=== PATIENT | female | born 1990 | race Caucasian/White ===

== ENCOUNTER 2016-04-05 22:18 | Emergency (ER) | payer OTHER ==
[~2016-04-05] VITALS: Ht 154.9 cm; Wt 109.9 kg
[~2016-04-05 22:18] MED LIST: LEXA20TA PO; METO25TA3 PO; METR-1 PO; OMEP20TA PO; QUET150XR PO
[2016-04-05 22:59] VITALS: BP 116/77; PULSE 81; RESP 18; TEMP 98.6; O2SAT 99
[2016-04-05 23:33] LABS: BLOOD, URINE TRACE (NEG); GLUCOSE,URINE NEG (NEG); KETONE, URINE NEG (NEG); NITRITE,URINE NEG (NEG); PH, URINE 5.5 (5.0-8.5)
[2016-04-05 23:39] LABS: METHOD OF COLLECTION CLEAN CATCH; MUCUS URINE MOD /lpf (OCC); URINE COLOR AMBER (YELLW/STRAW)
[2016-04-05 23:41] LABS: RBC, URINE 0-3 /hpf (0-3); WBC, URINE 0-2 /hpf (0-5)
[2016-04-05 23:43] LABS: COMMENT (UR) CULT NOT INDICATED; CULTURE IF INDICATED CULT NOT INDICATED
[2016-04-06] MEDS ORDERED: HYDR-3533 PO (00:19)
--- NOTE | 2016-04-06 00:19 | PD ---
HPI Chief Complaint: Pain: Acute or Chronic Time Seen by Provider: 23:53 Travel History International Travel<30 days: No Contact w/Intl Traveler<30days: No Traveled to known affect area: No History of Present Illness HPI 25-year-old female arrives with right low back pain. It radiates along the posterior right lower extremity to about the knee or so. Duration about 4 hours. Onset somewhat acute. It occurred at rest. it's worse with ambulation. No weakness or fall. No fever. No fecal urinary incontinence. No history of IV drug abuse. PFSH Past Medical History Hx Anticoagulant Therapy: No ADHD: Yes Autoimmune Disease: No Blood Disorders: No Bipolar Disorder: Yes Anxiety: Yes Depression: Yes Heart Rhythm Problems: Yes (SVT) Cardiac Catheterization: No Cardiovascular Problems: Yes (HEART RECORDER) High Cholesterol: No Chemotherapy: No Chest Pain: Yes Congestive Heart Failure: No Cerebrovascular Accident: No Diabetes: No Diminished Hearing: No Endocrine: No Gastrointestinal Disorders: Yes (FATTY LIVER) GERD: Yes Genitourinary: No Hepatitis: No Hiatal Hernia: No Heparin Induced Thrombocytopen: No Hypertension: No Immune Disorder: No Implanted Vascular Access Dvce: Yes (FOR HEART) Musculoskeletal: No Psychiatric: Yes (BIPOLAR) Reproductive: Yes Respiratory: No Immunizations Current: Yes Seizures: No Thyroid Disease: No Ulcer: Yes PNEUMOCCOCAL Vaccine (Year): 2 ?: Not LMP: 10 DAYS AGO Menopausal: No : 1 Para: 0 Miscarriage: 1 : 0 Ovarian Cysts: Yes Past Surgical History Abdominal Surgery: Yes (ADHESION REMOVAL) AICD: No Cardiac Surgery: No Coronary Artery Bypass Graft: No Ear Surgery: No Endocrine Surgery: No Eye Surgery: No Genitourinary Surgery: No Gynecologic Surgery: No Hysterectomy: No Joint Replacement: No Neurologic Surgery: No Oral Surgery: No Pacemaker: No Thoracic Surgery: No Other Surgery: Yes (LOOP RECORDER IMPLANT IN CHEST) Family History Family Myocardial Infarction: Yes (GRANDFATHER AT AGE 38) Social History Alcohol Use: Yes (OCC) Tobacco Use: Yes (1 PPD) Substance Use: Yes Allergies-Medications (Allergen,Severity, Reaction): Coded Allergies: No Known Allergies (Verified , 04/05/16) Reported Meds & Prescriptions Reported Meds & Active Scripts Active Lortab (Hydrocodone-Acetaminophen) 5-325 Mg Tab 1-2 Tab PO Q6H PRN Reported Omeprazole 20 Mg Tab 20 Mg PO DAILY Metoprolol Tartrate 25 Mg Tab 25 Mg PO DAILY Lexapro (Escitalopram Oxalate) 20 Mg Tab 20 Mg PO DAILY Review of Systems Except as stated in HPI: all other systems reviewed are Neg General / Constitutional: No: Fever, Chills Musculoskeletal: Positive: Pain Physical Exam Narrative GENERAL: 25-year-old female no acute distress well-nourished well-developed SKIN: Warm and dry. HEAD: Atraumatic. Normocephalic. EYES: Pupils equal and round. No scleral icterus. No injection or drainage. ENT: No nasal bleeding or discharge. Mucous membranes pink and moist. NECK: Trachea midline. No JVD. CARDIOVASCULAR: Regular rate and rhythm. No murmur appreciated. RESPIRATORY: No accessory muscle use. Clear to auscultation. Breath sounds equal bilaterally. GASTROINTESTINAL: Abdomen soft, non-tender, nondistended. Hepatic and splenic margins not palpable. MUSCULOSKELETAL: No obvious deformities. No clubbing. No cyanosis. No edema. Tenderness overlying the region of the right iliac crest. 2+ deep tendon reflexes at the patellar tendons bilaterally. No ankle clonus on either side. The patient is ambulatory with a normal gait. NEUROLOGICAL: Awake and alert. No obvious cranial nerve deficits. Motor grossly within normal limits. Normal speech. PSYCHIATRIC: Appropriate mood and affect; insight and judgment normal. Data Data Last Documented VS Vital Signs Date Time Temp Pulse Resp B/P Pulse Ox O2 Delivery O2 Flow Rate FiO2 04/05/16 22:59 98.6 81 18 116/77 99 Orders Urinalysis - C+S If Indicated (04/05/16 23:05) Ed Urine Pregnancytest Poc (04/05/16 23:05) Ketorolac Inj (Toradol Inj) (04/06/16 00:30) Acetamin-Hydrocod 325-7.5 Mg ([place] 7.5 (04/06/16 00:30) Labs Laboratory Tests Test 04/05/16 23:15 Urine Collection Type CLEAN CATCH Urine Color PEREZ Urine Turbidity SLIGHT Urine pH 5.5 Urine Specific [place] 1.028 Urine Protein NEG mg/dL Urine Glucose (UA) NEG mg/dL Urine Ketones NEG mg/dL Urine Occult Blood TRACE Urine Nitrite NEG Urine Bilirubin NEG Urine Leukocyte Esterase NEG Urine RBC 0-3 /hpf Urine WBC 0-2 /hpf Urine Squamous Epithelial 6-8 /hpf Cells Urine Mucus MOD /lpf Microscopic Urinalysis Comment CULT NOT INDICATED MDM Medical Decision Making Medical Screen Exam Complete: Yes Emergency Medical Condition: Yes Medical Record Reviewed: Yes Differential Diagnosis Sciatica, chronic pain, myofascial strain, epidural abscess Narrative Course Compression of the cord considered reasonably safely unlikely based on history and exam. Return precautions discussed. Diagnosis Primary Impression: Sciatica of right side Referrals: Farooq Martins MD 2 days Additional Instructions: You have a choice when it comes to health care, and we are glad that you chose [facility]. Hopefully, we have met your expectations on today's visit. You are welcome to return to [facility] at any time, as we are committed to meeting the health care needs of our community. Med/Other Pt SpecificInfo: Prescription(s) given Scripts Hydrocodone-Acetaminophen (Lortab)5-325 Mg Tab1-2 Tab PO Q6H PRN (PAIN SCALE 6 TO 10) #6 TAB Ref 0 Prov:Luis Solis MD 04/06/16 Disposition: DISCHARGE HOME Condition: Stable Luis Solis MD Apr 06, 2016 00:19
[2016-04-06] MEDS ORDERED: KETOROLAC TROMETHAMINE 60 MG/2 ML (IM) VIAL IM ONE (00:30)
[2016-04-06] MEDS ORDERED: ACETAMINOPHEN/HYDROcodone 325 MG/7.5 MG TAB PO ONE (00:30)
== END 2016-04-06 01:15 | disposition home or self-care (01) ==
LOC: PHED 22:18
DX: M54.31 Sciatica, right side (principal); F17.210 Nicotine dependence, cigarettes, uncomplicated; F31.9 Bipolar disorder, unspecified; F90.9 Attention-deficit hyperactivity disorder, unspecified type; F41.8 Other specified anxiety disorders; F19.10 Other psychoactive substance abuse, uncomplicated
CPT/HCPCS: 81001; 84703; 96372; 99283; J1885

== ENCOUNTER 2016-07-15 18:03 | Emergency (ER) | payer OTHER ==
[~2016-07-15] VITALS: Ht 154.9 cm; Wt 84.3 kg
[~2016-07-15 18:03] MED LIST changes: +HYDR-3533 PO; -METR-1 PO; -QUET150XR PO
[2016-07-15 18:09] VITALS: BP 109/75; PULSE 79; RESP 16; TEMP 98.4; O2SAT 99
[2016-07-15] MEDS ORDERED: LEXA20TA PO (18:18)
[2016-07-15] MEDS ORDERED: HYDR-4107 PO (18:18)
[2016-07-15] MEDS ORDERED: FLEC1TAB9 PO (18:18)
[2016-07-15] MEDS ORDERED: METO25TA3 PO (18:18)
[2016-07-15] MEDS ORDERED: SERO50TA PO (18:18)
[2016-07-15 18:33] LABS: BLOOD, URINE LARGE (NEG); GLUCOSE,URINE NEG (NEG); KETONE, URINE NEG (NEG); NITRITE,URINE NEG (NEG)
--- NOTE | 2016-07-15 18:35 | PD ---
HPI Chief Complaint: Complaint Time Seen by Provider: 18:33 Travel History International Travel<30 days: No Contact w/Intl Traveler<30days: No Traveled to known affect area: No History of Present Illness HPI Patient comes in complaining of left low back pain began earlier today while at work. Patient denies any known trauma or strenuous activity. Patient states he took her last Lortab pill for this with little improvement of symptoms. Denies any fevers, nausea, vomiting, diarrhea, abdominal pain, loss or change in bowel or bladder, vaginal discharge, or numbness or tingling anywhere. Patient states she's had similar in the past secondary to muscle spasms. Describes pain as sharp stabbing pain occasionally radiates down her left lower extremity. PFSH Past Medical History Hx Anticoagulant Therapy: No ADHD: Yes Autoimmune Disease: No Blood Disorders: No Bipolar Disorder: Yes Anxiety: Yes Depression: Yes Heart Rhythm Problems: Yes (SVT) Cardiac Catheterization: No Cardiovascular Problems: Yes (HEART RECORDER) High Cholesterol: No Chemotherapy: No Chest Pain: Yes Congestive Heart Failure: No Cerebrovascular Accident: No Diabetes: No Diminished Hearing: No Endocrine: No Gastrointestinal Disorders: Yes (FATTY LIVER) GERD: Yes Genitourinary: No Hepatitis: No Hiatal Hernia: No Heparin Induced Thrombocytopen: No Hypertension: No Immune Disorder: No Implanted Vascular Access Dvce: Yes (FOR HEART) Musculoskeletal: No Psychiatric: Yes (BIPOLAR) Reproductive: Yes Respiratory: No Immunizations Current: Yes Seizures: No Thyroid Disease: No Ulcer: Yes PNEUMOCCOCAL Vaccine (Year): 2 ?: Not LMP: LAST MONTH Menopausal: No : 1 Para: 0 Miscarriage: 1 : 0 Ovarian Cysts: Yes Past Surgical History Abdominal Surgery: Yes (ADHESION REMOVAL) AICD: No Cardiac Surgery: No Coronary Artery Bypass Graft: No Ear Surgery: No Endocrine Surgery: No Eye Surgery: No Genitourinary Surgery: No Gynecologic Surgery: No Hysterectomy: No Joint Replacement: No Neurologic Surgery: No Oral Surgery: No Pacemaker: No Thoracic Surgery: No Other Surgery: Yes (LOOP RECORDER IMPLANT IN CHEST) Family History Family Myocardial Infarction: Yes (GRANDFATHER AT AGE 38) Social History Alcohol Use: Yes (OCC) Tobacco Use: Yes (1 PPD) Substance Use: Yes (MARIJUANA) Allergies-Medications (Allergen,Severity, Reaction): Coded Allergies: No Known Allergies (Verified , 07/15/16) Reported Meds & Prescriptions Reported Meds & Active Scripts Active Lortab (Hydrocodone-Acetaminophen) 5-325 Mg Tab 1 Tab PO Q8HR PRN Zofran Odt (Ondansetron Odt) 4 Mg Tab 4 Mg SL Q6HR PRN Flomax (Tamsulosin HCl) 0.4 Mg Cap 0.4 Mg PO HS Ibuprofen 800 Mg Tab 800 Mg PO Q8H PRN Lortab (Hydrocodone-Acetaminophen) 5-325 Mg Tab 1-2 Tab PO Q6H PRN Reported Hydrocodone-Acetaminophen 5-300 Mg Tab Unknown Dose PO Q4H PRN Flecainide (Flecainide Acetate) 150 Mg Tab 500 Mg PO BID Metoprolol Tartrate 25 Mg Tab 25 Mg PO BID Lexapro (Escitalopram Oxalate) 20 Mg Tab 25 Mg PO DAILY Seroquel (Quetiapine Fumarate) 50 Mg Tab 50 Mg PO DAILY Omeprazole 20 Mg Tab 20 Mg PO DAILY Metoprolol Tartrate 25 Mg Tab 25 Mg PO DAILY Lexapro (Escitalopram Oxalate) 20 Mg Tab 20 Mg PO DAILY Review of Systems Except as stated in HPI: all other systems reviewed are Neg Physical Exam Narrative GENERAL: Well-developed, overly nourished, in no acute distress, and non-ill appearing. SKIN: Focused skin assessment warm and dry. HEAD: Atraumatic. Normocephalic. EYES: Pupils equal and round. EOMI. No scleral icterus. No injection or drainage. ENT: No nasal bleeding or discharge. Mucous membranes pink and moist. NECK: Trachea midline. Supple. No nuclear rigidity. RESPIRATORY: No accessory muscle use. No respiratory distress. GASTROINTESTINAL: Abdomen soft, non-tender, nondistended. Hepatic and splenic margins not palpable. Normal bowel sounds 4. No pulsatile mass. MUSCULOSKELETAL: No obvious deformities. No clubbing. No cyanosis. No edema. Full range of motion. No tenderness or crepitus or midline lumbar spine. Patient reports tenderness to palpation near her left SI joint. NEUROLOGICAL: Awake and alert. No obvious cranial nerve deficits. Motor grossly within normal limits. Normal speech. PSYCHIATRIC: Appropriate mood and affect; insight and judgment normal. Data Data Last Documented VS Vital Signs Date Time Temp Pulse Resp B/P Pulse Ox O2 Delivery O2 Flow Rate FiO2 07/15/16 20:27 18 07/15/16 18:09 98.4 79 109/75 99 Orders Urinalysis - C+S If Indicated (07/15/16 18:07) Ed Urine Pregnancytest Poc (07/15/16 18:27) Ondansetron Odt (Zofran Odt) (07/15/16 18:45) Ketorolac Inj (Toradol Inj) (07/15/16 18:45) Ct Abd/Pel W/O Iv Contrast (07/15/16 ) Acetamin-Hydrocod 325-5 Mg ([place] 5-325 (07/15/16 19:45) Labs Laboratory Tests Test 07/15/16 18:20 Urine Color YELLOW Urine Turbidity CLEAR Urine pH 6.0 Urine Specific [place] 1.016 Urine Protein NEG mg/dL Urine Glucose (UA) NEG mg/dL Urine Ketones NEG mg/dL Urine Occult Blood LARGE Urine Nitrite NEG Urine Bilirubin NEG Urine Leukocyte Esterase NEG Urine RBC 25-49 /hpf Urine WBC 0-2 /hpf Urine Squamous Epithelial 0-5 /hpf Cells Urine Bacteria NONE /hpf Microscopic Urinalysis Comment CULT NOT INDICATED MDM Medical Decision Making Medical Screen Exam Complete: Yes Emergency Medical Condition: Yes Differential Diagnosis UTI, , sciatica, muscle strain, other Narrative Course The patient presented with plan. Back pain. CT scan showed evidence of stone with mild hydronephrosis and hydroureter. There was no evidence to suggest obstructive infection. The patients pain was well controlled and the patient is tolerating fluids. There was no clinical evidence to support appendicitis, bowel obstruction, cholecystitis/cholelithiasis, pancreatitis, perforation of gastric ulcer, colitis, diverticulitis, bacterial peritonitis, obstruction, volvulus, hernial incarceration or strangulation at this time. There was no evidence to support vascular pathology such as AAA, mesenteric ischemia. There was also no clinical evidence by history, exam or risk factors to suggest atypical presentation of cardiac disease such as ACS, AMI or atypical angina. Diagnosis, plan of care, management and acute outpatient follow up with Urology was discussed with the patient. Warnings to return immediately, such as worsening pain not controlled by pain medications, vomiting, fever or chills or worsening of condition were discussed. The patient agreed with plan. There is no clinical evidence to suggest atypical appendicitis, or vascular pathology ( AAA, etc.). There is no clinical evidence to suggest atypical cervicitis, PID or TOA. Patient in no obvious distress upon re-evaluation. All pertinent laboratory/ Radiology result(s) discussed with patient. Patient was asked if they wanted to speak to my attending, which the patient did not wish to do at this time. Any questions/concerns in reference to patient diagnosis/condition discussed and clarified prior to patient's discharge. Reinforced sheer importance of close follow up with patient's primary physician or primary care clinic and/or urologist. Instructed patient to return to ED immediately, if symptoms return/ worsen. Pt showed understanding of above instructions. Further instructions and recommendations were detailed in discharge paperwork. Pt ambulated without difficulty out of ED at discharge. Diagnosis Primary Impression: Kidney stone on left side Referrals: Musa Ny MD Patient Instructions: General Instructions, Kidney Stones (ED) Additional Instructions: Follow-up with your primary care physician and/or urology in 3-5 days for reevaluation. Take all medication as prescribed. Drink plenty of non- caffeinated and nonalcoholic fluids. Return to the emergency department if symptoms get worse. Med/Other Pt SpecificInfo: Prescription(s) given Scripts Hydrocodone-Acetaminophen (Lortab)5-325 Mg Tab1 Tab PO Q8HR PRN (PAIN GREATER THAN 7) #7 TAB Ref 0 Prov:Levi Russo MD 07/15/16 Ondansetron Odt (Zofran Odt)4 Mg Tab4 Mg SL Q6HR PRN (Nausea/Vomiting) #12 TAB Ref 0 Prov:Levi Russo MD 07/15/16 Tamsulosin (Flomax)0.4 Mg Cap0.4 Mg PO HS #7 CAP Ref 0 Prov:Levi Russo MD 07/15/16 Ibuprofen 800 Mg [id number] Mg PO Q8H PRN (PAIN SCALE 1 TO 10) #21 TAB Ref 0 Prov:Levi Russo MD 07/15/16 Disposition: 01 DISCHARGE HOME Condition: Stable Yadiel Webber Jul 15, 2016 18:35
[2016-07-15 18:39] LABS: URINE COLOR YELLOW (YELLW/STRAW)
[2016-07-15 18:40] LABS: WBC, URINE 0-2 /hpf (0-5)
[2016-07-15 18:41] LABS: COMMENT (UR) CULT NOT INDICATED; CULTURE IF INDICATED CULT NOT INDICATED; SQUAMOUS EPITHELIAL CELL URINE 0-5 /hpf (0-5)
[2016-07-15] MEDS ORDERED: ONDANSETRON ODT 4 MG TAB PO ONE (18:45)
[2016-07-15] MEDS ORDERED: KETOROLAC TROMETHAMINE 60 MG/2 ML (IM) VIAL IM ONE (18:45)
--- NOTE | 2016-07-15 19:34 | RADHPO ---
EXAM DATE/TIME: 07/15/2016 19:05 [facility] COMPARISON: No previous studies available for comparison. INDICATIONS : Left lower back pain. ORAL CONTRAST: No oral contrast ingested. RADIATION DOSE: 24.8 CTDIvol (mGy) MEDICAL HISTORY : Myocardial infarction. Gastroesophageal reflux disease. SURGICAL HISTORY : Loop recorder. ENCOUNTER: Initial ACUITY: 1 day PAIN SCALE: 7/10 LOCATION: Left lower back. TECHNIQUE: Volumetric scanning of the abdomen and pelvis was performed. Using automated exposure control and adjustment of the mA and/or kV according to patient size, radiation dose was kept as low as reasonably achievable to obtain optimal diagnostic quality images. FINDINGS: There is mild dilatation of the left collecting system and left ureter. There does vasiliy ear to be a tiny 1 to 2 mm calcification seen at the distal left ureter just above the left UVJ. The patient appears to have three tiny 1 to 2 mm nonobstructing stones seen in the left collecting syste m. These are best seen on the coronal reconstruction images. The liver, spleen, pancreas and adrenal glands are unremarkable. The retroperitoneal structures are unremarkable. The bowel is normal for a noncontrast CT examination. The pelvic structures appear g rossly intact. The lung bases are clear. The bony structures are grossly intact. CONCLUSION: Tiny 1 to 2 mm stones seen in the distal left ureter causing mild hydronephrosis and hydroureter on the left side. Efraín Jacob MD on July 15, 2016 at 19:23 Board Certified Radiologist. This report was verified electronically.
[2016-07-15] MEDS ORDERED: ZOFR4TAB3 SL (19:43)
[2016-07-15] MEDS ORDERED: IBUP800T23 PO (19:43)
[2016-07-15] MEDS ORDERED: HYDR-3533 PO (19:43)
[2016-07-15] MEDS ORDERED: TAMS5CAP PO (19:43)
[2016-07-15] MEDS ORDERED: ACETAMINOPHEN/HYDROcodone 325 MG/5 MG TAB PO ONE (19:45)
[2016-07-15 20:27] VITALS: RESP 18
[2016-07-16] MEDS ORDERED: PROM25TA5 PO (08:24)
[2016-07-16] MEDS ORDERED: HYDR-3533 PO (08:24)
== END 2016-07-15 20:28 | disposition home or self-care (01) ==
LOC: PHEFT 18:03
DX: M54.5 Low back pain (principal); N20.0 Calculus of kidney; I47.1 Supraventricular tachycardia; F17.210 Nicotine dependence, cigarettes, uncomplicated
CPT/HCPCS: 74176; 81001; 84703; 96372; 99284; J1885

== ENCOUNTER 2016-07-16 01:58 | Emergency (ER) | payer OTHER ==
[~2016-07-16] VITALS: Ht 154.9 cm; Wt 80.0 kg
[~2016-07-16 01:58] MED LIST changes: +FLEC1TAB9 PO; +HYDR-4107 PO; +IBUP800T23 PO; +SERO50TA PO; +TAMS5CAP PO; +ZOFR4TAB3 SL
[2016-07-16 02:00] VITALS: BP 124/100; PULSE 78; RESP 18; TEMP 98.7; O2SAT 100
[2016-07-16] MEDS ORDERED: KETOROLAC TROMETHAMINE 60 MG/2 ML (IM) VIAL IM ONE (04:15)
--- NOTE | 2016-07-16 05:33 | PD ---
HPI Chief Complaint: Flank/Kidney Pain Time Seen by Provider: 04:07 Travel History International Travel<30 days: No Contact w/Intl Traveler<30days: No Traveled to known affect area: No History of Present Illness HPI 26-year-old female presents with persistent flank pain since she was at [facility] with her kidney stone. She is concerned that she has a cruise coming up on Monday and she wants to get medicine to get her through that. She states she filled her prescriptions and those are not helping. She denies any other concurrent complaints. Quality pain is sharp. Severity is severe per patient. She denies possibility of . PFSH Past Medical History Hx Anticoagulant Therapy: No ADHD: Yes Autoimmune Disease: No Blood Disorders: No Bipolar Disorder: Yes Anxiety: Yes Depression: Yes Heart Rhythm Problems: Yes (SVT) Cardiac Catheterization: No Cardiovascular Problems: Yes (HEART MONITOR) High Cholesterol: No Chemotherapy: No Chest Pain: Yes Congestive Heart Failure: No Cerebrovascular Accident: No Diabetes: No Diminished Hearing: No Endocrine: No Gastrointestinal Disorders: Yes (FATTY LIVER) GERD: Yes Genitourinary: No Hepatitis: No Hiatal Hernia: No Heparin Induced Thrombocytopen: No Hypertension: No Immune Disorder: No Implanted Vascular Access Dvce: Yes (FOR HEART) Musculoskeletal: No Psychiatric: Yes (BIPOLAR) Reproductive: Yes Respiratory: No Immunizations Current: Yes Seizures: No Thyroid Disease: No Ulcer: Yes PNEUMOCCOCAL Vaccine (Year): 2 ?: Unknown LMP: 06/02/16 Menopausal: No : 1 Para: 0 Miscarriage: 1 : 0 Ovarian Cysts: Yes Past Surgical History Abdominal Surgery: Yes (ADHESION REMOVAL) AICD: No Cardiac Surgery: Yes (STENT) Coronary Artery Bypass Graft: No Ear Surgery: No Endocrine Surgery: No Eye Surgery: No Genitourinary Surgery: No Gynecologic Surgery: No Hysterectomy: No Joint Replacement: No Neurologic Surgery: No Oral Surgery: No Pacemaker: No Thoracic Surgery: No Other Surgery: Yes (LOOP RECORDER IMPLANT IN CHEST) Family History Family Myocardial Infarction: Yes (GRANDFATHER AT AGE 38) Social History Alcohol Use: Yes (RARE) Tobacco Use: Yes (1 PPD) Substance Use: Yes (MARIJUANA) Allergies-Medications (Allergen,Severity, Reaction): Coded Allergies: No Known Allergies (Verified , 07/16/16) Reported Meds & Prescriptions Reported Meds & Active Scripts Active Lortab (Hydrocodone-Acetaminophen) 5-325 Mg Tab 1 Tab PO Q8HR PRN Zofran Odt (Ondansetron Odt) 4 Mg Tab 4 Mg SL Q6HR PRN Flomax (Tamsulosin HCl) 0.4 Mg Cap 0.4 Mg PO HS Ibuprofen 800 Mg Tab 800 Mg PO Q8H PRN Lortab (Hydrocodone-Acetaminophen) 5-325 Mg Tab 1-2 Tab PO Q6H PRN Reported Hydrocodone-Acetaminophen 5-300 Mg Tab Unknown Dose PO Q4H PRN Flecainide (Flecainide Acetate) 150 Mg Tab 500 Mg PO BID Metoprolol Tartrate 25 Mg Tab 25 Mg PO BID Lexapro (Escitalopram Oxalate) 20 Mg Tab 25 Mg PO DAILY Seroquel (Quetiapine Fumarate) 50 Mg Tab 50 Mg PO DAILY Omeprazole 20 Mg Tab 20 Mg PO DAILY Metoprolol Tartrate 25 Mg Tab 25 Mg PO DAILY Lexapro (Escitalopram Oxalate) 20 Mg Tab 20 Mg PO DAILY Review of Systems Except as stated in HPI: all other systems reviewed are Neg Physical Exam Narrative GENERAL: Well-nourished, well-developed patient. SKIN: Warm and dry. HEAD: Normocephalic and atraumatic. EYES: No injection or drainage. ENT: No nasal drainage noted. NECK: Supple, trachea midline. CARDIOVASCULAR: Regular rate and rhythm RESPIRATORY: No increased effort. No accessory muscle use. GASTROINTESTINAL: Abdomen soft, mild tenderness lower abdomen, nondistended. No rebound or guarding NEUROLOGICAL: Awake and alert. Moves all extremities. Normal speech. Data Data Last Documented VS Vital Signs Date Time Temp Pulse Resp B/P Pulse Ox O2 Delivery O2 Flow Rate FiO2 07/16/16 02:00 98.7 78 18 124/100 100 Room Air Orders Ketorolac Inj (Toradol Inj) (07/16/16 04:15) [facility] Medical Decision Making Medical Screen Exam Complete: Yes Emergency Medical Condition: Yes Medical Record Reviewed: Yes (past history confirmed) Differential Diagnosis Stone, musculoskeletal, UTI Narrative Course Workup evaluated earlier this evening with 1-2 mm distal stone. Patient will be given Toradol and reevaluate Was with another patient patient elected to leave AMA at 5 AM this morning without talking with me further Diagnosis Primary Impression: Kidney stone on left side Patient Instructions: General Instructions Departure Forms: Tests/Procedures Disposition: AGAINST MEDICAL ADVICE Condition: Stable Hird,Susana May MD Jul 16, 2016 05:33
[2016-07-16] MEDS ORDERED: PROM25TA5 PO (08:24)
[2016-07-16] MEDS ORDERED: HYDR-3533 PO (08:24)
== END 2016-07-16 05:49 | disposition left against medical advice (07) ==
LOC: NEPE 01:58
DX: N20.0 Calculus of kidney (principal); F17.200 Nicotine dependence, unspecified, uncomplicated; Z86.59 Personal history of other mental and behavioral disorders; Z86.79 Personal history of other diseases of the circulatory system; Z87.19 Personal history of other diseases of the digestive system; Z87.42 Personal history of other diseases of the female genital tract; Z53.20 Procedure and treatment not carried out because of patient's decision for unspecified reasons
CPT/HCPCS: 96372; 99283; J1885

== ENCOUNTER 2016-07-16 06:14 | Emergency (ER) | payer OTHER ==
[~2016-07-16] VITALS: Ht 154.9 cm; Wt 85.6 kg
[2016-07-16 06:23] VITALS: BP 113/73; PULSE 67; RESP 16; TEMP 98.4; O2SAT 100
[2016-07-16] MEDS ORDERED: SODIUM CHLOR 0.9% 1000 ML INJ 1,000 ML IV SCH (07:03)
--- NOTE | 2016-07-16 07:08 | PD ---
HPI Chief Complaint: Flank/Kidney Pain Time Seen by Provider: 06:57 Travel History International Travel<30 days: No Contact w/Intl Traveler<30days: No Traveled to known affect area: No History of Present Illness HPI 26-year-old female here for evaluation of left flank pain, nausea, and vomiting. The patient was seen in the emergency department yesterday, had CT abdomen and pelvis performed which showed tiny 1-2 mm stones in the distal left ureter with mild hydronephrosis and mild hydroureter. She was discharged home with pain medication, antiemetics, and Flomax. She was seen in the emergency department again at the [facility] a couple hours ago, and decided to leave AMA about 2 hours ago. Pain is sharp, constant, intermittently worse at times. She denies fevers or chills. She has felt nauseous and has had a few episodes of vomiting. She states she is supposed to leave on a cruise tomorrow and is concerned that she will have this pain while on the cruise. PFSH Past Medical History Hx Anticoagulant Therapy: No ADHD: Yes Autoimmune Disease: No Blood Disorders: No Bipolar Disorder: Yes Anxiety: Yes Depression: Yes Heart Rhythm Problems: Yes (SVT) Cardiac Catheterization: No Cardiovascular Problems: Yes (HEART MONITOR) High Cholesterol: No Chemotherapy: No Chest Pain: Yes Congestive Heart Failure: No Cerebrovascular Accident: No Diabetes: No Diminished Hearing: No Endocrine: No Gastrointestinal Disorders: Yes (FATTY LIVER) GERD: Yes Genitourinary: No Hepatitis: No Hiatal Hernia: No Heparin Induced Thrombocytopen: No Hypertension: No Immune Disorder: No Implanted Vascular Access Dvce: Yes (FOR HEART) Musculoskeletal: No Psychiatric: Yes (BIPOLAR) Reproductive: Yes Respiratory: No Immunizations Current: Yes Seizures: No Thyroid Disease: No Ulcer: Yes PNEUMOCCOCAL Vaccine (Year): 2 ?: Unknown Menopausal: No : 1 Para: 0 Miscarriage: 1 : 0 Ovarian Cysts: Yes Past Surgical History Abdominal Surgery: Yes (ADHESION REMOVAL) AICD: No Cardiac Surgery: Yes (STENT) Coronary Artery Bypass Graft: No Ear Surgery: No Endocrine Surgery: No Eye Surgery: No Genitourinary Surgery: No Gynecologic Surgery: No Hysterectomy: No Joint Replacement: No Neurologic Surgery: No Oral Surgery: No Pacemaker: No Thoracic Surgery: No Other Surgery: Yes (LOOP RECORDER IMPLANT IN CHEST) Family History Family Myocardial Infarction: Yes (GRANDFATHER AT AGE 38) Social History Alcohol Use: Yes (RARE) Tobacco Use: Yes (1 PPD) Substance Use: Yes (MARIJUANA) Allergies-Medications (Allergen,Severity, Reaction): Coded Allergies: No Known Allergies (Verified , 07/16/16) Reported Meds & Prescriptions Reported Meds & Active Scripts Active Lortab (Hydrocodone-Acetaminophen) 5-325 Mg Tab 1 Tab PO Q8HR PRN Zofran Odt (Ondansetron Odt) 4 Mg Tab 4 Mg SL Q6HR PRN Flomax (Tamsulosin HCl) 0.4 Mg Cap 0.4 Mg PO HS Ibuprofen 800 Mg Tab 800 Mg PO Q8H PRN Lortab (Hydrocodone-Acetaminophen) 5-325 Mg Tab 1-2 Tab PO Q6H PRN Reported Flecainide (Flecainide Acetate) 150 Mg Tab 500 Mg PO BID Metoprolol Tartrate 25 Mg Tab 25 Mg PO BID Seroquel (Quetiapine Fumarate) 50 Mg Tab 50 Mg PO DAILY Omeprazole 20 Mg Tab 20 Mg PO DAILY Lexapro (Escitalopram Oxalate) 20 Mg Tab 20 Mg PO DAILY Review of Systems Except as stated in HPI: all other systems reviewed are Neg Physical Exam Narrative GENERAL: Well-developed, well-nourished, no acute distress. SKIN: Focused skin assessment warm/dry. No rash. HEAD: Atraumatic. Normocephalic. EYES: Pupils equal and round. No scleral icterus. No injection or drainage. ENT: Mucous membranes pink and moist. CARDIOVASCULAR: Regular rate and rhythm. RESPIRATORY: No accessory muscle use. Clear to auscultation. Breath sounds equal bilaterally. GASTROINTESTINAL: Abdomen soft, non-tender, nondistended. MUSCULOSKELETAL: No obvious deformities. No clubbing. No cyanosis. No edema. Mild left CVA tenderness. No right CVA tenderness. No midline vertebral step- off or tenderness. NEUROLOGICAL: Awake and alert. No obvious cranial nerve deficits. Motor grossly within normal limits. Normal speech. PSYCHIATRIC: Appropriate mood and affect; insight and judgment normal. Data Data Last Documented VS Vital Signs Date Time Temp Pulse Resp B/P Pulse Ox O2 Delivery O2 Flow Rate FiO2 07/16/16 06:41 20 07/16/16 06:23 98.4 67 113/73 100 Orders Beta Hcg (Quant/Titer) (07/16/16 07:03) Complete Blood Count With Diff (07/16/16 07:03) Comprehensive Metabolic Panel (07/16/16 07:03) Urinalysis - C+S If Indicated (07/16/16 07:03) Iv Access Insert/Monitor (07/16/16 07:03) Ecg Monitoring (07/16/16 07:03) Oximetry (07/16/16 07:03) Morphine Inj (Morphine Inj) (07/16/16 07:15) Sodium Chlor 0.9% 1000 Ml Inj (Ns 1000 M (07/16/16 07:03) Sodium Chloride 0.9% Flush (Ns Flush) (07/16/16 07:15) Promethazine (Phenergan) (07/16/16 07:15) Labs Laboratory Tests Test 07/16/16 07:44 White Blood Count 14.4 TH/MM3 Red Blood Count 4.29 MIL/MM3 Hemoglobin 12.4 GM/DL Hematocrit 36.4 % Mean Corpuscular Volume 84.9 FL Mean Corpuscular Hemoglobin 28.8 PG Mean Corpuscular Hemoglobin 33.9 % Concent Red Cell Distribution Width 13.9 % Platelet Count 326 TH/MM3 Mean Platelet Volume 8.0 FL Neutrophils (%) (Auto) 72.9 % Lymphocytes (%) (Auto) 21.6 % Monocytes (%) (Auto) 3.7 % Eosinophils (%) (Auto) 1.3 % Basophils (%) (Auto) 0.5 % Neutrophils # (Auto) 10.5 TH/MM3 Lymphocytes # (Auto) 3.1 TH/MM3 Monocytes # (Auto) 0.5 TH/MM3 Eosinophils # (Auto) 0.2 TH/MM3 Basophils # (Auto) 0.1 TH/MM3 CBC Comment DIFF FINAL Differential Comment Urine Collection Type CLEAN CATCH Urine Color YELLOW Urine Turbidity CLEAR Urine pH 6.0 Urine Specific [place] 1.020 Urine Protein NEG mg/dL Urine Glucose (UA) NEG mg/dL Urine Ketones NEG mg/dL Urine Occult Blood NEG Urine Nitrite NEG Urine Bilirubin NEG Urine Leukocyte Esterase NEG Urine Squamous Epithelial 6-8 /hpf Cells Urine Amorphous Sediment MOD Microscopic Urinalysis Comment CULT NOT INDICATED Urine Collection Time 0744 Sodium Level 141 MEQ/L Potassium Level 3.8 MEQ/L Chloride Level 105 MEQ/L Carbon Dioxide Level 25.7 MEQ/L Anion Gap 10 MEQ/L Blood Urea Nitrogen 17 MG/DL Creatinine 1.00 MG/DL Estimat Glomerular Filtration 66 ML/MIN Rate Random Glucose 105 MG/DL Calcium Level 8.4 MG/DL Total Bilirubin 0.3 MG/DL Aspartate Amino Transf 27 U/L (AST/SGOT) Alanine Aminotransferase 33 U/L (ALT/SGPT) Alkaline Phosphatase 67 U/L Total Protein 6.9 GM/DL Albumin 3.4 GM/DL Human Chorionic Gonadotropin, LESS THAN 1 Quant MIU/ML [facility] Medical Decision Making Medical Screen Exam Complete: Yes Emergency Medical Condition: Yes Differential Diagnosis Ureterolithiasis, pyelonephritis, hydronephrosis Narrative Course Vital signs are within normal limits. CBC shows WBC 14.4, hemoglobin 12.4, hematocrit 36.4, platelets 326. CMP is unremarkable. Beta hCG is negative. UA shows epithelial cells, moderate amorphous sediment, no blood, not suggestive of UTI. Patient was given a liter of normal saline, Phenergan, and morphine, and is feeling much better. She is stable for discharge home with outpatient follow- up with her primary care physician this week. She was informed on when to return to the emergency department. She verbalizes understanding and agreement with plan. Diagnosis Primary Impression: Kidney stone on left side Additional Impression: Nausea and vomiting Qualified Code: R11.2 - Non-intractable vomiting with nausea, unspecified vomiting type Referrals: Musa Ny MD 1 week Urologist Primary Care Physician 3 days Additional Instructions: Follow-up with your primary care physician this week. Follow-up with urologist Dr. Ny or urologist of your choice this week. Return to the emergency department for worsening symptoms or any other concerns. Scripts Promethazine (Phenergan)25 Mg Tab25 Mg PO Q6H PRN (Nausea/Vomiting) #20 TAB Ref 0 Prov:Jitendra Molina MD 07/16/16 Hydrocodone-Acetaminophen (Lortab)5-325 Mg Tab1 Tab PO Q6H PRN (PAIN) #15 TAB Ref 0 Prov:Jitendra Molina MD 07/16/16 Disposition: 01 DISCHARGE HOME Condition: Stable Jitendra Molina MD Jul 16, 2016 07:08
[2016-07-16 07:15] VITALS: RESP 16; O2SAT 99
[2016-07-16] MEDS ORDERED: PROMETHAZINE HCL 25 MG TAB PO ONE (07:15)
[2016-07-16] MEDS ORDERED: MORPHINE SULFATE 4 MG/ML INJ IV PUSH ONE ×2 (07:15→08:45)
[2016-07-16] MEDS ORDERED: SODIUM CHLORIDE 0.9% FLUSH 10 ML FLUSH IV FLUSH PRN (07:15)
[2016-07-16 07:48] LABS: AUTOMATED NEUTROPHIL # 10.5 TH/MM3 (1.8-7.7); BASOPHIL # 0.1 TH/MM3 (0-0.2); BASOPHIL % 0.5 % (0.0-2.0); EOSINOPHIL # 0.2 TH/MM3 (0-0.4); EOSINOPHIL % 1.3 % (0.0-4.0); HEMATOCRIT 36.4 % (35.0-46.0); LYMPH % 21.6 % (9.0-44.0); LYMPHOCYTE # 3.1 TH/MM3 (1.0-4.8); MEAN CELL VOLUME 84.9 FL (80.0-100.0); MEAN CORPUSCULAR HEMOGLOBIN 28.8 PG (27.0-34.0); MEAN CORPUSCULAR HGB CONC 33.9 % (32.0-36.0); MONO % 3.7 % (0.0-8.0); NEUT % 72.9 % (16.0-70.0); PLATELET COUNT 326 TH/MM3 (150-450); RED BLOOD COUNT 4.29 MIL/MM3 (4.00-5.30); RED CELL DISTRIBUTION WIDTH 13.9 % (11.6-17.2); WHITE BLOOD COUNT 14.4 TH/MM3 (4.0-11.0)
[2016-07-16 07:51] LABS: BLOOD, URINE NEG (NEG); GLUCOSE,URINE NEG (NEG); KETONE, URINE NEG (NEG); NITRITE,URINE NEG (NEG)
[2016-07-16 07:52] LABS: HEMO FLAGS DIFF FINAL
[2016-07-16 07:56] LABS: METHOD OF COLLECTION CLEAN CATCH; URINE COLOR YELLOW (YELLW/STRAW)
[2016-07-16 07:57] LABS: COMMENT (UR) CULT NOT INDICATED; CULTURE IF INDICATED CULT NOT INDICATED
[2016-07-16 07:58] LABS: CHLORIDE 105 MEQ/L (98-107); COMMENT2 (UR) MUCOUS PRESENT; POTASSIUM 3.8 MEQ/L (3.5-5.1); SODIUM (NA) 141 MEQ/L (136-145)
[2016-07-16 08:02] LABS: ANION GAP 10 MEQ/L (5-15); BICARBONATE 25.7 MEQ/L (21.0-32.0)
[2016-07-16 08:03] LABS: BLOOD UREA NITROGEN 17 MG/DL (7-18)
[2016-07-16 08:05] LABS: ALT (GPT) 33 U/L (10-53); AST (GOT) 27 U/L (15-37)
[2016-07-16 08:06] LABS: GLOMERULAR FILTRATION RATE 66 ML/MIN (>89)
[2016-07-16 08:07] LABS: TOTAL BILIRUBIN ADULT 0.3 MG/DL (0.2-1.0)
[2016-07-16 08:08] LABS: ALKALINE PHOSPHATASE 67 U/L (45-117)
[2016-07-16 08:10] LABS: BETA HCG QUANT LESS THAN 1 MIU/ML (0-5)
[2016-07-16] MEDS ORDERED: HYDR-3533 PO (08:24)
[2016-07-16] MEDS ORDERED: PROM25TA5 PO (08:24)
[2016-07-16 09:30] VITALS: RESP 16
[2016-07-16 09:35] VITALS: BP 109/69
== END 2016-07-16 09:48 | disposition home or self-care (01) ==
LOC: PHED 06:14
DX: N20.0 Calculus of kidney (principal)
CPT/HCPCS: 80053; 81001; 84702; 85025; 96361; 96374; 96376; 99284; J2270; J7030; Q0169

== ENCOUNTER 2016-07-24 22:51 | Emergency (ER) | payer OTHER ==
[~2016-07-24] VITALS: Ht 154.9 cm; Wt 85.5 kg
[~2016-07-24 22:51] MED LIST changes: -HYDR-4107 PO; +PROM25TA5 PO
[2016-07-24 23:14] VITALS: BP 109/77; PULSE 77; RESP 14; TEMP 98.1; O2SAT 99
[2016-07-24] MEDS ORDERED: KETOROLAC TROMETHAMINE 60 MG/2 ML (IM) VIAL IM ONE (23:30)
[2016-07-24] MEDS ORDERED: ONDANSETRON ODT 4 MG TAB PO ONE (23:30)
[2016-07-24] MEDS ORDERED: NAPR500 PO (23:40)
[2016-07-24] MEDS ORDERED: ZOFR4TAB3 SL (23:40)
--- NOTE | 2016-07-24 23:41 | PD ---
HPI Chief Complaint: left flank pain Time Seen by Provider: 23:23 Travel History International Travel<30 days: No Contact w/Intl Traveler<30days: No History of Present Illness HPI To 26 year-old woman presents to the emergency department complaining of ongoing left flank pain. She had a couple tiny 1 stones in her left ureter I did a last month. She states is been hurting since. She went on a cruise and had pain. She's had vomiting as well. She continues to have palpitations. History Past Medical History Narrative Medical Palpitations PNEUMOCCOCAL Vaccine (Year): 2 Menopausal: No : 1 Para: 0 Social History Alcohol Use: Yes (RARE) Tobacco Use: Yes (1 PPD) Allergies-Medications (Allergen,Severity, Reaction): Coded Allergies: No Known Allergies (Verified , 07/16/16) Reported Meds & Prescriptions Reported Meds & Active Scripts Active Phenergan (Promethazine HCl) 25 Mg Tab 25 Mg PO Q6H PRN Lortab (Hydrocodone-Acetaminophen) 5-325 Mg Tab 1 Tab PO Q6H PRN Lortab (Hydrocodone-Acetaminophen) 5-325 Mg Tab 1 Tab PO Q8HR PRN Zofran Odt (Ondansetron Odt) 4 Mg Tab 4 Mg SL Q6HR PRN Flomax (Tamsulosin HCl) 0.4 Mg Cap 0.4 Mg PO HS Ibuprofen 800 Mg Tab 800 Mg PO Q8H PRN Lortab (Hydrocodone-Acetaminophen) 5-325 Mg Tab 1-2 Tab PO Q6H PRN Reported Flecainide (Flecainide Acetate) 150 Mg Tab 500 Mg PO BID Metoprolol Tartrate 25 Mg Tab 25 Mg PO BID Seroquel (Quetiapine Fumarate) 50 Mg Tab 50 Mg PO DAILY Omeprazole 20 Mg Tab 20 Mg PO DAILY Lexapro (Escitalopram Oxalate) 20 Mg Tab 20 Mg PO DAILY Review of Systems Except as stated in HPI: all other systems reviewed are Neg Physical Exam Narrative GENERAL: Well-appearing 18 year-old woman, no acute distress. Appears well- hydrated. NECK: Trachea midline. No JVD. CARDIOVASCULAR: Warm and well perfused. RESPIRATORY: Normal rate and effort. GASTROINTESTINAL: Abdomen is obese and soft. No significant tenderness. MUSCULOSKELETAL: No obvious deformities. Data Data Last Documented VS Vital Signs Date Time Temp Pulse Resp B/P Pulse Ox O2 Delivery O2 Flow Rate FiO2 07/24/16 23:14 98.1 77 14 109/77 99 Orders Ed Poc Ultrasound (07/24/16 ) Ketorolac Inj (Toradol Inj) (07/24/16 23:30) Ondansetron Odt (Zofran Odt) (07/24/16 23:30) MDM Medical Decision Making Medical Screen Exam Complete: Yes Emergency Medical Condition: Yes Differential Diagnosis Renal lithiasis, joint chronic abdominal pain, abdominal pain, UTI, other Narrative Course Medical decision making This 26 year-old woman persistent left flank pain. She had tiny stones on the left side. She is following up with urologist as an outpatient. She is out of Lortab. Procedures Procedure Narrative Point of care ultrasound: Focus transabdominal ultrasound performed by me at the bedside is no significant hydronephrosis on the left. Diagnosis Primary Impression: Kidney stone on left side Additional Instructions: Take Naprosyn as prescribed. The Zofran if needed for nausea or vomiting. Albeit her primary doctor in the next 2-4 days. Med/Other Pt SpecificInfo: Prescription(s) given Scripts Ondansetron Odt (Zofran Odt)4 Mg Tab4 Mg SL Q8HR PRN (Nausea/Vomiting) #15 TAB May substitute non-ODT form. Prov:Davide Perry MD 07/24/16 Naproxen (Naprosyn)500 Mg [id number] Mg PO BID PRN (PAIN SCALE 1 TO 10) #20 TAB Prov:Davide Perry MD 07/24/16 Disposition: 01 DISCHARGE HOME Condition: Stable Davide Perry MD July 24, 2016 23:41
[2016-07-25 00:09] VITALS: BP 110/74
[2016-07-25] MEDS ORDERED: HYDR-3533 PO (23:43)
== END 2016-07-25 00:11 | disposition home or self-care (01) ==
LOC: PHED 22:51
DX: N20.0 Calculus of kidney (principal); F17.210 Nicotine dependence, cigarettes, uncomplicated
CPT/HCPCS: 96372; 99283; J1885

== ENCOUNTER 2016-07-25 22:37 | Emergency (ER) | payer OTHER ==
[~2016-07-25] VITALS: Ht 154.9 cm; Wt 83.0 kg
[~2016-07-25 22:37] MED LIST changes: +NAPR500 PO
[2016-07-25 22:43] VITALS: BP 100/68; PULSE 71; RESP 16; TEMP 97.8; O2SAT 100
[2016-07-25 22:56] LABS: BLOOD, URINE TRACE (NEG); GLUCOSE,URINE NEG (NEG); KETONE, URINE NEG (NEG); NITRITE,URINE NEG (NEG)
[2016-07-25 23:11] LABS: MUCUS URINE FEW /lpf (OCC); SQUAMOUS EPITHELIAL CELL URINE > 8 /hpf (0-5); URINE COLOR YELLOW (YELLW/STRAW)
[2016-07-25 23:12] LABS: BACTERIA, URINE OCC /hpf; RBC, URINE 0-3 /hpf (0-3)
[2016-07-25 23:13] LABS: COMMENT (UR) CULT NOT INDICATED; CULTURE IF INDICATED CULT NOT INDICATED
[2016-07-25 23:21] VITALS: BP 106/68; PULSE 71; RESP 18; TEMP 97.8; O2SAT 100
--- NOTE | 2016-07-25 23:41 | PD ---
HPI Chief Complaint: Flank/Kidney Pain Time Seen by Provider: 23:24 Travel History International Travel<30 days: Yes Contact w/Intl Traveler<30days: Yes Name of Country Traveled to: [place] Traveled to known affect area: Yes History of Present Illness HPI This 26-year-old female has been having some intermittent left flank pain. She was here on July 15 and was diagnosed with kidney stones. She had a CT scan which showed tiny 1-2 mm stones seen in the distal left ureter causing mild hydronephrosis and hydroureter. She has been here several times since for pain control. She says it today she's been having vomiting and diarrhea and has been having trouble and down her pain medication. She is having some left lower quadrant pain. She has significant urination. She has not had fever or chills. She has had multiple kidney stones in the past as well as other medical issues. PFSH Past Medical History Hx Anticoagulant Therapy: No ADHD: Yes Autoimmune Disease: No Blood Disorders: No Bipolar Disorder: Yes Anxiety: Yes Depression: Yes Heart Rhythm Problems: Yes (SVT) Cardiac Catheterization: No Cardiovascular Problems: Yes (HEART MONITOR) High Cholesterol: No Chemotherapy: No Chest Pain: Yes Congestive Heart Failure: No Cerebrovascular Accident: No Diabetes: No Diminished Hearing: No Endocrine: No Gastrointestinal Disorders: Yes (FATTY LIVER) GERD: Yes Genitourinary: No Hepatitis: No Hiatal Hernia: No Heparin Induced Thrombocytopen: No Hypertension: No Immune Disorder: No Implanted Vascular Access Dvce: Yes (FOR HEART) Musculoskeletal: No Psychiatric: Yes (BIPOLAR) Reproductive: Yes Respiratory: No Immunizations Current: Yes Seizures: No Thyroid Disease: No Ulcer: Yes Tetanus Vaccination: < 5 Years Influenza Vaccination: Yes PNEUMOCCOCAL Vaccine (Year): 2 ?: Not LMP: 2 WEEKS AGO Menopausal: No : 1 Para: 0 Miscarriage: 1 : 0 Ovarian Cysts: Yes Past Surgical History Abdominal Surgery: Yes (ADHESION REMOVAL) AICD: No Cardiac Surgery: Yes (STENT) Coronary Artery Bypass Graft: No Ear Surgery: No Endocrine Surgery: No Eye Surgery: No Genitourinary Surgery: No Gynecologic Surgery: No Hysterectomy: No Joint Replacement: No Neurologic Surgery: No Oral Surgery: No Pacemaker: No Thoracic Surgery: No Other Surgery: Yes (LOOP RECORDER IMPLANT IN CHEST) Family History Family Myocardial Infarction: Yes (GRANDFATHER AT AGE 38) Social History Alcohol Use: Yes (RARE) Tobacco Use: Yes (1 PPD) Substance Use: Yes (MARIJUANA) Allergies-Medications (Allergen,Severity, Reaction): Coded Allergies: No Known Allergies (Verified , 07/25/16) Reported Meds & Prescriptions Reported Meds & Active Scripts Active Zofran Odt (Ondansetron Odt) 4 Mg Tab 4 Mg SL Q8HR PRN May substitute non-ODT form. Naprosyn (Naproxen) 500 Mg Tab 500 Mg PO BID PRN Ibuprofen 800 Mg Tab 800 Mg PO Q8H PRN Reported Flecainide (Flecainide Acetate) 150 Mg Tab 500 Mg PO BID Metoprolol Tartrate 25 Mg Tab 25 Mg PO BID Seroquel (Quetiapine Fumarate) 50 Mg Tab 50 Mg PO DAILY Omeprazole 20 Mg Tab 20 Mg PO DAILY Lexapro (Escitalopram Oxalate) 20 Mg Tab 20 Mg PO DAILY Review of Systems General / Constitutional: No: Fever, Chills Eyes: No: Diploplia, Blurred Vision HENT: No: Headaches, Vertigo Cardiovascular: No: Chest Pain or Discomfort, Palpitations Respiratory: No: Cough, Shortness of Breath Gastrointestinal: Positive: Vomiting, Diarrhea, Abdominal Pain Genitourinary: No: Urgency, Frequency Musculoskeletal: No: Myalgias, Arthralgias Skin: No Rash, No Itching Neurologic: No: Weakness Hematologic/Lymphatic: No: Easy Bruising Physical Exam Narrative GENERAL: Well-developed female SKIN: Focused skin assessment warm/dry. HEAD: Atraumatic. Normocephalic. EYES: Pupils equal and round. No scleral icterus. No injection or drainage. ENT: No nasal bleeding or discharge. Mucous membranes pink and moist. NECK: Trachea midline. No JVD. CARDIOVASCULAR: Regular rate and rhythm. No murmur appreciated. RESPIRATORY: No accessory muscle use. Clear to auscultation. Breath sounds equal bilaterally. GASTROINTESTINAL: Abdomen soft, , nondistended. Hepatic and splenic margins not palpable. There is some mild left lower quadrant tenderness without guarding or rigidity MUSCULOSKELETAL: No obvious deformities. No clubbing. No cyanosis. No edema. NEUROLOGICAL: Awake and alert. No obvious cranial nerve deficits. Motor grossly within normal limits. Normal speech. PSYCHIATRIC: Appropriate mood and affect; insight and judgment normal. Data Data Last Documented VS Vital Signs Date Time Temp Pulse Resp B/P Pulse Ox O2 Delivery O2 Flow Rate FiO2 07/25/16 23:24 71 18 07/25/16 23:21 97.8 106/68 100 Orders Urinalysis - C+S If Indicated (07/25/16 22:46) Complete Blood Count With Diff (07/25/16 23:37) Basic Metabolic Panel (Bmp) (07/25/16 23:37) Sodium Chlor 0.9% 1000 Ml Inj (Ns 1000 M (07/25/16 23:45) Ondansetron Inj (Zofran Inj) (07/25/16 23:45) Hydromorphone Pf Inj (Dilaudid Pf Inj) (07/25/16 23:45) Labs Laboratory Tests Test 07/25/16 22:45 Urine Color YELLOW Urine Turbidity CLEAR Urine pH 6.0 Urine Specific [place] 1.010 Urine Protein NEG mg/dL Urine Glucose (UA) NEG mg/dL Urine Ketones NEG mg/dL Urine Occult Blood TRACE Urine Nitrite NEG Urine Bilirubin NEG Urine Leukocyte Esterase NEG Urine RBC 0-3 /hpf Urine Squamous Epithelial > 8 /hpf Cells Urine Bacteria OCC /hpf Urine Mucus FEW /lpf Microscopic Urinalysis Comment CULT NOT INDICATED MDM Medical Decision Making Medical Screen Exam Complete: Yes Emergency Medical Condition: Yes Medical Record Reviewed: Yes Differential Diagnosis Differential includes renal colic, gastroenteritis, Narrative Course Patient has been diagnosed with a kidney stone recently. Pain control been difficult today because she's been vomiting. She'll be given some IV fluids and Zofran and Dilaudid. Diagnosis Primary Impression: Kidney stone on left side Additional Impression: Nausea and vomiting Qualified Code: R11.2 - Nausea and vomiting, intractability of vomiting not specified, unspecified vomiting type Scripts Hydrocodone-Acetaminophen (Lortab)5-325 Mg Tab1-2 Tab PO Q6H PRN (PAIN SCALE 6 TO 10) #30 TAB Ref 0 Prov:Logan Miranda MD 07/25/16 Disposition: 01 DISCHARGE HOME Condition: Stable Logan Miranda MD July 25, 2016 23:41
[2016-07-25] MEDS ORDERED: HYDR-3533 PO (23:43)
[2016-07-25] MEDS ORDERED: ONDANSETRON HCL 4 MG/2 ML VIAL IV PUSH ONE (23:45)
[2016-07-25] MEDS ORDERED: HYDROmorphone HCL PF 1 MG/ML VIAL IV PUSH ONE (23:45)
[2016-07-25] MEDS ORDERED: SODIUM CHLOR 0.9% 1000 ML INJ 1,000 ML IV ONE (23:45)
[2016-07-26 00:15] LABS: AUTOMATED NEUTROPHIL # 9.1 TH/MM3 (1.8-7.7); BASOPHIL # 0.1 TH/MM3 (0-0.2); BASOPHIL % 0.7 % (0.0-2.0); EOSINOPHIL # 0.3 TH/MM3 (0-0.4); EOSINOPHIL % 2.3 % (0.0-4.0); HEMATOCRIT 37.1 % (35.0-46.0); LYMPH % 30.1 % (9.0-44.0); LYMPHOCYTE # 4.3 TH/MM3 (1.0-4.8); MEAN CORPUSCULAR HEMOGLOBIN 28.7 PG (27.0-34.0); MEAN CORPUSCULAR HGB CONC 33.8 % (32.0-36.0); MONO % 2.8 % (0.0-8.0); NEUT % 64.1 % (16.0-70.0); PLATELET COUNT 375 TH/MM3 (150-450); RED BLOOD COUNT 4.37 MIL/MM3 (4.00-5.30); RED CELL DISTRIBUTION WIDTH 13.8 % (11.6-17.2); WHITE BLOOD COUNT 14.2 TH/MM3 (4.0-11.0)
[2016-07-26 00:20] LABS: HEMO FLAGS DIFF FINAL
[2016-07-26 00:23] LABS: POTASSIUM 3.6 MEQ/L (3.5-5.1)
[2016-07-26 00:25] LABS: BICARBONATE 27.2 MEQ/L (21.0-32.0)
[2016-07-26 00:43] VITALS: BP 103/77; PULSE 85; RESP 18; O2SAT 98
[2016-07-26 01:27] VITALS: RESP 18
[2016-07-26 01:30] VITALS: BP 120/71
== END 2016-07-26 01:32 | disposition home or self-care (01) ==
LOC: PHED 22:37
DX: N20.0 Calculus of kidney (principal)
CPT/HCPCS: 80048; 81001; 85025; 96361; 96374; 96375; 99284; J1170; J2405; J7030

== ENCOUNTER 2016-07-29 00:46 | Emergency (ER) | payer OTHER ==
[~2016-07-29] VITALS: Ht 154.9 cm; Wt 80.0 kg
[~2016-07-29 00:46] MED LIST changes: -PROM25TA5 PO; -TAMS5CAP PO
[2016-07-29 00:50] VITALS: BP 108/64; PULSE 62; RESP 18; TEMP 98; O2SAT 100
--- NOTE | 2016-07-29 01:57 | PD ---
HPI Chief Complaint: Chest Pain Time Seen by Provider: 01:04 Travel History International Travel<30 days: No Contact w/Intl Traveler<30days: No Traveled to known affect area: No History of Present Illness HPI 26-year-old female complains of chest pain. Patient states the pain started about 45 minutes prior to arrival. Patient states the pain aching pain and sharp pain started substernal area with radiation to left side and to the left upper back and down the left arm. Patient states that she has numbness sensation left-sided body and feeling something stuck on the throat. EMS was called. Patient was given aspirin 162 mg by mouth and one spray of nitroglycerin. Patient states that the chest pain is better now. Patient states that she has intermittent chest pain for the past year and a half. Patient has been seen by her personal physician for chest pain. Patient denies any history of hypertension, diabetes, dyslipidemia. Patient has history of bipolar disorder, SVT, GERD. PFSH Past Medical History Hx Anticoagulant Therapy: No ADHD: Yes Autoimmune Disease: No Blood Disorders: No Bipolar Disorder: Yes Anxiety: Yes Depression: Yes Heart Rhythm Problems: Yes (SVT) Cardiac Catheterization: No Cardiovascular Problems: Yes (HEART MONITOR) High Cholesterol: No Chemotherapy: No Chest Pain: Yes Congestive Heart Failure: No Cerebrovascular Accident: No Diabetes: No Diminished Hearing: No Endocrine: No Gastrointestinal Disorders: Yes (FATTY LIVER) GERD: Yes Genitourinary: No Hepatitis: No Hiatal Hernia: No Heparin Induced Thrombocytopen: No Hypertension: No Immune Disorder: No Implanted Vascular Access Dvce: Yes (FOR HEART) Musculoskeletal: No Psychiatric: Yes (BIPOLAR) Reproductive: Yes Respiratory: No Immunizations Current: Yes Seizures: No Thyroid Disease: No Ulcer: Yes Influenza Vaccination: No PNEUMOCCOCAL Vaccine (Year): 2 ?: Not LMP: June 2016 Menopausal: No : 1 Para: 0 Miscarriage: 1 : 0 Ovarian Cysts: Yes Past Surgical History Abdominal Surgery: Yes (ADHESION REMOVAL) AICD: No Cardiac Surgery: Yes (STENT) Coronary Artery Bypass Graft: No Ear Surgery: No Endocrine Surgery: No Eye Surgery: No Genitourinary Surgery: No Gynecologic Surgery: No Hysterectomy: No Joint Replacement: No Neurologic Surgery: No Oral Surgery: No Pacemaker: No Thoracic Surgery: No Other Surgery: Yes (LOOP RECORDER IMPLANT IN CHEST) Family History Family Myocardial Infarction: Yes (GRANDFATHER AT AGE 38) Social History Alcohol Use: Yes (RARE) Tobacco Use: Yes (1 PPD) Substance Use: Yes (MARIJUANA) Allergies-Medications (Allergen,Severity, Reaction): Coded Allergies: No Known Allergies (Verified , 07/29/16) Reported Meds & Prescriptions Reported Meds & Active Scripts Active Lortab (Hydrocodone-Acetaminophen) 5-325 Mg Tab 1-2 Tab PO Q6H PRN Zofran Odt (Ondansetron Odt) 4 Mg Tab 4 Mg SL Q8HR PRN May substitute non-ODT form. Reported Flecainide (Flecainide Acetate) 150 Mg Tab 500 Mg PO BID Metoprolol Tartrate 25 Mg Tab 25 Mg PO BID Seroquel (Quetiapine Fumarate) 50 Mg Tab 50 Mg PO DAILY Lexapro (Escitalopram Oxalate) 20 Mg Tab 20 Mg PO DAILY Review of Systems General / Constitutional: No: Fever Eyes: No: Visual changes HENT: No: Headaches Cardiovascular: Positive: Chest Pain or Discomfort Respiratory: No: Shortness of Breath Gastrointestinal: No: Abdominal Pain Genitourinary: No: Dysuria Musculoskeletal: No: Pain Skin: No Rash Neurologic: No: Weakness Psychiatric: No: Depression Endocrine: No: Polydipsia Hematologic/Lymphatic: No: Easy Bruising Physical Exam Narrative GENERAL: Well-nourished, well-developed patient. SKIN: Focused skin assessment warm/dry. HEAD: Normocephalic. EYES: No scleral icterus. No injection or drainage. NECK: Supple, trachea midline. No JVD or lymphadenopathy. CARDIOVASCULAR: Regular rate and rhythm without murmurs, gallops, or rubs. RESPIRATORY: Breath sounds equal bilaterally. No accessory muscle use. GASTROINTESTINAL: Abdomen soft, non-tender, nondistended. MUSCULOSKELETAL: No cyanosis, or edema. BACK: Nontender without obvious deformity. No CVA tenderness. Neurologic exam normal. Data Data Last Documented VS Vital Signs Date Time Temp Pulse Resp B/P Pulse Ox O2 Delivery O2 Flow Rate FiO2 07/29/16 00:50 98.0 62 18 108/64 100 Orders Complete Blood Count With Diff (07/29/16 01:36) Comprehensive Metabolic Panel (07/29/16 01:36) Creatine Kinase (Cpk) (07/29/16 01:36) Troponin I (07/29/16 01:36) Prothrombin Time / Inr (Pt) (07/29/16 01:36) Act Partial Throm Time (Ptt) (07/29/16 01:36) Chest, Single Ap (07/29/16 01:36) Iv Access Insert/Monitor (07/29/16 01:36) Ecg Monitoring (07/29/16 01:36) Oximetry (07/29/16 01:36) MDM Medical Decision Making Medical Screen Exam Complete: Yes Emergency Medical Condition: Yes Interpretation(s) 1:56 AM. EKG shows sinus rhythm nonspecific ST-T wave change. Differential Diagnosis Differential diagnosis including atypical chest pain, angina, IA, PE, pneumothorax. Narrative Course 26-year-old female with chest pain. History of recurrent chest pain for the past year and a half. Patient was advised to have x-ray and blood test done. Patient decided to leave AMA. Diagnosis Primary Impression: Chest pain Qualified Code: R07.9 - Chest pain, unspecified type Additional Instructions: Patient left AMA Disposition: 07 AGAINST MEDICAL ADVICE Condition: Clemente Cuevas MD July 29, 2016 01:56
--- NOTE | 2016-07-29 08:17 | EKG ---
Date Performed: 07/29/2016 Time Performed: 00:55:15 PTAGE: 26 years EKG: Sinus rhythm WITH SINUS ARRHYTHMIA NORMAL ECG NO SIGNIFICANT CHANGE FROM PRIOR ELECTROCARDIOGRAM. PREVIOUS TRACING : 03/13/2016 11.59 DOCTOR: Alex Jeong Interpretating Date/Time 07/29/2016 08:16:58
== END 2016-07-29 01:52 | disposition left against medical advice (07) ==
LOC: NEPC 00:46
DX: R07.9 Chest pain, unspecified (principal); I47.1 Supraventricular tachycardia; F17.210 Nicotine dependence, cigarettes, uncomplicated; F12.90 Cannabis use, unspecified, uncomplicated
CPT/HCPCS: 93005; 99284

== ENCOUNTER 2016-08-15 22:39 | Emergency (ER) | payer OTHER ==
[~2016-08-15] VITALS: Ht 154.9 cm; Wt 87.6 kg
[~2016-08-15 22:39] MED LIST changes: -IBUP800T23 PO; -NAPR500 PO; -OMEP20TA PO
--- NOTE | 2016-08-15 23:04 | PD ---
HPI Chief Complaint: chest pain Time Seen by Provider: 22:52 Travel History International Travel<30 days: No Contact w/Intl Traveler<30days: No Traveled to known affect area: No History of Present Illness HPI The patient is a 26-year-old female who presents emergency department for chest pain. The patient notes an intermittent history of chest pain over the last month, worse over the last 2 days which is left-sided, sharp, pleuritic, nonradiating. She does complain of mild shortness of breath, denies any nausea , vomiting, or diaphoresis. The patient does smoke, a pack per cigarettes daily , denies any known history of coronary artery disease, hypertension, or hyperlipidemia. The patient was evaluated for chest pain earlier this month at [facility], signed out AGAINST MEDICAL ADVICE prior to workup being performed. The patient also complains of chronic low back pain and lower aspect of her right back which is worse with palpation and certain types of movement. The patient does have a history of previous nephrolithiasis but denies any current dysuria, frequency, urgency, or hematuria. PFSH Past Medical History Hx Anticoagulant Therapy: No ADHD: Yes Autoimmune Disease: No Blood Disorders: No Bipolar Disorder: Yes Anxiety: Yes Depression: Yes Heart Rhythm Problems: Yes (SVT) Cardiac Catheterization: No Cardiovascular Problems: Yes (HEART MONITOR) High Cholesterol: No Chemotherapy: No Chest Pain: Yes Congestive Heart Failure: No Cerebrovascular Accident: No Diabetes: No Diminished Hearing: No Endocrine: No Gastrointestinal Disorders: Yes (FATTY LIVER) GERD: Yes Genitourinary: No Hepatitis: No Hiatal Hernia: No Heparin Induced Thrombocytopen: No Hypertension: No Immune Disorder: No Implanted Vascular Access Dvce: Yes (FOR HEART) Musculoskeletal: No Psychiatric: Yes (BIPOLAR) Reproductive: Yes Respiratory: No Immunizations Current: Yes Seizures: No Thyroid Disease: No Ulcer: Yes PNEUMOCCOCAL Vaccine (Year): 2 Menopausal: No : 1 Para: 0 Miscarriage: 1 : 0 Ovarian Cysts: Yes Past Surgical History Abdominal Surgery: Yes (ADHESION REMOVAL) AICD: No Cardiac Surgery: Yes (STENT) Coronary Artery Bypass Graft: No Ear Surgery: No Endocrine Surgery: No Eye Surgery: No Genitourinary Surgery: No Gynecologic Surgery: No Hysterectomy: No Joint Replacement: No Neurologic Surgery: No Oral Surgery: No Pacemaker: No Thoracic Surgery: No Other Surgery: Yes (LOOP RECORDER IMPLANT IN CHEST) Social History Alcohol Use: Yes (RARE) Tobacco Use: Yes (1 PPD) Substance Use: Yes (MARIJUANA) Allergies-Medications (Allergen,Severity, Reaction): Coded Allergies: No Known Allergies (Verified , 07/29/16) Reported Meds & Prescriptions Reported Meds & Active Scripts Active Lortab (Hydrocodone-Acetaminophen) 5-325 Mg Tab 1-2 Tab PO Q6H PRN Reported Flecainide (Flecainide Acetate) 150 Mg Tab 500 Mg PO BID Metoprolol Tartrate 25 Mg Tab 25 Mg PO BID Seroquel (Quetiapine Fumarate) 50 Mg Tab 50 Mg PO DAILY Lexapro (Escitalopram Oxalate) 20 Mg Tab 20 Mg PO DAILY Review of Systems Except as stated in HPI: all other systems reviewed are Neg General / Constitutional: No: Fever Cardiovascular: Positive: Chest Pain or Discomfort, No: Dyspnea on exertion Respiratory: Positive: Shortness of Breath, Pleuritic Pain, No: Cough Gastrointestinal: No: Nausea, Vomiting, Abdominal Pain Genitourinary: No: Dysuria, Hematuria Musculoskeletal: Positive: Pain (lower right back pain) Physical Exam Narrative GENERAL: Awake, alert, nontoxic-appearing 26-year-old female who appears her stated age and is in no acute respiratory distress. SKIN: Focused skin assessment warm/dry. Multiple tattoos noted. HEAD: Atraumatic. Normocephalic. EYES: Pupils equal and round. No scleral icterus. No injection or drainage. ENT: No nasal bleeding or discharge. Mucous membranes pink and moist. Breath smells of tobacco. NECK: Trachea midline. No JVD. CARDIOVASCULAR: Regular rate and rhythm. No murmur appreciated. RESPIRATORY: No accessory muscle use. Clear to auscultation. Breath sounds equal bilaterally. GASTROINTESTINAL: Abdomen soft, non-tender, nondistended. No rebound tenderness. Back: No CVA tenderness. Tenderness of the right sacroiliac joint. MUSCULOSKELETAL: No obvious deformities. No clubbing. No cyanosis. No edema. NEUROLOGICAL: Awake and alert. No obvious cranial nerve deficits. Motor grossly within normal limits. Normal speech. PSYCHIATRIC: Appropriate mood and affect; insight and judgment normal. Data Data Last Documented VS Vital Signs Date Time Temp Pulse Resp B/P Pulse Ox O2 Delivery O2 Flow Rate FiO2 08/15/16 23:45 114/68 121/72 08/15/16 23:36 98.6 80 14 08/15/16 23:10 98 Room Air Orders Electrocardiogram (08/15/16 23:02) Ckmb (Isoenzyme) Profile (08/15/16 23:02) Complete Blood Count With Diff (08/15/16 23:02) Comprehensive Metabolic Panel (08/15/16 23:02) Magnesium (Mg) (08/15/16 23:02) Prothrombin Time / Inr (Pt) (08/15/16 23:02) Act Partial Throm Time (Ptt) (08/15/16 23:02) Troponin I (08/15/16 23:02) Chest, Single Ap (08/15/16 23:02) Ecg Monitoring (08/15/16 23:02) Bilateral Bp Monitoring (08/15/16 23:02) Iv Access Insert/Monitor (08/15/16 23:02) Oximetry (08/15/16 23:02) Oxygen Administration (08/15/16 23:02) Aspirin Chew (Aspirin Chew) (08/15/16 23:15) Sodium Chloride 0.9% Flush (Ns Flush) (08/15/16 23:15) Sodium Chlorid 0.9% 500 Ml Inj (Ns 500 M (08/15/16 23:15) D-Dimer (08/15/16 23:04) Ct Pulmonary Angiogram (08/16/16 ) Ketorolac Inj (Toradol Inj) (08/16/16 00:30) Iohexol 350 Inj (Omnipaque 350 Inj) (08/16/16 01:24) Labs Laboratory Tests Test 08/15/16 23:25 White Blood Count 13.4 TH/MM3 Red Blood Count 4.21 MIL/MM3 Hemoglobin 12.0 GM/DL Hematocrit 35.8 % Mean Corpuscular Volume 85.1 FL Mean Corpuscular Hemoglobin 28.5 PG Mean Corpuscular Hemoglobin 33.5 % Concent Red Cell Distribution Width 14.0 % Platelet Count 359 TH/MM3 Mean Platelet Volume 7.8 FL Neutrophils (%) (Auto) 62.5 % Lymphocytes (%) (Auto) 30.4 % Monocytes (%) (Auto) 4.7 % Eosinophils (%) (Auto) 2.1 % Basophils (%) (Auto) 0.3 % Neutrophils # (Auto) 8.4 TH/MM3 Lymphocytes # (Auto) 4.1 TH/MM3 Monocytes # (Auto) 0.6 TH/MM3 Eosinophils # (Auto) 0.3 TH/MM3 Basophils # (Auto) 0.0 TH/MM3 CBC Comment DIFF FINAL Differential Comment Prothrombin Time 9.7 SEC Prothromb Time International 0.9 RATIO Ratio Activated Partial 25.6 SEC Thromboplast Time D-Dimer Quantitative (PE/DVT) 0.57 MG/L FEU Sodium Level 144 MEQ/L Potassium Level 3.6 MEQ/L Chloride Level 110 MEQ/L Carbon Dioxide Level 25.4 MEQ/L Anion Gap 9 MEQ/L Blood Urea Nitrogen 11 MG/DL Creatinine 0.52 MG/DL Estimat Glomerular Filtration 140 ML/MIN Rate Random Glucose 128 MG/DL Calcium Level 8.1 MG/DL Magnesium Level 2.1 MG/DL Total Bilirubin 0.2 MG/DL Aspartate Amino Transf 18 U/L (AST/SGOT) Alanine Aminotransferase 34 U/L (ALT/SGPT) Alkaline Phosphatase 68 U/L Total Creatine Kinase 71 U/L Troponin I LESS THAN 0.02 NG/ML Total Protein 6.5 GM/DL Albumin 3.2 GM/DL MDM Medical Decision Making Medical Screen Exam Complete: Yes Emergency Medical Condition: Yes Medical Record Reviewed: Yes Interpretation(s) EKG reveals normal sinus rhythm with a rate of 75. No ischemic changes or ectopy noted. Last Impressions CT Angiography 08/16/16 0000 Signed Impressions: Service Date/Time: Tuesday, August 16, 2016 00:52 - CONCLUSION: No evidence of pulmonary embolism. Efraín Laureano MD Chest X-Ray 08/15/16 2302 Signed Impressions: Service Date/Time: Monday, August 15, 2016 23:18 - CONCLUSION: No acute disease. Efraín Laureano MD Laboratory Tests Test 08/15/16 23:25 White Blood Count 13.4 TH/MM3 Red Blood Count 4.21 MIL/MM3 Hemoglobin 12.0 GM/DL Hematocrit 35.8 % Mean Corpuscular Volume 85.1 FL Mean Corpuscular Hemoglobin 28.5 PG Mean Corpuscular Hemoglobin 33.5 % Concent Red Cell Distribution Width 14.0 % Platelet Count 359 TH/MM3 Mean Platelet Volume 7.8 FL Neutrophils (%) (Auto) 62.5 % Lymphocytes (%) (Auto) 30.4 % Monocytes (%) (Auto) 4.7 % Eosinophils (%) (Auto) 2.1 % Basophils (%) (Auto) 0.3 % Neutrophils # (Auto) 8.4 TH/MM3 Lymphocytes # (Auto) 4.1 TH/MM3 Monocytes # (Auto) 0.6 TH/MM3 Eosinophils # (Auto) 0.3 TH/MM3 Basophils # (Auto) 0.0 TH/MM3 CBC Comment DIFF FINAL Differential Comment Prothrombin Time 9.7 SEC Prothromb Time International 0.9 RATIO Ratio Activated Partial 25.6 SEC Thromboplast Time D-Dimer Quantitative (PE/DVT) 0.57 MG/L FEU Sodium Level 144 MEQ/L Potassium Level 3.6 MEQ/L Chloride Level 110 MEQ/L Carbon Dioxide Level 25.4 MEQ/L Anion Gap 9 MEQ/L Blood Urea Nitrogen 11 MG/DL Creatinine 0.52 MG/DL Estimat Glomerular Filtration 140 ML/MIN Rate Random Glucose 128 MG/DL Calcium Level 8.1 MG/DL Magnesium Level 2.1 MG/DL Total Bilirubin 0.2 MG/DL Aspartate Amino Transf 18 U/L (AST/SGOT) Alanine Aminotransferase 34 U/L (ALT/SGPT) Alkaline Phosphatase 68 U/L Total Creatine Kinase 71 U/L Troponin I LESS THAN 0.02 NG/ML Total Protein 6.5 GM/DL Albumin 3.2 GM/DL Differential Diagnosis Differential diagnosis includes sacroiliitis, UTI, pyelonephritis, nephrolithiasis, pulmonary embolism, acute coronary syndrome, GERD, esophageal spasm, pleural effusion, pneumonia, pleurisy. Narrative Course IV was established, labs are drawn and sent, and the patient was placed on cardiac telemetry monitoring and continuous pulse oximetry monitoring. EKG was ordered and interpreted. Chest x-ray was obtained. The patient was administered aspirin and IV fluids. D-dimer was sent to lab. D-dimer was positive at 0.57, therefore, CT pulmonary injury gram was ordered. CT pulmonary injury gram was negative. Troponin is negative, patient has had symptoms for 2 days. She does state she has an outpatient follow-up for possible outpatient endoscopy, I advised her to follow-up with her primary physician, Dr. Martins. The patient's symptoms are very atypical, do not believe this is acute coronary syndrome. Patient has multiple visits for continuing back pain, on exam today it appears to be sacroiliitis. Patient is advised to take ibuprofen as needed for pain and follow-up with her primary physician. Diagnosis Primary Impression: Atypical chest pain Additional Impression: Sacroiliitis Patient Instructions: General Instructions Additional Instructions: Follow-up with your primary physician. Please provide the patient a copy of her labs, x-ray results, and CT results at discharge. Follow-up with your primary physician this week. Return if symptoms worsen or progress. Med/Other Pt SpecificInfo: Prescription(s) given Scripts Ibuprofen 600 Mg [id number] Mg PO Q6H PRN (Pain/Inflammation) #20 TAB Ref 0 Prov:Tal Rodríguez MD 08/16/16 Disposition: 01 DISCHARGE HOME Condition: Stable Tal Rodríguez MD August 15, 2016 23:04
[2016-08-15 23:10] VITALS: RESP 14; O2SAT 98
[2016-08-15] MEDS ORDERED: SODIUM CHLORID 0.9% 500 ML INJ 500 ML IV ONE (23:15)
[2016-08-15] MEDS ORDERED: SODIUM CHLORIDE 0.9% FLUSH 10 ML FLUSH IVF PRN (23:15)
[2016-08-15] MEDS ORDERED: ASPIRIN 81 MG CHEW TAB PO ONE (23:15)
[2016-08-15 23:36] VITALS: BP 97/63; PULSE 80; RESP 14; TEMP 98.6
[2016-08-15 23:37] LABS: AUTOMATED NEUTROPHIL # 8.4 TH/MM3 (1.8-7.7); BASOPHIL % 0.3 % (0.0-2.0); EOSINOPHIL # 0.3 TH/MM3 (0-0.4); EOSINOPHIL % 2.1 % (0.0-4.0); HEMATOCRIT 35.8 % (35.0-46.0); HEMO FLAGS DIFF FINAL; LYMPH % 30.4 % (9.0-44.0); LYMPHOCYTE # 4.1 TH/MM3 (1.0-4.8); MEAN CELL VOLUME 85.1 FL (80.0-100.0); MEAN CORPUSCULAR HEMOGLOBIN 28.5 PG (27.0-34.0); MEAN CORPUSCULAR HGB CONC 33.5 % (32.0-36.0); MONO % 4.7 % (0.0-8.0); NEUT % 62.5 % (16.0-70.0); PLATELET COUNT 359 TH/MM3 (150-450); RED BLOOD COUNT 4.21 MIL/MM3 (4.00-5.30); WHITE BLOOD COUNT 13.4 TH/MM3 (4.0-11.0)
[2016-08-15 23:45] VITALS: BP_SYST 114; BP_SYST 121; BP_DIAS 68; BP_DIAS 72
[2016-08-15 23:45] LABS: CHLORIDE 110 MEQ/L (98-107); POTASSIUM 3.6 MEQ/L (3.5-5.1); SODIUM (NA) 144 MEQ/L (136-145)
--- NOTE | 2016-08-15 23:46 | RADHPO ---
EXAM DATE/TIME: 08/15/2016 23:18 [facility] COMPARISON: CHEST SINGLE AP, March 13, 2016, 12:48. INDICATIONS : Chest pain. MEDICAL HISTORY : None. SURGICAL HISTORY : None. ENCOUNTER: Initial ACUITY: 1 day PAIN SCORE: 7/10 LOCATION: Bilateral chest FINDINGS: A single view of the chest demonstrates the lungs to be symmetrically aerated without evidence of mas s, infiltrate or effusion. The cardiomediastinal contours are unremarkable. Osseous structures are intact. CONCLUSION: No acute disease. Efraín Laureano MD on August 15, 2016 at 23:44 Board Certified Radiologist. This report was verified electronically.
[2016-08-15 23:48] LABS: APTT (PATIENT) 25.6 SEC (24.3-30.1); INTERNATIONAL NORMALIZED RATIO 0.9 RATIO; PROTHROMBIN TIME - PATIENT 9.7 SEC (9.8-11.6)
[2016-08-15 23:49] LABS: ANION GAP 9 MEQ/L (5-15); BICARBONATE 25.4 MEQ/L (21.0-32.0); BLOOD UREA NITROGEN 11 MG/DL (7-18); MAGNESIUM 2.1 MG/DL (1.5-2.5)
[2016-08-15 23:52] LABS: ALT (GPT) 34 U/L (10-53); AST (GOT) 18 U/L (15-37); GLOMERULAR FILTRATION RATE 140 ML/MIN (>89)
[2016-08-15 23:54] LABS: TOTAL BILIRUBIN ADULT 0.2 MG/DL (0.2-1.0)
[2016-08-15 23:55] LABS: ALKALINE PHOSPHATASE 68 U/L (45-117)
[2016-08-16 00:03] LABS: CREATINE KINASE 71 U/L (26-192)
[2016-08-16] MEDS ORDERED: KETOROLAC TROMETHAMINE 30 MG/ML (IVP) VIAL IV PUSH ONE (00:30)
[2016-08-16] MEDS ORDERED: IOHEXOL 350 MG/ML 10 ML VIAL (for RAD DIAG) IV ONE (01:24)
--- NOTE | 2016-08-16 01:30 | RADHPO ---
EXAM DATE/TIME: 08/16/2016 00:52 [facility] COMPARISON: CHEST SINGLE AP, August 15, 2016, 23:18. INDICATIONS : Left chest pain and shortness of breath for two days. IV CONTRAST: 75 cc Omnipaque 350 (iohexol) IV RADIATION DOSE: 18.44 CTDIvol (mGy) MEDICAL HISTORY : Cardiovascular disease. SURGICAL HISTORY : None. ENCOUNTER: Initial ACUITY: 2 days PAIN SCALE: 6/10 LOCATION: Left chest TECHNIQUE: Volumetric scanning of the chest was performed using a pulmonary embolism protocol MIP images were re constructed. Using automated exposure control and adjustment of the mA and/or kV according to patien t size, radiation dose was kept as low as reasonably achievable to obtain optimal diagnostic quality images. FINDINGS: PULMONARY ARTERIES: No filling defects are seen in the pulmonary arteries through the segmental level. LUNGS: Minimal middle lobe and lingular scarring or atelectasis. PLEURAE: There is no pleural thickening or pleural effusion. MEDIASTINUM: There is good visualization of the great vessels of the middle mediastinum. No evidence of mediastin al or hilar adenopathy/mass. MUSCULOSKELETAL: Within normal limits for patient age. MISCELLANEOUS: The visualized upper abdominal organs demonstrate no acute abnormality. CONCLUSION: No evidence of pulmonary embolism. Efraín Laureano MD on August 16, 2016 at 1:26 Board Certified Radiologist. This report was verified electronically.
[2016-08-16 01:35] VITALS: BP 117/68; PULSE 74; RESP 14; O2SAT 98
[2016-08-16] MEDS ORDERED: IBUP-232 PO (01:41)
[2016-08-16 02:00] VITALS: RESP 14
--- NOTE | 2016-08-16 08:11 | EKG ---
Date Performed: 08/15/2016 Time Performed: 23:09:50 PTAGE: 26 years EKG: Sinus rhythm Normal ECG PREVIOUS TRACING : 07/29/2016 00.55 No significant change from previous tracing noted. DOCTOR: Nishant Belcher Interpretating Date/Time 08/16/2016 08:09:21
== END 2016-08-16 02:08 | disposition home or self-care (01) ==
LOC: PHED 22:39
DX: R07.89 Other chest pain (principal); M46.1 Sacroiliitis, not elsewhere classified; R06.02 Shortness of breath; K76.0 Fatty (change of) liver, not elsewhere classified; I47.1 Supraventricular tachycardia; F31.9 Bipolar disorder, unspecified; F41.9 Anxiety disorder, unspecified; K21.9 Gastro-esophageal reflux disease without esophagitis; F17.210 Nicotine dependence, cigarettes, uncomplicated
CPT/HCPCS: 71010; 71275; 80053; 82550; 83735; 84484; 85025; 85379; 85610; 85730; 93005; 96361; 96374; 99285; J1885; J7040; Q9967

== ENCOUNTER → 2016-09-07 | Day surgery (SDC) | payer OTHER ==
[~2016-09-07] MED LIST changes: +IBUP-232 PO; +LACTATED RINGER'S 1000 ML INJ 1,000 ML ONE; +PROPOFOL 200 MG/20 ML AMP IV ONE; -ZOFR4TAB3 SL
--- NOTE | 2016-09-07 11:12 | GIPROC ---
[facility] [address] [facility], [address] EGD PROCEDURE REPORT EXAM DATE: 09/07/2016 PATIENT NAME: Tiffany Ramos MR #: [id number] BIRTHDATE: 1990 ATTENDING: Johnny Sol MD ORDER #: [id number] NURSE UNIT MANAGER: Odilia Wells RN and Liz Kohler RN STATUS: outpatient INDICATIONS: The patient is a 26 yr old female here for an EGD due to dysphagia and globus sensation PROCEDURE PERFORMED: EGD w/ biopsy MEDICATIONS: None, Per Anesthesia, None, and Per Anesthesia. TOPICAL ANESTHETIC: CONSENT: The patient understands the risks and benefits of the procedure and understands that these risks include, but are not limited to: sedation, allergic reaction, infection, perforation and/or bleeding. Alternative means of evaluation and treatment include, among others: physical exam, x-rays, and/or surgical intervention. The patient elects to proceed with this endoscopic procedure. medical equipment was checked for proper function. Hand hygiene and appropriate measures for infection prevention was taken. After the risks, benefits and alternatives of the procedure were thoroughly explained, Informed consent was verified, confirmed and timeout was successfully executed by the treatment team. The patient was anesthetized with topical anesthesia and the EC-[id number] ([id number]) endoscope was introduced through the mouth and advanced to the second portion of the duodenum. Retroflexed views revealed no abnormalities The gastroscope was then slowly withdrawn and removed. ESOPHAGUS: The mucosa of the esophagus appeared normal. Multiple biopsies were performed. The endoscopy was otherwise normal. ADVERSE EVENTS: There were no complications. IMPRESSIONS: 1. The esophagus appeared normal; multiple biopsies were performed 2. Normal endoscopy otherwise 3. Retroflexed views revealed no abnormalities RECOMMENDATIONS: 1. Await biopsy results. Biopsy results will not be ready for 7-10 days. If you don't hear from us in two weeks, call our office for biopsy results. 2. Follow-up: GI clinic 4 week(s) PATIENT CONDITION: stable DISPOSITION: Home REPEAT EXAM: Jhonny Sol MD eSigned: Johnny Sol MD 09/07/2016 11:11 AM cc: Farooq Roberts [facility] [place] PATIENT NAME: Tiffany Ramos MR#: [id number]
== END | disposition home or self-care (01) ==
LOC: ESDC 10:01
PROVIDERS: ATTEND Internal Medicine Gastroenterology
DX: R13.10 Dysphagia, unspecified (principal)
CPT/HCPCS: 00740; 43239; 88305; J3010; J7120

== ENCOUNTER 2016-11-04 02:53 | Observation (INO) | payer OTHER ==
[~2016-11-04] VITALS: Ht 154.9 cm; Wt 84.5 kg
[~2016-11-04 02:53] MED LIST changes: -LACTATED RINGER'S 1000 ML INJ 1,000 ML ONE; -PROPOFOL 200 MG/20 ML AMP IV ONE
[2016-11-04 02:55] VITALS: BP 115/67; PULSE 76; RESP 14; TEMP 98.3; O2SAT 99
[2016-11-04 03:09] VITALS: BP 110/62; PULSE 80; RESP 16; O2SAT 98
[2016-11-04] MEDS ORDERED: SODIUM CHLORIDE 0.9% FLUSH 10 ML FLUSH IVF PRN (03:15)
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
[2016-11-04 03:57] LABS: AUTOMATED NEUTROPHIL # 8.2 TH/MM3 (1.8-7.7); BASOPHIL # 0.1 TH/MM3 (0-0.2); BASOPHIL % 0.5 % (0.0-2.0); EOSINOPHIL # 0.3 TH/MM3 (0-0.4); EOSINOPHIL % 2.1 % (0.0-4.0); HEMO FLAGS DIFF FINAL; LYMPH % 34.5 % (9.0-44.0); LYMPHOCYTE # 4.7 TH/MM3 (1.0-4.8); MEAN CELL VOLUME 86.2 FL (80.0-100.0); MEAN CORPUSCULAR HEMOGLOBIN 29.5 PG (27.0-34.0); MEAN CORPUSCULAR HGB CONC 34.2 % (32.0-36.0); MONO % 3.6 % (0.0-8.0); NEUT % 59.3 % (16.0-70.0); PLATELET COUNT 348 TH/MM3 (150-450); RED BLOOD COUNT 4.17 MIL/MM3 (4.00-5.30); RED CELL DISTRIBUTION WIDTH 14.4 % (11.6-17.2); WHITE BLOOD COUNT 13.8 TH/MM3 (4.0-11.0)
[2016-11-04 04:02] LABS: BLOOD, URINE NEG (NEG); COMMENT (UR) CULT NOT INDICATED; CULTURE IF INDICATED CULT NOT INDICATED; GLUCOSE,URINE NEG (NEG); KETONE, URINE NEG (NEG); MUCUS URINE FEW /lpf (OCC); NITRITE,URINE NEG (NEG); SQUAMOUS EPITHELIAL CELL URINE 1 /hpf (0-5); URINE COLOR YELLOW (YELLW/STRAW)
[2016-11-04 04:11] LABS: ALT (GPT) 34 U/L (10-53); ANION GAP 10 MEQ/L (5-15); AST (GOT) 20 U/L (15-37); BICARBONATE 24.1 MEQ/L (21.0-32.0); BLOOD UREA NITROGEN 9 MG/DL (7-18); CHLORIDE 107 MEQ/L (98-107); GLOMERULAR FILTRATION RATE 107 ML/MIN (>89); SODIUM (NA) 141 MEQ/L (136-145)
[2016-11-04 04:15] LABS: ALKALINE PHOSPHATASE 70 U/L (45-117); TOTAL BILIRUBIN ADULT 0.1 MG/DL (0.2-1.0)
--- NOTE | 2016-11-04 04:15 | RADRPT ---
EXAM DATE/TIME: 11/04/2016 04:03 [facility] COMPARISON: CHEST SINGLE AP, August 15, 2016, 23:18. INDICATIONS : Chest pain MEDICAL HISTORY : None. SURGICAL HISTORY : None. ENCOUNTER: Initial ACUITY: 4 - 6 months PAIN SCORE: 6/10 LOCATION: Bilateral chest FINDINGS: A single view of the chest demonstrates the lungs to be symmetrically aerated without evidence of mas s, infiltrate or effusion. The cardiomediastinal contours are unremarkable. Osseous structures are intact with a mild levoscoliosis of the thoracolumbar spine which may be positional. Recorder project s over the left chest. CONCLUSION: No acute cardiopulmonary process. Reji Reynoso MD on November 04, 2016 at 4:12 Board Certified Radiologist. This report was verified electronically.
[2016-11-04 04:16] LABS: INTERNATIONAL NORMALIZED RATIO 0.9 RATIO; PROTHROMBIN TIME - PATIENT 9.9 SEC (9.8-11.6)
[2016-11-04 04:27] LABS: CREATINE KINASE 75 U/L (26-192)
[2016-11-04] MEDS ORDERED: IOHEXOL 350 MG/ML 10 ML VIAL (for RAD DIAG) IV ONE (04:42)
--- NOTE | 2016-11-04 05:01 | RADRPT ---
EXAM DATE/TIME: 11/04/2016 04:39 [facility] COMPARISON: CT PULMONARY ANGIOGRAM, August 16, 2016, 0:52. INDICATIONS : Midsternal chest pain with elevated D-Dimer IV CONTRAST: 70 cc Omnipaque 350 (iohexol) IV RADIATION DOSE: 22.97 CTDIvol (mGy) MEDICAL HISTORY : Cerebrovascular disease. Gastroesophageal reflux disease. SURGICAL HISTORY : None. ENCOUNTER: Initial ACUITY: 1 day PAIN SCALE: 6/10 LOCATION: chest TECHNIQUE: Volumetric scanning of the chest was performed using a pulmonary embolism protocol MIP images were re constructed. Using automated exposure control and adjustment of the mA and/or kV according to patien t size, radiation dose was kept as low as reasonably achievable to obtain optimal diagnostic quality images. DICOM format image data is available electronically for review and comparison. Follow-up recommendations for detected pulmonary nodules are based at a minimum on nodule size and pa tient risk factors according to Fleischner Society Guidelines. FINDINGS: PULMONARY ARTERIES: No filling defects are seen in the pulmonary arteries through the segmental level. LUNGS: There is no consolidation or pneumothorax . No concerning pulmonary nodule is visualized. PLEURAE: There is no pleural thickening or pleural effusion. MEDIASTINUM: There is good visualization of the great vessels of the middle mediastinum. No evidence of mediastin al or hilar adenopathy/mass. MUSCULOSKELETAL: Within normal limits for patient age. MISCELLANEOUS: The visualized upper abdominal organs demonstrate no acute abnormality. CONCLUSION: No pulmonary embolus. Lungs remain clear. Reji Reynoso MD on November 04, 2016 at 4:58 Board Certified Radiologist. This report was verified electronically.
[2016-11-04] MEDS ORDERED: SODIUM CHLOR 0.9% 1000 ML INJ 1,000 ML IV SCH (05:17)
[2016-11-04] MEDS ORDERED: ACETAMINOPHEN/HYDROcodone 325 MG/7.5 MG TAB PO PRN (05:30)
[2016-11-04] MEDS ORDERED: ONDANSETRON HCL 4 MG/2 ML VIAL IV PRN (05:30)
[2016-11-04] MEDS ORDERED: MORPHINE SULFATE 4 MG/ML INJ IV PRN (05:30)
[2016-11-04] MEDS ORDERED: NITROGLYCERIN 0.4 MG SL 25 TABS/BTL SL PRN (05:30)
[2016-11-04 05:39] VITALS: O2SAT 98
[2016-11-04 07:40] LABS: CREATINE KINASE 68 U/L (26-192)
[2016-11-04 07:45] VITALS: BP 109/60; PULSE 78; RESP 18; O2SAT 98
[2016-11-04 08:12] VITALS: O2SAT 98
[2016-11-04] MEDS ORDERED: POTASSIUM CHLORIDE 25 MEQ EFFERVESCENT TAB PO ONE (09:00)
[2016-11-04] MEDS ORDERED: FLECAINIDE ACETATE 100 MG TAB PO SCH (09:00)
[2016-11-04] MEDS ORDERED: ASPIRIN 325 MG TAB PO SCH (09:00)
[2016-11-04 09:13] VITALS: BP 110/58; PULSE 76; RESP 16; TEMP 98.2; O2SAT 97
--- NOTE | 2016-11-04 09:42 | HHI.HP ---
HPI Primary Care Physician Farooq Martins MD Chief Complaint Chest pain History of Present Illness Ms. Ramos is a 26-year-old female patient with a known medical history of bipolar disorder, previous SVT, loop recorder placement and tobacco use who presented to the ED with complaints of chest pain. Patient states that she was awoken this morning out of her sleep, gasping for air and noticed a sharp chest pain in her substernal chest with a radiating shooting pain to her back. She says that the pain "felt like someone was sitting on her chest". This continued intermittently for on and off for 10 minutes at a time lasting roughly an hour. No noticeable relieving or aggravating factors. Does admit to associated nausea and shortness of breath. Also complains of some numbness in her bilateral upper fingers and toes. Patient states that she had a treadmill stress test 6 months ago for similar complaints which was unremarkable. Also EP study was done by Dr. Chau roughly 6 months ago. Review of Systems Respiratory: COMPLAINS OF: Shortness of breath Gastrointestinal: COMPLAINS OF: Nausea Neurologic: COMPLAINS OF: Tingling or numbness Past Family Social History Allergies: Coded Allergies: No Known Allergies (Verified , 07/29/16) Past Medical History ADHD Anxiety Depression History of loop recorder GERD Bipolar disorder Past Surgical History Adhesion removal History of cardiac stent Reported Medications Reported Meds & Active Scripts Active Lortab (Hydrocodone-Acetaminophen) 5-325 Mg Tab 1-2 Tab PO Q6H PRN Reported Flecainide (Flecainide Acetate) 150 Mg Tab 500 Mg PO BID Metoprolol Tartrate 25 Mg Tab 25 Mg PO BID Seroquel (Quetiapine Fumarate) 50 Mg Tab 50 Mg PO DAILY Lexapro (Escitalopram Oxalate) 20 Mg Tab 20 Mg PO DAILY Active Ordered Medications Current Medications Medications (Trade) Dose Ordered Sig/Lucila Route Start Time Stop Time Status Last Admin Sodium Chloride 2 ml 2 ml UNSCH PRN IVF 11/04/16 03:15 11/04/16 03:47 (NS 1000 ml Inj) 1,000 ml @ 100 mls/hr Q10H IV 11/04/16 05:17 11/04/16 06:50 ([place] 7.5-325 Mg) 1 tab Q4H PRN PO 11/04/16 05:30 (Morphine Inj) 2 mg Q4H PRN IV 11/04/16 05:30 (Zofran Inj) 4 mg Q6H PRN IV 11/04/16 05:30 (Nitrostat Sl) 0.4 mg Q5M PRN SL 11/04/16 05:30 (Aspirin) 325 mg DAILY PO 11/04/16 09:00 Family History Patient's family medical history significant for cardiovascular disease on grandfathers side. Social History Admits to current tobacco use, 1 ppd. Admits to occasional alcohol use. Admits to occasional marijuana use. Physical Exam Vital Signs Vital Signs Date Time Temp Pulse Resp B/P Pulse Ox O2 Delivery O2 Flow Rate FiO2 11/04/16 08:12 98 21 11/04/16 07:45 78 18 109/60 98 Room Air 11/04/16 07:45 Nasal Cannula 2.00 11/04/16 05:39 98 Nasal Cannula 2.00 11/04/16 03:11 Nasal Cannula 2 11/04/16 03:10 70 11/04/16 03:09 80 16 110/62 98 Room Air 11/04/16 02:55 98.3 76 14 115/67 99 Room Air Physical Exam GENERAL: Well-nourished, well-developed female patient lying in bed in nad. SKIN: Warm and dry. No rash. Multiple tattoos. HEENT: Atraumatic. Normocephalic. Pupils equal and round. No scleral icterus. No injection or drainage. No nasal bleeding or discharge. Mucous membranes pink and moist. NECK: Trachea midline. No JVD. CARDIOVASCULAR: Regular rate and rhythm. No murmur appreciated. RESPIRATORY: No accessory muscle use. Clear to auscultation. Breath sounds equal bilaterally. GASTROINTESTINAL: Abdomen soft, non-tender, nondistended. MUSCULOSKELETAL: Extremities without clubbing, cyanosis, or edema. No obvious deformities. NEUROLOGICAL: Awake and alert. No obvious cranial nerve deficits. Motor grossly within normal limits. Five out of 5 muscle strength in the arms and legs. Normal speech. PSYCHIATRIC: Appropriate mood and affect; insight and judgment normal. Laboratory Laboratory Tests Test 11/04/16 11/04/16 03:29 06:30 White Blood Count 13.8 Red Blood Count 4.17 Hemoglobin 12.3 Hematocrit 36.0 Mean Corpuscular Volume 86.2 Mean Corpuscular Hemoglobin 29.5 Mean Corpuscular Hemoglobin 34.2 Concent Red Cell Distribution Width 14.4 Platelet Count 348 Mean Platelet Volume 8.5 Neutrophils (%) (Auto) 59.3 Lymphocytes (%) (Auto) 34.5 Monocytes (%) (Auto) 3.6 Eosinophils (%) (Auto) 2.1 Basophils (%) (Auto) 0.5 Neutrophils # (Auto) 8.2 Lymphocytes # (Auto) 4.7 Monocytes # (Auto) 0.5 Eosinophils # (Auto) 0.3 Basophils # (Auto) 0.1 CBC Comment DIFF FINAL Differential Comment Prothrombin Time 9.9 Prothromb Time International 0.9 Ratio Activated Partial 26.0 Thromboplast Time D-Dimer Quantitative (PE/DVT) 0.58 Urine Color YELLOW Urine Turbidity CLEAR Urine pH 6.0 Urine Specific [place] 1.031 Urine Protein TRACE Urine Glucose (UA) NEG Urine Ketones NEG Urine Occult Blood NEG Urine Nitrite NEG Urine Bilirubin NEG Urine Urobilinogen LESS THAN 2.0 Urine Leukocyte Esterase SMALL Urine RBC 1 Urine WBC 2 Urine Squamous Epithelial 1 Cells Urine Mucus FEW Microscopic Urinalysis Comment CULT NOT INDICATED Sodium Level 141 Potassium Level 3.0 Chloride Level 107 Carbon Dioxide Level 24.1 Anion Gap 10 Blood Urea Nitrogen 9 Creatinine 0.66 Estimat Glomerular Filtration 107 Rate Random Glucose 184 Calcium Level 7.8 Total Bilirubin 0.1 Aspartate Amino Transf 20 (AST/SGOT) Alanine Aminotransferase 34 (ALT/SGPT) Alkaline Phosphatase 70 Total Creatine Kinase 75 68 Troponin I LESS THAN 0.02 LESS THAN 0.02 B-Type Natriuretic Peptide 11 Total Protein 6.7 Albumin 3.3 Lipase 344 Urine Opiates Screen NEG Urine Barbiturates Screen NEG Urine Amphetamines Screen NEG Urine Benzodiazepines Screen NEG Urine Cocaine Screen NEG Urine Cannabinoids Screen NEG Result Diagram: 11/04/16 0329 11/04/16 0329 Imaging Last [address] Angiography 11/04/16 0423 Signed Impressions: Service Date/Time: Friday, November 04, 2016 04:39 - CONCLUSION: No pulmonary embolus. Lungs remain clear. Reji Reynoso MD Chest X-Ray 11/04/16 0306 Signed Impressions: Service Date/Time: Friday, November 04, 2016 04:03 - CONCLUSION: No acute cardiopulmonary process. Reji Reynoso MD Assessment and Plan Assessment and Plan * Chest pain: Admitted to the chest pain center. Serial EKGs and troponins ordered for ruling out purposes. Troponins x 3 negative. EKG reviewed showing NSR no arrhythmias. Patient seen and examined by Dr. 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 * Hypokalemia: K 3.0. Will replace with 25 meq eff x 1. * Bipolar disorder: Continue home medications. * Tobacco abuse: Encourage cessation. Patient is stable at this time and agreeable to the plan. Marshall Cancino Nov 04, 2016 09:42
[2016-11-04] MEDS ORDERED: ESCITALOPRAM OXALATE 20 MG TAB PO SCH (10:15)
[2016-11-04] MEDS ORDERED: REGADENOSON INJ 0.4 MG/5 ML SYR ONE (10:23)
[2016-11-04] MEDS ORDERED: QUEtiapine FUMARATE 25 MG TAB PO SCH (10:30)
[2016-11-04] MEDS ORDERED: METOPROLOL TARTRATE 25 MG TAB PO SCH (10:30)
--- NOTE | 2016-11-04 11:26 | RADRPT ---
EXAM DATE/TIME: 11/04/2016 09:45 [facility] COMPARISON: No previous studies available for comparison. INDICATIONS : Substernal chest pain. Angina. DOSE: 27.2 mCi Tc99m Myoview at stress. 8.7 mCi Tc99m Myoview at rest. 0.4 mg Lexiscan STRESS SYMPTOMS: Dyspnea and dizzy. EJECTION FRACTION: 56% MEDICAL HISTORY : Gastroesophageal reflux disease. SURGICAL HISTORY : Loop recorder. ENCOUNTER: Initial ACUITY: 1 day PAIN SCALE: 7/10 LOCATION: Substernal chest TECHNIQUE: The patient underwent pharmacologic stress with infusion of prescribed dose. Continuous ECG tracing was monitored during stress. Gated SPECT imaging was performed after stress and conventional SPECT i maging was performed at rest. The examination was performed on a SPECT/CT scanner, both attenuation and non-corrected datasets were reviewed. FINDINGS: DISTRIBUTION: The maximum perfused segment at stress is in the inferior wall. There is a summed stress score of 2. PERFUSION STUDY: The pattern of perfusion at stress is within normal limits. GATED STUDY: There is intact wall motion and thickening without hypokinetic or dyskinetic segments. CONCLUSION: 1. Normal wall motion and normal calculated ejection fraction. 2. No fixed or reversible defect to suggest ischemia or infarction. RISK CATEGORY: Low (<1% Annual Mortality Rate) Mauricio Reynoso MD on November 04, 2016 at 11:23 Board Certified Radiologist. This report was verified electronically.
--- NOTE | 2016-11-04 11:37 | HHI.DCPOC ---
Discharge Care Plan Diagnosis: (1) Chest pain, atypical (2) Tobacco abuse Goals to Promote Your Health * To prevent worsening of your condition and complications * To maintain your health at the optimal level Directions to Meet Your Goals Take your medications as prescribed Follow your dietary instruction Follow activity as directed Keep your appointments as scheduled Take your immunizations and boosters as scheduled If your symptoms worsen call your PCP, if no PCP go to Urgent Care Center or Emergency Room Smoking is Dangerous to Your Health. Avoid second hand smoke Call the 24-hour hour crisis hotline for domestic abuse at Marshall Cancino Nov 04, 2016 11:37
--- NOTE | 2016-11-04 13:58 | EKG ---
Date Performed: 11/04/2016 Time Performed: 03:12:46 PTAGE: 26 years EKG: Sinus rhythm NORMAL ECG INTERPRETATION BASED ON A DEFAULT AGE OF 38 YEARS NO PREVIOUS TRACING DOCTOR: Markus Tatum Interpretating Date/Time 11/04/2016 13:57:04
--- NOTE | 2016-11-04 13:59 | EKG ---
Date Performed: 11/04/2016 Time Performed: 06:39:36 PTAGE: 26 years EKG: Sinus rhythm NORMAL ECG PREVIOUS TRACING : 08/15/2016 23.09 Since previous tracing, no significant change noted DOCTOR: Markus Tatum Interpretating Date/Time 11/04/2016 13:57:35
--- NOTE | 2016-11-04 14:00 | TR ---
Date Performed: 11/04/2016 Time Performed: 10:29:55 DOCTOR: Markus Tatum DRUG LIST: CLINICAL HISTORY: REASON FOR TEST: REASON FOR ENDING: OBSERVATION: CONCLUSION: Lexiscan stress test was performed under standard four minute protocol. Radionuclid e was injected one minute prior to ending the test. No electrocardiographic abormalities were present to suggest ischemia. Nuclear imaging and interpretation are pending. COMMENTS:
== END 2016-11-04 11:54 | disposition home or self-care (01) ==
LOC: NEPE 02:53 → NEDA 05:17 → NEPGCP 08:57
DX: R07.89 Other chest pain (principal); R06.02 Shortness of breath; R11.0 Nausea; F41.9 Anxiety disorder, unspecified; K21.9 Gastro-esophageal reflux disease without esophagitis; F31.9 Bipolar disorder, unspecified; F12.90 Cannabis use, unspecified, uncomplicated; E87.6 Hypokalemia; F90.9 Attention-deficit hyperactivity disorder, unspecified type; F17.200 Nicotine dependence, unspecified, uncomplicated; Z79.899 Other long term (current) drug therapy
CPT/HCPCS: 71010; 71275; 78452; 80053; 80307; 81001; 82550; 83690; 83880; 84484; 84703; 85025; 85379; 85610; 85730; 93005; 93017; 96361; 96374; 99285; A9502; G0378; J2270; J2785; J7030; Q9967

== ENCOUNTER 2016-12-08 02:21 | Emergency (ER) | payer OTHER ==
[~2016-12-08] VITALS: Ht 167.6 cm; Wt 81.5 kg
[~2016-12-08 02:21] MED LIST changes: -IBUP-232 PO
[2016-12-08 02:23] VITALS: BP 113/76; PULSE 75; RESP 15; TEMP 97.6; O2SAT 98
[2016-12-08 03:00] VITALS: BP 105/58; PULSE 76; RESP 20; O2SAT 99
[2016-12-08] MEDS ORDERED: SODIUM CHLORIDE 0.9% FLUSH 10 ML FLUSH IVF PRN (03:00)
--- NOTE | 2016-12-08 03:03 | PD ---
HPI Chief Complaint: Chest Pain Time Seen by Provider: 02:58 Travel History International Travel<30 days: No Contact w/Intl Traveler<30days: No Traveled to known affect area: No History of Present Illness HPI 26-year-old female presents to the emergency department for evaluation of chest pain and shortness of breath the reportedly awakened from sleep. Patient has history of chronic chest pain. Patient is under care of Dr. Chau to further evaluate etiology of ongoing complaint of chest pain. Patient just underwent stress test 10/2016 that revealed no evidence of acute ischemia and low risk for acute primary cardiac ischemic event. Patient reports that she has been taking medications as prescribed. No sweats no nausea no vomiting no referred neck jaw back shoulder arm pain. Chest pain is not pleuritic in nature no hemoptysis. Patient also denies any fever or chills and no referred pain. Patient denies abdominal pain. Patient has had no lower extremity pain or swelling. No recent long distance travel protracted bedrest her surgical procedure. Patient rates pain 5/10 in intensity. Patient is unable to identify exacerbating or alleviating factors. Patient took no medications prior to arrival to the emergency department. PFSH Past Medical History Narrative Medical ADHD and bipolar disorder SVT diabetes dyslipidemia loop recorder ovarian cyst alcohol use tobacco use marijuana use; nursing notes reviewed Hx Anticoagulant Therapy: No ADHD: Yes Autoimmune Disease: No Blood Disorders: No Bipolar Disorder: Yes Anxiety: Yes Depression: Yes Heart Rhythm Problems: Yes Cardiac Catheterization: No Cardiovascular Problems: Yes High Cholesterol: Yes Chemotherapy: No Chest Pain: Yes Congestive Heart Failure: No Cerebrovascular Accident: No Diabetes: Yes Patient Takes Glucophage: No Diminished Hearing: No Endocrine: No Gastrointestinal Disorders: Yes (FATTY LIVER) GERD: Yes Genitourinary: No Hepatitis: No Hiatal Hernia: No Heparin Induced Thrombocytopen: No Hypertension: Yes Immune Disorder: No Implanted Vascular Access Dvce: Yes (FOR HEART) Musculoskeletal: No Psychiatric: Yes (BIPOLAR) Reproductive: Yes Respiratory: No Immunizations Current: Yes Seizures: No Thyroid Disease: No Ulcer: Yes PNEUMOCCOCAL Vaccine (Year): 2 ?: Not LMP: 11/03 Menopausal: No : 1 Para: 0 Miscarriage: 1 : 0 Ovarian Cysts: Yes Past Surgical History Abdominal Surgery: Yes (ADHESION REMOVAL) AICD: No Cardiac Surgery: Yes (STENT) Coronary Artery Bypass Graft: No Ear Surgery: No Endocrine Surgery: No Eye Surgery: No Genitourinary Surgery: No Gynecologic Surgery: No Hysterectomy: No Joint Replacement: No Neurologic Surgery: No Oral Surgery: No Pacemaker: No Thoracic Surgery: No Other Surgery: Yes (LOOP RECORDER IMPLANT IN CHEST) Family History Family Myocardial Infarction: Yes (GRANDFATHER AT AGE 38) Social History Alcohol Use: Yes (RARE) Tobacco Use: Yes (1 PPD) Substance Use: Yes (MARIJUANA) Allergies-Medications (Allergen,Severity, Reaction): Coded Allergies: No Known Allergies (Verified , 12/08/16) Reported Meds & Prescriptions Reported Meds & Active Scripts Active Lortab (Hydrocodone-Acetaminophen) 5-325 Mg Tab 1-2 Tab PO Q6H PRN Reported Flecainide (Flecainide Acetate) 150 Mg Tab 500 Mg PO BID Metoprolol Tartrate 25 Mg Tab 25 Mg PO BID Seroquel (Quetiapine Fumarate) 50 Mg Tab 50 Mg PO DAILY Lexapro (Escitalopram Oxalate) 20 Mg Tab 20 Mg PO DAILY Review of Systems Except as stated in HPI: all other systems reviewed are Neg Physical Exam Narrative GENERAL: Well-developed well-nourished female in no acute distress no respiratory distress SKIN: Warm and dry. HEAD: Normocephalic. EYES: No scleral icterus. No injection or drainage. NECK: Supple, trachea midline. No JVD or lymphadenopathy. CARDIOVASCULAR: Regular rate and rhythm without murmurs, gallops, or rubs. RESPIRATORY: Breath sounds equal bilaterally. No accessory muscle use. GASTROINTESTINAL: Abdomen soft, non-tender, nondistended. MUSCULOSKELETAL: No cyanosis, or edema. BACK: Nontender without obvious deformity. No CVA tenderness. Data Data Last Documented VS Vital Signs Date Time Temp Pulse Resp B/P (MAP) Pulse Ox O2 Delivery O2 Flow Rate FiO2 12/08/16 04:53 12/08/16 03:03 Room Air 12/08/16 03:00 76 20 99 12/08/16 02:23 97.6 Orders Orders Electrocardiogram (12/08/16 02:58) Basic Metabolic Panel (Bmp) (12/08/16 02:58) Ckmb (Isoenzyme) Profile (12/08/16 02:58) Complete Blood Count With Diff (12/08/16 02:58) Magnesium (Mg) (12/08/16 02:58) Prothrombin Time / Inr (Pt) (12/08/16 02:58) Act Partial Throm Time (Ptt) (12/08/16 02:58) Troponin I (12/08/16 02:58) Chest, Single Ap (12/08/16 02:58) Ecg Monitoring (12/08/16 02:58) Bilateral Bp Monitoring (12/08/16 02:58) Iv Access Insert/Monitor (12/08/16 02:58) Oximetry (12/08/16 02:58) Oxygen Administration (12/08/16 02:58) Sodium Chloride 0.9% Flush (Ns Flush) (12/08/16 03:00) Ed Urine Pregnancytest Poc (12/08/16 02:58) Urinalysis - C+S If Indicated (12/08/16 02:58) Promethazine (Phenergan) (12/08/16 03:15) Sodium Chlor 0.9% 1000 Ml Inj (Ns 1000 M (12/08/16 03:15) Potassium Chloride (Kcl) (12/08/16 04:45) Labs Laboratory Tests Test 12/08/16 03:16 12/08/16 03:34 Urine Color YELLOW Urine Turbidity HAZY Urine pH 6.0 Urine Specific [place] 1.027 Urine Protein TRACE mg/dL Urine Glucose (UA) NEG mg/dL Urine Ketones NEG mg/dL Urine Occult Blood NEG Urine Nitrite NEG Urine Bilirubin NEG Urine Urobilinogen LESS THAN 2.0 MG/DL Urine Leukocyte Esterase NEG Urine RBC 6 /hpf Urine WBC 1 /hpf Urine Squamous Epithelial Cells 7 /hpf Urine Bacteria RARE /hpf Urine Hyaline Casts 1 /lpf Urine Mucus MANY /lpf Microscopic Urinalysis Comment CULT NOT INDICATED White Blood Count 15.4 TH/MM3 Red Blood Count 4.46 MIL/MM3 Hemoglobin 12.7 GM/DL Hematocrit 38.7 % Mean Corpuscular Volume 86.7 FL Mean Corpuscular Hemoglobin 28.5 PG Mean Corpuscular Hemoglobin Concent 32.8 % Red Cell Distribution Width 14.2 % Platelet Count 389 TH/MM3 Mean Platelet Volume 8.0 FL Neutrophils (%) (Auto) 64.3 % Lymphocytes (%) (Auto) 29.0 % Monocytes (%) (Auto) 3.6 % Eosinophils (%) (Auto) 2.1 % Basophils (%) (Auto) 1.0 % Neutrophils # (Auto) 9.9 TH/MM3 Lymphocytes # (Auto) 4.5 TH/MM3 Monocytes # (Auto) 0.6 TH/MM3 Eosinophils # (Auto) 0.3 TH/MM3 Basophils # (Auto) 0.2 TH/MM3 CBC Comment DIFF FINAL Differential Comment Prothrombin Time 9.8 SEC Prothromb Time International Ratio 0.9 RATIO Activated Partial Thromboplast Time 25.6 SEC Blood Urea Nitrogen 9 MG/DL Creatinine 0.66 MG/DL Random Glucose 122 MG/DL Calcium Level 8.5 MG/DL Magnesium Level 1.8 MG/DL Sodium Level 139 MEQ/L Potassium Level 3.4 MEQ/L Chloride Level 106 MEQ/L Carbon Dioxide Level 25.9 MEQ/L Anion Gap 7 MEQ/L Estimat Glomerular Filtration Rate 107 ML/MIN Total Creatine Kinase 77 U/L Troponin I LESS THAN 0.02 NG/ML MDM Medical Decision Making Medical Screen Exam Complete: Yes Emergency Medical Condition: Yes Medical Record Reviewed: Yes Interpretation(s) Last Impressions Chest X-Ray 12/08/16 0258 Signed Impressions: Service Date/Time: November 03:10 - CONCLUSION: No acute disease. Zi Sanchez Jr., MD CBC & BMP Diagram 12/08/16 03:34 Calcium Level 8.5, Magnesium Level 1.8 Vital Signs Date Time Temp Pulse Resp B/P (MAP) Pulse Ox O2 Delivery O2 Flow Rate FiO2 12/08/16 03:03 Room Air 12/08/16 03:03 Room Air 12/08/16 03:00 76 20 105/58 (74) 99 Room Air 12/08/16 02:23 97.6 75 15 113/76 (88) 98 Room Air [id number] hCG: Negative Differential Diagnosis Chest pain atypical chest pain, ACS, [place], arrhythmia, pleurisy, costochondritis, pneumonia, PE, pneumothorax Narrative Course EKG sinus rhythm no acute injury pattern or ectopy Specimens collected and sent for resulting patient is symptomatically at this time except for mild nausea given Phenergan times one dose Patient given IV fluids Lab values resulted patient with chronic mild leukocytosis nonspecific as well as mild hypokalemia patient given potassium replacement by mouth Patient is stable for outpatient management and 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 Diagnosis Primary Impression: Atypical chest pain Referrals: Primary Care Physician call for appointment Patient Instructions: General Instructions Additional Instructions: Increase fluid hydration Continue current medications as presently prescribed Return to the emergency department for any concerns or change in condition May take acetaminophen/Tylenol as needed for minor discomfort or for fever 100.4 F or greater May take ibuprofen/Advil/Motrin every 6-8 hours as needed for pain associated with inflammation or for fever 100.4F or greater Med/Other Pt SpecificInfo: No Change to Meds Disposition: 01 DISCHARGE HOME Condition: Stable Theresa Mccloud MD Dec 08, 2016 03:03
[2016-12-08] MEDS ORDERED: SODIUM CHLOR 0.9% 1000 ML INJ 1,000 ML IV ONE (03:15)
[2016-12-08] MEDS ORDERED: PROMETHAZINE HCL 25 MG TAB PO ONE (03:15)
[2016-12-08 03:46] LABS: AUTOMATED NEUTROPHIL # 9.9 TH/MM3 (1.8-7.7); BASOPHIL # 0.2 TH/MM3 (0-0.2); EOSINOPHIL # 0.3 TH/MM3 (0-0.4); EOSINOPHIL % 2.1 % (0.0-4.0); HEMATOCRIT 38.7 % (35.0-46.0); HEMO FLAGS DIFF FINAL; LYMPHOCYTE # 4.5 TH/MM3 (1.0-4.8); MEAN CELL VOLUME 86.7 FL (80.0-100.0); MEAN CORPUSCULAR HEMOGLOBIN 28.5 PG (27.0-34.0); MEAN CORPUSCULAR HGB CONC 32.8 % (32.0-36.0); MONO % 3.6 % (0.0-8.0); NEUT % 64.3 % (16.0-70.0); PLATELET COUNT 389 TH/MM3 (150-450); RED BLOOD COUNT 4.46 MIL/MM3 (4.00-5.30); RED CELL DISTRIBUTION WIDTH 14.2 % (11.6-17.2); WHITE BLOOD COUNT 15.4 TH/MM3 (4.0-11.0)
--- NOTE | 2016-12-08 03:47 | RADRPT ---
EXAM DATE/TIME: 12/08/2016 03:10 [facility] COMPARISON: CHEST SINGLE AP, November 04, 2016, 4:03. INDICATIONS : Chest pain. MEDICAL HISTORY : Gastroesophageal reflux disease. SURGICAL HISTORY : None. ENCOUNTER: Initial ACUITY: 1 day PAIN SCORE: 6/10 LOCATION: Bilateral chest FINDINGS: A single view of the chest demonstrates the lungs to be symmetrically aerated without evidence of mas s, infiltrate or effusion. The cardiomediastinal contours are unremarkable. Osseous structures are intact. CONCLUSION: No acute disease. Zi Sanchez Jr., MD on December 08, 2016 at 3:45 Board Certified Radiologist. This report was verified electronically.
[2016-12-08 03:58] LABS: APTT (PATIENT) 25.6 SEC (24.3-30.1); INTERNATIONAL NORMALIZED RATIO 0.9 RATIO; PROTHROMBIN TIME - PATIENT 9.8 SEC (9.8-11.6)
[2016-12-08 04:00] LABS: BACTERIA, URINE RARE /hpf; BLOOD, URINE NEG (NEG); COMMENT (UR) CULT NOT INDICATED; CULTURE IF INDICATED CULT NOT INDICATED; GLUCOSE,URINE NEG (NEG); HYALINE CAST, URINE 1 /lpf (RARE); KETONE, URINE NEG (NEG); MUCUS URINE MANY /lpf (OCC); NITRITE,URINE NEG (NEG); SQUAMOUS EPITHELIAL CELL URINE 7 /hpf (0-5); URINE COLOR YELLOW (YELLW/STRAW)
[2016-12-08 04:27] LABS: ANION GAP 7 MEQ/L (5-15); BICARBONATE 25.9 MEQ/L (21.0-32.0); BLOOD UREA NITROGEN 9 MG/DL (7-18); CHLORIDE 106 MEQ/L (98-107); GLOMERULAR FILTRATION RATE 107 ML/MIN (>89); MAGNESIUM 1.8 MG/DL (1.5-2.5); SODIUM (NA) 139 MEQ/L (136-145)
[2016-12-08 04:28] LABS: CREATINE KINASE 77 U/L (26-192); POTASSIUM 3.4 MEQ/L (3.5-5.1)
[2016-12-08] MEDS ORDERED: POTASSIUM CHLORIDE 20 MEQ CONTROLLED RELEASE TAB PO ONE (04:45)
--- NOTE | 2016-12-08 17:10 | EKG ---
Date Performed: 12/08/2016 Time Performed: 02:47:32 PTAGE: 26 years EKG: Sinus rhythm NORMAL ECG PREVIOUS TRACING : 11/04/2016 06.39 Compared to prior tracing no significant change DOCTOR: Daniel Solis Interpretating Date/Time 12/08/2016 17:09:52
== END 2016-12-08 05:01 | disposition home or self-care (01) ==
LOC: NEPC 02:21
DX: R07.89 Other chest pain (principal); I10 Essential (primary) hypertension; E11.9 Type 2 diabetes mellitus without complications; E78.5 Hyperlipidemia, unspecified
CPT/HCPCS: 71010; 80048; 81001; 82550; 83735; 84484; 84703; 85025; 85610; 85730; 93005; 96360; 99285; J7030; Q0169

== ENCOUNTER 2016-12-16 22:08 | Emergency (ER) | payer OTHER ==
[~2016-12-16] VITALS: Ht 154.9 cm; Wt 81.8 kg
[2016-12-16 22:21] VITALS: BP 126/63; PULSE 82; RESP 18; O2SAT 99
[2016-12-16 22:32] VITALS: TEMP 98.2
--- NOTE | 2016-12-16 22:39 | PD ---
HPI . Diarrhea 2 days Chief Complaint: GI Complaint Time Seen by Provider: 22:31 Travel History International Travel<30 days: No Contact w/Intl Traveler<30days: No Traveled to known affect area: No History of Present Illness HPI 26-year-old female presents to the emergency department for evaluation of diarrhea 2 days. Patient states she feels nauseous but has not vomited. Patient denies any fevers, malaise or lightheadedness. She denies any blood in her stool. Patient denies any hematuria or dysuria. Patient states she has chest pain that started tonight approximately 30 minutes prior to her arriving. Patient states she frequently gets chest pain accompanied with shortness of breath. Patient is followed by shellac polisher Dr. Chau and has an implanted monitor to monitor for irregular rhythms and abnormalities. Patient states despite having episodes of chest pain 2 years they cannot find an etiology for the pain. Patient states there is a possibility she may be however she does not think she has PFSH Past Medical History Hx Anticoagulant Therapy: No ADHD: Yes Autoimmune Disease: No Blood Disorders: No Bipolar Disorder: Yes Anxiety: Yes Depression: Yes Heart Rhythm Problems: Yes Cardiac Catheterization: No Cardiovascular Problems: Yes High Cholesterol: Yes Chemotherapy: No Chest Pain: Yes Congestive Heart Failure: No Cerebrovascular Accident: No Diabetes: Yes Diminished Hearing: No Endocrine: No Gastrointestinal Disorders: Yes (FATTY LIVER) GERD: Yes Genitourinary: No Hepatitis: No Hiatal Hernia: No Heparin Induced Thrombocytopen: No Hypertension: Yes Immune Disorder: No Implanted Vascular Access Dvce: Yes (FOR HEART) Musculoskeletal: No Psychiatric: Yes (BIPOLAR) Reproductive: Yes Respiratory: No Immunizations Current: Yes Seizures: No Thyroid Disease: No Ulcer: Yes PNEUMOCCOCAL Vaccine (Year): 2 Menopausal: No : 1 Para: 0 Miscarriage: 1 : 0 Ovarian Cysts: Yes Past Surgical History Abdominal Surgery: Yes (ADHESION REMOVAL) AICD: No Cardiac Surgery: Yes (STENT) Coronary Artery Bypass Graft: No Ear Surgery: No Endocrine Surgery: No Eye Surgery: No Genitourinary Surgery: No Gynecologic Surgery: No Hysterectomy: No Joint Replacement: No Neurologic Surgery: No Oral Surgery: No Pacemaker: No Thoracic Surgery: No Other Surgery: Yes (LOOP RECORDER IMPLANT IN CHEST) Social History Alcohol Use: Yes (RARE) Tobacco Use: Yes (1 PPD) Substance Use: Yes (MARIJUANA) Allergies-Medications (Allergen,Severity, Reaction): Coded Allergies: No Known Allergies (Verified , 12/16/16) Reported Meds & Prescriptions Reported Meds & Active Scripts Active Lortab (Hydrocodone-Acetaminophen) 5-325 Mg Tab 1-2 Tab PO Q6H PRN Reported Flecainide (Flecainide Acetate) 150 Mg Tab 500 Mg PO BID Metoprolol Tartrate 25 Mg Tab 25 Mg PO BID Seroquel (Quetiapine Fumarate) 50 Mg Tab 50 Mg PO DAILY Lexapro (Escitalopram Oxalate) 20 Mg Tab 20 Mg PO DAILY Review of Systems Except as stated in HPI: all other systems reviewed are Neg Physical Exam Narrative GENERAL: Well-nourished well-developed obese 26-year-old female in no acute distress SKIN: Focused skin assessment warm/dry. HEAD: Atraumatic. Normocephalic. EYES: Pupils equal and round. No scleral icterus. No injection or drainage. ENT: No nasal bleeding or discharge. Mucous membranes pink and moist. NECK: Trachea midline. No JVD. CARDIOVASCULAR: Regular rate and rhythm. No murmur appreciated. RESPIRATORY: No accessory muscle use. Clear to auscultation. Breath sounds equal bilaterally. GASTROINTESTINAL: Abdomen soft, non-tender, nondistended. Hepatic and splenic margins not palpable. MUSCULOSKELETAL: No obvious deformities. No clubbing. No cyanosis. No edema. BACK: Bilateral CVA tenderness. No rash. No point tenderness on palpation of the spine. NEUROLOGICAL: Awake and alert. No obvious cranial nerve deficits. Motor grossly within normal limits. Normal speech. PSYCHIATRIC: Appropriate mood and affect; insight and judgment normal. Data Data Last Documented VS Vital Signs Date Time Temp Pulse Resp B/P (MAP) Pulse Ox O2 Delivery O2 Flow Rate FiO2 12/16/16 22:32 98.2 12/16/16 22:21 82 18 126/63 (84) 99 Orders Orders Complete Blood Count With Diff (12/16/16 22:30) Comprehensive Metabolic Panel (12/16/16 22:30) Lipase (12/16/16 22:30) Prothrombin Time / Inr (Pt) (12/16/16 22:30) Act Partial Throm Time (Ptt) (12/16/16 22:30) Urinalysis - C+S If Indicated (12/16/16 22:30) Iv Access Insert/Monitor (12/16/16 22:30) Ecg Monitoring (12/16/16 22:30) Oximetry (12/16/16 22:30) Sodium Chlor 0.9% 1000 Ml Inj (Ns 1000 M (12/16/16 22:30) Electrocardiogram (12/16/16 22:30) Ed Urine Pregnancytest Poc (12/16/16 22:30) MDM Medical Decision Making Medical Screen Exam Complete: Yes Emergency Medical Condition: Yes Medical Record Reviewed: Yes Differential Diagnosis Differential diagnoses include but are not limited to electrolyte abnormality, ACS, heart palpitations, UTI, gastroenteritis, nephrolithiasis Narrative Course 26-year-old patient presents to the emergency department via EMS with complaint of diarrhea 2 days and chest pain that started approximately 30 minutes prior to arrival. Patient placed on monitor and IV obtained. Blood work sent to lab. CBC, CMP, lipase, PT INR, UA and POC test ordered and pending. EKG ordered and pending. My attending, Dr Moore assumes care for this patient. Please see her documentation for further details and disposition. Ct Sánchez Dec 16, 2016 22:39
[2016-12-16 23:09] LABS: AUTOMATED NEUTROPHIL # 8.2 TH/MM3 (1.8-7.7); BASOPHIL # 0.1 TH/MM3 (0-0.2); BASOPHIL % 0.9 % (0.0-2.0); EOSINOPHIL # 0.2 TH/MM3 (0-0.4); EOSINOPHIL % 1.7 % (0.0-4.0); HEMATOCRIT 38.6 % (35.0-46.0); HEMO FLAGS DIFF FINAL; LYMPH % 33.8 % (9.0-44.0); LYMPHOCYTE # 4.7 TH/MM3 (1.0-4.8); MEAN CELL VOLUME 85.2 FL (80.0-100.0); MEAN CORPUSCULAR HEMOGLOBIN 28.7 PG (27.0-34.0); MEAN CORPUSCULAR HGB CONC 33.7 % (32.0-36.0); MONO % 4.9 % (0.0-8.0); NEUT % 58.7 % (16.0-70.0); PLATELET COUNT 391 TH/MM3 (150-450); RED BLOOD COUNT 4.53 MIL/MM3 (4.00-5.30); RED CELL DISTRIBUTION WIDTH 14.4 % (11.6-17.2); WHITE BLOOD COUNT 13.9 TH/MM3 (4.0-11.0)
[2016-12-16] MEDS: SODIUM CHLOR 0.9% 1000 ML INJ 1,000 ML IV SCH (23:10)
[2016-12-16 23:12] VITALS: BP 131/85; PULSE 38; RESP 18; O2SAT 97
[2016-12-16 23:12] LABS: BLOOD, URINE NEG (NEG); GLUCOSE,URINE NEG (NEG); KETONE, URINE NEG (NEG); NITRITE,URINE NEG (NEG); PH, URINE 7.5 (5.0-8.5); SQUAMOUS EPITHELIAL CELL URINE 2 /hpf (0-5); URINE COLOR YELLOW (YELLW/STRAW)
[2016-12-16 23:17] LABS: COMMENT (UR) CULT NOT INDICATED; CULTURE IF INDICATED CULT NOT INDICATED
[2016-12-16 23:53] LABS: ALKALINE PHOSPHATASE 67 U/L (45-117); TOTAL BILIRUBIN ADULT 0.2 MG/DL (0.2-1.0)
[2016-12-17 00:09] LABS: ALT (GPT) 45 U/L (10-53); ANION GAP 8 MEQ/L (5-15); AST (GOT) 28 U/L (15-37); BICARBONATE 24.5 MEQ/L (21.0-32.0); BLOOD UREA NITROGEN 9 MG/DL (7-18); CHLORIDE 109 MEQ/L (98-107); GLOMERULAR FILTRATION RATE 105 ML/MIN (>89); SODIUM (NA) 141 MEQ/L (136-145)
[2016-12-17] MEDS ORDERED: IOHEXOL 350 MG/ML 10 ML VIAL (for RAD DIAG) IVCONTRAST ONE (00:32)
[2016-12-17] MEDS ORDERED: KETOROLAC TROMETHAMINE 30 MG/ML (IVP) VIAL IV PUSH ONE (01:00)
--- NOTE | 2016-12-17 01:02 | RADRPT ---
EXAM DATE/TIME: 12/17/2016 00:22 [facility] COMPARISON: CT ABDOMEN & PELVIS W/O CONTRAST, July 15, 2016, 19:05. INDICATIONS : Diffuse abdominal pain. IV CONTRAST: 100 cc Omnipaque 350 (iohexol) IV ORAL CONTRAST: No oral contrast ingested. RADIATION DOSE: 10.69 CTDIvol (mGy) MEDICAL HISTORY : None SURGICAL HISTORY : None. ENCOUNTER: Initial ACUITY: 1 day PAIN SCALE: 5/10 LOCATION: abdomen TECHNIQUE: Volumetric scanning of the abdomen and pelvis was performed. Using automated exposure control and ad justment of the mA and/or kV according to patient size, radiation dose was kept as low as reasonably achievable to obtain optimal diagnostic quality images. DICOM format image data is available electro nically for review and comparison. FINDINGS: Comparison is July 15. Lung bases are clear. No acute findings in the spleen, adrenals, kidneys or p ancreas. Probable small cysts right lobe liver. There is no free fluid. No bowel obstruction. No adenopathy. There is a 4.7 cm right adnexal cyst inc reased from previous measurement of 3.1 cm in June. No other pelvic masses. No free air. CONCLUSION: 1. 4.7 cm right adnexal cystic appearing lesion increased from 3.1 cm measurements in June 2016. No acute findings in the remainder of the abdomen and pelvic CT. Roc Vergara MD on December 17, 2016 at 0:56 Board Certified Radiologist. This report was verified electronically.
[2016-12-17] MEDS: SODIUM CHLOR 0.9% 1000 ML INJ 1,000 ML IV SCH (01:22)
[2016-12-17] MEDS ORDERED: MORPHINE SULFATE 4 MG/ML INJ IV PUSH ONE (02:00)
--- NOTE | 2016-12-17 03:12 | RADRPT ---
EXAM DATE/TIME: 12/17/2016 02:21 [facility] COMPARISON: No previous studies available for comparison. INDICATIONS : Pelvic pain. MEDICAL HISTORY : Hypercholesterolemia. Hypertension. Gastroesophageal reflux disease. Ulcer. Ovarian cyst. Diabetes. Anxiety. Bipolar disorder. SURGICAL HISTORY : Cardiact stent. Adhesion removal. Loop recorder implant in chest. ENCOUNTER: Initial ACUITY: 2 days PAIN SCORE: 6/10 LOCATION: Bilateral pelvis MEASUREMENTS: UTERUS: 7.2 x 3.4 x 3.4 cm ENDOMETRIAL STRIPE: 3 mm RIGHT OVARY: 5.6 x 4.5 x 4.7 cm LEFT OVARY: 2.8 x x 1.5 cm FINDINGS: There is a mildly complex right ovarian cyst measuring up to 4.9 x 4.1 x 4.3 cm. Trace free fluid in the cul-de-sac. Positive Doppler blood flow in both ovaries. Left ovary unremarkable. Uterus unremark able. CONCLUSION: 1. Positive ovarian blood flow without evidence for torsion. 2. Mildly complex 4.9 cm cyst right ovary. Roc Vergara MD on December 17, 2016 at 3:09 Board Certified Radiologist. This report was verified electronically.
[2016-12-17] MEDS ORDERED: DOXY100C PO (03:46)
[2016-12-17] MEDS ORDERED: METR-1 PO (03:46)
--- NOTE | 2016-12-17 03:46 | PD ---
Data Data Last Documented VS Vital Signs Date Time Temp Pulse Resp B/P (MAP) Pulse Ox O2 Delivery O2 Flow Rate FiO2 12/16/16 23:12 38 18 131/85 (100) 97 Room Air 12/16/16 22:32 98.2 Orders Orders Complete Blood Count With Diff (12/16/16 22:30) Comprehensive Metabolic Panel (12/16/16 22:30) Lipase (12/16/16 22:30) Urinalysis - C+S If Indicated (12/16/16 22:30) Iv Access Insert/Monitor (12/16/16 22:30) Ecg Monitoring (12/16/16 22:30) Oximetry (12/16/16 22:30) Sodium Chlor 0.9% 1000 Ml Inj (Ns 1000 M (12/16/16 22:30) Electrocardiogram (12/16/16 22:30) Ed Urine Pregnancytest Poc (12/16/16 22:30) Ct Abd/Pel W Iv Contrast(Rout) (12/17/16 ) Iohexol 350 Inj (Omnipaque 350 Inj) (12/17/16 00:32) Ketorolac Inj (Toradol Inj) (12/17/16 01:00) Us Pelvis Comp W Dop Transvag (12/17/16 ) Morphine Inj (Morphine Inj) (12/17/16 02:00) Wet Prep Profile (12/17/16 01:52) Gc And Chlamydia Pcr (12/17/16 01:52) Labs Laboratory Tests Test 12/16/16 23:00 12/17/16 02:00 White Blood Count 13.9 TH/MM3 Red Blood Count 4.53 MIL/MM3 Hemoglobin 13.0 GM/DL Hematocrit 38.6 % Mean Corpuscular Volume 85.2 FL Mean Corpuscular Hemoglobin 28.7 PG Mean Corpuscular Hemoglobin Concent 33.7 % Red Cell Distribution Width 14.4 % Platelet Count 391 TH/MM3 Mean Platelet Volume 8.0 FL Neutrophils (%) (Auto) 58.7 % Lymphocytes (%) (Auto) 33.8 % Monocytes (%) (Auto) 4.9 % Eosinophils (%) (Auto) 1.7 % Basophils (%) (Auto) 0.9 % Neutrophils # (Auto) 8.2 TH/MM3 Lymphocytes # (Auto) 4.7 TH/MM3 Monocytes # (Auto) 0.7 TH/MM3 Eosinophils # (Auto) 0.2 TH/MM3 Basophils # (Auto) 0.1 TH/MM3 CBC Comment DIFF FINAL Differential Comment Urine Color YELLOW Urine Turbidity CLEAR Urine pH 7.5 Urine Specific Mary [place] 1.023 Urine Protein NEG mg/dL Urine Glucose (UA) NEG mg/dL Urine Ketones NEG mg/dL Urine Occult Blood NEG Urine Nitrite NEG Urine Bilirubin NEG Urine Urobilinogen LESS THAN 2.0 MG/DL Urine Leukocyte Esterase NEG Urine RBC 2 /hpf Urine WBC LESS THAN 1 /hpf Urine Squamous Epithelial Cells 2 /hpf Microscopic Urinalysis Comment CULT NOT INDICATED Blood Urea Nitrogen 9 MG/DL Creatinine 0.67 MG/DL Random Glucose 107 MG/DL Total Protein 6.9 GM/DL Albumin 3.5 GM/DL Calcium Level 8.2 MG/DL Alkaline Phosphatase 67 U/L Aspartate Amino Transf (AST/SGOT) 28 U/L Alanine Aminotransferase (ALT/SGPT) 45 U/L Total Bilirubin 0.2 MG/DL Sodium Level 141 MEQ/L Potassium Level 4.0 MEQ/L Chloride Level 109 MEQ/L Carbon Dioxide Level 24.5 MEQ/L Anion Gap 8 MEQ/L Estimat Glomerular Filtration Rate 105 ML/MIN Lipase 219 U/L Clue Cells (Wet Prep) PRESENT Vaginal Trichomonas (Wet Prep) NONE SEEN Vaginal Yeast (Wet Prep) NONE SEEN MDM Supervised Visit with [facility]: Yes Narrative Course The history, exam, and medical decision-making in the associated midlevel provider note were completed with my assistance. I reviewed and agree with the findings presented. I attest that I had a [id number] encounter with the patient on the same day, and personally performed and documented my assessment and findings in the medical record. *My assessment and Findings: This is a 26-year-old female who presents to the emergency department with lower abdominal discomfort and loose stools as well as vaginal discharge. Labs are reassuring. She does have a mild leukocytosis. CT abdomen and pelvis demonstrates a large cyst in the right ovary. Pelvic ultrasound demonstrates flow to both ovaries but demonstrates a 4.9 cm cyst which should be followed up by [facility]. She does have a fair amount of discharge and adnexal tenderness and cervical motion tenderness on pelvic exam. She may have pelvic inflammatory disease. She will be treated empirically with antibiotics. Otherwise I don't see a surgical etiology of her symptoms and I think she can be discharged home with [facility] follow-up. Diagnosis Primary Impression: Ovarian cyst Qualified Codes: N83.201 - Unspecified ovarian cyst, right side Patient Instructions: General Instructions Additional Instruction: If you develop severe or worsening abdominal pain, fever>100.4, persistent vomiting or inability to eat or drink return to the emergency department immediately. Follow up with your primary care physician in 1-2 days for a check-up. Med/Other Pt SpecificInfo: Prescription(s) given Scripts Metronidazole (Flagyl) 500 Mg Tab 500 MG PO BID for Infection, #14 TAB 0 Refills Prov: Lucia Moore MD 12/17/16 Doxycycline Hyclate (Doxycycline Hyclate) 100 Mg Cap 100 MG PO BID for Infection, #28 CAP 0 Refills Prov: Lucia Moore MD 12/17/16 Disposition: 01 DISCHARGE HOME Condition: Stable Lucia Moore MD Dec 17, 2016 03:46
[2016-12-17] MEDS ORDERED: LIDOCAINE HCL 1% 50 ML VIAL IM ONE (04:00)
[2016-12-17] MEDS ORDERED: cefTRIAXone 250 MG VIAL IM ONE (04:00)
[2016-12-17] MEDS ORDERED: traMADol HCL 50 MG TAB PO ONE (04:00)
[2016-12-17] MEDS ORDERED: ONDANSETRON ODT 4 MG TAB PO ONE (04:00)
[2016-12-17 04:42] LABS: CHLAMYDIA PCR NOT DETECTED (NOT DETECT); NEISSERIA PCR NOT DETECTED (NOT DETECT)
--- NOTE | 2016-12-17 08:28 | EKG ---
Date Performed: 12/16/2016 Time Performed: 23:04:09 PTAGE: 26 years EKG: Sinus rhythm NORMAL ECG PREVIOUS TRACING : 12/08/2016 02.47 No significant change from previous tracing noted. DOCTOR: Nishant Belcher Interpretating Date/Time 12/17/2016 08:27:07
== END 2016-12-17 04:55 | disposition home or self-care (01) ==
LOC: NEPC 22:08
DX: N83.201 Unspecified ovarian cyst, right side (principal); D72.829 Elevated white blood cell count, unspecified
CPT/HCPCS: 74177; 76830; 76856; 80053; 81001; 83690; 84703; 85025; 87210; 87491; 87591; 93005; 93975; 96361; 96372; 96374; 96375; 99285; J0696; J1885; J2270; J7030; Q9967

== ENCOUNTER 2016-12-22 02:39 | Emergency (ER) | payer OTHER ==
[~2016-12-22] VITALS: Ht 154.9 cm; Wt 88.0 kg
[~2016-12-22 02:39] MED LIST changes: +DOXY100C PO; +METR-1 PO
[2016-12-22 02:48] VITALS: BP 112/57; PULSE 75; RESP 18
[2016-12-22] MEDS ORDERED: SODIUM CHLOR 0.9% 1000 ML INJ 1,000 ML IV SCH (03:08)
[2016-12-22] MEDS ORDERED: SODIUM CHLORIDE 0.9% FLUSH 10 ML FLUSH IV FLUSH PRN (03:15)
[2016-12-22] MEDS ORDERED: KETOROLAC TROMETHAMINE 30 MG/ML (IVP) VIAL IVP ONE (03:15)
--- NOTE | 2016-12-22 03:20 | PD ---
HPI Chief Complaint: Chest Pain Time Seen by Provider: 03:03 Travel History International Travel<30 days: No Contact w/Intl Traveler<30days: No Traveled to known affect area: No History of Present Illness HPI Patient is a 26-year-old female who presents to emergency room with multiple complaints. Reports that she has been having intermittent episodes of chest pain, reports that she wakes up in the middle night with sharp stabbing pains to her chest. She is currently being followed by a registered dietetic technician, Dr. Chau, she does have a loop recorder in place as they cannot find out the etiology of her chest pain. Patient reports that she had a stress test on October 2016 which was negative for ischemia. Reports that she is unsure why she is continuing to have this chest pain Patient also reports that she is having lower abdominal pain. She reports that she was recently diagnosed with a right-sided ovarian cyst, reports that she has not followed up with radiological defense officer for this. Patient denies any vaginal discharge or bleeding, reports nonspecific lower abdominal pain. Denies fever/ chills. Denies nausea or vomiting. No other complaints. PFSH Past Medical History Hx Anticoagulant Therapy: No ADHD: Yes Autoimmune Disease: No Blood Disorders: No Bipolar Disorder: Yes Anxiety: Yes Depression: Yes Heart Rhythm Problems: Yes Cardiac Catheterization: No Cardiovascular Problems: Yes High Cholesterol: Yes Chemotherapy: No Chest Pain: Yes Congestive Heart Failure: No Cerebrovascular Accident: No Diabetes: No Patient Takes Glucophage: No Diminished Hearing: No Endocrine: No Gastrointestinal Disorders: Yes (FATTY LIVER) GERD: Yes Genitourinary: No Hepatitis: No Hiatal Hernia: No Heparin Induced Thrombocytopen: No Hypertension: Yes Immune Disorder: No Implanted Vascular Access Dvce: Yes (FOR HEART) Musculoskeletal: No Psychiatric: Yes (BIPOLAR) Reproductive: Yes Respiratory: No Immunizations Current: Yes Seizures: No Thyroid Disease: No Ulcer: Yes PNEUMOCCOCAL Vaccine (Year): 2 ?: Not Menopausal: No : 1 Para: 0 Miscarriage: 1 : 0 Ovarian Cysts: Yes Past Surgical History Abdominal Surgery: Yes (ADHESION REMOVAL) AICD: No Cardiac Surgery: Yes (STENT) Coronary Artery Bypass Graft: No Ear Surgery: No Endocrine Surgery: No Eye Surgery: No Genitourinary Surgery: No Gynecologic Surgery: No Hysterectomy: No Joint Replacement: No Neurologic Surgery: No Oral Surgery: No Pacemaker: No Thoracic Surgery: No Other Surgery: Yes (LOOP RECORDER IMPLANT IN CHEST) Family History Family Myocardial Infarction: Yes (GRANDFATHER AT AGE 38) Social History Alcohol Use: Yes (RARE) Tobacco Use: Yes (1 PPD) Substance Use: Yes (MARIJUANA) Allergies-Medications (Allergen,Severity, Reaction): Coded Allergies: No Known Allergies (Verified , 12/16/16) Reported Meds & Prescriptions Reported Meds & Active Scripts Active Flagyl (Metronidazole) 500 Mg Tab 500 Mg PO BID Doxycycline Hyclate 100 Mg Cap 100 Mg PO BID Lortab (Hydrocodone-Acetaminophen) 5-325 Mg Tab 1-2 Tab PO Q6H PRN Reported Flecainide (Flecainide Acetate) 150 Mg Tab 500 Mg PO BID Metoprolol Tartrate 25 Mg Tab 25 Mg PO BID Seroquel (Quetiapine Fumarate) 50 Mg Tab 50 Mg PO DAILY Lexapro (Escitalopram Oxalate) 20 Mg Tab 20 Mg PO DAILY Review of Systems General / Constitutional: No: Fever Eyes: No: Visual changes HENT: No: Headaches Cardiovascular: Positive: Chest Pain or Discomfort Respiratory: No: Shortness of Breath Gastrointestinal: Positive: Abdominal Pain Genitourinary: No: Dysuria, Hematuria, Pelvic Pain, Flank Pain, Discharge Musculoskeletal: No: Pain Skin: No Rash Neurologic: No: Weakness Psychiatric: No: Depression Endocrine: No: Polydipsia Hematologic/Lymphatic: No: Easy Bruising Physical Exam Narrative GENERAL: mild distress SKIN: Focused skin assessment warm/dry. HEAD: Atraumatic. Normocephalic. EYES: Pupils equal and round. No scleral icterus. No injection or drainage. ENT: No nasal bleeding or discharge. Mucous membranes pink and moist. NECK: Trachea midline. No JVD. CARDIOVASCULAR: Regular rate and rhythm. No murmur appreciated. RESPIRATORY: No accessory muscle use. Clear to auscultation. Breath sounds equal bilaterally. GASTROINTESTINAL: Abdomen soft, non-tender, nondistended. Hepatic and splenic margins not palpable. MUSCULOSKELETAL: No obvious deformities. No clubbing. No cyanosis. No edema. NEUROLOGICAL: Awake and alert. No obvious cranial nerve deficits. Motor grossly within normal limits. Normal speech. PSYCHIATRIC: Anxious mood and affect Data Data Last Documented VS Vital Signs Date Time Temp Pulse Resp B/P (MAP) Pulse Ox O2 Delivery O2 Flow Rate FiO2 12/22/16 03:40 78 14 94 Room Air 12/22/16 02:48 112/57 (75) Orders Orders Complete Blood Count With Diff (12/22/16 03:08) Comprehensive Metabolic Panel (12/22/16 03:08) Urinalysis - C+S If Indicated (12/22/16 03:08) Iv Access Insert/Monitor (12/22/16 03:08) Ecg Monitoring (12/22/16 03:08) Oximetry (12/22/16 03:08) Sodium Chlor 0.9% 1000 Ml Inj (Ns 1000 M (12/22/16 03:08) Sodium Chloride 0.9% Flush (Ns Flush) (12/22/16 03:15) Electrocardiogram (12/22/16 03:08) Chest, Single Ap (12/22/16 03:08) Ketorolac Inj (Toradol Inj) (12/22/16 03:15) Ed Urine Pregnancytest Poc (12/22/16 03:08) Us Pelvis Comp W Dop Transvag (12/22/16 ) Electrocardiogram (12/22/16 ) Potassium Chloride (Kcl) (12/22/16 04:30) Acetaminophen (Tylenol) (12/22/16 04:45) Labs Laboratory Tests Test 12/22/16 03:30 12/22/16 03:50 White Blood Count 13.2 TH/MM3 Red Blood Count 4.45 MIL/MM3 Hemoglobin 12.8 GM/DL Hematocrit 38.0 % Mean Corpuscular Volume 85.2 FL Mean Corpuscular Hemoglobin 28.7 PG Mean Corpuscular Hemoglobin Concent 33.7 % Red Cell Distribution Width 14.4 % Platelet Count 348 TH/MM3 Mean Platelet Volume 8.0 FL Neutrophils (%) (Auto) 68.0 % Lymphocytes (%) (Auto) 26.1 % Monocytes (%) (Auto) 4.0 % Eosinophils (%) (Auto) 1.6 % Basophils (%) (Auto) 0.3 % Neutrophils # (Auto) 9.0 TH/MM3 Lymphocytes # (Auto) 3.4 TH/MM3 Monocytes # (Auto) 0.5 TH/MM3 Eosinophils # (Auto) 0.2 TH/MM3 Basophils # (Auto) 0.0 TH/MM3 CBC Comment DIFF FINAL Differential Comment Blood Urea Nitrogen 11 MG/DL Creatinine 0.66 MG/DL Random Glucose 151 MG/DL Total Protein 7.1 GM/DL Albumin 3.5 GM/DL Calcium Level 8.1 MG/DL Alkaline Phosphatase 67 U/L Aspartate Amino Transf (AST/SGOT) 13 U/L Alanine Aminotransferase (ALT/SGPT) 32 U/L Total Bilirubin 0.2 MG/DL Sodium Level 142 MEQ/L Potassium Level 3.0 MEQ/L Chloride Level 108 MEQ/L Carbon Dioxide Level 23.9 MEQ/L Anion Gap 10 MEQ/L Estimat Glomerular Filtration Rate 107 ML/MIN Urine Color YELLOW Urine Turbidity HAZY Urine pH 5.5 Urine Specific Gentry 1.035 Urine Protein TRACE mg/dL Urine Glucose (UA) NEG mg/dL Urine Ketones TRACE mg/dL Urine Occult Blood NEG Urine Nitrite NEG Urine Bilirubin NEG Urine Urobilinogen 2.0 MG/DL Urine Leukocyte Esterase NEG Urine RBC 3 /hpf Urine WBC 2 /hpf Urine Squamous Epithelial Cells 8 /hpf Urine Mucus MANY /lpf Microscopic Urinalysis Comment CULT NOT INDICATED MDM Medical Decision Making Medical Screen Exam Complete: Yes Emergency Medical Condition: Yes Medical Record Reviewed: Yes Interpretation(s) EKG at 0420: NSR at 74bpm qt/qtc: 401/428, no acute st or t wave changes, non acute ekg Vital Signs Date Time Temp Pulse Resp B/P (MAP) Pulse Ox O2 Delivery O2 Flow Rate FiO2 12/22/16 02:54 100 Room Air 12/22/16 02:48 75 18 112/57 (75) Differential Diagnosis Differential includes ACS, arrhythmia, electrolyte abnormality, drug abuse, appendicitis, ovarian cyst, ovarian torsion, cervicitis, UTI Narrative Course 26-year-old female who presents to emergency room with multiple complaints, patient reports that she woke up tonight and began to have chest pain. Patient reports that chest pain is similar to her previous episodes, she is being followed with cardiology and does have her loop recorder in place. Patient is sharp and stabbing in nature, no diaphoresis or shortness of breath with symptoms. Patient with atypical chest pain at this time. Patient also complaining of lower abdominal pain. Reports that she has been having pain since she was seen in the emergency room a December 16 when she was diagnosed with a right-sided ovarian cyst. She reports that she has not follow-up with her radiological defense officer yet continues to have pain. Patient was placed on a labor relations worker upon arrival to the emergency room, EKG was ordered. Lab work including pelvic ultrasound ordered. Plan to administer Toradol for pain, will monitor patient. Vital Signs Date Time Temp Pulse Resp B/P (MAP) Pulse Ox O2 Delivery O2 Flow Rate FiO2 12/22/16 03:40 78 14 94 Room Air 12/22/16 02:54 100 Room Air 12/22/16 02:48 75 18 112/57 (75) Laboratory Tests Test 12/22/16 03:30 12/22/16 03:50 White Blood Count 13.2 TH/MM3 (4.0-11.0) Red Blood Count 4.45 MIL/MM3 (4.00-5.30) Hemoglobin 12.8 GM/DL (11.6-15.3) Hematocrit 38.0 % (35.0-46.0) Mean Corpuscular Volume 85.2 FL (80.0-100.0) Mean Corpuscular Hemoglobin 28.7 PG (27.0-34.0) Mean Corpuscular Hemoglobin Concent 33.7 % (32.0-36.0) Red Cell Distribution Width 14.4 % (11.6-17.2) Platelet Count 348 TH/MM3 (150-450) Mean Platelet Volume 8.0 FL (7.0-11.0) Neutrophils (%) (Auto) 68.0 % (16.0-70.0) Lymphocytes (%) (Auto) 26.1 % (9.0-44.0) Monocytes (%) (Auto) 4.0 % (0.0-8.0) Eosinophils (%) (Auto) 1.6 % (0.0-4.0) Basophils (%) (Auto) 0.3 % (0.0-2.0) Neutrophils # (Auto) 9.0 TH/MM3 (1.8-7.7) Lymphocytes # (Auto) 3.4 TH/MM3 (1.0-4.8) Monocytes # (Auto) 0.5 TH/MM3 (0-0.9) Eosinophils # (Auto) 0.2 TH/MM3 (0-0.4) Basophils # (Auto) 0.0 TH/MM3 (0-0.2) CBC Comment DIFF FINAL Differential Comment Blood Urea Nitrogen 11 MG/DL (7-18) Creatinine 0.66 MG/DL (0.50-1.00) Random Glucose 151 MG/DL (74-106) Total Protein 7.1 GM/DL (6.4-8.2) Albumin 3.5 GM/DL (3.4-5.0) Calcium Level 8.1 MG/DL (8.5-10.1) Alkaline Phosphatase 67 U/L (45-117) Aspartate Amino Transf (AST/SGOT) 13 U/L (15-37) Alanine Aminotransferase (ALT/SGPT) 32 U/L (10-53) Total Bilirubin 0.2 MG/DL (0.2-1.0) Sodium Level 142 MEQ/L (136-145) Potassium Level 3.0 MEQ/L (3.5-5.1) Chloride Level 108 MEQ/L (98-107) Carbon Dioxide Level 23.9 MEQ/L (21.0-32.0) Anion Gap 10 MEQ/L (5-15) Estimat Glomerular Filtration Rate 107 ML/MIN (>89) Urine Color YELLOW (YELLW/STRAW) Urine Turbidity HAZY (CLEAR) Urine pH 5.5 (5.0-8.5) Urine Specific Gentry 1.035 (1.002-1.035) Urine Protein TRACE mg/dL (NEG-TRACE) Urine Glucose (UA) NEG mg/dL (NEG) Urine Ketones TRACE mg/dL (NEG) Urine Occult Blood NEG (NEG) Urine Nitrite NEG (NEG) Urine Bilirubin NEG (NEG) Urine Urobilinogen 2.0 MG/DL (LESS THAN Urine Leukocyte Esterase NEG (NEG) Urine RBC 3 /hpf (0-3) Urine WBC 2 /hpf (0-5) Urine Squamous Epithelial Cells 8 /hpf (0-5) Urine Mucus MANY /lpf (OCC) Microscopic Urinalysis Comment CULT NOT INDICATED pelvis us: Mildly complex right ovarian cyst measuring 3.8 x 5 x 4.8 cm, there is good blood flow to the right ovary, there is no significant mass or cystic lesion to left ovary, there is good blood flow to the left ovary. There is no torsion. I reviewed all labs and studies with patient in detail, you'll need to follow- up with her radiological defense officer as well as registered dietetic technician. Signs and symptoms of when to return to the emergency reviewed patient in detail. Patient was given a copy of her studies at discharge. Diagnosis Primary Impression: Atypical chest pain Additional Impressions: Abdominal pain Ovarian cyst Qualified Codes: N83.201 - Unspecified ovarian cyst, right side Patient Instructions: General Instructions Additional Instructions: Please follow up with Dr. Chau your registered dietetic technician Please follow up with radiological defense officer Return to ER as needed or if symptoms return Please follow up with your primary care doctor Disposition: 01 DISCHARGE HOME Condition: Stable Samanta Herrera DO Dec 22, 2016 03:20
[2016-12-22 03:40] VITALS: PULSE 78; RESP 14; O2SAT 94
[2016-12-22 03:44] LABS: BASOPHIL % 0.3 % (0.0-2.0); EOSINOPHIL # 0.2 TH/MM3 (0-0.4); EOSINOPHIL % 1.6 % (0.0-4.0); HEMO FLAGS DIFF FINAL; LYMPH % 26.1 % (9.0-44.0); LYMPHOCYTE # 3.4 TH/MM3 (1.0-4.8); MEAN CELL VOLUME 85.2 FL (80.0-100.0); MEAN CORPUSCULAR HEMOGLOBIN 28.7 PG (27.0-34.0); MEAN CORPUSCULAR HGB CONC 33.7 % (32.0-36.0); PLATELET COUNT 348 TH/MM3 (150-450); RED BLOOD COUNT 4.45 MIL/MM3 (4.00-5.30); RED CELL DISTRIBUTION WIDTH 14.4 % (11.6-17.2); WHITE BLOOD COUNT 13.2 TH/MM3 (4.0-11.0)
--- NOTE | 2016-12-22 03:45 | RADRPT ---
EXAM DATE/TIME: 12/22/2016 03:25 [facility] COMPARISON: CHEST SINGLE AP, December 08, 2016, 3:10. INDICATIONS : Chest pain. MEDICAL HISTORY : None. SURGICAL HISTORY : None. ENCOUNTER: Initial ACUITY: >1 year PAIN SCORE: 3/10 LOCATION: Bilateral chest FINDINGS: A single view of the chest demonstrates the lungs to be symmetrically aerated without evidence of mas s, infiltrate or effusion. The cardiomediastinal contours are unremarkable. Osseous structures are intact. CONCLUSION: No evidence of acute cardiopulmonary disease. Efraín Ramos MD on December 22, 2016 at 3:44 Board Certified Radiologist. This report was verified electronically.
[2016-12-22 04:08] LABS: ANION GAP 10 MEQ/L (5-15); AST (GOT) 13 U/L (15-37); BICARBONATE 23.9 MEQ/L (21.0-32.0); BLOOD UREA NITROGEN 11 MG/DL (7-18); CHLORIDE 108 MEQ/L (98-107); GLOMERULAR FILTRATION RATE 107 ML/MIN (>89); SODIUM (NA) 142 MEQ/L (136-145)
[2016-12-22 04:12] LABS: ALKALINE PHOSPHATASE 67 U/L (45-117); ALT (GPT) 32 U/L (10-53); TOTAL BILIRUBIN ADULT 0.2 MG/DL (0.2-1.0)
[2016-12-22 04:21] LABS: BLOOD, URINE NEG (NEG); COMMENT (UR) CULT NOT INDICATED; CULTURE IF INDICATED CULT NOT INDICATED; GLUCOSE,URINE NEG (NEG); KETONE, URINE TRACE mg/dL (NEG); MUCUS URINE MANY /lpf (OCC); NITRITE,URINE NEG (NEG); PH, URINE 5.5 (5.0-8.5); SQUAMOUS EPITHELIAL CELL URINE 8 /hpf (0-5); URINE COLOR YELLOW (YELLW/STRAW)
--- NOTE | 2016-12-22 04:27 | RADRPT ---
EXAM DATE/TIME: 12/22/2016 03:31 [facility] COMPARISON: US PELVIS,COMP,W DOPLR, TRANS VAG, December 17, 2016, 2:21. INDICATIONS : Pelvic pain. MEDICAL HISTORY : Hypercholesterolemia. Hypertension. Gastroesophageal reflux disease. Ulcer. Ovarian cyst. Diabetes. A nxiety. Bipolar disorder. SURGICAL HISTORY : Cardiact stent. Adhesion removal. Loop recorder implant in chest. ENCOUNTER: Initial ACUITY: 4-6 days PAIN SCORE: 7/10 LOCATION: Bilateral pelvis MEASUREMENTS: UTERUS: 8.5 x 5.0 x 3.3 cm ENDOMETRIAL STRIPE: 3 mm RIGHT OVARY: 4.7 x 5.8 x 5.5 cm LEFT OVARY: 2.7 x 2.3 x 1.8 cm FINDINGS: UTERUS: The myometrium has homogeneous echotexture without mass. RIGHT OVARY: 3.8 x 5.0 x 4.8 cm cyst with some internal debris and a few septations again noted, not significantly changed. Blood flow is demonstrated to the right ovary. LEFT OVARY: Ovary contains no mass or significant cystic lesion. Blood flow is demonstrated to the left ovary. MISCELLANEOUS: No free fluid. CONCLUSION: Mildly complex right ovarian cyst is not significantly changed. No torsion demonstrated. Efraín Ramos MD on December 22, 2016 at 4:24 Board Certified Radiologist. This report was verified electronically.
[2016-12-22] MEDS ORDERED: POTASSIUM CHLORIDE 10 MEQ CONTROLLED RELEASE TAB PO ONE (04:30)
[2016-12-22] MEDS ORDERED: ACETAMINOPHEN 325 MG TAB PO ONE (04:45)
--- NOTE | 2016-12-22 14:51 | EKG ---
Date Performed: 12/22/2016 Time Performed: 04:20:41 PTAGE: 26 years EKG: Sinus rhythm NORMAL ECG PREVIOUS TRACING : 12/16/2016 23.04 Compared to prior tracing no significant change DOCTOR: Art Long Interpretating Date/Time 12/22/2016 14:50:50
== END 2016-12-22 04:50 | disposition home or self-care (01) ==
LOC: NEPC 02:39
DX: R07.89 Other chest pain (principal); N83.201 Unspecified ovarian cyst, right side; R10.9 Unspecified abdominal pain
CPT/HCPCS: 71010; 76830; 76856; 80053; 81001; 84703; 85025; 93005; 93975; 96374; 99285; J1885; J7030

== ENCOUNTER 2016-12-24 02:42 | Emergency (ER) | payer OTHER ==
[~2016-12-24] VITALS: Ht 154.9 cm; Wt 86.0 kg
[2016-12-24 02:51] VITALS: BP 116/65; PULSE 91; RESP 16; O2SAT 99
[2016-12-24] MEDS ORDERED: SODIUM CHLORIDE 0.9% FLUSH 10 ML FLUSH IVF PRN (03:00)
--- NOTE | 2016-12-24 03:06 | PD ---
HPI Chief Complaint: Cardiac Complaint Time Seen by Provider: 02:53 Travel History International Travel<30 days: No Contact w/Intl Traveler<30days: No Traveled to known affect area: No History of Present Illness HPI 26-year-old female patient presents to the ER today because of palpitations and chest discomfort starting this evening. She states that it woke her up. She has recently been evaluated for atypical chest pains and has had previous cardiac workup which were all negative. She is currently being evaluated for sleep apnea. She states that the palpitations are subsiding. She still feels some shortness of breath. She states she became sick and was nauseous and vomited. She denies any recent fevers, or other symptoms. Modifying Factors: None Associated Signs & Symptoms: Palpitations, shortness of breath, nausea and vomiting Risk Factors: None PFSH Past Medical History Hx Anticoagulant Therapy: No ADHD: Yes Autoimmune Disease: No Blood Disorders: No Bipolar Disorder: Yes Anxiety: Yes Depression: Yes Heart Rhythm Problems: Yes Cardiac Catheterization: No Cardiovascular Problems: Yes High Cholesterol: Yes Chemotherapy: No Chest Pain: Yes Congestive Heart Failure: No Cerebrovascular Accident: No Diabetes: No Diminished Hearing: No Endocrine: No Gastrointestinal Disorders: Yes (FATTY LIVER) GERD: Yes Genitourinary: No Hepatitis: No Hiatal Hernia: No Heparin Induced Thrombocytopen: No Hypertension: Yes Immune Disorder: No Implanted Vascular Access Dvce: Yes (FOR HEART) Musculoskeletal: No Psychiatric: Yes (BIPOLAR) Reproductive: Yes Respiratory: No Immunizations Current: Yes Seizures: No Thyroid Disease: No Ulcer: Yes PNEUMOCCOCAL Vaccine (Year): 2 ?: Unknown Menopausal: No : 1 Para: 0 Miscarriage: 1 : 0 Ovarian Cysts: Yes Past Surgical History Abdominal Surgery: Yes (ADHESION REMOVAL) AICD: No Cardiac Surgery: Yes (STENT) Coronary Artery Bypass Graft: No Ear Surgery: No Endocrine Surgery: No Eye Surgery: No Genitourinary Surgery: No Gynecologic Surgery: No Hysterectomy: No Joint Replacement: No Neurologic Surgery: No Oral Surgery: No Pacemaker: No Thoracic Surgery: No Other Surgery: Yes (LOOP RECORDER IMPLANT IN CHEST) Social History Alcohol Use: Yes (RARE) Tobacco Use: Yes (1 PPD) Substance Use: Yes (MARIJUANA) Allergies-Medications (Allergen,Severity, Reaction): Coded Allergies: No Known Allergies (Verified , 12/16/16) Reported Meds & Prescriptions Reported Meds & Active Scripts Active Flagyl (Metronidazole) 500 Mg Tab 500 Mg PO BID Doxycycline Hyclate 100 Mg Cap 100 Mg PO BID Lortab (Hydrocodone-Acetaminophen) 5-325 Mg Tab 1-2 Tab PO Q6H PRN Reported Flecainide (Flecainide Acetate) 150 Mg Tab 500 Mg PO BID Metoprolol Tartrate 25 Mg Tab 25 Mg PO BID Seroquel (Quetiapine Fumarate) 50 Mg Tab 50 Mg PO DAILY Lexapro (Escitalopram Oxalate) 20 Mg Tab 20 Mg PO DAILY Review of Systems Except as stated in HPI: all other systems reviewed are Neg Physical Exam Narrative GENERAL: Well-developed young white female patient who appears mildly anxious. Awake and oriented 3. SKIN: Focused skin assessment warm/dry. HEAD: Atraumatic. Normocephalic. EYES: Pupils equal and round. No scleral icterus. No injection or drainage. ENT: No nasal bleeding or discharge. Mucous membranes pink and moist. NECK: Trachea midline. No JVD. CARDIOVASCULAR: Regular rate and rhythm. No murmur appreciated. RESPIRATORY: No accessory muscle use. Clear to auscultation. Breath sounds equal bilaterally. GASTROINTESTINAL: Abdomen soft, non-tender, nondistended. Hepatic and splenic margins not palpable. MUSCULOSKELETAL: No obvious deformities. No clubbing. No cyanosis. No edema. NEUROLOGICAL: Awake and alert. No obvious cranial nerve deficits. Motor grossly within normal limits. Normal speech. PSYCHIATRIC: Appropriate mood and affect; insight and judgment normal. Data Data Last Documented VS Vital Signs Date Time Temp Pulse Resp B/P (MAP) Pulse Ox O2 Delivery O2 Flow Rate FiO2 12/24/16 02:51 91 16 116/65 (82) 99 Orders Orders Electrocardiogram (12/24/16 02:57) Ckmb (Isoenzyme) Profile (12/24/16 02:57) Complete Blood Count With Diff (12/24/16 02:57) Comprehensive Metabolic Panel (12/24/16 02:57) Magnesium (Mg) (12/24/16 02:57) Prothrombin Time / Inr (Pt) (12/24/16 02:57) Act Partial Throm Time (Ptt) (12/24/16 02:57) Troponin I (12/24/16 02:57) Chest, Single Ap (12/24/16 02:57) Ecg Monitoring (12/24/16 02:57) Bilateral Bp Monitoring (12/24/16 02:57) Iv Access Insert/Monitor (12/24/16 02:57) Oximetry (12/24/16 02:57) Oxygen Administration (12/24/16 02:57) Sodium Chloride 0.9% Flush (Ns Flush) (12/24/16 03:00) Potassium Chloride (Kcl) (12/24/16 04:00) Labs Laboratory Tests Test 12/24/16 03:03 White Blood Count 12.7 TH/MM3 Red Blood Count 4.18 MIL/MM3 Hemoglobin 11.8 GM/DL Hematocrit 35.8 % Mean Corpuscular Volume 85.6 FL Mean Corpuscular Hemoglobin 28.2 PG Mean Corpuscular Hemoglobin Concent 33.0 % Red Cell Distribution Width 14.5 % Platelet Count 350 TH/MM3 Mean Platelet Volume 7.9 FL Neutrophils (%) (Auto) 58.6 % Lymphocytes (%) (Auto) 33.9 % Monocytes (%) (Auto) 5.2 % Eosinophils (%) (Auto) 1.9 % Basophils (%) (Auto) 0.4 % Neutrophils # (Auto) 7.4 TH/MM3 Lymphocytes # (Auto) 4.3 TH/MM3 Monocytes # (Auto) 0.7 TH/MM3 Eosinophils # (Auto) 0.2 TH/MM3 Basophils # (Auto) 0.1 TH/MM3 CBC Comment DIFF FINAL Differential Comment Prothrombin Time 10.1 SEC Prothromb Time International Ratio 0.9 RATIO Activated Partial Thromboplast Time 27.2 SEC Blood Urea Nitrogen 11 MG/DL Creatinine 0.57 MG/DL Random Glucose 127 MG/DL Total Protein 6.5 GM/DL Albumin 3.3 GM/DL Calcium Level 8.2 MG/DL Magnesium Level 1.8 MG/DL Alkaline Phosphatase 63 U/L Aspartate Amino Transf (AST/SGOT) 14 U/L Alanine Aminotransferase (ALT/SGPT) 30 U/L Total Bilirubin 0.3 MG/DL Sodium Level 143 MEQ/L Potassium Level 3.1 MEQ/L Chloride Level 110 MEQ/L Carbon Dioxide Level 24.3 MEQ/L Anion Gap 9 MEQ/L Estimat Glomerular Filtration Rate 126 ML/MIN Total Creatine Kinase 64 U/L Troponin I LESS THAN 0.02 NG/ML MDM Medical Decision Making Medical Screen Exam Complete: Yes Emergency Medical Condition: Yes Medical Record Reviewed: Yes Interpretation(s) EKG shows NSR, no ST elevation or depression, and no arrhythmias. No significant T-wave inversions. Laboratory Tests Test 12/24/16 03:03 White Blood Count 12.7 TH/MM3 (4.0-11.0) Random Glucose 127 MG/DL (74-106) Albumin 3.3 GM/DL (3.4-5.0) Calcium Level 8.2 MG/DL (8.5-10.1) Aspartate Amino Transf (AST/SGOT) 14 U/L (15-37) Potassium Level 3.1 MEQ/L (3.5-5.1) Chloride Level 110 MEQ/L (98-107) Troponin I LESS THAN 0.02 NG/ML Differential Diagnosis Shortness of breath, chest discomfort, palpitations: Anxiety attack versus sleep apnea versus dysrhythmias versus ACS Narrative Course EKG did not show any signs of ST changes. Cardiac enzymes are negative. Lab work does show mildly low potassium at 3.1. Potassium was given in the ER. She has had recent stress testing and myocardial scans which were essentially low risk. At this point, my plan would be to release her with treatment for hypokalemia and follow-up with primary care physician. Return for any worsening in symptoms as needed. Vital signs are stable in the ER. Patient states understanding. Diagnosis Primary Impression: Heart palpitations Additional Impression: Hypokalemia Med/Other Pt SpecificInfo: Prescription(s) given Scripts Potassium Chloride ER (K-Tab) 20 Meq Tab 20 MEQ PO DAILY for Electrolyte Replacement, #5 TAB 0 Refills Prov: Sourav Whipple MD 12/24/16 Disposition: 01 DISCHARGE HOME Condition: Stable Sourav Whipple MD Dec 24, 2016 03:06
[2016-12-24 03:23] LABS: AUTOMATED NEUTROPHIL # 7.4 TH/MM3 (1.8-7.7); BASOPHIL # 0.1 TH/MM3 (0-0.2); BASOPHIL % 0.4 % (0.0-2.0); EOSINOPHIL # 0.2 TH/MM3 (0-0.4); EOSINOPHIL % 1.9 % (0.0-4.0); HEMATOCRIT 35.8 % (35.0-46.0); HEMO FLAGS DIFF FINAL; LYMPH % 33.9 % (9.0-44.0); LYMPHOCYTE # 4.3 TH/MM3 (1.0-4.8); MEAN CELL VOLUME 85.6 FL (80.0-100.0); MEAN CORPUSCULAR HEMOGLOBIN 28.2 PG (27.0-34.0); MONO % 5.2 % (0.0-8.0); NEUT % 58.6 % (16.0-70.0); PLATELET COUNT 350 TH/MM3 (150-450); RED BLOOD COUNT 4.18 MIL/MM3 (4.00-5.30); RED CELL DISTRIBUTION WIDTH 14.5 % (11.6-17.2); WHITE BLOOD COUNT 12.7 TH/MM3 (4.0-11.0)
--- NOTE | 2016-12-24 03:32 | RADRPT ---
EXAM DATE/TIME: 12/24/2016 03:02 [facility] COMPARISON: CHEST SINGLE AP, December 22, 2016, 3:25. INDICATIONS : Continued unresolved chest pain from last visit on the december of this year. MEDICAL HISTORY : Hypercholesterolemia. Hypertension Gastroesophageal reflux disease. Diabetes Anxiety Bipolar SURGICAL HISTORY : Coronary artery stent. Loop recorder ENCOUNTER: Subsequent ACUITY: 3 days PAIN SCORE: 7/10 LOCATION: Bilateral chest FINDINGS: A single view of the chest demonstrates the lungs to be symmetrically aerated without evidence of mas s, infiltrate or effusion. The cardiomediastinal contours are unremarkable. Osseous structures are intact. CONCLUSION: Normal examination. Zi Sanchez Jr., MD on December 24, 2016 at 3:30 Board Certified Radiologist. This report was verified electronically.
[2016-12-24 03:37] LABS: APTT (PATIENT) 27.2 SEC (24.3-30.1); INTERNATIONAL NORMALIZED RATIO 0.9 RATIO; PROTHROMBIN TIME - PATIENT 10.1 SEC (9.8-11.6)
[2016-12-24 03:44] LABS: ALT (GPT) 30 U/L (10-53); ANION GAP 9 MEQ/L (5-15); AST (GOT) 14 U/L (15-37); BICARBONATE 24.3 MEQ/L (21.0-32.0); BLOOD UREA NITROGEN 11 MG/DL (7-18); CHLORIDE 110 MEQ/L (98-107); GLOMERULAR FILTRATION RATE 126 ML/MIN (>89); MAGNESIUM 1.8 MG/DL (1.5-2.5); POTASSIUM 3.1 MEQ/L (3.5-5.1); SODIUM (NA) 143 MEQ/L (136-145)
[2016-12-24 03:47] LABS: ALKALINE PHOSPHATASE 63 U/L (45-117); TOTAL BILIRUBIN ADULT 0.3 MG/DL (0.2-1.0)
[2016-12-24 03:57] LABS: CREATINE KINASE 64 U/L (26-192)
[2016-12-24] MEDS ORDERED: POTASSIUM CHLORIDE 10 MEQ CONTROLLED RELEASE TAB PO ONE (04:00)
[2016-12-24] MEDS ORDERED: POTA1TAB4 PO (04:07)
[2016-12-24 04:20] VITALS: BP 120/66
--- NOTE | 2016-12-24 14:22 | EKG ---
Date Performed: 12/24/2016 Time Performed: 02:54:49 PTAGE: 26 years EKG: Sinus rhythm NORMAL ECG PREVIOUS TRACING : 12/22/2016 04.20 DOCTOR: Jeff Clarke Interpretating Date/Time 12/24/2016 14:15:42
== END 2016-12-24 04:15 | disposition home or self-care (01) ==
LOC: NEPC 02:42
DX: R00.2 Palpitations (principal); E87.6 Hypokalemia; F17.200 Nicotine dependence, unspecified, uncomplicated
CPT/HCPCS: 71010; 80053; 82550; 83735; 84484; 85025; 85610; 85730; 93005; 99285

== ENCOUNTER 2017-01-03 04:12 | Emergency (ER) | payer OTHER ==
[~2017-01-03 04:12] MED LIST changes: +POTA1TAB4 PO
[2017-01-03 04:14] VITALS: BP 122/63; PULSE 77; RESP 16; TEMP 97.9; O2SAT 98
[2017-01-03] MEDS ORDERED: SODIUM CHLORIDE 0.9% FLUSH 10 ML FLUSH IVF PRN (05:00)
[2017-01-03] MEDS ORDERED: ASPIRIN 81 MG CHEW TAB PO ONE (05:00)
--- NOTE | 2017-01-03 05:05 | PD ---
HPI Chief Complaint: Chest Pain Time Seen by Provider: 04:33 Travel History International Travel<30 days: No Contact w/Intl Traveler<30days: No Traveled to known affect area: No History of Present Illness HPI The patient is a 26 year old female who presents to the [facility] emergency department with a history of lower abdominal pain that began 1 and 1/ 2 weeks ago. She also reports having chest pain that awoke her from sound sleep at around 2AM. The chest pain lasted approximately 30minutes. She has had similar pain in the past and she has an implanted heart monitor in related to the evaluation. Her straightedge worker is Dr. Chau. She last saw him 2 months ago. The patient denies any prior history of coronary artery disease. There is mention of a cardiac catheterization with stent placement previously, however the patient denies this. She denies any prior history of myocardial infarction, CHF, DVT, or PE. The patient reports that she has had similar pains in the past. The patient was last seen and admitted to the chest pain center regarding these symptoms in October 2016. The patient underwent a chemical stress test at that time that was negative. She reports a history of ovarian cysts. Her last BM was today. She denies having any blood in her stool or black or tarry stools. On review of systems otherwise, she denies any recent fevers, cough, congestion, neck pain, vomiting, diarrhea, dysuria, urinary frequency, urinary urgency, vaginal discharge, unusual vaginal bleeding , or neurologic symptoms. LMP: last week. PFSH Past Medical History Narrative Medical the patient's past medical history is significant for chest pain of undetermined cause, hypothyroid disorder, ovarian cysts, peptic ulcer disease, anxiety and depression. PCP: Dr. Sage. Hx Anticoagulant Therapy: No ADHD: Yes Autoimmune Disease: No Blood Disorders: No Bipolar Disorder: Yes Anxiety: Yes Depression: Yes Heart Rhythm Problems: Yes Cardiac Catheterization: No Cardiovascular Problems: Yes High Cholesterol: Yes Chemotherapy: No Chest Pain: Yes Congestive Heart Failure: No Cerebrovascular Accident: No Diabetes: No Diminished Hearing: No Endocrine: No Gastrointestinal Disorders: Yes (FATTY LIVER) GERD: Yes Genitourinary: No Hepatitis: No Hiatal Hernia: No Heparin Induced Thrombocytopen: No Hypertension: Yes Immune Disorder: No Implanted Vascular Access Dvce: Yes (FOR HEART) Musculoskeletal: No Psychiatric: Yes (BIPOLAR) Reproductive: Yes Respiratory: No Immunizations Current: Yes Seizures: No Thyroid Disease: No Ulcer: Yes PNEUMOCCOCAL Vaccine (Year): 2 ?: Not LMP: 01/03/17 Menopausal: No : 1 Para: 0 Miscarriage: 1 : 0 Ovarian Cysts: Yes Past Surgical History Narrative Surgical The patient's past surgical history is significant for adhesion lysis, and implanted loop recorder placement. Abdominal Surgery: Yes (ADHESION REMOVAL) AICD: No Coronary Artery Bypass Graft: No Ear Surgery: No Endocrine Surgery: No Eye Surgery: No Genitourinary Surgery: No Gynecologic Surgery: No Hysterectomy: No Joint Replacement: No Neurologic Surgery: No Oral Surgery: No Pacemaker: No Thoracic Surgery: No Other Surgery: Yes (LOOP RECORDER IMPLANT IN CHEST) Family History Family Myocardial Infarction: Yes (GRANDFATHER AT AGE 38) Social History Alcohol Use: No Tobacco Use: Yes (1 PPD) Substance Use: Yes (MARIJUANA) Allergies-Medications (Allergen,Severity, Reaction): Coded Allergies: No Known Allergies (Verified , 01/03/17) Reported Meds & Prescriptions Reported Meds & Active Scripts Active K-Tab (Potassium Chloride) 20 Meq Tab 20 Meq PO DAILY Flagyl (Metronidazole) 500 Mg Tab 500 Mg PO BID Doxycycline Hyclate 100 Mg Cap 100 Mg PO BID Lortab (Hydrocodone-Acetaminophen) 5-325 Mg Tab 1-2 Tab PO Q6H PRN Reported Flecainide (Flecainide Acetate) 150 Mg Tab 500 Mg PO BID Metoprolol Tartrate 25 Mg Tab 25 Mg PO BID Seroquel (Quetiapine Fumarate) 50 Mg Tab 50 Mg PO DAILY Lexapro (Escitalopram Oxalate) 20 Mg Tab 20 Mg PO DAILY Review of Systems Except as stated in HPI: all other systems reviewed are Neg General / Constitutional: No: Fever Eyes: No: Visual changes HENT: No: Headaches, Congestion Cardiovascular: Positive: Chest Pain or Discomfort, No: Dyspnea on exertion Respiratory: Positive: Shortness of Breath, No: Cough Gastrointestinal: No: Nausea, Vomiting, Diarrhea, Abdominal Pain, Changes in Bowel Habits, Indigestion, Loss of Appetite Genitourinary: No: Urgency, Frequency, Dysuria Musculoskeletal: No: Pain Skin: No Rash Neurologic: No: Weakness, Focal Abnormalities, Change in Mentation, Slurred Speech, Sensory Disturbance Psychiatric: No: Depression Endocrine: No: Polydipsia Hematologic/Lymphatic: No: Easy Bruising Physical Exam Narrative General: The patient is a well-developed well-nourished female in no acute distress. Head and Neck exam: Head is normocephalic atraumatic. Eyes: EOMI, pupils are equal round and reactive to light. Nose: Midline septum with pink mucous membranes Mouth: Dentition unremarkable. Moist mucus membranes. Posterior oropharynx is not erythematous. No tonsillar hypertrophy. Uvula midline. Airway patent. Neck: No palpable lymphadenopathy. No nuchal rigidity. No thyromegaly. Cardiovascular: Regular rate and rhythm without murmurs, gallops, or rubs. Lungs: Clear to auscultation bilaterally. No wheezes, rhonchi, or rales. Abdomen: Soft, without tenderness to palpation in all 4 quadrants of the abdomen. No guarding, rebound, or rigidity. Normal bowel sounds are audible. No tenderness on palpation of McBurney's point. Negative Miller's sign. Extremities: No clubbing, cyanosis, or edema. 2+ pulses in all 4 extremities. No calf tenderness on palpation. Back: No spinous process tenderness to palpation. No costovertebral angle tenderness to palpation. Neurologic Exam: Grossly nonfocal. Skin Exam: No rash noted. Intact skin that is warm and dry. Data Data Last Documented VS Vital Signs Date Time Temp Pulse Resp B/P (MAP) Pulse Ox O2 Delivery O2 Flow Rate FiO2 01/03/17 05:21 98.4 72 16 112/69 (83) 98 Nasal Cannula Orders Orders Electrocardiogram (01/03/17 04:59) Ckmb (Isoenzyme) Profile (01/03/17 04:59) Complete Blood Count With Diff (01/03/17 04:59) Comprehensive Metabolic Panel (01/03/17 04:59) Magnesium (Mg) (01/03/17 04:59) Prothrombin Time / Inr (Pt) (01/03/17 04:59) Act Partial Throm Time (Ptt) (01/03/17 04:59) Troponin I (01/03/17 04:59) Lipase (01/03/17 04:59) Chest, Single Ap (01/03/17 04:59) Ecg Monitoring (01/03/17 04:59) Bilateral Bp Monitoring (01/03/17 04:59) Iv Access Insert/Monitor (01/03/17 04:59) Oximetry (01/03/17 04:59) Oxygen Administration (01/03/17 04:59) Aspirin Chew (Aspirin Chew) (01/03/17 05:00) Sodium Chloride 0.9% Flush (Ns Flush) (01/03/17 05:00) Ed Urine Pregnancytest Poc (01/03/17 04:59) Urinalysis - C+S If Indicated (01/03/17 05:52) Labs Laboratory Tests Test 01/03/17 05:15 01/03/17 06:00 White Blood Count 13.7 TH/MM3 Red Blood Count 4.24 MIL/MM3 Hemoglobin 12.3 GM/DL Hematocrit 36.7 % Mean Corpuscular Volume 86.5 FL Mean Corpuscular Hemoglobin 28.9 PG Mean Corpuscular Hemoglobin Concent 33.4 % Red Cell Distribution Width 14.5 % Platelet Count 364 TH/MM3 Mean Platelet Volume 8.3 FL Neutrophils (%) (Auto) 58.8 % Lymphocytes (%) (Auto) 34.1 % Monocytes (%) (Auto) 4.2 % Eosinophils (%) (Auto) 2.2 % Basophils (%) (Auto) 0.7 % Neutrophils # (Auto) 8.0 TH/MM3 Lymphocytes # (Auto) 4.7 TH/MM3 Monocytes # (Auto) 0.6 TH/MM3 Eosinophils # (Auto) 0.3 TH/MM3 Basophils # (Auto) 0.1 TH/MM3 CBC Comment DIFF FINAL Differential Comment Prothrombin Time 9.4 SEC Prothromb Time International Ratio 0.9 RATIO Activated Partial Thromboplast Time 26.8 SEC Blood Urea Nitrogen 7 MG/DL Creatinine 0.44 MG/DL Random Glucose 125 MG/DL Total Protein 6.6 GM/DL Albumin 3.3 GM/DL Calcium Level 8.8 MG/DL Magnesium Level 2.0 MG/DL Alkaline Phosphatase 64 U/L Aspartate Amino Transf (AST/SGOT) 22 U/L Alanine Aminotransferase (ALT/SGPT) 35 U/L Total Bilirubin 0.2 MG/DL Sodium Level 140 MEQ/L Potassium Level 3.6 MEQ/L Chloride Level 106 MEQ/L Carbon Dioxide Level 23.4 MEQ/L Anion Gap 11 MEQ/L Estimat Glomerular Filtration Rate 170 ML/MIN Total Creatine Kinase 64 U/L Troponin I LESS THAN 0.02 NG/ML Lipase 194 U/L Urine Color YELLOW Urine Turbidity HAZY Urine pH 7.0 Urine Specific [place] 1.020 Urine Protein NEG mg/dL Urine Glucose (UA) NEG mg/dL Urine Ketones NEG mg/dL Urine Occult Blood NEG Urine Nitrite NEG Urine Bilirubin NEG Urine Urobilinogen LESS THAN 2.0 MG/DL Urine Leukocyte Esterase NEG Urine RBC 1 /hpf Urine WBC 1 /hpf Urine Squamous Epithelial Cells 2 /hpf Urine Amorphous Sediment RARE Urine Bacteria RARE /hpf Urine Mucus FEW /lpf Microscopic Urinalysis Comment CULT NOT INDICATED MDM Medical Decision Making Medical Screen Exam Complete: Yes Emergency Medical Condition: Yes Medical Record Reviewed: Yes Differential Diagnosis Acid reflux, versus anxiety disorder, versus ovarian cyst, versus cystitis Narrative Course During the course of the patients emergency department visit, the patients history, examination, and differential diagnosis were reviewed with the patient. The patient had IV access obtained and blood work sent for analysis. The patient was placed on a manager cardiovascular with oximetry and blood pressure monitoring. An ECG was done on arrival. The patient's ECG reveals a sinus rhythm heart rate of 73, no acute ST segment elevation. No ST segment depression. The patient was initially provided aspirin 324 mg by mouth 1. The patients laboratory studies were reviewed and remarkable for a white count of 13.7, hemoglobin 12.3, platelets 364 with a normal differential, CMP is remarkable for creatinine is 0.44, glucose 125, cardiac enzymes within normal limits, lipase 194, PT PTT within normal limits. Urinalysis shows hazy urine, rare bacteria Radiology studies were reviewed and remarkable for a chest x-ray that shows no acute abnormality. The patient's abdominal examination is benign, therefore at this time no further and imaging would be recommended. I recommended to the patient that she follow-up with her primary care physician for consideration of referral to a clinical support tech due to her history of ovarian cysts. Regarding the patient's chest pain, I suspect that it is related to recurrent acid reflux as the patient reports that she did stop taking her acid deputy register of deeds. I recommended that she restart on her acid deputy register of deeds. The patient is resting comfortably and feels better, is alert and in no distress. The patients results and examination findings were discussed with the patient. The repeat examination is unremarkable and benign. The history, exam, diagnostic testing, and current condition do not suggest any significant pathology to warrant further testing, continued ED treatment, admission, or surgical evaluation at this point. The vital signs have been stable. The patient does not have uncontrollable pain, intractable vomiting, or other significant symptoms. The patient's condition is stable and appropriate for discharge. The patient will pursue further outpatient evaluation with a primary care physician or other designated or consulting physician as indicated in the discharge instructions. The patient expressed understanding and was agreeable with this plan. Diagnosis Primary Impression: Chest pain, atypical Additional Impression: Gastroesophageal reflux Referrals: Primary Care Physician Patient Instructions: Chest Pain (ED), Gastroesophageal Reflux Disease (ED), General Instructions Med/Other Pt SpecificInfo: No Change to Meds Disposition: 01 DISCHARGE HOME Condition: Stable Almaz Dahl MD Jan 03, 2017 05:05
[2017-01-03 05:07] VITALS: O2SAT 99
[2017-01-03 05:21] VITALS: BP 112/69; PULSE 72; RESP 16; TEMP 98.4; O2SAT 98
[2017-01-03 05:26] LABS: BASOPHIL # 0.1 TH/MM3 (0-0.2); BASOPHIL % 0.7 % (0.0-2.0); EOSINOPHIL # 0.3 TH/MM3 (0-0.4); EOSINOPHIL % 2.2 % (0.0-4.0); HEMATOCRIT 36.7 % (35.0-46.0); HEMO FLAGS DIFF FINAL; LYMPH % 34.1 % (9.0-44.0); LYMPHOCYTE # 4.7 TH/MM3 (1.0-4.8); MEAN CELL VOLUME 86.5 FL (80.0-100.0); MEAN CORPUSCULAR HEMOGLOBIN 28.9 PG (27.0-34.0); MEAN CORPUSCULAR HGB CONC 33.4 % (32.0-36.0); MONO % 4.2 % (0.0-8.0); NEUT % 58.8 % (16.0-70.0); PLATELET COUNT 364 TH/MM3 (150-450); RED BLOOD COUNT 4.24 MIL/MM3 (4.00-5.30); RED CELL DISTRIBUTION WIDTH 14.5 % (11.6-17.2); WHITE BLOOD COUNT 13.7 TH/MM3 (4.0-11.0)
[2017-01-03 05:35] LABS: APTT (PATIENT) 26.8 SEC (24.3-30.1); INTERNATIONAL NORMALIZED RATIO 0.9 RATIO; PROTHROMBIN TIME - PATIENT 9.4 SEC (9.8-11.6)
--- NOTE | 2017-01-03 05:37 | RADRPT ---
EXAM DATE/TIME: 01/03/2017 05:01 [facility] COMPARISON: CHEST SINGLE AP, December 24, 2016, 3:02. INDICATIONS : Chest pain. MEDICAL HISTORY : Hypercholesterolemia. Hypertension Gastroesophageal reflux disease. Diabetes Anxiety Bipolar. SURGICAL HISTORY : Coronary artery stent. Loop recorder. ENCOUNTER: Initial ACUITY: 1 day PAIN SCORE: 7/10 LOCATION: Bilateral chest FINDINGS: A single view of the chest demonstrates the lungs to be symmetrically aerated without evidence of mas s, infiltrate or effusion. The cardiomediastinal contours are unremarkable. Osseous structures are intact. CONCLUSION: 1. No acute cardiopulmonary disease. Markus Ford MD on January 03, 2017 at 5:35 Board Certified Radiologist. This report was verified electronically.
[2017-01-03 05:42] LABS: ANION GAP 11 MEQ/L (5-15); AST (GOT) 22 U/L (15-37); BICARBONATE 23.4 MEQ/L (21.0-32.0); BLOOD UREA NITROGEN 7 MG/DL (7-18); CHLORIDE 106 MEQ/L (98-107); GLOMERULAR FILTRATION RATE 170 ML/MIN (>89); POTASSIUM 3.6 MEQ/L (3.5-5.1); SODIUM (NA) 140 MEQ/L (136-145)
[2017-01-03 05:47] LABS: ALKALINE PHOSPHATASE 64 U/L (45-117); ALT (GPT) 35 U/L (10-53); TOTAL BILIRUBIN ADULT 0.2 MG/DL (0.2-1.0)
[2017-01-03 05:50] LABS: CREATINE KINASE 64 U/L (26-192)
[2017-01-03 06:11] LABS: BACTERIA, URINE RARE /hpf; BLOOD, URINE NEG (NEG); GLUCOSE,URINE NEG (NEG); KETONE, URINE NEG (NEG); MUCUS URINE FEW /lpf (OCC); NITRITE,URINE NEG (NEG); SQUAMOUS EPITHELIAL CELL URINE 2 /hpf (0-5); URINE COLOR YELLOW (YELLW/STRAW)
[2017-01-03 06:12] LABS: COMMENT (UR) CULT NOT INDICATED; CULTURE IF INDICATED CULT NOT INDICATED
--- NOTE | 2017-01-04 07:34 | EKG ---
Date Performed: 01/03/2017 Time Performed: 04:44:29 PTAGE: 26 years EKG: Sinus rhythm Compared to previous tracing no significant change NORMAL ECG PREVIOUS TRACING : 01/02/2017 20.54 DOCTOR: Edil Squires Interpretating Date/Time 01/04/2017 07:33:36
== END 2017-01-03 08:17 | disposition home or self-care (01) ==
LOC: NEPC 04:12
DX: R07.89 Other chest pain (principal); K21.9 Gastro-esophageal reflux disease without esophagitis; I10 Essential (primary) hypertension; F17.200 Nicotine dependence, unspecified, uncomplicated; Z79.899 Other long term (current) drug therapy
CPT/HCPCS: 71010; 80053; 81001; 82550; 83690; 83735; 84484; 84703; 85025; 85610; 85730; 93005

== ENCOUNTER 2017-01-05 20:05 | Emergency (ER) | payer OTHER ==
[~2017-01-05] VITALS: Ht 154.9 cm; Wt 86.0 kg
[2017-01-05 20:18] VITALS: BP 115/58; PULSE 107; RESP 16; TEMP 98.5; O2SAT 98
[2017-01-05] MEDS ORDERED: SODIUM CHLORID 0.9% 500 ML INJ 500 ML IV ONE (20:45)
[2017-01-05] MEDS ORDERED: KETOROLAC TROMETHAMINE 30 MG/ML (IVP) VIAL IV PUSH ONE (20:45)
[2017-01-05] MEDS ORDERED: SODIUM CHLORIDE 0.9% FLUSH 10 ML FLUSH IVF PRN (20:45)
[2017-01-05 20:48] VITALS: BP 162/68; PULSE 105; RESP 16; O2SAT 99
[2017-01-05 21:28] LABS: ALKALINE PHOSPHATASE 65 U/L (45-117); ALT (GPT) 39 U/L (10-53); AST (GOT) 29 U/L (15-37); BICARBONATE 18.6 MEQ/L (21.0-32.0); BLOOD UREA NITROGEN 3 MG/DL (7-18); CALCIUM 6.9 MG/DL (8.5-10.1); CALCIUM-PROTEIN CORRECTED 7.5 MG/DL (8.5-10.1); CHLORIDE 112 MEQ/L (98-107); CREATININE 0.39 MG/DL (0.50-1.00); GLOMERULAR FILTRATION RATE 196 ML/MIN (>89); GLUCOSE,RANDOM 105 MG/DL (74-106); SODIUM (NA) 141 MEQ/L (136-145); TOTAL BILIRUBIN ADULT 0.2 MG/DL (0.2-1.0); TOTAL PROTEIN 5.9 GM/DL (6.4-8.2); TROPONIN I LESS THAN 0.02 NG/ML (0.02-0.05)
--- NOTE | 2017-01-05 21:55 | RADRPT ---
EXAM DATE/TIME: 01/05/2017 21:30 [facility] COMPARISON: CHEST SINGLE AP, January 03, 2017, 5:01. INDICATIONS : Chest pain MEDICAL HISTORY : Hypercholesterolemia. Hypertension Gastroesophageal reflux disease. Diabetes Anxiety Bipolar. SURGICAL HISTORY : Coronary artery stent. Loop recorder ENCOUNTER: Initial ACUITY: 1 day PAIN SCORE: 8/10 LOCATION: chest FINDINGS: PA and lateral views of the chest demonstrate the lungs to be symmetrically aerated without evidence of mass, infiltrate or effusion. The cardiomediastinal contours are unremarkable. Osseous structure s are intact. CONCLUSION: No acute disease. No significant change has occurred. Nasir Lang MD on January 05, 2017 at 21:53 Board Certified Radiologist. This report was verified electronically.
[2017-01-05] MEDS ORDERED: POTASSIUM CHLORIDE 10 MEQ CONTROLLED RELEASE TAB PO ONE (22:15)
[2017-01-05] MEDS ORDERED: CALCIUM GLUCONATE INJ 1 GM in DEXTROSE 5% IN WATER 100ML INJ 100 ML IV ONE ×2 (22:15)
[2017-01-05 22:17] VITALS: BP 112/63; PULSE 98; RESP 16; O2SAT 100
[2017-01-06] LABS: HEMATOCRIT 34.9 % (35.0-46.0); HEMOGLOBIN 11.5 GM/DL (11.6-15.3); MEAN CELL VOLUME 85.4 FL (80.0-100.0); MEAN CORPUSCULAR HEMOGLOBIN 28.3 PG (27.0-34.0); MEAN CORPUSCULAR HGB CONC 33.1 % (32.0-36.0); MEAN PLATELET VOLUME 7.6 FL (7.0-11.0); PLATELET COUNT 345 TH/MM3 (150-450); RED BLOOD COUNT 4.08 MIL/MM3 (4.00-5.30); RED CELL DISTRIBUTION WIDTH 14.6 % (11.6-17.2); WHITE BLOOD COUNT 12.9 TH/MM3 (4.0-11.0)
[2017-01-06 00:11] LABS: INTERNATIONAL NORMALIZED RATIO 0.9 RATIO; PROTHROMBIN TIME - PATIENT 10.3 SEC (9.8-11.6)
[2017-01-06 00:28] LABS: LYMPHOCYTES 48 % (9-44); METAMYELOCYTES 1 % (0-1); MONOCYTES 3 % (0-8); NEUTROPHIL # MANUAL DIFF 6.2 TH/MM3 (1.8-7.7); POLYS (SEG NEUTROPHILS) 47 % (16-70)
[2017-01-06] MEDS ORDERED: hydrOXYzine PAMOATE 25 MG CAP PO ONE (00:30)
[2017-01-06 00:54] LABS: D-DIMER 0.49 MG/L FEU (0.00-0.50)
[2017-01-06 00:57] VITALS: BP 117/67; PULSE 89; RESP 16; O2SAT 99
--- NOTE | 2017-01-06 01:33 | PD ---
HPI Chief Complaint: Chest Pain Time Seen by Provider: 20:24 Travel History International Travel<30 days: No Contact w/Intl Traveler<30days: No Traveled to known affect area: No History of Present Illness HPI Patient is a 26-year-old female complaining of chest pain. She was here 3 days ago for the same thing. She has been here multiple times for this. She is followed by a primary doctor, and has been wearing a Holter monitor. She says that she is out of her Lortab. She says the pain tonight is the same as it has been in the past, and she felt like she was given a pass out. She denies fever or chills. She has not had any cough or cold. She denies any recent travel or leg swelling. She did not take anything at home for pain. PFSH Past Medical History Hx Anticoagulant Therapy: No ADHD: Yes Autoimmune Disease: No Blood Disorders: No Bipolar Disorder: Yes Anxiety: Yes Depression: Yes Heart Rhythm Problems: Yes Cardiac Catheterization: No Cardiovascular Problems: Yes High Cholesterol: Yes Chemotherapy: No Chest Pain: Yes Congestive Heart Failure: No Cerebrovascular Accident: No Diabetes: No Diminished Hearing: No Endocrine: No Gastrointestinal Disorders: Yes (FATTY LIVER) GERD: Yes Genitourinary: No Hepatitis: No Hiatal Hernia: No Heparin Induced Thrombocytopen: No Hypertension: Yes Immune Disorder: No Implanted Vascular Access Dvce: Yes (FOR HEART) Musculoskeletal: No Psychiatric: Yes (BIPOLAR) Reproductive: Yes Respiratory: No Immunizations Current: Yes Seizures: No Thyroid Disease: No Ulcer: Yes Tetanus Vaccination: < 5 Years PNEUMOCCOCAL Vaccine (Year): 2 ?: Not LMP: 2 WEEKS Menopausal: No : 1 Para: 0 Miscarriage: 1 : 0 Ovarian Cysts: Yes Past Surgical History Abdominal Surgery: Yes (ADHESION REMOVAL) AICD: No Cardiac Surgery: Yes (STENT) Coronary Artery Bypass Graft: No Ear Surgery: No Endocrine Surgery: No Eye Surgery: No Genitourinary Surgery: No Gynecologic Surgery: No Hysterectomy: No Joint Replacement: No Neurologic Surgery: No Oral Surgery: No Pacemaker: No Thoracic Surgery: No Other Surgery: Yes (LOOP RECORDER IMPLANT IN CHEST) Family History Family Myocardial Infarction: Yes (GRANDFATHER AT AGE 38) Social History Alcohol Use: Yes (SOCIALLY) Tobacco Use: Yes (1 PPD) Substance Use: Yes (MARIJUANA) Allergies-Medications (Allergen,Severity, Reaction): Coded Allergies: No Known Allergies (Verified , 01/05/17) Reported Meds & Prescriptions Reported Meds & Active Scripts Active K-Tab (Potassium Chloride) 20 Meq Tab 20 Meq PO DAILY Flagyl (Metronidazole) 500 Mg Tab 500 Mg PO BID Doxycycline Hyclate 100 Mg Cap 100 Mg PO BID Lortab (Hydrocodone-Acetaminophen) 5-325 Mg Tab 1-2 Tab PO Q6H PRN Reported Flecainide (Flecainide Acetate) 150 Mg Tab 500 Mg PO BID Metoprolol Tartrate 25 Mg Tab 25 Mg PO BID Seroquel (Quetiapine Fumarate) 50 Mg Tab 50 Mg PO DAILY Lexapro (Escitalopram Oxalate) 20 Mg Tab 20 Mg PO DAILY Review of Systems Except as stated in HPI: all other systems reviewed are Neg General / Constitutional: No: Fever, Chills HENT: No: Headaches, Lightheadedness Cardiovascular: Positive: Chest Pain or Discomfort Respiratory: Positive: Shortness of Breath Gastrointestinal: Positive: Nausea, No: Vomiting Genitourinary: No: Dysuria Musculoskeletal: No: Edema, Pain Skin: No Rash, No Change in Pigmentation Neurologic: No: Weakness Physical Exam Narrative GENERAL: Awake and alert, in no acute distress. SKIN: Focused skin assessment warm/dry. No signs of infection. HEAD: Atraumatic. Normocephalic. EYES: Pupils equal and round. No scleral icterus. No injection or drainage. ENT: Mucous membranes pink and moist. NECK: Trachea midline. No JVD. CARDIOVASCULAR: Regular rate and rhythm. No murmur appreciated. RESPIRATORY: No accessory muscle use. Clear to auscultation. Breath sounds equal bilaterally. GASTROINTESTINAL: Abdomen soft, non-tender, nondistended. MUSCULOSKELETAL: No obvious deformities. No clubbing. No cyanosis. No edema. NEUROLOGICAL: Awake and alert. No obvious cranial nerve deficits. Motor grossly within normal limits. Normal speech. PSYCHIATRIC: Appropriate mood and affect; insight and judgment normal. Data Data Last Documented VS Vital Signs Date Time Temp Pulse Resp B/P (MAP) Pulse Ox O2 Delivery O2 Flow Rate FiO2 01/06/17 01:41 98.6 82 16 116/63 (80) 99 01/06/17 00:57 Room Air Orders Orders Ckmb (Isoenzyme) Profile (01/05/17 20:36) Complete Blood Count With Diff (01/05/17 20:36) Comprehensive Metabolic Panel (01/05/17 20:36) D-Dimer (01/05/17 20:36) Prothrombin Time / Inr (Pt) (01/05/17 20:36) Act Partial Throm Time (Ptt) (01/05/17 20:36) Troponin I (01/05/17 20:36) Ecg Monitoring (01/05/17 20:36) Bilateral Bp Monitoring (01/05/17 20:36) Iv Access Insert/Monitor (01/05/17 20:36) Oximetry (01/05/17 20:36) Oxygen Administration (01/05/17 20:36) Sodium Chloride 0.9% Flush (Ns Flush) (01/05/17 20:45) Chest, Pa & Lat (01/05/17 20:36) Ed Urine Pregnancytest Poc (01/05/17 20:36) Ketorolac Inj (Toradol Inj) (01/05/17 20:45) Sodium Chlorid 0.9% 500 Ml Inj (Ns 500 M (01/05/17 20:45) CKMB (01/05/17 20:40) CKMB% (01/05/17 20:40) Electrocardiogram (01/05/17 20:20) Potassium Chloride (Kcl) (01/05/17 22:15) Calcium Gluconate Inj (Calcium Gluconate (01/05/17 22:15) Hydroxyzine Pamoate (Vistaril) (01/06/17 00:30) Ed Discharge Order (01/06/17 01:39) Labs Laboratory Tests Test 01/05/17 20:40 01/05/17 23:48 Blood Urea Nitrogen 3 MG/DL Creatinine 0.39 MG/DL Random Glucose 105 MG/DL Total Protein 5.9 GM/DL Albumin 3.0 GM/DL Calcium Level 6.9 MG/DL Alkaline Phosphatase 65 U/L Aspartate Amino Transf (AST/SGOT) 29 U/L Alanine Aminotransferase (ALT/SGPT) 39 U/L Total Bilirubin 0.2 MG/DL Sodium Level 141 MEQ/L Potassium Level 2.9 MEQ/L Chloride Level 112 MEQ/L Carbon Dioxide Level 18.6 MEQ/L Anion Gap 10 MEQ/L Estimat Glomerular Filtration Rate 196 ML/MIN Protein Corrected Calcium 7.5 MG/DL Total Creatine Kinase 101 U/L Creatine Kinase MB LESS THAN 0.5 NG/ML Troponin I LESS THAN 0.02 NG/ML White Blood Count 12.9 TH/MM3 Red Blood Count 4.08 MIL/MM3 Hemoglobin 11.5 GM/DL Hematocrit 34.9 % Mean Corpuscular Volume 85.4 FL Mean Corpuscular Hemoglobin 28.3 PG Mean Corpuscular Hemoglobin Concent 33.1 % Red Cell Distribution Width 14.6 % Platelet Count 345 TH/MM3 Mean Platelet Volume 7.6 FL CBC Comment AUTO DIFF Differential Total Cells Counted 100 Neutrophils % (Manual) 47 % Lymphocytes % 48 % Monocytes % 3 % Eosinophils % 1 % Neutrophils # (Manual) 6.2 TH/MM3 Metamyelocytes 1 % Differential Comment FINAL DIFF MANUAL Platelet Estimate NORMAL Platelet Morphology Comment NORMAL Red Cell Morphology Comment NORMAL Prothrombin Time 10.3 SEC Prothromb Time International Ratio 0.9 RATIO Activated Partial Thromboplast Time 26.8 SEC D-Dimer Quantitative (PE/DVT) 0.49 MG/L FEU [facility] Medical Decision Making Medical Screen Exam Complete: Yes Emergency Medical Condition: Yes Medical Record Reviewed: Yes Interpretation(s) ECG shows sinus tachycardia at 100, no ST elevation or depression, normal intervals. Differential Diagnosis Electrolyte abnormality versus anxiety versus encounter for pain medication versus ACS Narrative Course Patient is a 26-year-old female, who comes in complaining of chest pain. She has been here multiple times for this, and says it is the same. IV established , labs sent. Labs show no acute abnormalities. Troponin and d-dimer are negative. Patient given Toradol for pain. She is advised to go home and take her pain medication as prescribed. Advised follow-up with her doctors. She then asked for something for anxiety. Given Vistaril. Advised to return as needed for any worsening symptoms. Diagnosis Primary Impression: Atypical chest pain Patient Instructions: Chest Pain (ED), General Instructions Additional Instructions: Follow-up with your doctor. Take ibuprofen as needed for pain. Return to the ED as needed for any worsening symptoms. Disposition: 01 DISCHARGE HOME Condition: Stable Ct Vasquez MD Jan 06, 2017 01:33
[2017-01-06 01:41] VITALS: BP 116/63; TEMP 98.6
--- NOTE | 2017-01-06 21:29 | EKG ---
Date Performed: 01/05/2017 Time Performed: 20:20:57 PTAGE: 26 years EKG: SINUS TACHYCARDIA WITH SHORT MI INTERVAL POSSIBLE LEFT ATRIAL ENLARGEMENT ABNORMAL RHYTHM E CG PREVIOUS TRACING : 01/03/2017 04.44 Compared to prior tracing no significant change DOCTOR: Jg Beckett Interpretating Date/Time 01/06/2017 21:27:45
--- NOTE | 2017-01-06 21:29 | EKG ---
Date Performed: 01/05/2017 Time Performed: 20:20:57 PTAGE: 26 years EKG: SINUS TACHYCARDIA WITH SHORT LA INTERVAL POSSIBLE LEFT ATRIAL ENLARGEMENT ABNORMAL RHYTHM E CG PREVIOUS TRACING : 01/03/2017 04.44 Compared to prior tracing no significant change DOCTOR: Jg Beckett Interpretating Date/Time 01/06/2017 21:27:45
--- NOTE | 2017-01-06 21:29 | EKG ---
Date Performed: 01/05/2017 Time Performed: 20:20:57 PTAGE: 26 years EKG: SINUS TACHYCARDIA WITH SHORT RI INTERVAL POSSIBLE LEFT ATRIAL ENLARGEMENT ABNORMAL RHYTHM E CG PREVIOUS TRACING : 01/03/2017 04.44 Compared to prior tracing no significant change DOCTOR: Jg Beckett Interpretating Date/Time 01/06/2017 21:27:45
== END 2017-01-06 01:55 | disposition home or self-care (01) ==
LOC: NEPC 20:05
DX: R07.89 Other chest pain (principal); R94.31 Abnormal electrocardiogram [ECG] [EKG]; I10 Essential (primary) hypertension; E78.00 Pure hypercholesterolemia, unspecified; F17.200 Nicotine dependence, unspecified, uncomplicated; Z86.59 Personal history of other mental and behavioral disorders; Z86.79 Personal history of other diseases of the circulatory system; Z87.19 Personal history of other diseases of the digestive system
CPT/HCPCS: 71020; 80053; 82550; 82552; 84484; 84703; 85007; 85027; 85379; 85610; 85730; 93005; 96361; 96365; 96375; 99285; J0610; J1885; J7040; Q0177

== ENCOUNTER 2017-01-22 01:03 | Emergency (ER) | payer OTHER ==
[~2017-01-22] VITALS: Ht 154.9 cm; Wt 82.0 kg
[2017-01-22 01:06] VITALS: BP 131/88; PULSE 81; RESP 16; TEMP 98.5; O2SAT 98
[2017-01-22] MEDS ORDERED: KETOROLAC TROMETHAMINE 30 MG/ML (IVP) VIAL IV PUSH ONE (03:00)
[2017-01-22] MEDS ORDERED: ONDANSETRON HCL 4 MG/2 ML VIAL IV PUSH ONE (03:00)
--- NOTE | 2017-01-22 03:02 | PD ---
HPI Chief Complaint: Pain: Acute or Chronic Time Seen by Provider: 02:02 Travel History International Travel<30 days: No Contact w/Intl Traveler<30days: No Traveled to known affect area: No History of Present Illness HPI 26yo F with PMH of nephrolithiasis presents to the ED with c/o right lower back pain that radiates to right flank for a few hours. Associated with some nausea. Denies any fever, sob, abdominal pain, dysuria, hematuria, vaginal bleeding or discharge. Pt said she always have chest pain and had some when she arrived but it resolved. PFSH Past Medical History Hx Anticoagulant Therapy: No ADHD: Yes Autoimmune Disease: No Blood Disorders: No Bipolar Disorder: Yes Anxiety: Yes Depression: Yes Heart Rhythm Problems: Yes Cardiac Catheterization: No Cardiovascular Problems: Yes High Cholesterol: Yes Chemotherapy: No Chest Pain: Yes Congestive Heart Failure: No Cerebrovascular Accident: No Diabetes: No Diminished Hearing: No Endocrine: No Gastrointestinal Disorders: Yes (FATTY LIVER) GERD: Yes Genitourinary: No Hepatitis: No Hiatal Hernia: No Heparin Induced Thrombocytopen: No Hypertension: Yes Immune Disorder: No Implanted Vascular Access Dvce: Yes (FOR HEART) Medical other: No Musculoskeletal: No Psychiatric: Yes (BIPOLAR) Reproductive: Yes Respiratory: No Immunizations Current: Yes Seizures: No Thyroid Disease: No Ulcer: Yes PNEUMOCCOCAL Vaccine (Year): 2 ?: Not LMP: 01/08/17 Menopausal: No : 1 Para: 0 Miscarriage: 1 : 0 Ovarian Cysts: Yes Past Surgical History Abdominal Surgery: Yes (ADHESION REMOVAL) AICD: No Cardiac Surgery: Yes (STENT) Coronary Artery Bypass Graft: No Ear Surgery: No Endocrine Surgery: No Eye Surgery: No Genitourinary Surgery: No Gynecologic Surgery: No Hysterectomy: No Joint Replacement: No Neurologic Surgery: No Oral Surgery: No Pacemaker: No Thoracic Surgery: No Other Surgery: Yes (LOOP RECORDER IMPLANT IN CHEST) Family History Family Myocardial Infarction: Yes (GRANDFATHER AT AGE 38) Social History Alcohol Use: Yes (SOCIALLY) Tobacco Use: Yes (1 PPD) Substance Use: Yes (MARIJUANA) Allergies-Medications (Allergen,Severity, Reaction): Coded Allergies: No Known Allergies (Verified Adverse Reaction, Unknown, 01/22/17) Reported Meds & Prescriptions Reported Meds & Active Scripts Active K-Tab (Potassium Chloride) 20 Meq Tab 20 Meq PO DAILY Lortab (Hydrocodone-Acetaminophen) 5-325 Mg Tab 1-2 Tab PO Q6H PRN Reported Flecainide (Flecainide Acetate) 150 Mg Tab 500 Mg PO BID Metoprolol Tartrate 25 Mg Tab 25 Mg PO BID Seroquel (Quetiapine Fumarate) 50 Mg Tab 50 Mg PO DAILY Lexapro (Escitalopram Oxalate) 20 Mg Tab 20 Mg PO DAILY Review of Systems Except as stated in HPI: all other systems reviewed are Neg Physical Exam Narrative GENERAL: 26yo F not in distress. SKIN: Focused skin assessment warm/dry. HEAD: Atraumatic. Normocephalic. EYES: Pupils equal and round. No scleral icterus. No injection or drainage. ENT: No nasal bleeding or discharge. Mucous membranes pink and moist. NECK: Trachea midline. No JVD. CARDIOVASCULAR: Regular rate and rhythm. No murmur appreciated. RESPIRATORY: No accessory muscle use. Clear to auscultation. Breath sounds equal bilaterally. GASTROINTESTINAL: Abdomen soft, +TTP right flank. BACK: No midline thoracic or lumbar spine. +TTP right paraspinal L4-L5. MUSCULOSKELETAL: No obvious deformities. No clubbing. No cyanosis. No edema. NEUROLOGICAL: Awake and alert. No obvious cranial nerve deficits. Motor grossly within normal limits. Normal speech. PSYCHIATRIC: Appropriate mood and affect; insight and judgment normal. Data Data Last Documented VS Vital Signs Date Time Temp Pulse Resp B/P (MAP) Pulse Ox O2 Delivery O2 Flow Rate FiO2 01/22/17 06:07 18 01/22/17 05:31 88 105/58 (74) 98 Room Air 01/22/17 01:06 98.5 Orders Orders Electrocardiogram (01/22/17 ) Urinalysis - C+S If Indicated (01/22/17 02:59) Ed Urine Pregnancytest Poc (01/22/17 02:59) Ondansetron Inj (Zofran Inj) (01/22/17 03:00) Ketorolac Inj (Toradol Inj) (01/22/17 03:00) Complete Blood Count With Diff (01/22/17 02:59) Basic Metabolic Panel (Bmp) (01/22/17 02:59) Chest, Single Ap (01/22/17 ) Diazepam (Valium) (01/22/17 04:30) Ct Abd/Pel W/O Iv Contrast (01/22/17 ) Morphine Inj (Morphine Inj) (01/22/17 05:45) Potassium Chloride (Kcl) (01/22/17 06:30) Labs Laboratory Tests Test 01/22/17 03:12 White Blood Count 13.7 TH/MM3 Red Blood Count 4.05 MIL/MM3 Hemoglobin 11.7 GM/DL Hematocrit 34.9 % Mean Corpuscular Volume 86.0 FL Mean Corpuscular Hemoglobin 28.8 PG Mean Corpuscular Hemoglobin Concent 33.5 % Red Cell Distribution Width 14.3 % Platelet Count 362 TH/MM3 Mean Platelet Volume 7.9 FL Neutrophils (%) (Auto) 60.5 % Lymphocytes (%) (Auto) 32.3 % Monocytes (%) (Auto) 4.4 % Eosinophils (%) (Auto) 1.9 % Basophils (%) (Auto) 0.9 % Neutrophils # (Auto) 8.3 TH/MM3 Lymphocytes # (Auto) 4.4 TH/MM3 Monocytes # (Auto) 0.6 TH/MM3 Eosinophils # (Auto) 0.3 TH/MM3 Basophils # (Auto) 0.1 TH/MM3 CBC Comment DIFF FINAL Differential Comment Urine Color YELLOW Urine Turbidity CLEAR Urine pH 6.5 Urine Specific [place] 1.039 Urine Protein 30 mg/dL Urine Glucose (UA) NEG mg/dL Urine Ketones NEG mg/dL Urine Occult Blood LARGE Urine Nitrite NEG Urine Bilirubin NEG Urine Urobilinogen 2.0 MG/DL Urine Leukocyte Esterase NEG Urine RBC /hpf Urine WBC 2 /hpf Urine Squamous Epithelial Cells 1 /hpf Urine Mucus MANY /lpf Microscopic Urinalysis Comment CULT NOT INDICATED Blood Urea Nitrogen 11 MG/DL Creatinine 0.55 MG/DL Random Glucose 116 MG/DL Calcium Level 8.1 MG/DL Sodium Level 141 MEQ/L Potassium Level 3.2 MEQ/L Chloride Level 108 MEQ/L Carbon Dioxide Level 25.9 MEQ/L Anion Gap 7 MEQ/L Estimat Glomerular Filtration Rate 132 ML/MIN MDM Medical Decision Making Medical Screen Exam Complete: Yes Emergency Medical Condition: Yes Differential Diagnosis Nephrolithiasis vs. musculoskeletal pain Narrative Course 26yo F with right sided back and flank pain. Seems very musculoskeletal. Labs reviewed, WBC 13.7. Mild hypokalemia, replaced orally. UA showed large blood. No leukocyte. CT a/p showed punctate left renal calculus. No ureteral calculi or hydronephrosis. CXR showed no acute cardiopulmonary disease. Pt given zofran, toradol, valium and morphine and pain has resolved. No red flags. No focal neurologic deficits. Return precautions given. Diagnosis Primary Impression: Back pain Qualified Codes: M54.5 - Low back pain Patient Instructions: General Instructions Departure Forms: Tests/Procedures Additional Instructions: Please follow up with your primary care physician in 3-7 days. Return to the ED if symptoms worsen. Med/Other Pt SpecificInfo: Prescription(s) given Scripts Ibuprofen (Ibuprofen) 600 Mg Tab 600 MG PO Q8H Y for PAIN, #20 TAB 0 Refills Prov: Beth Patel 01/22/17 Disposition: 01 DISCHARGE HOME Condition: Stable Beth Patel DO Jan 22, 2017 03:02
--- NOTE | 2017-01-22 03:32 | RADRPT ---
EXAM DATE/TIME: 01/22/2017 03:16 [facility] COMPARISON: CHEST SINGLE AP, January 03, 2017, 5:01. INDICATIONS : Chest pain that radiates to back MEDICAL HISTORY : Hypercholesterolemia. Hypertension Gastroesophageal reflux disease. Cardiac stent, Fatty liver SURGICAL HISTORY : None. ENCOUNTER: Initial ACUITY: 1 day PAIN SCORE: 7/10 LOCATION: Bilateral chest FINDINGS: Single AP view of the chest. Implantable liver recorder in place. The lungs are clear. Cardiomediasti nal silhouette within normal limits. No evidence of pleural effusion or pneumothorax. CONCLUSION: No acute cardiopulmonary disease identified. Damir Coronado MD on January 22, 2017 at 3:28 Board Certified Radiologist. This report was verified electronically.
[2017-01-22 03:50] LABS: AUTOMATED NEUTROPHIL # 8.3 TH/MM3 (1.8-7.7); BASOPHIL # 0.1 TH/MM3 (0-0.2); BASOPHIL % 0.9 % (0.0-2.0); EOSINOPHIL # 0.3 TH/MM3 (0-0.4); EOSINOPHIL % 1.9 % (0.0-4.0); HEMATOCRIT 34.9 % (35.0-46.0); HEMO FLAGS DIFF FINAL; LYMPH % 32.3 % (9.0-44.0); LYMPHOCYTE # 4.4 TH/MM3 (1.0-4.8); MEAN CORPUSCULAR HEMOGLOBIN 28.8 PG (27.0-34.0); MEAN CORPUSCULAR HGB CONC 33.5 % (32.0-36.0); MONO % 4.4 % (0.0-8.0); NEUT % 60.5 % (16.0-70.0); PLATELET COUNT 362 TH/MM3 (150-450); RED BLOOD COUNT 4.05 MIL/MM3 (4.00-5.30); RED CELL DISTRIBUTION WIDTH 14.3 % (11.6-17.2); WHITE BLOOD COUNT 13.7 TH/MM3 (4.0-11.0)
[2017-01-22 03:58] LABS: BLOOD, URINE LARGE (NEG); COMMENT (UR) CULT NOT INDICATED; CULTURE IF INDICATED CULT NOT INDICATED; GLUCOSE,URINE NEG (NEG); KETONE, URINE NEG (NEG); MUCUS URINE MANY /lpf (OCC); NITRITE,URINE NEG (NEG); PH, URINE 6.5 (5.0-8.5); SQUAMOUS EPITHELIAL CELL URINE 1 /hpf (0-5); URINE COLOR YELLOW (YELLW/STRAW)
[2017-01-22 04:22] LABS: BICARBONATE 25.9 MEQ/L (21.0-32.0); POTASSIUM 3.2 MEQ/L (3.5-5.1)
[2017-01-22] MEDS ORDERED: DIAZEPAM 5 MG TAB PO ONE (04:30)
--- NOTE | 2017-01-22 04:58 | RADRPT ---
EXAM DATE/TIME: 01/22/2017 04:39 [facility] COMPARISON: CT ABDOMEN & PELVIS W/O CONTRAST, July 15, 2016, 19:05. INDICATIONS : Right lower back pain. Evaluate for calculi. ORAL CONTRAST: No oral contrast ingested. RADIATION DOSE: 13.25 CTDIvol (mGy) MEDICAL HISTORY : Cardiovascular disease. Gastroesophageal reflux disease. SURGICAL HISTORY : Cardiac stent. ENCOUNTER: Initial ACUITY: 1 day PAIN SCALE: 6/10 LOCATION: Right lower back TECHNIQUE: Volumetric scanning of the abdomen and pelvis was performed. Using automated exposure control and ad justment of the mA and/or kV according to patient size, radiation dose was kept as low as reasonably achievable to obtain optimal diagnostic quality images. DICOM format image data is available electro nically for review and comparison. FINDINGS: LOWER LUNGS: The visualized lower lungs are clear. LIVER: Homogeneous density without lesion. There is no dilation of the biliary tree. No calcified gallston es. SPLEEN: Normal size without lesion. PANCREAS: Within normal limits. KIDNEYS: 2 mm calculus in the midpole the left kidney. No other renal artery or calculi identified. No evidenc e hydronephrosis. No masses are identified. ADRENAL GLANDS: Within normal limits. VASCULAR: There is no aortic aneurysm. BOWEL/MESENTERY: Scattered colonic diverticula. No evidence of acute diverticulitis. No evidence of bowel dilatation. No free air or free fluid. Appendix within normal limits. ABDOMINAL WALL: Within normal limits. RETROPERITONEUM: There is no lymphadenopathy. BLADDER: No wall thickening or mass. REPRODUCTIVE: Within normal limits. INGUINAL: There is no lymphadenopathy or hernia. MUSCULOSKELETAL: Within normal limits for patient age. CONCLUSION: Punctate left renal calculus. No ureteral calculi or hydronephrosis identified. Damir Coronado MD on January 22, 2017 at 4:50 Board Certified Radiologist. This report was verified electronically.
[2017-01-22 05:31] VITALS: BP 105/58; PULSE 88; RESP 18; O2SAT 98
[2017-01-22] MEDS ORDERED: MORPHINE SULFATE 8 MG/ML INJ IV PUSH ONE (05:45)
[2017-01-22] MEDS ORDERED: IBUP-232 PO (06:28)
[2017-01-22] MEDS ORDERED: POTASSIUM CHLORIDE 20 MEQ CONTROLLED RELEASE TAB PO ONE (06:30)
[2017-01-22 06:33] VITALS: RESP 18
--- NOTE | 2017-01-22 12:36 | EKG ---
Date Performed: 01/22/2017 Time Performed: 02:31:20 PTAGE: 26 years EKG: Sinus rhythm NORMAL ECG PREVIOUS TRACING : 01/05/2017 20.20 Compared to prior tracing no significant change DOCTOR: Lakhwinder Noriega Interpretating Date/Time 01/22/2017 12:33:14
== END 2017-01-22 06:33 | disposition home or self-care (01) ==
LOC: NEPE 01:03
DX: M54.5 Low back pain (principal); N20.0 Calculus of kidney; E87.6 Hypokalemia; R07.9 Chest pain, unspecified; E78.00 Pure hypercholesterolemia, unspecified; K76.0 Fatty (change of) liver, not elsewhere classified; K21.9 Gastro-esophageal reflux disease without esophagitis; I10 Essential (primary) hypertension; F17.200 Nicotine dependence, unspecified, uncomplicated
CPT/HCPCS: 71010; 74176; 80048; 81001; 84703; 85025; 93005; 96374; 96375; 99285; J1885; J2270; J2405

== ENCOUNTER 2017-01-24 14:51 | Emergency (ER) | payer OTHER ==
[~2017-01-24] VITALS: Ht 154.9 cm; Wt 84.5 kg
[2017-01-24 14:51] VITALS: BP_SYST 118; BP_SYST 178; BP_DIAS 56; PULSE 92; RESP 18; TEMP 97.9; O2SAT 95
[~2017-01-24 14:51] MED LIST changes: -DOXY100C PO; +IBUP-232 PO; -METR-1 PO
--- NOTE | 2017-01-24 15:09 | PD ---
HPI Chief Complaint: Chest Pain Time Seen by Provider: 14:57 Travel History International Travel<30 days: No Contact w/Intl Traveler<30days: No Traveled to known affect area: No History of Present Illness HPI This 26-year-old female arrives with complaint of chest pain. She says it happened hour ago she started having chest pain improves precordial. It was quite sharp. She has had recurrent bouts of chest pain and has been seen in the emergency department several times for area on November 04 she had a negative perfusion scan. She does see Dr. Chau and he apparently has her on flecainide and metoprolol and she has a loop recorder in place. She has no history of heart attack. She does have a history of kidney stones and ulcers in February 22 she is scheduled for surgery on an ovarian cyst. She does have a history of anxiety. She takes Lexapro for anxiety. The pain is subsiding on arrival. PFSH Past Medical History Hx Anticoagulant Therapy: No ADHD: Yes Autoimmune Disease: No Blood Disorders: No Bipolar Disorder: Yes Anxiety: Yes Depression: Yes Heart Rhythm Problems: Yes Cardiac Catheterization: No Cardiovascular Problems: Yes (INTERNAL RECORDER) High Cholesterol: Yes Chemotherapy: No Chest Pain: Yes Congestive Heart Failure: No Cerebrovascular Accident: No Diabetes: No Diminished Hearing: No Endocrine: No Gastrointestinal Disorders: Yes (FATTY LIVER) GERD: Yes Genitourinary: No Hepatitis: No Hiatal Hernia: No Heparin Induced Thrombocytopen: No Hypertension: Yes Immune Disorder: No Implanted Vascular Access Dvce: Yes (FOR HEART) Musculoskeletal: No Psychiatric: Yes (BIPOLAR) Reproductive: Yes Respiratory: No Immunizations Current: Yes Seizures: No Thyroid Disease: No Ulcer: Yes PNEUMOCCOCAL Vaccine (Year): 2 ?: Not LMP: 01-22-17 Menopausal: No : 1 Para: 0 Miscarriage: 1 : 0 Ovarian Cysts: Yes Past Surgical History Abdominal Surgery: Yes (ADHESION REMOVAL) AICD: No Cardiac Surgery: Yes (STENT) Coronary Artery Bypass Graft: No Ear Surgery: No Endocrine Surgery: No Eye Surgery: No Genitourinary Surgery: No Gynecologic Surgery: No Hysterectomy: No Joint Replacement: No Neurologic Surgery: No Oral Surgery: No Pacemaker: No Thoracic Surgery: No Other Surgery: Yes (LOOP RECORDER IMPLANT IN CHEST) Social History Alcohol Use: Yes (SOCIALLY) Tobacco Use: Yes (1 PPD) Substance Use: Yes (MARIJUANA) Allergies-Medications (Allergen,Severity, Reaction): Coded Allergies: No Known Allergies (Verified Adverse Reaction, Unknown, 01/24/17) Reported Meds & Prescriptions Reported Meds & Active Scripts Active Ibuprofen 600 Mg Tab 600 Mg PO Q8H PRN Lortab (Hydrocodone-Acetaminophen) 5-325 Mg Tab 1-2 Tab PO Q6H PRN Reported Flecainide (Flecainide Acetate) 150 Mg Tab 500 Mg PO DAILY Metoprolol Tartrate 25 Mg Tab 25 Mg PO DAILY Seroquel (Quetiapine Fumarate) 50 Mg Tab 50 Mg PO DAILY Lexapro (Escitalopram Oxalate) 20 Mg Tab 20 Mg PO DAILY Review of Systems General / Constitutional: No: Fever, Chills Eyes: No: Diploplia, Blurred Vision HENT: No: Headaches, Vertigo Cardiovascular: Positive: Chest Pain or Discomfort, No: Palpitations Respiratory: No: Cough, Shortness of Breath Gastrointestinal: No: Nausea, Vomiting Genitourinary: No: Urgency, Frequency Musculoskeletal: No: Myalgias Skin: No Rash, No Itching Neurologic: No: Weakness Hematologic/Lymphatic: No: Easy Bruising Physical Exam Narrative GENERAL: Well-developed female SKIN: Focused skin assessment warm/dry. HEAD: Atraumatic. Normocephalic. EYES: Pupils equal and round. No scleral icterus. No injection or drainage. ENT: No nasal bleeding or discharge. Mucous membranes pink and moist. NECK: Trachea midline. No JVD. CARDIOVASCULAR: Regular rate and rhythm. No murmur appreciated. RESPIRATORY: No accessory muscle use. Clear to auscultation. Breath sounds equal bilaterally. GASTROINTESTINAL: Abdomen soft, non-tender, nondistended. Hepatic and splenic margins not palpable. MUSCULOSKELETAL: No obvious deformities. No clubbing. No cyanosis. No edema. NEUROLOGICAL: Awake and alert. No obvious cranial nerve deficits. Motor grossly within normal limits. Normal speech. PSYCHIATRIC: flat affect; insight and judgment limited Data Data Last Documented VS Vital Signs Date Time Temp Pulse Resp B/P (MAP) Pulse Ox O2 Delivery O2 Flow Rate FiO2 01/24/17 15:28 92 18 116/58 (77) 97 Room Air 01/24/17 14:51 97.9 Orders Orders Electrocardiogram (01/24/17 15:04) Complete Blood Count With Diff (01/24/17 15:04) Basic Metabolic Panel (Bmp) (01/24/17 15:04) Troponin I (01/24/17 15:04) Labs Laboratory Tests Test 01/24/17 15:10 White Blood Count 13.0 TH/MM3 Red Blood Count 4.48 MIL/MM3 Hemoglobin 12.7 GM/DL Hematocrit 38.2 % Mean Corpuscular Volume 85.2 FL Mean Corpuscular Hemoglobin 28.4 PG Mean Corpuscular Hemoglobin Concent 33.3 % Red Cell Distribution Width 14.1 % Platelet Count 410 TH/MM3 Mean Platelet Volume 8.0 FL Neutrophils (%) (Auto) 75.1 % Lymphocytes (%) (Auto) 20.9 % Monocytes (%) (Auto) 2.9 % Eosinophils (%) (Auto) 0.7 % Basophils (%) (Auto) 0.4 % Neutrophils # (Auto) 9.7 TH/MM3 Lymphocytes # (Auto) 2.7 TH/MM3 Monocytes # (Auto) 0.4 TH/MM3 Eosinophils # (Auto) 0.1 TH/MM3 Basophils # (Auto) 0.1 TH/MM3 CBC Comment DIFF FINAL Differential Comment MDM Medical Decision Making Medical Screen Exam Complete: Yes Emergency Medical Condition: Yes Medical Record Reviewed: Yes Differential Diagnosis Differential includes coronary artery disease, atypical chest pain, Narrative Course EKG shows a normal sinus rhythm. Review of previous chart shows multiple admissions for chest pain. She was admitted to the chest pain center in October of this year had a negative workup. Patient is stable for discharge Diagnosis Primary Impression: Atypical chest pain Disposition: 01 DISCHARGE HOME Condition: Stable Logan Miranda MD Jan 24, 2017 15:09
[2017-01-24 15:19] LABS: AUTOMATED NEUTROPHIL # 9.7 TH/MM3 (1.8-7.7); BASOPHIL # 0.1 TH/MM3 (0-0.2); BASOPHIL % 0.4 % (0.0-2.0); EOSINOPHIL # 0.1 TH/MM3 (0-0.4); EOSINOPHIL % 0.7 % (0.0-4.0); HEMATOCRIT 38.2 % (35.0-46.0); HEMO FLAGS DIFF FINAL; LYMPH % 20.9 % (9.0-44.0); LYMPHOCYTE # 2.7 TH/MM3 (1.0-4.8); MEAN CELL VOLUME 85.2 FL (80.0-100.0); MEAN CORPUSCULAR HEMOGLOBIN 28.4 PG (27.0-34.0); MEAN CORPUSCULAR HGB CONC 33.3 % (32.0-36.0); MONO % 2.9 % (0.0-8.0); NEUT % 75.1 % (16.0-70.0); PLATELET COUNT 410 TH/MM3 (150-450); RED BLOOD COUNT 4.48 MIL/MM3 (4.00-5.30); RED CELL DISTRIBUTION WIDTH 14.1 % (11.6-17.2)
[2017-01-24 15:28] VITALS: BP 116/58; PULSE 92; RESP 18; O2SAT 97
[2017-01-24 16:16] LABS: CHLORIDE 106 MEQ/L (98-107); POTASSIUM 3.3 MEQ/L (3.5-5.1); SODIUM (NA) 140 MEQ/L (136-145)
[2017-01-24 16:19] LABS: ANION GAP 8 MEQ/L (5-15); BICARBONATE 25.7 MEQ/L (21.0-32.0); BLOOD UREA NITROGEN 8 MG/DL (7-18)
[2017-01-24 16:20] VITALS: BP 137/73; PULSE 94; RESP 18; O2SAT 97
[2017-01-24 16:22] LABS: GLOMERULAR FILTRATION RATE 134 ML/MIN (>89)
--- NOTE | 2017-01-25 09:59 | EKG ---
Date Performed: 01/24/2017 Time Performed: 15:02:13 PTAGE: 26 years EKG: Sinus rhythm NORMAL ECG PREVIOUS TRACING : 01/22/2017 02.31 DOCTOR: Davide Gan Interpretating Date/Time 01/25/2017 09:57:35
== END 2017-01-24 16:38 | disposition home or self-care (01) ==
LOC: PHED 14:51
DX: R07.89 Other chest pain (principal); F41.9 Anxiety disorder, unspecified; F31.9 Bipolar disorder, unspecified; I10 Essential (primary) hypertension; F17.200 Nicotine dependence, unspecified, uncomplicated
CPT/HCPCS: 80048; 84484; 85025; 93005; 99285

== ENCOUNTER 2017-02-16 18:03 | Emergency (ER) | payer OTHER ==
[~2017-02-16] VITALS: Ht 154.9 cm; Wt 80.0 kg
[~2017-02-16 18:03] MED LIST changes: -POTA1TAB4 PO
[2017-02-16 18:13] VITALS: BP 118/71; PULSE 85; RESP 16; TEMP 98.2; O2SAT 99
[2017-02-16] MEDS ORDERED: HYDR-2374 PO (18:40)
[2017-02-16] MEDS ORDERED: TRAM50 PO (18:52)
[2017-02-16] MEDS ORDERED: METR-1 PO (18:52)
[2017-02-16] MEDS ORDERED: IBUP1TAB7 PO (18:52)
[2017-02-16] MEDS ORDERED: DOXY100C PO (18:52)
--- NOTE | 2017-02-16 18:53 | PD ---
HPI . Lower abdominal pain Chief Complaint: Abdominal Pain Time Seen by Provider: 18:37 Travel History International Travel<30 days: No Contact w/Intl Traveler<30days: No Traveled to known affect area: No History of Present Illness HPI This patient presents with lower abdominal pain for the last couple days. It is associated with vaginal discharge and exacerbated by sexual intercourse. Pain is rated 10/10. PFSH Past Medical History Hx Anticoagulant Therapy: No ADHD: Yes Autoimmune Disease: No Blood Disorders: No Bipolar Disorder: Yes Anxiety: Yes Depression: Yes Heart Rhythm Problems: Yes Cardiac Catheterization: No Cardiovascular Problems: Yes High Cholesterol: Yes Chemotherapy: No Chest Pain: Yes Congestive Heart Failure: No Cerebrovascular Accident: No Diabetes: No Diminished Hearing: No Endocrine: No Gastrointestinal Disorders: Yes (FATTY LIVER) GERD: Yes Genitourinary: No Hepatitis: No Hiatal Hernia: No Heparin Induced Thrombocytopen: No Hypertension: Yes Immune Disorder: No Implanted Vascular Access Dvce: Yes (FOR HEART) Musculoskeletal: No Psychiatric: Yes (BIPOLAR ANXIETY) Reproductive: Yes Respiratory: No Immunizations Current: Yes Seizures: No Thyroid Disease: No Ulcer: Yes Tetanus Vaccination: > 5 Years Influenza Vaccination: No PNEUMOCCOCAL Vaccine (Year): 2 ?: Not LMP: 02/10/17 Menopausal: No : 1 Para: 0 Miscarriage: 1 : 0 Ovarian Cysts: Yes Past Surgical History Abdominal Surgery: Yes (ADHESION REMOVAL) AICD: No Cardiac Surgery: Yes (STENT) Coronary Artery Bypass Graft: No Ear Surgery: No Endocrine Surgery: No Eye Surgery: No Genitourinary Surgery: No Gynecologic Surgery: No Hysterectomy: No Joint Replacement: No Neurologic Surgery: No Oral Surgery: No Pacemaker: No Thoracic Surgery: No Other Surgery: Yes (LOOP RECORDER IMPLANT IN CHEST) Family History Family Myocardial Infarction: Yes (GRANDFATHER AT AGE 38) Social History Alcohol Use: Yes (occas mix drinks) Tobacco Use: Yes (3/4 -1 PPD) Substance Use: Yes (MARIJUANA) Allergies-Medications (Allergen,Severity, Reaction): Coded Allergies: No Known Allergies (Verified Adverse Reaction, Unknown, 02/16/17) Reported Meds & Prescriptions Reported Meds & Active Scripts Active Reported Hydrocodone-Acetaminophen 10-300 Tab 1 Tab PO Q6H PRN Flecainide (Flecainide Acetate) 150 Mg Tab 500 Mg PO DAILY Metoprolol Tartrate 25 Mg Tab 25 Mg PO DAILY Seroquel (Quetiapine Fumarate) 50 Mg Tab 100 Mg PO DAILY Lexapro (Escitalopram Oxalate) 20 Mg Tab 20 Mg PO DAILY Review of Systems Except as stated in HPI: all other systems reviewed are Neg Genitourinary: Positive: Pelvic Pain, Dyspareunia, Discharge Musculoskeletal: Positive: Pain (chronic pain. She states that she is out of her narcotic.) Physical Exam Narrative GENERAL: Awake and alert and in no acute distress. SKIN: Warm and dry. HEAD: Normocephalic/atraumatic. EYES: Pupils are equal. Extraocular movements are intact. NECK: Normal range of motion. CARDIOVASCULAR: Regular rate and rhythm. RESPIRATORY: Nonlabored respirations. : She has a white discharge in the vaginal vault. The cervical os is closed. She has cervical motion tenderness. She has bilateral adnexal tenderness. MUSCULOSKELETAL: Atraumatic. NEUROLOGICAL: Nonfocal. PSYCHIATRIC: Appropriate mood and affect. Data Data Last Documented VS Vital Signs Date Time Temp Pulse Resp B/P (MAP) Pulse Ox O2 Delivery O2 Flow Rate FiO2 02/16/17 18:13 98.2 85 16 118/71 (87) 99 Orders Orders Gc And Chlamydia Pcr (02/16/17 18:37) Wet Prep Profile (02/16/17 18:37) Urinalysis - C+S If Indicated (02/16/17 18:37) Ed Urine Pregnancytest Poc (02/16/17 18:37) Ceftriaxone Inj (Rocephin Inj) (02/16/17 19:00) Lidocaine 1% Inj (50 Ml) (Xylocaine 1% I (02/16/17 19:00) MDM Medical Decision Making Medical Screen Exam Complete: Yes Emergency Medical Condition: Yes Differential Diagnosis Differential diagnosis of pelvic pain includes but is not limited to UTI, PID, ectopic , spontaneous AB, constipation, viral illness Narrative Course This patient presents with pelvic pain associated with discharge and dyspareunia. She has PID on exam. She'll be treated here with Rocephin. She' ll be discharged on doxycycline, Flagyl, ibuprofen and Ultram. test is negative. Diagnosis Primary Impression: PID (acute pelvic inflammatory disease) Patient Instructions: General Instructions, Pelvic Inflammatory Disease (DC) Med/Other Pt SpecificInfo: Prescription(s) given Scripts Tramadol (Ultram) 50 Mg Tab 50 MG PO Q4H Y for PAIN, #12 TAB 0 Refills Prov: Shanda Cabrales MD 02/16/17 Ibuprofen (Ibuprofen) 800 Mg Tab 800 MG PO Q8H Y for Pain/Inflammation, #60 TAB 0 Refills Prov: Shanda Cabrales MD 02/16/17 Metronidazole (Flagyl) 500 Mg Tab 500 MG PO BID for Infection for 7 Days, #14 TAB 0 Refills Prov: Shanda Cabrales MD 02/16/17 Doxycycline Hyclate (Doxycycline Hyclate) 100 Mg Cap 100 MG PO BID for Infection, #20 CAP 0 Refills Prov: Shanda Cabrales MD 02/16/17 Disposition: 01 DISCHARGE HOME Condition: Stable Shanda Cabrales MD Feb 16, 2017 18:53
[2017-02-16 19:00] LABS: GLUCOSE,URINE NEG (NEG); KETONE, URINE NEG (NEG); NITRITE,URINE NEG (NEG)
[2017-02-16] MEDS ORDERED: LIDOCAINE HCL 1% 50 ML VIAL XX ONE (19:00)
[2017-02-16] MEDS ORDERED: cefTRIAXone 250 MG VIAL IM ONE (19:00)
[2017-02-16 19:02] LABS: BLOOD, URINE TRACE (NEG)
[2017-02-16 19:04] LABS: URINE COLOR YELLOW (YELLW/STRAW)
[2017-02-16 19:05] LABS: BACTERIA, URINE FEW /hpf; COMMENT (UR) CULT NOT INDICATED; CULTURE IF INDICATED CULT NOT INDICATED; RBC, URINE 0-3 /hpf (0-3); SQUAMOUS EPITHELIAL CELL URINE > 8 /hpf (0-5)
[2017-02-16 19:15] VITALS: BP 98/53; PULSE 83; RESP 14; O2SAT 97
[2017-02-16] MEDS ORDERED: traMADol HCL 50 MG TAB PO ONE (19:30)
[2017-02-16 23:24] LABS: CHLAMYDIA PCR NOT DETECTED (NOT DETECT); NEISSERIA PCR NOT DETECTED (NOT DETECT)
[2017-02-21] MEDS ORDERED: PANT20TA2 PO (11:48)
== END 2017-02-16 19:40 | disposition home or self-care (01) ==
LOC: PHED 18:03
DX: N73.0 Acute parametritis and pelvic cellulitis (principal); I10 Essential (primary) hypertension; F31.9 Bipolar disorder, unspecified; F17.200 Nicotine dependence, unspecified, uncomplicated
CPT/HCPCS: 81001; 84703; 87210; 87491; 87591; 96372; 99284; J0696

== ENCOUNTER → 2017-02-21 | Outpatient (CLI) | payer OTHER ==
[~2017-02-21] MED LIST changes: +DOXY100C PO; +HYDR-2374 PO; -HYDR-3533 PO; -IBUP-232 PO; +IBUP1TAB7 PO; +METR-1 PO; +PANT20TA2 PO; +PERC5TAB12 PO; +TRAM50 PO
[2017-02-21 12:02] LABS: AUTOMATED NEUTROPHIL # 8.5 TH/MM3 (1.8-7.7); BASOPHIL # 0.1 TH/MM3 (0-0.2); BASOPHIL % 0.5 % (0.0-2.0); EOSINOPHIL # 0.2 TH/MM3 (0-0.4); EOSINOPHIL % 1.6 % (0.0-4.0); HEMATOCRIT 39.8 % (35.0-46.0); HEMO FLAGS DIFF FINAL; LYMPH % 24.6 % (9.0-44.0); LYMPHOCYTE # 3.1 TH/MM3 (1.0-4.8); MEAN CELL VOLUME 86.3 FL (80.0-100.0); MEAN CORPUSCULAR HGB CONC 32.4 % (32.0-36.0); MONO % 4.7 % (0.0-8.0); NEUT % 68.6 % (16.0-70.0); PLATELET COUNT 401 TH/MM3 (150-450); RED BLOOD COUNT 4.61 MIL/MM3 (4.00-5.30); RED CELL DISTRIBUTION WIDTH 14.3 % (11.6-17.2); WHITE BLOOD COUNT 12.5 TH/MM3 (4.0-11.0)
[2017-02-21 12:23] LABS: BACTERIA, URINE RARE /hpf; BLOOD, URINE NEG (NEG); GLUCOSE,URINE NEG (NEG); KETONE, URINE NEG (NEG); MUCUS URINE MANY /lpf (OCC); NITRITE,URINE NEG (NEG); SQUAMOUS EPITHELIAL CELL URINE 12 /hpf (0-5); URINE COLOR YELLOW (YELLW/STRAW)
[2017-02-21 12:28] LABS: ANION GAP 7 MEQ/L (5-15); BICARBONATE 28.2 MEQ/L (21.0-32.0); BLOOD UREA NITROGEN 6 MG/DL (7-18); CHLORIDE 106 MEQ/L (98-107); GLOMERULAR FILTRATION RATE 134 ML/MIN (>89); GLUCOSE,FASTING 90 MG/DL (74-99); POTASSIUM 3.5 MEQ/L (3.5-5.1); SODIUM (NA) 141 MEQ/L (136-145)
[2017-02-21 12:38] LABS: BHCG SCREEN QUALITATIVE LESS THAN 1 MIU/ML (0-5)
== END ==
LOC: CPRE 11:05
PROVIDERS: ATTEND Obstetrics & Gynecology
DX: Z01.812 Encounter for preprocedural laboratory examination (principal); R10.2 Pelvic and perineal pain
CPT/HCPCS: 36415; 80048; 81001; 84703; 85025; 86850; 86900; 86901

== ENCOUNTER 2017-02-23 22:56 | Emergency (ER) | payer OTHER ==
[~2017-02-23] VITALS: Ht 154.9 cm; Wt 85.0 kg
[~2017-02-23 22:56] MED LIST changes: -*HYDROmorphone PF 1 MG VIAL PERIprocedural Use ONLY ONE; -*MEPERIDINE 25 MG INJ VIAL PERIprocedural Use ONLY ONE; -*morphine SULFATE 8 MG/ML PERIprocedure ONLY ONE; -ACETAMINOPHEN 1000 MG/100 ML 100 ML IV ONE; -BUPIVACAINE/EPINEPHRINE 0.5% PF 30 ML VIAL ONE; -CHLORHEXIDINE GLUCONATE 2 % 1 PACK (2 CLOTHS) TOPICAL PRN; -DEXAMETHASONE SOD PHOS 4 MG/ML VIAL IV ONE; -DO NOT ADM ANY ANTICOAGULANT DRUGS PRN; -DOXY100C PO; -FLEC1TAB9 PO; -GLYCOPYRROLATE 1 MG/5 ML SYRINGE IV PUSH ONE; -HYDR-3533 PO; -IBUP-232 PO; -IBUP1TAB7 PO; -INSULIN HUMAN REGULAR 1,000 UNITS/10 ML VIAL SQ PRN; -KETOROLAC TROMETHAMINE 30 MG/ML (IVP) VIAL IV PUSH ONE; -LACTATED RINGER'S 1000 ML IV PRN; -LIDOCAINE HCL 1% PF 5 ML SYRINGE OTHER ONE; -MEPERIDINE HCL 50 MG/ML VIAL IM PRN; -METHYLENE BLUE 10 MG/ML VIAL OTHER ONE; -METOPROLOL TARTRATE 25 MG TAB PO PRN; -METR-1 PO; -MIDAZOLAM HCL 2 MG/2 ML VIAL IV ONE; -NEOSTIGMINE 5 MG/5 ML SYRINGE IV PUSH ONE; -ONDANSETRON HCL 4 MG/2 ML VIAL IV ONE; -ONDANSETRON HCL 4 MG/2 ML VIAL IV PUSH PRN; -PERC5TAB12 PO; -PHENYLEPH/NS 1000 MCG/10 ML SYR IV ONE; -POVIDONE IODINE 5% (ANTISEPSIS KIT) 4 APPLICATIONS EACH NARE PRN; -PROPOFOL 200 MG/20 ML AMP IV ONE; -ROCURONIUM INJ 50 MG/5 ML SYRINGE IV PUSH ONE; -SODIUM CHLORID 0.9% 500 ML IV PRN; -TRAM50 PO; -ceFAZolin 2 GM PREMIX 50 ML IV SCH; -oxyCODONE/ACETAMINOPHEN 5 MG/325 MG TAB ONE; -oxyCODONE/ACETAMINOPHEN 5 MG/325 MG TAB PO PRN
[2017-02-23 23:02] VITALS: BP 123/59; PULSE 81; RESP 16; TEMP 98; O2SAT 98
[2017-02-23] MEDS ORDERED: PERC5TAB12 PO (23:13)
[2017-02-23] MEDS ORDERED: KETOROLAC TROMETHAMINE 60 MG/2 ML (IM) VIAL IM ONE (23:45)
[2017-02-23 23:53] LABS: BLOOD, URINE LARGE (NEG); GLUCOSE,URINE NEG (NEG); KETONE, URINE NEG (NEG); NITRITE,URINE NEG (NEG)
[2017-02-23 23:58] LABS: URINE COLOR STRAW (YELLW/STRAW)
[2017-02-23 23:59] LABS: COMMENT (UR) CULT NOT INDICATED; CULTURE IF INDICATED CULT NOT INDICATED; SQUAMOUS EPITHELIAL CELL URINE 0-5 /hpf (0-5); WBC, URINE 0-2 /hpf (0-5)
--- NOTE | 2017-02-24 00:19 | RADRPT ---
EXAM DATE/TIME: 02/23/2017 23:51 [facility] COMPARISON: No previous studies available for comparison. INDICATIONS : Lower abdominal pain post abdominal adhesion surgery today MEDICAL HISTORY : Cardiovascular disease. Gastroesophageal reflux disease SURGICAL HISTORY : Cardiac stent. Loop recorder ENCOUNTER: Initial ACUITY: 1 day PAIN SCORE: 10/10 LOCATION: Bilateral lower quadrant FINDINGS: Supine and upright views of the abdomen were performed. The abdominal bowel gas pattern is normal. No air fluid levels are seen. No abnormal masses, calcifications, or organomegaly is seen. The visu alized lower lungs are clear. No evidence of free intraperitoneal gas. The osseous structures are u nremarkable. CONCLUSION: No acute disease. Grupo Osman MD on February 24, 2017 at 0:18 Board Certified Radiologist. This report was verified electronically.
--- NOTE | 2017-02-24 00:26 | PD ---
HPI Chief Complaint: Abdominal Pain Time Seen by Provider: 23:34 Travel History International Travel<30 days: No Contact w/Intl Traveler<30days: No Traveled to known affect area: No History of Present Illness HPI 26-year-old female presents to the emergency department for complaint of abdominal pain after having laparoscopic surgery for recurrent PID and endometriosis earlier on 02/23/17. Patient states she does not do well with pain. Patient states Percocet is not controlling her pain. Patient does not report fever or chills or nausea or vomiting or bleeding or drainage from her laparoscopic surgery sites. Patient states that shift From the hospital because she does not do well with pain. Patient also states she feels like she has a urinary catheter in her bladder and has to urinate frequently. Patient rates her pain 8/10 in intensity. PFSH Past Medical History Narrative Medical ADHD anxiety and bipolar disorder dyslipidemia PID endometriosis adhesions GERD chest pain adhesiolysis laparoscopic surgery loop recorder; alcohol use tobacco use marijuana use; nursing notes reviewed Hx Anticoagulant Therapy: No ADHD: Yes Autoimmune Disease: No Blood Disorders: No Bipolar Disorder: Yes Anxiety: Yes Depression: Yes Heart Rhythm Problems: Yes Cancer: No Cardiac Catheterization: No Cardiovascular Problems: Yes (IMPLANTED HEART MONITOR) High Cholesterol: Yes Chemotherapy: No Chest Pain: Yes Congestive Heart Failure: No Cerebrovascular Accident: No Diabetes: No Diminished Hearing: No Endocrine: No Gastrointestinal Disorders: Yes (hx ulcer, reflux) GERD: Yes Genitourinary: No Hepatitis: No Hiatal Hernia: No Heparin Induced Thrombocytopen: No Hypertension: Yes Immune Disorder: No Implanted Vascular Access Dvce: Yes (FOR HEART) Musculoskeletal: No Psychiatric: Yes (BIPOLAR ANXIETY) Reproductive: Yes Respiratory: No Immunizations Current: Yes Seizures: No Thyroid Disease: No Ulcer: Yes Tetanus Vaccination: < 5 Years Influenza Vaccination: No PNEUMOCCOCAL Vaccine (Year): 2 ?: Not LMP: 02-17-17 Menopausal: No : 1 Para: 0 Miscarriage: 1 : 0 Ovarian Cysts: Yes Past Surgical History Abdominal Surgery: Yes (ADHESION REMOVAL) AICD: No Body Medical Devices: loop recorder Cardiac Surgery: Yes (loop recorder) Coronary Artery Bypass Graft: No Ear Surgery: No Endocrine Surgery: No Eye Surgery: No Genitourinary Surgery: No Hysterectomy: No Joint Replacement: No Neurologic Surgery: No Oral Surgery: No Pacemaker: No Thoracic Surgery: No Other Surgery: Yes (LOOP RECORDER IMPLANT IN CHEST) Family History Family Myocardial Infarction: Yes (GRANDFATHER AT AGE 38) Social History Alcohol Use: Yes (occas mix drinks) Tobacco Use: Yes (3/4 -1 PPD) Substance Use: Yes (MARIJUANA) Allergies-Medications (Allergen,Severity, Reaction): Coded Allergies: No Known Allergies (Verified Adverse Reaction, Unknown, 02/23/17) Reported Meds & Prescriptions Reported Meds & Active Scripts Active Reported Percocet (Oxycodone-Acetaminophen) 5-325 mg Tab 1 Tab PO Q6H PRN Pantoprazole (Pantoprazole Sodium) 20 Mg Tab 20 Mg PO DAILY Hydrocodone-Acetaminophen 10-300 Tab 1 Tab PO Q6H PRN Metoprolol Tartrate 25 Mg Tab 25 Mg PO DAILY Seroquel (Quetiapine Fumarate) 50 Mg Tab 100 Mg PO DAILY Lexapro (Escitalopram Oxalate) 20 Mg Tab 20 Mg PO DAILY Review of Systems Except as stated in HPI: all other systems reviewed are Neg General / Constitutional: No: Fever, Chills HENT: No: Congestion Cardiovascular: No: Chest Pain or Discomfort Respiratory: No: Shortness of Breath Gastrointestinal: Positive: Abdominal Pain (post laparoscopic), No: Nausea, Vomiting, Diarrhea Genitourinary: Positive: Decreased Urinary Output Musculoskeletal: No: Myalgias, Arthralgias Skin: No Rash Neurologic: No: Weakness, Dizziness, Syncope Psychiatric: Positive: Anxiety Hematologic/Lymphatic: No: Easy Bruising Physical Exam Narrative GENERAL: Well-developed well-nourished female in no acute distress no respiratory distress with stable triage vital signs SKIN: Warm and dry. HEAD: Normocephalic. EYES: No scleral icterus. No injection or drainage. NECK: Supple, trachea midline. No JVD or lymphadenopathy. CARDIOVASCULAR: Regular rate and rhythm without murmurs, gallops, or rubs. RESPIRATORY: Breath sounds equal bilaterally. No accessory muscle use. GASTROINTESTINAL: Abdomen soft, 3 laparoscopic incision sites with Steri-Strips in place without redness induration or drainage, mild tenderness to palpation without guarding or rebound, nondistended. MUSCULOSKELETAL: No cyanosis, or edema. BACK: Nontender without obvious deformity. No CVA tenderness. Data Data Last Documented VS Vital Signs Date Time Temp Pulse Resp B/P (MAP) Pulse Ox O2 Delivery O2 Flow Rate FiO2 02/23/17 23:02 98.0 81 16 123/59 (80) 98 Orders Orders Urinalysis - C+S If Indicated (02/23/17 23:34) Abdomen, Flat & Upright (02/23/17 ) Ketorolac Inj (Toradol Inj) (02/23/17 23:45) Labs Laboratory Tests Test 02/23/17 23:11 Urine Color STRAW Urine Turbidity CLEAR Urine pH 6.0 Urine Specific [place] 1.010 Urine Protein NEG mg/dL Urine Glucose (UA) NEG mg/dL Urine Ketones NEG mg/dL Urine Occult Blood LARGE Urine Nitrite NEG Urine Bilirubin NEG Urine Leukocyte Esterase NEG Urine RBC 50-99 /hpf Urine WBC 0-2 /hpf Urine Squamous Epithelial Cells 0-5 /hpf Urine Bacteria NONE /hpf Microscopic Urinalysis Comment CULT NOT INDICATED MDM Medical Decision Making Medical Screen Exam Complete: Yes Emergency Medical Condition: Yes Medical Record Reviewed: Yes (operative report reviewed from 02/23/17) Interpretation(s) UA: blood/rbc's Vital Signs Date Time Temp Pulse Resp B/P (MAP) Pulse Ox O2 Delivery O2 Flow Rate FiO2 02/23/17 23:02 98.0 81 16 123/59 (80) 98 Last Impressions Abdomen X-Ray 02/23/17 0000 Signed Impressions: Service Date/Time: February 23:51 - CONCLUSION: No acute disease. Grupo Osman MD Differential Diagnosis Abdominal pain, post laparoscopic abdominal pain, perforation, appendicitis, UTI , urinary retention, inadequate pain control Narrative Course Patient sent for flat and upright of the abdomen and pelvis and urine specimen collected bedside bladder scan performed with 60 cc of urine Abdomen flat and upright x-ray reveals no subdiaphragmatic free fluid or obstructive pattern Urinalysis shows few RBCs and occult blood Patient given injection of Toradol 60 mg IM Patient has urinated numerous times in the emergency department is otherwise stable for outpatient management and follow-up with her surgeon as scheduled; patient is encouraged to monitor temperature and to take acetaminophen or ibuprofen as tolerated for fever 100.4F or greater she is also encouraged to return to emergency department fever drainage from incision site vomiting or any concerns. 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 to schedule follow-up appointment Med/Other Pt SpecificInfo: No Change to Meds Disposition: 01 DISCHARGE HOME Condition: Stable Theresa Mccloud MD Feb 24, 2017 00:26
[2017-02-24 00:35] VITALS: BP 126/67; PULSE 78; RESP 16; O2SAT 96
[2017-02-24] MEDS ORDERED: diphenhydrAMINE HCL 25 MG CAP PO ONE (00:45)
[2017-02-24] MEDS ORDERED: oxyCODONE/ACETAMINOPHEN 7.5 MG/325 MG TAB PO ONE (00:45)
[2017-02-24 00:52] VITALS: BP 120/76
[2017-02-24 01:05] VITALS: RESP 18
== END 2017-02-24 01:09 | disposition home or self-care (01) ==
LOC: PHED 22:56
DX: G89.18 Other acute postprocedural pain (principal); I10 Essential (primary) hypertension; F31.9 Bipolar disorder, unspecified; F17.200 Nicotine dependence, unspecified, uncomplicated
CPT/HCPCS: 74020; 81001; 96372; 99284; J1885

== ENCOUNTER → 2017-02-23 | Day surgery (SDC) | payer OTHER ==
--- NOTE | 2017-02-22 21:06 | MH ---
cc: ELY LEACH DATE OF ADMISSION 02/23/2017 PREOPERATIVE DIAGNOSIS Chronic pelvic pain, possible endometriosis versus adhesions. SCHEDULED PROCEDURE Diagnostic laparoscopy and associated procedures. HISTORY OF THE PRESENT ILLNESS The patient is a 26-year-old single white female 0 with regular menses, not on any oral contraceptives at this time. She has significant oppositional disorder and is on medications for this. She desires to become in the future and has not been taking any oral contraceptives or control at this time. She has had multiple history of chlamydia and gonorrhea with treatments on a regular basis. She has had abnormal Pap smears and been followed for that. She denies smoking, drinking or use of illicit drugs. She is complaining of significant weight gain and is wondering if this is an endocrine issue but lab work has suggested no obvious endocrinopathies. The pain that she has resides mostly on the left side. She states it can be 9/10. It is intermittent. Does not appear to be impacted by her bowels, bladder, exercise or intercourse. It has been untouched by [id number] medications. Does not appear to have a cyclic nature to it. PHYSICAL EXAMINATION GENERAL: n physical she is a mildly overweight white female in no acute distress with a somewhat flat affect. NECK: She has no thyroid enlargement. LUNGS: Her lungs are clear to auscultation and percussion. HEART: Her heart rate and rhythm are regular without murmur, heaves or thrills. BREASTS: Exam has show no dominant mass or nipple discharge. ABDOMEN: Benign. She has no lymphadenopathy in the inguinal area. GYNECOLOGIC: The perineum is normal without any obvious lesions. The cervix is normal in appearance with no obvious lesions. It is well elevated, nulliparous and there is no descent. Uterus is small. Ovaries are not palpable. The examination does elicit significant tenderness in general, but no pinpointed areas. RECTAL: Her guaiac is negative. EXTREMITIES: Unremarkable. IMPRESSION Chronic diffuse left lower quadrant pain that radiates, that has been unamenable to over the counter, lifestyle changes. She desires further evaluation and we have decided to go ahead with diagnostic laparoscopy. The risks, benefits, expectations have been reviewed. I have told that we may find nothing that gives an indication of what is causing her pain or we might find something we cannot fix with laparoscopy. She understands, has agreed to proceed and is consented for the morning. MD PRUDENCE Fish/KK /7:58 PM /8:13 PM
[~2017-02-23] VITALS: Ht 154.9 cm; Wt 84.2 kg
[~2017-02-23] MED LIST changes: +*HYDROmorphone PF 1 MG VIAL PERIprocedural Use ONLY ONE; +*MEPERIDINE 25 MG INJ VIAL PERIprocedural Use ONLY ONE; +*morphine SULFATE 8 MG/ML PERIprocedure ONLY ONE; +ACETAMINOPHEN 1000 MG/100 ML 100 ML IV ONE; +BUPIVACAINE/EPINEPHRINE 0.5% PF 30 ML VIAL ONE; +CHLORHEXIDINE GLUCONATE 2 % 1 PACK (2 CLOTHS) TOPICAL PRN; +DEXAMETHASONE SOD PHOS 4 MG/ML VIAL IV ONE; +DO NOT ADM ANY ANTICOAGULANT DRUGS PRN; +GLYCOPYRROLATE 1 MG/5 ML SYRINGE IV PUSH ONE; +HYDR-3533 PO; +IBUP-232 PO; +INSULIN HUMAN REGULAR 1,000 UNITS/10 ML VIAL SQ PRN; +KETOROLAC TROMETHAMINE 30 MG/ML (IVP) VIAL IV PUSH ONE; +LACTATED RINGER'S 1000 ML IV PRN; +LIDOCAINE HCL 1% PF 5 ML SYRINGE OTHER ONE; +MEPERIDINE HCL 50 MG/ML VIAL IM PRN; +METHYLENE BLUE 10 MG/ML VIAL OTHER ONE; +METOPROLOL TARTRATE 25 MG TAB PO PRN; +MIDAZOLAM HCL 2 MG/2 ML VIAL IV ONE; +NEOSTIGMINE 5 MG/5 ML SYRINGE IV PUSH ONE; +ONDANSETRON HCL 4 MG/2 ML VIAL IV ONE; +ONDANSETRON HCL 4 MG/2 ML VIAL IV PUSH PRN; +PHENYLEPH/NS 1000 MCG/10 ML SYR IV ONE; +POVIDONE IODINE 5% (ANTISEPSIS KIT) 4 APPLICATIONS EACH NARE PRN; +PROPOFOL 200 MG/20 ML AMP IV ONE; +ROCURONIUM INJ 50 MG/5 ML SYRINGE IV PUSH ONE; +SODIUM CHLORID 0.9% 500 ML IV PRN; +ceFAZolin 2 GM PREMIX 50 ML IV SCH; +oxyCODONE/ACETAMINOPHEN 5 MG/325 MG TAB ONE; +oxyCODONE/ACETAMINOPHEN 5 MG/325 MG TAB PO PRN
--- NOTE | 2017-02-23 09:29 | PD.OP ---
Operative Report Date of Surgery: Feb 23, 2017 Preoperative Diagnosis: (1) Tubal disease (2) Endometriosis determined by laparoscopy (3) Pelvic peritoneal adhesions, female (4) History of chlamydia infection (5) Chronic pelvic pain in female Postoperative Diagnosis: Procedure: D & C Lscope with lysis of adhesions fulguration of minimal endometriosis chromointubation Surgeon: Yanelis Gray Highway Design Engineer(s): [id number] Operation and Findings: findings dictated Yanelis Gray MD Feb 23, 2017 09:29
--- NOTE | 2017-02-23 10:02 | MP ---
cc: YANELIS LEACH DATE OF SURGERY 02/23/2017 DATE OF 1990 PREOPERATIVE DIAGNOSIS Chronic pelvic pain with multiple chlamydial infections. POSTOPERATIVE DIAGNOSIS Chronic pelvic pain with multiple chlamydial infections, pelvic adhesive disease, tubal disease, mild endometriosis. PROCEDURE D&C, laparoscopy with lysis of adhesions, fulguration of endometriosis and chromo-intubation. 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 Uterus was anteverted and mobile. Ovaries and tubes were not palpated. Upon entering the peritoneal cavity, the liver edge and gallbladder were normal and free of adhesions. The appendix was normal. The uterus revealed filmy banjo string type adhesions from the uterus to the anterior abdominal wall and bladder. There was a similar type of adhesions of the tubes to the ovaries covering the ovarian fossa on either side. The tubes were enlarged, plump and sausage like with phimotic fimbria. There was gun powder blue endometriosis in the cul-de-sac on the lower uterine segment posteriorly. The adhesions were lysed to restore normal anatomy. Chromo-intubation revealed that the right tube was blocked and that the left tube did have some flow. Fulguration of the endometriosis removed the obvious gun powder blue lesions. There was no evidence of iatrogenic injury or other pathology. Sponge, instrument, needle count were correct and she tolerated the procedure well. Estimated blood loss was minimal. She went to recovery in stable condition. PROCEDURE The patient was identified as Tiffany Ramos, her permit was reviewed with her. She received one gram of Ancef and was taken to the operating room, placed under general endotracheal anesthesia, put in the dorsal lithotomy position. She was prepped and draped in the usual sterile fashion and a Edwards catheter was placed. After examination under anesthesia, the cervix was grasped with a tenaculum and dilated and a D&C was performed with a mild amount of tissue curettings for pathology to look for chronic endometritis. An acorn tenaculum placed. Attention was directed to the abdomen. A 5 mm incision was made in the umbilicus in the midline and suprapubic area and in the right lower quadrant. These were infiltrated with lidocaine. The scope was placed directly through the umbilical incision under direct visualization and a pneumoperitoneum created. Then the midline trocar and sleeve were placed. Systematic evaluation of the abdominal and pelvic contents was performed with the findings as noted above. Using the third port, laparoscopic scissors and a grasper for visualization and stabilization of tissues allowed the lysis of the adhesions that were holding the uterus to the anterior abdominal wall and the tubes and ovaries from each other and opened up the ovarian fossa on both sides. The endometriosis was burned with the Monopolar scissors. Then chromo-intubation was done which showed flow through the left tube, but none through the right. All this was documented on photography. The pneumoperitoneum was released under direct visualization. There was no evidence of iatrogenic injury. The vaginal instrumentation was removed. The incisions were closed with single interrupted. She was placed in the dorsal supine position, awoken and taken to the recovery room in stable condition. MD PRUDENCE Fish/RAVEN /9:30 AM /9:38 AM
[2017-02-23 10:50] VITALS: BP 121/67; PULSE 88; RESP 18; TEMP 97.8; O2SAT 97
== END | disposition home or self-care (01) ==
LOC: HSDC 05:36
PROVIDERS: ATTEND Obstetrics & Gynecology
DX: N80.3 Endometriosis of pelvic peritoneum (principal); N73.6 Female pelvic peritoneal adhesions (postinfective); G89.29 Other chronic pain; R10.2 Pelvic and perineal pain
CPT/HCPCS: 00840; 58662; 88305; J0131; J0690; J1100; J1170; J1885; J2175; J2250; J2270; J2370; J2405; J2710; J3010; J7120

== ENCOUNTER 2017-02-24 04:16 | Emergency (ER) | payer OTHER ==
[~2017-02-24] VITALS: Ht 154.9 cm; Wt 82.0 kg
[~2017-02-24 04:16] MED LIST changes: +PERC5TAB12 PO
[2017-02-24 04:25] VITALS: BP 128/63; PULSE 85; RESP 16; TEMP 98.3; O2SAT 99
[2017-02-24] MEDS ORDERED: HYDROmorphone HCL PF 1 MG/ML VIAL IM ONE (05:30)
[2017-02-24] MEDS ORDERED: KETOROLAC TROMETHAMINE 60 MG/2 ML (IM) VIAL IM ONE (05:30)
--- NOTE | 2017-02-24 05:32 | PD ---
HPI Chief Complaint: Abdominal Pain Time Seen by Provider: 04:28 Travel History International Travel<30 days: No Contact w/Intl Traveler<30days: No Traveled to known affect area: No History of Present Illness HPI pt has chronic abdominal pain and had a laproscopic endometrium removal 24 hrs ago and was sent out on Percocet . Then she went to [place] . Pt was given percocet PO and toradol and she says it made her break out. Pt has multiple medical problems but tonight she is her only for pain management . I reviewed her prior medical charts and multiple visit for endometriosis , cardiac arrhythmia . PFSH Past Medical History Hx Anticoagulant Therapy: No ADHD: Yes Autoimmune Disease: No Blood Disorders: No Bipolar Disorder: Yes Anxiety: Yes Depression: Yes Heart Rhythm Problems: Yes Cancer: No Cardiac Catheterization: No Cardiovascular Problems: Yes (IMPLANTED HEART MONITOR) High Cholesterol: Yes Chemotherapy: No Chest Pain: Yes Congestive Heart Failure: No Cerebrovascular Accident: No Diabetes: No Diminished Hearing: No Endocrine: No Gastrointestinal Disorders: Yes (hx ulcer, reflux) GERD: Yes Genitourinary: No Hepatitis: No Hiatal Hernia: No Heparin Induced Thrombocytopen: No Hypertension: Yes Immune Disorder: No Implanted Vascular Access Dvce: Yes (FOR HEART) Musculoskeletal: No Psychiatric: Yes (BIPOLAR ANXIETY) Reproductive: Yes Respiratory: No Immunizations Current: Yes Seizures: No Thyroid Disease: No Ulcer: Yes PNEUMOCCOCAL Vaccine (Year): 2 ?: Not Menopausal: No : 1 Para: 0 Miscarriage: 1 : 0 Ovarian Cysts: Yes Past Surgical History Abdominal Surgery: Yes (ADHESION REMOVAL) AICD: No Body Medical Devices: loop recorder Cardiac Surgery: Yes (loop recorder) Coronary Artery Bypass Graft: No Ear Surgery: No Endocrine Surgery: No Eye Surgery: No Genitourinary Surgery: No Hysterectomy: No Joint Replacement: No Neurologic Surgery: No Oral Surgery: No Pacemaker: No Thoracic Surgery: No Other Surgery: Yes (LOOP RECORDER IMPLANT IN CHEST) Family History Family Myocardial Infarction: Yes (GRANDFATHER AT AGE 38) Social History Alcohol Use: Yes (occas mix drinks) Tobacco Use: Yes (05/21 -1 PPD) Substance Use: Yes (MARIJUANA) Allergies-Medications (Allergen,Severity, Reaction): Coded Allergies: No Known Allergies (Verified Adverse Reaction, Unknown, 02/24/17) Reported Meds & Prescriptions Reported Meds & Active Scripts Active Reported Percocet (Oxycodone-Acetaminophen) 5-325 mg Tab 1 Tab PO Q6H PRN Pantoprazole (Pantoprazole Sodium) 20 Mg Tab 20 Mg PO DAILY Hydrocodone-Acetaminophen 10-300 Tab 1 Tab PO Q6H PRN Metoprolol Tartrate 25 Mg Tab 25 Mg PO DAILY Seroquel (Quetiapine Fumarate) 50 Mg Tab 100 Mg PO DAILY Lexapro (Escitalopram Oxalate) 20 Mg Tab 20 Mg PO DAILY Review of Systems Except as stated in HPI: all other systems reviewed are Neg General / Constitutional: Positive: Chills Cardiovascular: Positive: Chest Pain or Discomfort Gastrointestinal: Positive: Abdominal Pain Physical Exam Narrative GENERAL: afebrile non toxic ambulating without difficulty , pt alert non septic appearance SKIN: Warm and dry. HEAD: Atraumatic. Normocephalic. EYES: Pupils equal and round. No scleral icterus. No injection or drainage. ENT: No nasal bleeding or discharge. Mucous membranes pink and moist. NECK: Trachea midline. No JVD MUSCULOSKELETAL: Extremities without clubbing, cyanosis, or edema. No obvious deformities. NEUROLOGICAL: Awake and alert. No obvious cranial nerve deficits. Motor grossly within normal limits. Five out of 5 muscle strength in the arms and legs. Normal speech. PSYCHIATRIC: Appropriate mood and affect; insight and judgment normal. Data Data Last Documented VS Vital Signs Date Time Temp Pulse Resp B/P (MAP) Pulse Ox O2 Delivery O2 Flow Rate FiO2 02/24/17 06:24 02/24/17 06:18 98.6 72 16 99 Room Air Orders Orders Ketorolac Inj (Toradol Inj) (02/24/17 05:30) Hydromorphone Pf Inj (Dilaudid Pf Inj) (02/24/17 05:30) Diphenhydramine Inj (Benadryl Inj) (02/24/17 06:00) Ed Discharge Order (02/24/17 06:23) MDM Medical Decision Making Medical Screen Exam Complete: Yes Emergency Medical Condition: Yes Differential Diagnosis post operative pain vs abscess vs chronic pain syndrome. Narrative Course Toradol IM and Dilaudid IM and Benadryl IM feels better and ready for d/ c follow up with her PCP and MAGNETO ELECTRICIAN Diagnosis Primary Impression: Chronic pelvic pain in female Additional Impression: Post-operative pain Patient Instructions: Abdominal Pain (ED), General Instructions Disposition: 01 DISCHARGE HOME Condition: Edwar Herrera MD Feb 24, 2017 05:32
[2017-02-24 05:40] VITALS: BP 154/92; PULSE 81; RESP 16; O2SAT 100
[2017-02-24] MEDS ORDERED: diphenhydrAMINE HCL 50 MG/ML VIAL IM ONE (06:00)
[2017-02-24 06:18] VITALS: BP 117/59; PULSE 72; RESP 16; TEMP 98.6; O2SAT 99
== END 2017-02-24 06:34 | disposition home or self-care (01) ==
LOC: NEPE 04:16
DX: R10.2 Pelvic and perineal pain (principal); G89.29 Other chronic pain; G89.18 Other acute postprocedural pain; F90.9 Attention-deficit hyperactivity disorder, unspecified type; F31.9 Bipolar disorder, unspecified; E78.00 Pure hypercholesterolemia, unspecified; K21.9 Gastro-esophageal reflux disease without esophagitis; I10 Essential (primary) hypertension; F41.9 Anxiety disorder, unspecified
CPT/HCPCS: 96372; 99283; J1170; J1200; J1885

== ENCOUNTER 2017-03-16 15:38 | Emergency (ER) | payer OTHER ==
[~2017-03-16] VITALS: Ht 180.3 cm; Wt 98.5 kg
[2017-03-16 15:42] VITALS: BP 117/65; PULSE 99; RESP 16; TEMP 98.2; O2SAT 99
[2017-03-16] MEDS ORDERED: PROMETHAZINE INJ 25 MG/ML VIAL IM ONE (16:00)
[2017-03-16] MEDS ORDERED: HYDROmorphone HCL PF 2 MG/ML VIAL IM ONE (16:00)
[2017-03-16] MEDS ORDERED: KETOROLAC TROMETHAMINE 60 MG/2 ML (IM) VIAL IM ONE (16:00)
--- NOTE | 2017-03-16 16:06 | PD ---
HPI Chief Complaint: Abdominal Pain Time Seen by Provider: 15:47 Travel History International Travel<30 days: No Contact w/Intl Traveler<30days: No Traveled to known affect area: No History of Present Illness HPI the patient is a 26-year-old female who presents emergency department for lower abdominal pain and pelvic discomfort of 2 days' duration. The patient complains of pelvic discomfort for the last 2-3 days, dizziness and discharge which she describes as thick, off colored to yellow, associated mild dysuria. She also complains of mild lower abdominal pain and pelvic pain but denies any nausea, vomiting, or diarrhea. 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 Dr. Gray. The patient states her last menstrual cycle was 2-3 weeks ago, is sexually active, is not currently on control wearing condoms. Symptoms are mild to moderate, there are no current alleviating or exacerbating factors. She denies any fever, chills, or sweats. PFSH Past Medical History Hx Anticoagulant Therapy: No ADHD: Yes Autoimmune Disease: No Blood Disorders: No Bipolar Disorder: Yes Anxiety: Yes Depression: Yes Heart Rhythm Problems: Yes Cancer: No Cardiac Catheterization: No Cardiovascular Problems: Yes (IMPLANTED HEART MONITOR) High Cholesterol: Yes Chemotherapy: No Chest Pain: Yes Congestive Heart Failure: No Cerebrovascular Accident: No Diabetes: No Diminished Hearing: No Endocrine: No Gastrointestinal Disorders: Yes (hx ulcer, reflux) GERD: Yes Genitourinary: No Hepatitis: No Hiatal Hernia: No Heparin Induced Thrombocytopen: No Hypertension: Yes Immune Disorder: No Implanted Vascular Access Dvce: Yes (FOR HEART) Musculoskeletal: No Psychiatric: Yes (BIPOLAR ANXIETY) Reproductive: Yes Respiratory: No Immunizations Current: Yes Seizures: No Thyroid Disease: No Ulcer: Yes PNEUMOCCOCAL Vaccine (Year): 2 ?: Unknown LMP: LAST MONTH Menopausal: No : 1 Para: 0 Miscarriage: 1 : 0 Ovarian Cysts: Yes Past Surgical History Abdominal Surgery: Yes (ADHESION REMOVAL) AICD: No Body Medical Devices: loop recorder Cardiac Surgery: Yes (loop recorder) Coronary Artery Bypass Graft: No Ear Surgery: No Endocrine Surgery: No Eye Surgery: No Genitourinary Surgery: No Hysterectomy: No Joint Replacement: No Neurologic Surgery: No Oral Surgery: No Pacemaker: No Thoracic Surgery: No Other Surgery: Yes (LOOP RECORDER IMPLANT IN CHEST) Family History Family Myocardial Infarction: Yes (GRANDFATHER AT AGE 38) Social History Alcohol Use: Yes (occas mix drinks) Tobacco Use: Yes (3/4 -1 PPD) Substance Use: Yes (MARIJUANA) Allergies-Medications (Allergen,Severity, Reaction): Coded Allergies: No Known Allergies (Verified Adverse Reaction, Unknown, 03/16/17) Reported Meds & Prescriptions Reported Meds & Active Scripts Active Reported Pantoprazole (Pantoprazole Sodium) 20 Mg Tab 20 Mg PO DAILY Hydrocodone-Acetaminophen 10-300 Tab 1 Tab PO Q6H PRN Metoprolol Tartrate 25 Mg Tab 25 Mg PO DAILY Seroquel (Quetiapine Fumarate) 50 Mg Tab 100 Mg PO DAILY Lexapro (Escitalopram Oxalate) 20 Mg Tab 20 Mg PO DAILY Review of Systems Except as stated in HPI: all other systems reviewed are Neg General / Constitutional: No: Fever, Chills Gastrointestinal: No: Nausea, Vomiting, Diarrhea, Abdominal Pain Genitourinary: Positive: Dysuria, Pelvic Pain, Discharge, No: Urgency, Frequency, Hematuria, Vaginal Bleeding Skin: No Rash Physical Exam Narrative GENERAL: Awake, alert, pleasant 26-year-old female who appears her stated age and is in no acute respiratory distress. SKIN: Focused skin assessment warm/dry. HEAD: Atraumatic. Normocephalic. EYES: Pupils equal and round. No scleral icterus. No injection or drainage. ENT: No nasal bleeding or discharge. Mucous membranes pink and moist. NECK: Trachea midline. No JVD. CARDIOVASCULAR: Regular rate and rhythm. No murmur appreciated. RESPIRATORY: No accessory muscle use. Clear to auscultation. Breath sounds equal bilaterally. GASTROINTESTINAL: Abdomen soft, minimal suprapubic discomfort. No guarding or rigidity. Back: No CVA tenderness. Genitourinary: The exam was performed in the presence of a female nurse. External examination reveals no rashes or lesions. Speculum examination reveals scant discharge in the vaginal vault. Cervix closed. No significant cervical motion tenderness or adnexal tenderness. MUSCULOSKELETAL: No obvious deformities. No clubbing. No cyanosis. No edema. NEUROLOGICAL: Awake and alert. No obvious cranial nerve deficits. Motor grossly within normal limits. Normal speech. PSYCHIATRIC: Appropriate mood and affect; insight and judgment normal. Data Data Last Documented VS Vital Signs Date Time Temp Pulse Resp B/P (MAP) Pulse Ox O2 Delivery O2 Flow Rate FiO2 03/16/17 16:50 93 18 113/69 (84) 98 Room Air 03/16/17 15:42 98.2 Orders Orders Gc And Chlamydia Pcr (03/16/17 15:59) Wet Prep Profile (03/16/17 15:59) Urinalysis - C+S If Indicated (03/16/17 15:59) Ed Urine Pregnancytest Poc (03/16/17 15:59) Ketorolac Inj (Toradol Inj) (03/16/17 16:00) Promethazine Inj (Phenergan Inj) (03/16/17 16:00) Hydromorphone Pf Inj (Dilaudid Pf Inj) (03/16/17 16:00) Electrocardiogram (03/16/17 ) Ceftriaxone Inj (Rocephin Inj) (03/16/17 17:00) Azithromycin (Zithromax) (03/16/17 17:00) Lidocaine Pf 1% Inj (Xylocaine-Mpf 1% In (03/16/17 17:15) Oxycodone-Acetamin 10-325 Mg (Percocet 1 (03/16/17 17:45) Labs Laboratory Tests Test 03/16/17 16:10 03/16/17 16:47 Urine Color YELLOW Urine Turbidity CLEAR Urine pH 6.5 Urine Specific [place] 1.030 Urine Protein NEG mg/dL Urine Glucose (UA) NEG mg/dL Urine Ketones TRACE mg/dL Urine Occult Blood NEG Urine Nitrite NEG Urine Bilirubin NEG Urine Leukocyte Esterase NEG Urine RBC 0-3 /hpf Urine WBC 3-5 /hpf Urine Squamous Epithelial Cells 6-8 /hpf Urine Mucus MANY /lpf Microscopic Urinalysis Comment CULT NOT INDICATED Clue Cells (Wet Prep) NONE SEEN Vaginal Trichomonas (Wet Prep) NONE SEEN Vaginal Yeast (Wet Prep) NONE SEEN MDM Medical Decision Making Medical Screen Exam Complete: Yes Emergency Medical Condition: Yes Medical Record Reviewed: Yes Interpretation(s) EKG reveals normal sinus rhythm with a rate in 92. No ischemic changes or ectopy noted. Laboratory Tests Test 03/16/17 16:10 03/16/17 16:47 Urine Color YELLOW Urine Turbidity CLEAR Urine pH 6.5 Urine Specific [place] 1.030 Urine Protein NEG mg/dL Urine Glucose (UA) NEG mg/dL Urine Ketones TRACE mg/dL Urine Occult Blood NEG Urine Nitrite NEG Urine Bilirubin NEG Urine Leukocyte Esterase NEG Urine RBC 0-3 /hpf Urine WBC 3-5 /hpf Urine Squamous Epithelial Cells 6-8 /hpf Urine Mucus MANY /lpf Microscopic Urinalysis Comment CULT NOT INDICATED Clue Cells (Wet Prep) NONE SEEN Vaginal Trichomonas (Wet Prep) NONE SEEN Vaginal Yeast (Wet Prep) NONE SEEN Differential Diagnosis Differential diagnosis includes PID, cervicitis, vaginitis, Trichomonas, bacterial vaginosis, UTI. Narrative Course The patient was administered Toradol, Phenergan, and Dilaudid IM. UA was sent to lab and bedside UA test was obtained. A pelvic exam was completed in the presence of a female nurse. The patient later stated she also had intermittent chest pain, has had a previous workup. I reviewed the EMR, the patient had a negative nuclear medicine myocardial perfusion scan on November 04, 2016 which was negative, low risk. The patient also had a CT pulmonary angiogram on November 04, 2016 which is negative. EKG was ordered and interpreted , no ischemic changes or ectopy noted. Pelvic examination reveals scant discharge in the vaginal wall, however, the patient states she is concerned because her boyfriend recently cheated on her and she has a history of chlamydia. Therefore, after pelvic exam the patient was treated with Rocephin and Zithromax as gonorrhea/chlamydia PCR are pending. UA is unremarkable. Wet prep is negative. I reviewed the EMR once again, the patient has 22 visits and one years duration, multiple visits for pelvic pain. The patient has had 2 CTAs , 2 CTs of the abdomen and pelvis, 2 pelvic ultrasounds, and a nuclear medicine myocardial perfusion scan. Most of the findings indicate a right ovarian cyst which is stable. Advised patient follow up with her primary physician on an outpatient basis. Diagnosis Primary Impression: Vaginal discharge Additional Impression: Chronic pelvic pain in female Patient Instructions: General Instructions Additional Instructions: Follow-up with your primary physician. Return if symptoms worsen or progress. Consider follow-up with a chronic pain physician if symptoms persist. Med/Other Pt SpecificInfo: No Change to Meds Disposition: 01 DISCHARGE HOME Condition: Stable Tal Rodríguez MD Mar 16, 2017 16:06
[2017-03-16 16:50] VITALS: BP 113/69; PULSE 93; RESP 18; O2SAT 98
[2017-03-16 16:53] LABS: BILIRUBIN, URINE NEG (NEG); BLOOD, URINE NEG (NEG); GLUCOSE,URINE NEG (NEG); KETONE, URINE TRACE mg/dL (NEG); NITRITE,URINE NEG (NEG); PH, URINE 6.5 (5.0-8.5); URINE LEUKOCYTE ESTERASE NEG (NEG)
[2017-03-16 16:57] LABS: URINE COLOR YELLOW (YELLW/STRAW)
[2017-03-16 16:58] LABS: MUCUS URINE MANY /lpf (OCC); RBC, URINE 0-3 /hpf (0-3)
[2017-03-16] MEDS ORDERED: LIDOCAINE HCL 1% 50 ML VIAL IM ONE (17:00)
[2017-03-16] MEDS ORDERED: AZITHROMYCIN 250 MG TAB PO ONE (17:00)
[2017-03-16] MEDS ORDERED: cefTRIAXone 250 MG VIAL IM ONE (17:00)
[2017-03-16] MEDS ORDERED: LIDOCAINE HCL 1% PF 30 ML VIAL OTHER ONE ×2 (17:15)
[2017-03-16] MEDS ORDERED: oxyCODONE/ACETAMINOPHEN 10 MG/325 MG TAB PO ONE (17:45)
[2017-03-16 18:10] VITALS: BP 119/74
--- NOTE | 2017-03-17 14:50 | EKG ---
Date Performed: 03/16/2017 Time Performed: 16:26:34 PTAGE: 26 years EKG: Sinus rhythm Since previous tracing, no significant change noted NORMAL ECG PREVIOUS TRACING : 01/24/2017 15.02 DOCTOR: Art Long Interpretating Date/Time 03/17/2017 14:50:25
== END 2017-03-16 18:10 | disposition home or self-care (01) ==
LOC: PHED 15:38
DX: N89.8 Other specified noninflammatory disorders of vagina (principal); R10.2 Pelvic and perineal pain; G89.29 Other chronic pain; I10 Essential (primary) hypertension; E78.00 Pure hypercholesterolemia, unspecified; F90.9 Attention-deficit hyperactivity disorder, unspecified type; F31.9 Bipolar disorder, unspecified; K21.9 Gastro-esophageal reflux disease without esophagitis; F17.210 Nicotine dependence, cigarettes, uncomplicated; Z79.899 Other long term (current) drug therapy
CPT/HCPCS: 81001; 84703; 87210; 87491; 87591; 93005; 96372; 99284; J0696; J1170; J1885; J2550

== ENCOUNTER 2017-04-07 18:37 | Observation (INO) | payer OTHER ==
[~2017-04-07] VITALS: Ht 154.9 cm; Wt 80.0 kg
[~2017-04-07 18:37] MED LIST changes: -PERC5TAB12 PO
[2017-04-07 18:39] VITALS: BP 115/72; PULSE 95; RESP 14; TEMP 98.3; O2SAT 98
[2017-04-07] MEDS ORDERED: SODIUM CHLOR 0.9% 1000 ML INJ 1,000 ML IV SCH ×2 (19:35→22:40)
[2017-04-07] MEDS ORDERED: ONDANSETRON HCL 4 MG/2 ML VIAL IVP ONE (19:45)
[2017-04-07] MEDS ORDERED: SODIUM CHLORIDE 0.9% FLUSH 10 ML FLUSH IV FLUSH PRN (19:45)
[2017-04-07] MEDS ORDERED: MORPHINE SULFATE 2 MG/ML INJ IV PUSH ONE (19:45)
[2017-04-07 20:11] LABS: AUTOMATED NEUTROPHIL # 6.2 TH/MM3 (1.8-7.7); BASOPHIL % 0.5 % (0.0-2.0); EOSINOPHIL # 0.2 TH/MM3 (0-0.4); EOSINOPHIL % 2.1 % (0.0-4.0); HEMATOCRIT 38.5 % (35.0-46.0); HEMOGLOBIN 12.6 GM/DL (11.6-15.3); LYMPH % 29.9 % (9.0-44.0); LYMPHOCYTE # 2.9 TH/MM3 (1.0-4.8); MEAN CELL VOLUME 85.5 FL (80.0-100.0); MEAN CORPUSCULAR HEMOGLOBIN 28.1 PG (27.0-34.0); MEAN CORPUSCULAR HGB CONC 32.8 % (32.0-36.0); MEAN PLATELET VOLUME 7.9 FL (7.0-11.0); MONO % 3.4 % (0.0-8.0); MONOCYTE # 0.3 TH/MM3 (0-0.9); NEUT % 64.1 % (16.0-70.0); PLATELET COUNT 390 TH/MM3 (150-450); RED CELL DISTRIBUTION WIDTH 14.7 % (11.6-17.2); WHITE BLOOD COUNT 9.7 TH/MM3 (4.0-11.0)
[2017-04-07 20:13] LABS: BACTERIA, URINE RARE /hpf; BILIRUBIN, URINE NEG (NEG); BLOOD, URINE TRACE (NEG); GLUCOSE,URINE NEG (NEG); KETONE, URINE NEG (NEG); MUCUS URINE MANY /lpf (OCC); NITRITE,URINE NEG (NEG); PH, URINE 6.5 (5.0-8.5); SQUAMOUS EPITHELIAL CELL URINE 21 /hpf (0-5); URINE COLOR YELLOW (YELLW/STRAW); URINE LEUKOCYTE ESTERASE NEG (NEG)
--- NOTE | 2017-04-07 20:19 | PD ---
HPI Chief Complaint: GI Complaint Time Seen by Provider: 19:15 Travel History International Travel<30 days: No Contact w/Intl Traveler<30days: No Traveled to known affect area: No History of Present Illness HPI 26-year-old female here for evaluation of chest pain and abdominal pain. The patient reports that she is having sharp pains in her chest, and these pains have been going on for 4 years. She currently has a loop recorder and reports that she is being worked up by her primary care physician for this pain. She has been to the emergency department several times in the past for this pain and had a myocardial perfusion scan on 11/04/16 that showed normal wall motion and normal EF with no fixed or reversible defects to suggest ischemia or infarction. She has also had several CT pulmonary angiograms that have been negative for PEs. She denies history of DVT or PE. Patient also reports having lower abdominal pain for the last week. Patient states that the pain is sharp, constant, moderate to severe, worse with movements. She has had abdominal surgeries in the past including lysis of adhesions, but she is unable to describe any other surgeries that she has had. She denies appendectomy or cholecystectomy. She reports having some slight vaginal bleeding/discharge. LMP was 2 weeks ago. She does not believe she is . She is sexually active with one partner and believe she is in monogamous relationship. PFSH Past Medical History Hx Anticoagulant Therapy: No ADHD: Yes Autoimmune Disease: No Blood Disorders: No Bipolar Disorder: Yes Anxiety: Yes Depression: Yes Heart Rhythm Problems: Yes Cancer: No Cardiac Catheterization: No Cardiovascular Problems: Yes (CHEST PAIN X 4 YEARS; NO DIAGNOSIS MADE AT THIS TIME) High Cholesterol: Yes Chemotherapy: No Chest Pain: Yes Congestive Heart Failure: No Cerebrovascular Accident: No Diabetes: No Diminished Hearing: No Endocrine: No Gastrointestinal Disorders: Yes (hx ulcer, reflux) GERD: Yes Genitourinary: No Hepatitis: No Hiatal Hernia: No Heparin Induced Thrombocytopen: No Hypertension: Yes Immune Disorder: No Implanted Vascular Access Dvce: Yes (FOR HEART) Musculoskeletal: No Psychiatric: Yes (BIPOLAR ANXIETY) Reproductive: Yes Respiratory: No Immunizations Current: Yes Seizures: No Thyroid Disease: No Ulcer: Yes Tetanus Vaccination: > 5 Years Influenza Vaccination: No PNEUMOCCOCAL Vaccine (Year): 2 ?: Unknown LMP: 03/20/2017 Menopausal: No : 1 Para: 0 Miscarriage: 1 : 0 Ovarian Cysts: Yes Past Surgical History Abdominal Surgery: Yes (Adhesions 03/05) AICD: No Body Medical Devices: loop recorder Cardiac Surgery: Yes (loop recorder) Coronary Artery Bypass Graft: No Ear Surgery: No Endocrine Surgery: No Eye Surgery: No Genitourinary Surgery: No Hysterectomy: No Joint Replacement: No Neurologic Surgery: No Oral Surgery: No Pacemaker: No Thoracic Surgery: No Other Surgery: Yes (LOOP RECORDER IMPLANT IN CHEST) Social History Alcohol Use: Yes (rare) Tobacco Use: Yes (one pack day) Substance Use: No Allergies-Medications (Allergen,Severity, Reaction): Coded Allergies: No Known Allergies (Verified Adverse Reaction, Unknown, 04/07/17) Reported Meds & Prescriptions Reported Meds & Active Scripts Active Reported Pantoprazole (Pantoprazole Sodium) 20 Mg Tab 20 Mg PO DAILY Hydrocodone-Acetaminophen 10-300 Tab 1 Tab PO Q6H PRN Metoprolol Tartrate 25 Mg Tab 25 Mg PO DAILY Seroquel (Quetiapine Fumarate) 50 Mg Tab 100 Mg PO DAILY Lexapro (Escitalopram Oxalate) 20 Mg Tab 20 Mg PO DAILY Review of Systems Except as stated in HPI: all other systems reviewed are Neg Physical Exam Narrative GENERAL: Well-developed, well-nourished, comfortable, no apparent distress. SKIN: Focused skin assessment warm/dry. No rash. HEAD: Atraumatic. Normocephalic. EYES: Pupils equal and round. No scleral icterus. No injection or drainage. ENT: Mucous membranes pink and moist. NECK: Trachea midline. No JVD. CARDIOVASCULAR: Regular rate and rhythm. Distal pulses brisk and equal bilaterally. RESPIRATORY: No accessory muscle use. Clear to auscultation. Breath sounds equal bilaterally. GASTROINTESTINAL: Abdomen soft, nondistended. Mild suprapubic tenderness without peritoneal signs. Rest of abdomen is soft and nontender. Normal bowel sounds. WARDROBE MISTRESS: Exam performed in the presence of female nurse. Normal external genitalia. Normal cervix. No abnormal vaginal discharge or bleeding. No CMT. No adnexal masses or tenderness. MUSCULOSKELETAL: No obvious deformities. No clubbing. No cyanosis. No edema. NEUROLOGICAL: Awake and alert. No obvious cranial nerve deficits. Motor grossly within normal limits. Normal speech. PSYCHIATRIC: Appropriate mood and affect; insight and judgment normal. Data Data Last Documented VS Vital Signs Date Time Temp Pulse Resp B/P (MAP) Pulse Ox O2 Delivery O2 Flow Rate FiO2 04/07/17 22:02 20 04/07/17 18:39 98.3 95 115/72 (86) 98 Orders Orders Electrocardiogram (04/07/17 ) Complete Blood Count With Diff (04/07/17 19:35) Comprehensive Metabolic Panel (04/07/17 19:35) Lipase (04/07/17 19:35) Prothrombin Time / Inr (Pt) (04/07/17 19:35) Act Partial Throm Time (Ptt) (04/07/17 19:35) Urinalysis - C+S If Indicated (04/07/17 19:35) Ct Abd/Pel W Iv Contrast(Rout) (04/07/17 19:35) Iv Access Insert/Monitor (04/07/17 19:35) Ecg Monitoring (04/07/17 19:35) Oximetry (04/07/17 19:35) Ondansetron Inj (Zofran Inj) (04/07/17 19:45) Sodium Chlor 0.9% 1000 Ml Inj (Ns 1000 M (04/07/17 19:35) Sodium Chloride 0.9% Flush (Ns Flush) (04/07/17 19:45) Ed Urine Pregnancytest Poc (04/07/17 19:35) Electrocardiogram (04/07/17 19:36) Ckmb (Isoenzyme) Profile (04/07/17 19:36) Troponin I (04/07/17 19:36) Chest, Single Ap (04/07/17 19:36) Morphine Inj (Morphine Inj) (04/07/17 19:45) Gc And Chlamydia Pcr (04/07/17 19:37) Wet Prep Profile (04/07/17 19:37) Iohexol 350 Inj (Omnipaque 350 Inj) (04/07/17 20:54) Ondansetron Inj (Zofran Inj) (04/07/17 21:30) Ketorolac Inj (Toradol Inj) (04/07/17 22:00) Azithromycin Powd Pack (Zithromax Powd P (04/07/17 22:30) Ceftriaxone Inj (Rocephin Inj) (04/07/17 22:30) Lidocaine 1% Inj (50 Ml) (Xylocaine 1% I (04/07/17 22:30) Labs Laboratory Tests Test 04/07/17 19:30 04/07/17 20:40 White Blood Count 9.7 TH/MM3 Red Blood Count 4.50 MIL/MM3 Hemoglobin 12.6 GM/DL Hematocrit 38.5 % Mean Corpuscular Volume 85.5 FL Mean Corpuscular Hemoglobin 28.1 PG Mean Corpuscular Hemoglobin Concent 32.8 % Red Cell Distribution Width 14.7 % Platelet Count 390 TH/MM3 Mean Platelet Volume 7.9 FL Neutrophils (%) (Auto) 64.1 % Lymphocytes (%) (Auto) 29.9 % Monocytes (%) (Auto) 3.4 % Eosinophils (%) (Auto) 2.1 % Basophils (%) (Auto) 0.5 % Neutrophils # (Auto) 6.2 TH/MM3 Lymphocytes # (Auto) 2.9 TH/MM3 Monocytes # (Auto) 0.3 TH/MM3 Eosinophils # (Auto) 0.2 TH/MM3 Basophils # (Auto) 0.0 TH/MM3 CBC Comment DIFF FINAL Differential Comment Prothrombin Time 9.7 SEC Prothromb Time International Ratio 1.0 RATIO Activated Partial Thromboplast Time 24.7 SEC Urine Color YELLOW Urine Turbidity HAZY Urine pH 6.5 Urine Specific [place] 1.029 Urine Protein TRACE mg/dL Urine Glucose (UA) NEG mg/dL Urine Ketones NEG mg/dL Urine Occult Blood TRACE Urine Nitrite NEG Urine Bilirubin NEG Urine Urobilinogen LESS THAN 2.0 MG/DL Urine Leukocyte Esterase NEG Urine RBC 2 /hpf Urine WBC 3 /hpf Urine Squamous Epithelial Cells 21 /hpf Urine Bacteria RARE /hpf Urine Mucus MANY /lpf Microscopic Urinalysis Comment CULT NOT INDICATED Blood Urea Nitrogen 11 MG/DL Creatinine 0.67 MG/DL Random Glucose 135 MG/DL Total Protein 7.0 GM/DL Albumin 3.6 GM/DL Calcium Level 8.9 MG/DL Alkaline Phosphatase 82 U/L Aspartate Amino Transf (AST/SGOT) 16 U/L Alanine Aminotransferase (ALT/SGPT) 34 U/L Total Bilirubin 0.3 MG/DL Sodium Level 141 MEQ/L Potassium Level 3.3 MEQ/L Chloride Level 103 MEQ/L Carbon Dioxide Level 28.3 MEQ/L Anion Gap 10 MEQ/L Estimat Glomerular Filtration Rate 105 ML/MIN Total Creatine Kinase 76 U/L Troponin I LESS THAN 0.02 NG/ML Lipase 617 U/L Clue Cells (Wet Prep) NONE SEEN Vaginal Trichomonas (Wet Prep) NONE SEEN Vaginal Yeast (Wet Prep) NONE SEEN MDM Medical Decision Making Medical Screen Exam Complete: Yes Emergency Medical Condition: Yes Interpretation(s) EKG: Sinus, rate 83, normal axis, normal intervals, no acute ischemic abnormality. Differential Diagnosis Chronic chest pain, chronic abdominal pain, ACS, pneumothorax, pericarditis, PE , pneumonia, cystitis, UTI, PID, TOA, , ectopic Narrative Course Initial vital signs show heart rate 95, blood pressure 115/72, pulse ox 98% on room air, tympanic temp of 98.3F. CBC is unremarkable. CMP is remarkable for potassium 3.3 which was replaced orally, otherwise unremarkable. Lipase is 617. Cardiac enzymes are negative. Wet prep is negative for yeast, negative for clue cells, negative for Trichomonas. UA is not suggestive of UTI. Chest x-ray: Normal exam. CT abdomen pelvis: CONCLUSION: 1. No acute abnormality. 2. 1 cm lesion involving the liver likely related to a cyst or hemangioma. This is stable. The patient is requesting to empirically be treated for gonorrhea and chlamydia. She'll be given IM Rocephin and oral azithromycin. Patient was given 4 mg of IV morphine and continued to complain of abdominal pain. She was also given 30 mg of IV Toradol and again continues to complain of abdominal pain. Her pain is mainly lower. There are no peritoneal signs on her exam. I do not suspect ovarian torsion. The patient has been seen in the emergency department several times for this in the past. She was made aware of all findings, but states that her pain is persistent, and she cannot go home and this much pain. Patient will be admitted for overnight observation for intractable abdominal pain. Case discussed with [facility] hospitalist Dr. Bedoya who will admit the patient to the [facility] service under Dr. Branch. Diagnosis Primary Impression: Intractable abdominal pain Additional Impression: Elevated lipase Admitting Information Admitting Physician Requests: Observation Jitendra Molina MD Apr 07, 2017 20:19
[2017-04-07 20:26] LABS: PROTHROMBIN TIME - PATIENT 9.7 SEC (9.8-11.6)
[2017-04-07 20:50] LABS: ALBUMIN 3.6 GM/DL (3.4-5.0); AST (GOT) 16 U/L (15-37); BICARBONATE 28.3 MEQ/L (21.0-32.0); BLOOD UREA NITROGEN 11 MG/DL (7-18); CALCIUM 8.9 MG/DL (8.5-10.1); CHLORIDE 103 MEQ/L (98-107); CREATININE 0.67 MG/DL (0.50-1.00); GLOMERULAR FILTRATION RATE 105 ML/MIN (>89); GLUCOSE,RANDOM 135 MG/DL (74-106); LIPASE 617 U/L (73-393); SODIUM (NA) 141 MEQ/L (136-145)
[2017-04-07 20:51] LABS: ALT (GPT) 34 U/L (10-53)
[2017-04-07 20:52] LABS: ALKALINE PHOSPHATASE 82 U/L (45-117); TOTAL BILIRUBIN ADULT 0.3 MG/DL (0.2-1.0)
[2017-04-07] MEDS ORDERED: IOHEXOL 350 MG/ML 10 ML VIAL (for RAD DIAG) IVCONTRAST ONE (20:54)
[2017-04-07 20:55] LABS: TROPONIN I LESS THAN 0.02 NG/ML (0.02-0.05)
--- NOTE | 2017-04-07 21:06 | RADRPT ---
EXAM DATE/TIME: 04/07/2017 20:50 [facility] COMPARISON: CT ABDOMEN & PELVIS W CONTRAST, December 17, 2016, 0:22. INDICATIONS : Abdominal pain. IV CONTRAST: 100 cc Omnipaque 350 (iohexol) IV ORAL CONTRAST: No oral contrast ingested. RADIATION DOSE: 14.82 CTDIvol (mGy) MEDICAL HISTORY : None SURGICAL HISTORY : None. ENCOUNTER: Initial ACUITY: 1 day PAIN SCALE: 5/10 LOCATION: abdomen TECHNIQUE: Volumetric scanning of the abdomen and pelvis was performed. Using automated exposure control and ad justment of the mA and/or kV according to patient size, radiation dose was kept as low as reasonably achievable to obtain optimal diagnostic quality images. DICOM format image data is available electro nically for review and comparison. FINDINGS: LOWER LUNGS: The visualized lower lungs are clear. LIVER: Homogeneous density. A 1 cm low-density lesion is seen involving segment 6 the liver. This is long-te rm stable. There is no dilation of the biliary tree. No calcified gallstones. SPLEEN: Normal size without lesion. PANCREAS: Within normal limits. KIDNEYS: Normal in size and shape. There is no mass, stone or hydronephrosis. ADRENAL GLANDS: Within normal limits. VASCULAR: There is no aortic aneurysm. BOWEL/MESENTERY: The stomach, small bowel, and colon demonstrate no acute abnormality. There is no free intraperitone al air or fluid. ABDOMINAL WALL: Within normal limits. RETROPERITONEUM: There is no lymphadenopathy. BLADDER: No wall thickening or mass. REPRODUCTIVE: Within normal limits. INGUINAL: There is no lymphadenopathy or hernia. MUSCULOSKELETAL: Within normal limits for patient age. CONCLUSION: 1. No acute abnormality. 2. 1 cm lesion involving the liver likely related to a cyst or hemangioma. This is stable. Zi Sanchez Jr., MD on April 07, 2017 at 21:02 Board Certified Radiologist. This report was verified electronically.
--- NOTE | 2017-04-07 21:12 | RADRPT ---
EXAM DATE/TIME: 04/07/2017 20:33 [facility] COMPARISON: CHEST SINGLE AP, January 22, 2017, 3:16. INDICATIONS : Chest pain for 1 month MEDICAL HISTORY : None. SURGICAL HISTORY : Loop recorder ENCOUNTER: Initial ACUITY: 1 month PAIN SCORE: 8/10 LOCATION: Left chest FINDINGS: A single view of the chest demonstrates the lungs to be symmetrically aerated without evidence of mas s, infiltrate or effusion. The cardiomediastinal contours are unremarkable. Osseous structures are intact. Implant recorder overlies the left lung base. CONCLUSION: Normal examination. Zi Sanchez Jr., MD on April 07, 2017 at 21:10 Board Certified Radiologist. This report was verified electronically.
[2017-04-07] MEDS ORDERED: ONDANSETRON HCL 4 MG/2 ML VIAL IV PUSH ONE (21:30)
[2017-04-07] MEDS ORDERED: KETOROLAC TROMETHAMINE 30 MG/ML (IVP) VIAL IV PUSH ONE (22:00)
[2017-04-07] MEDS ORDERED: cefTRIAXone 250 MG VIAL IM ONE (22:30)
[2017-04-07] MEDS ORDERED: LIDOCAINE HCL 1% 50 ML VIAL IM ONE (22:30)
[2017-04-07] MEDS ORDERED: AZITHROMYCIN PWD FOR SUSP 1 GM PACKET PO ONE (22:30)
[2017-04-08 00:08] VITALS: BP 112/68; PULSE 73; RESP 16; TEMP 98; O2SAT 98
[2017-04-08] MEDS ORDERED: LORazepam 0.5 MG TAB PO ONE (00:30)
[2017-04-08] MEDS ORDERED: MORPHINE SULFATE 4 MG/ML INJ IV PUSH ONE (00:30)
[2017-04-08] MEDS ORDERED: ONDANSETRON HCL 4 MG/2 ML VIAL IV PUSH ONE (00:30)
[2017-04-08 03:45] VITALS: BP 103/60; PULSE 70; RESP 16; TEMP 98.1; O2SAT 98
[2017-04-08 08:00] VITALS: BP 119/66; PULSE 75; RESP 20; TEMP 97.4; O2SAT 99
--- NOTE | 2017-04-08 09:34 | HHI.HP ---
HPI Service [facility] Hospitalists Primary Care Physician Farooq Martins MD Admission Diagnosis intractable abdominal pain, elevated lipase Chief Complaint: abdominal pain Travel History International Travel<30 Days: No Contact w/Intl Traveler <30 Da: No Traveled to Known Affected Are: No History of Present Illness Pt is a 26 y/o F admitted to Observation at [place] overnight through the ER for c/o chest pain and abdominal pain. Pt described the chest pain as sharp. There was no c/o n/v, diaphoresis or SOB. Pt's chest pain has been ongoing for 4 years She currently has a loop recorder and reports that she is being worked up by her primary care physician for this pain. She has been to the emergency department several times in the past for this pain and had a myocardial perfusion scan on 11/04/16 that showed normal wall motion and normal EF with no fixed or reversible defects to suggest ischemia or infarction. She has also had several CT pulmonary angiograms that have been negative for PEs. She denies history of DVT or PE. Pt had one set of cardiac enzymes drawn in the ER which were negative. EKG did NOT show any acute ischemic changes. Pt also c/o abdominal pain of one week duration. Patient states that the pain is sharp, constant, moderate to severe, worse with movements. She has had abdominal surgeries in the past including lysis of adhesions, but she is unable to describe any other surgeries that she has had. She denies appendectomy or cholecystectomy. She reports having some slight vaginal bleeding/discharge. LMP was 2 weeks ago. Urine test obtained in the ER was negative. Wet prep done in ER was negative for clue cell, trichomonas, and yeast. Pt requested treatment for GC chlamydia and received rocephin and azithromycin in the Er. Pt underwent exploratory laparoscopy with Dr. Gray Feb 2017 with ALDO and ablation of minimal endometriosis. Pt's lipase was slightly elevated at 817. CT A/P (04/07) reviewed with the Radiologist (04/08) the patient's pancreas appears unremarkable. Pt there was a benign appearing cyst or hemangioma on the pt's liver, likely clinically insignificant. Review of Systems Constitutional: DENIES: Diaphoretic episodes, Fatigue, Fever, Weight gain, Weight loss, Chills, Dizziness, Change in appetite, Night Sweats Endocrine: DENIES: Abnorml menstrual pattern, Heat/cold intolerance, Polydipsia , Polyuria, Polyphagia Eyes: DENIES: Blurred vision, Diplopia, Eye inflammation, Eye pain, Vision loss , Photosensitivity, Double Vision Ears, nose, mouth, throat: DENIES: Tinnitus, Hearing loss, Vertigo, Nasal discharge, Oral lesions, Throat pain, Hoarseness, Ear Pain, Running Nose, Epistaxis, Sinus Pain, Toothache, Odynophagia Respiratory: DENIES: Apneas, Cough, Snoring, Wheezing, Hemoptysis, Sputum production, Shortness of breath Cardiovascular: DENIES: Chest pain, Palpitations, Syncope, Dyspnea on Exertion , PND, Lower Extremity Edema, Orthopnea, Claudication Gastrointestinal: COMPLAINS OF: Abdominal pain, See HPI, DENIES: Black stools, Bloody stools, BRB per rectum, Constipation, Diarrhea, GERD, Nausea, Reflux, Vomiting, Difficulty Swallowing, Anorexia Genitourinary: DENIES: Abnormal vaginal bleeding, Dysmenorrhea, Dyspareunia, Sexual dysfunction, Urinary frequency, Urinary incontinence, Urgency, Hematuria , Dysuria, Nocturia, Vaginal discharge Musculoskeletal: DENIES: Joint pain, Muscle aches, Stiffness, Joint Swelling, Back pain, Neck pain Integumentary: DENIES: Abnormal pigmentation, Pruritus, Rash, Nail changes, Breast masses, Breast skin changes, Nipple discharge Hematologic/lymphatic: DENIES: Bruising, Lymphadenopathy Immunologic/allergic: DENIES: Eczema, Urticaria Neurologic: DENIES: Abnormal gait, Headache, Localized weakness, Paresthesias, Seizures, Speech Problems, Tremor, Poor Balance Psychiatric: DENIES: Anxiety, Confusion, Mood changes, Depression, Hallucinations, Agitation, Suicidal Ideation, Homicidal Ideation, Delusions, History of Bipolar, History of Schizophrenia Past Family Social History Past Medical History - anxiety - Bipolar disorder - GERD - Past Surgical History - EGD/Colonoscopy - exploratory laparoscopy (Feb 2017) with Dr. Gray Reported Medications Reported Meds & Active Scripts Active Reported Pantoprazole (Pantoprazole Sodium) 20 Mg Tab 20 Mg PO DAILY Hydrocodone-Acetaminophen 10-300 Tab 1 Tab PO Q6H PRN Metoprolol Tartrate 25 Mg Tab 25 Mg PO DAILY Seroquel (Quetiapine Fumarate) 50 Mg Tab 100 Mg PO DAILY Lexapro (Escitalopram Oxalate) 20 Mg Tab 20 Mg PO DAILY Allergies: Coded Allergies: No Known Allergies (Verified Adverse Reaction, Unknown, 04/07/17) Family History Non-contributory Social History - denies alcohol - current smoker - denies illicit drugs Physical Exam Vital Signs Vital Signs Date Time Temp Pulse Resp B/P (MAP) Pulse Ox O2 Delivery O2 Flow Rate FiO2 04/08/17 08:00 97.4 75 20 119/66 (83) 99 04/08/17 03:45 98.1 70 16 103/60 (74) 98 04/08/17 00:46 15 04/08/17 00:08 98.0 73 16 112/68 (83) 98 04/07/17 23:35 20 04/07/17 22:02 20 04/07/17 19:17 20 04/07/17 18:39 98.3 95 14 115/72 (86) 98 Physical Exam GENERAL: This is a well-nourished, well-developed patient, in no apparent distress. SKIN: No rashes, ecchymoses or lesions. Cool and dry. HEAD: Atraumatic. Normocephalic. No temporal or scalp tenderness. EYES: Pupils equal round and reactive. Extraocular motions intact. No scleral icterus. No injection or drainage. ENT: Nose without bleeding, purulent drainage or septal hematoma. Throat without erythema, tonsillar hypertrophy or exudate. Uvula midline. Airway patent. NECK: Trachea midline. No JVD or lymphadenopathy. Supple, nontender, no meningeal signs. CARDIOVASCULAR: Regular rate and rhythm without murmurs, gallops, or rubs. RESPIRATORY: Clear to auscultation. Breath sounds equal bilaterally. No wheezes , rales, or rhonchi. GASTROINTESTINAL: Abdomen soft, non-tender, nondistended. No hepato-splenomegaly , or palpable masses. No guarding. MUSCULOSKELETAL: Extremities without clubbing, cyanosis, or edema. No joint tenderness, effusion, or edema noted. No calf tenderness. Negative Homans sign bilaterally. NEUROLOGICAL: Awake and alert. Cranial nerves II through XII intact. Motor and sensory grossly within normal limits. Five out of 5 muscle strength in all muscle groups. Normal speech. Laboratory Laboratory Tests Test 04/07/17 19:30 04/07/17 20:40 04/08/17 07:00 White Blood Count 9.7 Red Blood Count 4.50 Hemoglobin 12.6 Hematocrit 38.5 Mean Corpuscular Volume 85.5 Mean Corpuscular Hemoglobin 28.1 Mean Corpuscular Hemoglobin Concent 32.8 Red Cell Distribution Width 14.7 Platelet Count 390 Mean Platelet Volume 7.9 Neutrophils (%) (Auto) 64.1 Lymphocytes (%) (Auto) 29.9 Monocytes (%) (Auto) 3.4 Eosinophils (%) (Auto) 2.1 Basophils (%) (Auto) 0.5 Neutrophils # (Auto) 6.2 Lymphocytes # (Auto) 2.9 Monocytes # (Auto) 0.3 Eosinophils # (Auto) 0.2 Basophils # (Auto) 0.0 CBC Comment DIFF FINAL Differential Comment Prothrombin Time 9.7 Prothromb Time International Ratio 1.0 Activated Partial Thromboplast Time 24.7 Urine Color YELLOW Urine Turbidity HAZY Urine pH 6.5 Urine Specific [place] 1.029 Urine Protein TRACE Urine Glucose (UA) NEG Urine Ketones NEG Urine Occult Blood TRACE Urine Nitrite NEG Urine Bilirubin NEG Urine Urobilinogen LESS THAN 2.0 Urine Leukocyte Esterase NEG Urine RBC 2 Urine WBC 3 Urine Squamous Epithelial Cells 21 Urine Bacteria RARE Urine Mucus MANY Microscopic Urinalysis Comment CULT NOT INDICATED Blood Urea Nitrogen 11 Creatinine 0.67 Random Glucose 135 Total Protein 7.0 Albumin 3.6 Calcium Level 8.9 Alkaline Phosphatase 82 Aspartate Amino Transf (AST/SGOT) 16 Alanine Aminotransferase (ALT/SGPT) 34 Total Bilirubin 0.3 Sodium Level 141 Potassium Level 3.3 Chloride Level 103 Carbon Dioxide Level 28.3 Anion Gap 10 Estimat Glomerular Filtration Rate 105 Total Creatine Kinase 76 Troponin I LESS THAN 0.02 Lipase 617 154 Clue Cells (Wet Prep) NONE SEEN Vaginal Trichomonas (Wet Prep) NONE SEEN Vaginal Yeast (Wet Prep) NONE SEEN Chlamydia trachomatis DNA (PCR) NOT DETECTED Neisseria gonorrhoeae DNA (PCR) NOT DETECTED Result Diagram: 04/07/17192904/07/171929 Imaging Last Impressions Chest X-Ray 04/07/171935 Signed Impressions: Service Date/Time: Friday, April 07, 2017 20:33 - CONCLUSION: Normal examination. Zi Sanchez Jr., MD Abdomen/Pelvis CT 04/07/171934 Signed Impressions: Service Date/Time: Friday, April 07, 2017 20:50 - CONCLUSION: 1. No acute abnormality. 2. 1 cm lesion involving the liver likely related to a cyst or hemangioma. This is stable. Zi Sanchez Jr., MD Septic Shock Reassessment Septic shock perfusion: reassessment completed Caprini VTE Risk Assessment Caprini VTE Risk Assessment: No/Low Risk (score <= 1) Caprini Risk Assessment Model Point Value = 1 Point Value = 2 Point Value = 3 Point Value = 5 Age 41-60 Minor surgery BMI > 25 kg/m2 Swollen legs Varicose veins or History of unexplained or recurrent spontaneous Oral contraceptives or hormone replacement Sepsis (< 1 month) Serious lung disease, including pneumonia (< 1 month) Abnormal pulmonary function Acute myocardial infarction Congestive heart failure (< 1 month) History of inflammatory bowel disease Medical patient at bed rest Age 61-74 Arthroscopic surgery Major open surgery (> 45 min) Laparoscopic surgery (> 45 min) Malignancy Confined to bed (> 72 hours) Immobilizing plaster cast Central venous access Age >= 75 History of VTE Family history of VTE Factor V Leiden Prothrombin 30820C Lupus anticoagulant Anticardiolipin antibodies Elevated serum homocysteine Heparin-induced thrombocytopenia Other congenital or acquired thrombophilia Stroke (< 1 month) Elective arthroplasty Hip, pelvis, or leg fracture Acute spinal cord injury (< 1 month) Prophylaxis Regimen Total Risk Factor Score Risk Level Prophylaxis Regimen 0-1 Low Early ambulation 2 Moderate Order ONE of the following: *Sequential Compression Device (SCD) *Heparin 5000 units SQ BID 3-4 Higher Order ONE of the following medications: *Heparin 5000 units SQ TID *Enoxaparin/Lovenox 40 mg SQ daily (WT < 150 kg, CrCl > 30 mL/min) *Enoxaparin/Lovenox 30 mg SQ daily (WT < 150 kg, CrCl > 10-29 mL/min) *Enoxaparin/Lovenox 30 mg SQ BID (WT < 150 kg, CrCl > 30 mL/min) AND/OR *Sequential Compression Device (SCD) 5 or more Highest Order ONE of the following medications: *Heparin 5000 units SQ TID (Preferred with Epidurals) *Enoxaparin/Lovenox 40 mg SQ daily (WT < 150 kg, CrCl > 30 mL/min) *Enoxaparin/Lovenox 30 mg SQ daily (WT < 150 kg, CrCl > 10-29 mL/min) *Enoxaparin/Lovenox 30 mg SQ BID (WT < 150 kg, CrCl > 30 mL/min) AND *Sequential Compression Device (SCD) Assessment and Plan Problem List: (1) Abdominal pain ICD Codes: R10.9 - Unspecified abdominal pain Plan: - Pt admitted with c/o abdominal pain - lipase minimally elevated at 817 - CT A/P (04/07) - NO evidence of pancreatitis - liver cyst vs hemangioma, clinically insignificant - Pt is tolerating PO intake - Pt had EGD with Dr. Sol August 2016 --> No abnormalities, pathology negative - Colonoscopy Apr [address] Gunn: recal colitis, small int/ext hemorrhoids - Pt had exploratory laparoscopy with Dr. Gray, Feb 2017 - lysis of adhesions - ablation of minimal endometriosis - pathology showed proliferative endometriosis - pt is tolerating PO intake - tylenol prn - discharge to home - f/u with PCP, Dr. Martins - f/u with [facility] out[facility], Dr. Sol. (2) Chronic chest pain ICD Codes: R07.9 - Chest pain, unspecified; G89.29 - Other chronic pain Status: Chronic Plan: - pt follows with Dr. Gan - Pt has an implanted loop recorder - Outpt records reviewed: (note 09/14/15) non-compliatne with interrogation - I do NOT see mention of loop recorder since that time, so NOT sure that it has been done - I recommend outpt f/u with Dr. Gan - h/o SVT. Pt is on BB Problem Qualifiers (1) Abdominal pain: Qualified Codes: R10.84 - Generalized abdominal pain Reyes Branch DO Apr 08, 2017 09:34
[2017-04-08] MEDS ORDERED: ZOFR4TAB3 SL (11:26)
[2017-04-08] MEDS ORDERED: POTASSIUM CHLORIDE 20 MEQ CONTROLLED RELEASE TAB PO ONE (11:45)
[2017-04-08] MEDS ORDERED: ONDANSETRON HCL 4 MG/2 ML VIAL IV PUSH PRN (11:45)
[2017-04-08] MEDS ORDERED: 1/2 NS + KCL 20 MEQ INJ 1,000 ML IV SCH (12:00)
--- NOTE | 2017-04-08 14:45 | EKG ---
Date Performed: 04/07/2017 Time Performed: 19:38:48 PTAGE: 26 years EKG: Sinus rhythm NORMAL ECG Since PREVIOUS TRACING , no significant change noted PREVIOUS TRACIN03/16/2017 16.26.34 DOCTOR: Art Long Interpretating Date/Time 04/08/2017 14:44:25
== END 2017-04-08 12:33 | disposition home or self-care (01) ==
LOC: NEPD 18:37 → NEDA 22:42 → NEPGCP 23:40
PROVIDERS: ADMIT Hospitalist; ATTEND Hospitalist
DX: R10.84 Generalized abdominal pain (principal); G89.29 Other chronic pain; R74.8 Abnormal levels of other serum enzymes; R07.9 Chest pain, unspecified; K76.89 Other specified diseases of liver; I10 Essential (primary) hypertension; K21.9 Gastro-esophageal reflux disease without esophagitis; N80.9 Endometriosis, unspecified; F31.9 Bipolar disorder, unspecified; F90.9 Attention-deficit hyperactivity disorder, unspecified type; E78.00 Pure hypercholesterolemia, unspecified; F17.200 Nicotine dependence, unspecified, uncomplicated
CPT/HCPCS: 71045; 74177; 80053; 81001; 82550; 83690; 84484; 84703; 85025; 85610; 85730; 87210; 87491; 87591; 93005; 96361; 96372; 96374; 96375; 96376; 99285; G0378; J0696; J1885; J2270; J2405; J7030; Q9967

== ENCOUNTER 2017-04-15 00:24 | Emergency (ER) | payer OTHER ==
[~2017-04-15] VITALS: Ht 154.9 cm; Wt 83.0 kg
[~2017-04-15 00:24] MED LIST changes: +ZOFR4TAB3 SL
[2017-04-15 00:26] VITALS: BP 124/78; PULSE 93; RESP 16; TEMP 99.3; O2SAT 98
[2017-04-15] MEDS ORDERED: SODIUM CHLOR 0.9% 1000 ML INJ 1,000 ML IV SCH (00:38)
[2017-04-15] MEDS ORDERED: SODIUM CHLORIDE 0.9% FLUSH 10 ML FLUSH IV FLUSH PRN (00:45)
[2017-04-15] MEDS ORDERED: ONDANSETRON HCL 4 MG/2 ML VIAL IVP ONE (00:45)
[2017-04-15 01:05] LABS: AUTOMATED NEUTROPHIL # 7.4 TH/MM3 (1.8-7.7); BASOPHIL # 0.1 TH/MM3 (0-0.2); BASOPHIL % 0.8 % (0.0-2.0); EOSINOPHIL # 0.2 TH/MM3 (0-0.4); EOSINOPHIL % 1.4 % (0.0-4.0); HEMATOCRIT 38.7 % (35.0-46.0); HEMOGLOBIN 12.8 GM/DL (11.6-15.3); LYMPHOCYTE # 3.1 TH/MM3 (1.0-4.8); MEAN CORPUSCULAR HEMOGLOBIN 27.8 PG (27.0-34.0); MEAN PLATELET VOLUME 8.2 FL (7.0-11.0); MONO % 2.6 % (0.0-8.0); MONOCYTE # 0.3 TH/MM3 (0-0.9); NEUT % 67.2 % (16.0-70.0); PLATELET COUNT 423 TH/MM3 (150-450); RED CELL DISTRIBUTION WIDTH 13.9 % (11.6-17.2); WHITE BLOOD COUNT 11.1 TH/MM3 (4.0-11.0)
[2017-04-15 01:06] LABS: BILIRUBIN, URINE NEG (NEG); BLOOD, URINE SMALL (NEG); GLUCOSE,URINE NEG (NEG); KETONE, URINE NEG (NEG); NITRITE,URINE NEG (NEG); URINE LEUKOCYTE ESTERASE NEG (NEG)
[2017-04-15 01:13] LABS: BACTERIA, URINE FEW /hpf; SQUAMOUS EPITHELIAL CELL URINE > 8 /hpf (0-5); URINE COLOR YELLOW (YELLW/STRAW); WBC, URINE 0-2 /hpf (0-5)
[2017-04-15 01:15] LABS: CHLORIDE 107 MEQ/L (98-107); SODIUM (NA) 140 MEQ/L (136-145)
[2017-04-15] MEDS ORDERED: KETOROLAC TROMETHAMINE 30 MG/ML (IVP) VIAL IV PUSH ONE (01:15)
[2017-04-15 01:18] LABS: ALBUMIN 3.7 GM/DL (3.4-5.0); BICARBONATE 22.8 MEQ/L (21.0-32.0); CALCIUM 8.4 MG/DL (8.5-10.1); GLUCOSE,RANDOM 92 MG/DL (74-106); LIPASE 212 U/L (73-393)
--- NOTE | 2017-04-15 01:18 | PD ---
HPI Chief Complaint: GI Complaint Time Seen by Provider: 01:14 Travel History International Travel<30 days: No Contact w/Intl Traveler<30days: No Traveled to known affect area: No History of Present Illness HPI 26-year-old female patient with history of kidney stones, presents to the ER today because she has been having left flank pains that started 2 hours ago, has been having nausea and vomiting multiple times. She states the pain is currently 8 out of 10. She has also been having diarrhea. She denies any blood in the urine, but has been urinating frequently. She denies any fevers or any other issues. Modifying Factors: None Associated Signs & Symptoms: Left flank pains, nausea, vomiting, diarrhea Risk Factors: None PFSH Past Medical History Hx Anticoagulant Therapy: No ADHD: Yes Autoimmune Disease: No Blood Disorders: No Bipolar Disorder: Yes Anxiety: Yes Depression: Yes Heart Rhythm Problems: Yes ("fast heart rate" ) Cancer: No Cardiac Catheterization: No High Cholesterol: Yes Chemotherapy: No Chest Pain: Yes Congestive Heart Failure: No Cerebrovascular Accident: No Diabetes: No Diminished Hearing: No Endocrine: Yes GERD: Yes Genitourinary: No Hepatitis: No Hiatal Hernia: No Heparin Induced Thrombocytopen: No Hypertension: Yes Implanted Vascular Access Dvce: Yes Musculoskeletal: No Neurologic: No Psychiatric: Yes (BIPOLAR ANXIETY) Reproductive: Yes Respiratory: Yes Immunizations Current: Yes Seizures: No Thyroid Disease: Yes (nodule on thyroid) Ulcer: Yes Tetanus Vaccination: < 5 Years Influenza Vaccination: No PNEUMOCCOCAL Vaccine (Year): 2 ?: Unknown LMP: 03/25/2017 Menopausal: No : 1 Para: 0 Miscarriage: 1 : 0 Ovarian Cysts: Yes Past Surgical History Abdominal Surgery: Yes (Adhesions 03/05) AICD: No Body Medical Devices: loop recorder Cardiac Surgery: Yes (loop recorder) Coronary Artery Bypass Graft: No Ear Surgery: No Endocrine Surgery: No Eye Surgery: No Genitourinary Surgery: No Hysterectomy: No Joint Replacement: No Neurologic Surgery: No Oral Surgery: No Pacemaker: No Thoracic Surgery: No Other Surgery: Yes (LOOP RECORDER IMPLANT IN CHEST) Family History Family Myocardial Infarction: Yes (GRANDFATHER AT AGE 38) Social History Alcohol Use: Yes (rare) Tobacco Use: Yes (one pack day) Substance Use: No Allergies-Medications (Allergen,Severity, Reaction): Coded Allergies: No Known Allergies (Verified Adverse Reaction, Unknown, 04/15/17) Reported Meds & Prescriptions Reported Meds & Active Scripts Active Zofran Odt (Ondansetron Odt) 4 Mg Tab 4 Mg SL Q6HR PRN Reported Pantoprazole (Pantoprazole Sodium) 20 Mg Tab 20 Mg PO DAILY Hydrocodone-Acetaminophen 10-300 Tab 1 Tab PO Q6H PRN Metoprolol Tartrate 25 Mg Tab 25 Mg PO DAILY Seroquel (Quetiapine Fumarate) 50 Mg Tab 100 Mg PO DAILY Lexapro (Escitalopram Oxalate) 20 Mg Tab 20 Mg PO DAILY Review of Systems Except as stated in HPI: all other systems reviewed are Neg Physical Exam Narrative GENERAL: Well-developed young female patient currently in mild distress. Awake and oriented 3. SKIN: Focused skin assessment warm/dry. HEAD: Atraumatic. Normocephalic. EYES: Pupils equal and round. No scleral icterus. No injection or drainage. ENT: No nasal bleeding or discharge. Mucous membranes pink and moist. NECK: Trachea midline. No JVD. Supple. CARDIOVASCULAR: Regular rate and rhythm. No murmur appreciated. RESPIRATORY: No accessory muscle use. Clear to auscultation. Breath sounds equal bilaterally. GASTROINTESTINAL: Abdomen soft, non-tender, nondistended. Hepatic and splenic margins not palpable. MUSCULOSKELETAL: No obvious deformities. No clubbing. No cyanosis. No edema. BACK: Left CVA tenderness. No rash. No point tenderness on palpation of the spine. NEUROLOGICAL: Awake and alert. No obvious cranial nerve deficits. Motor grossly within normal limits. Normal speech. PSYCHIATRIC: Appropriate mood and affect; insight and judgment normal. Data Data Last Documented VS Vital Signs Date Time Temp Pulse Resp B/P (MAP) Pulse Ox O2 Delivery O2 Flow Rate FiO2 04/15/17 00:26 99.3 93 16 124/78 (93) 98 Orders Orders Complete Blood Count With Diff (04/15/17 00:38) Comprehensive Metabolic Panel (04/15/17 00:38) Lipase (04/15/17 00:38) Urinalysis - C+S If Indicated (04/15/17 00:38) Iv Access Insert/Monitor (04/15/17 00:38) Ecg Monitoring (04/15/17 00:38) Oximetry (04/15/17 00:38) Ondansetron Inj (Zofran Inj) (04/15/17 00:45) Sodium Chlor 0.9% 1000 Ml Inj (Ns 1000 M (04/15/17 00:38) Sodium Chloride 0.9% Flush (Ns Flush) (04/15/17 00:45) Ed Urine Pregnancytest Poc (04/15/17 00:38) Ketorolac Inj (Toradol Inj) (04/15/17 01:15) Dicyclomine Inj (Bentyl Inj) (04/15/17 02:15) Labs Laboratory Tests Test 04/15/17 01:00 White Blood Count 11.1 TH/MM3 Red Blood Count 4.60 MIL/MM3 Hemoglobin 12.8 GM/DL Hematocrit 38.7 % Mean Corpuscular Volume 84.0 FL Mean Corpuscular Hemoglobin 27.8 PG Mean Corpuscular Hemoglobin Concent 33.0 % Red Cell Distribution Width 13.9 % Platelet Count 423 TH/MM3 Mean Platelet Volume 8.2 FL Neutrophils (%) (Auto) 67.2 % Lymphocytes (%) (Auto) 28.0 % Monocytes (%) (Auto) 2.6 % Eosinophils (%) (Auto) 1.4 % Basophils (%) (Auto) 0.8 % Neutrophils # (Auto) 7.4 TH/MM3 Lymphocytes # (Auto) 3.1 TH/MM3 Monocytes # (Auto) 0.3 TH/MM3 Eosinophils # (Auto) 0.2 TH/MM3 Basophils # (Auto) 0.1 TH/MM3 CBC Comment DIFF FINAL Differential Comment Urine Color YELLOW Urine Turbidity SLIGHT Urine pH 6.0 Urine Specific [place] 1.007 Urine Protein NEG mg/dL Urine Glucose (UA) NEG mg/dL Urine Ketones NEG mg/dL Urine Occult Blood SMALL Urine Nitrite NEG Urine Bilirubin NEG Urine Leukocyte Esterase NEG Urine RBC 3-5 /hpf Urine WBC 0-2 /hpf Urine Squamous Epithelial Cells > 8 /hpf Urine Bacteria FEW /hpf Microscopic Urinalysis Comment CULT NOT INDICATED Blood Urea Nitrogen 7 MG/DL Creatinine 0.59 MG/DL Random Glucose 92 MG/DL Total Protein 7.9 GM/DL Albumin 3.7 GM/DL Calcium Level 8.4 MG/DL Alkaline Phosphatase 78 U/L Aspartate Amino Transf (AST/SGOT) 28 U/L Alanine Aminotransferase (ALT/SGPT) 43 U/L Total Bilirubin 0.2 MG/DL Sodium Level 140 MEQ/L Potassium Level 3.3 MEQ/L Chloride Level 107 MEQ/L Carbon Dioxide Level 22.8 MEQ/L Anion Gap 10 MEQ/L Estimat Glomerular Filtration Rate 121 ML/MIN Lipase 212 U/L MDM Medical Decision Making Medical Screen Exam Complete: Yes Emergency Medical Condition: Yes Medical Record Reviewed: Yes Interpretation(s) Laboratory Tests Test 04/15/17 01:00 White Blood Count 11.1 TH/MM3 (4.0-11.0) Urine Occult Blood SMALL (NEG) Urine Squamous Epithelial Cells > 8 /hpf (0-5) Urine Bacteria FEW /hpf (NONE) Calcium Level 8.4 MG/DL (8.5-10.1) Potassium Level 3.3 MEQ/L (3.5-5.1) Differential Diagnosis Left flank pain, nausea, vomiting, diarrhea: Pyelonephritis versus renal colic versus gastroenteritis versus dehydration versus metabolic issues Narrative Course Abdomen is fairly benign. Lab work shows no signs of significant UTI or significant leukocytosis. She had a CAT scan done last week which did not show any signs of kidney stones. In addition, have discussed the case with patient' s primary care physician, , who knows her well and states that he has seen her multiple times for this and apparently patient has an MRI ordered for her for this issue already. At this point, patient has been given IV fluids , Zofran for nausea and Toradol. My plan would be to release her with follow- up back to primary care physician. Return for worsening in symptoms as needed. The plan has been discussed with her and she states understanding. Diagnosis Primary Impression: Left flank pain Med/Other Pt SpecificInfo: Prescription(s) given Scripts Dicyclomine (Bentyl) 10 Mg Cap 10 MG PO TID Y for Bowel Management, #15 CAP 0 Refills Prov: Sourav Whipple MD 04/15/17 Ondansetron Odt (Zofran Odt) 4 Mg Tab 4 MG SL Q6HR Y for Nausea/Vomiting, #10 TAB 0 Refills Prov: Sourav Whipple MD 04/15/17 Disposition: DISCHARGE HOME Condition: Stable Sourav Whipple MD Apr 15, 2017 01:18
[2017-04-15 01:19] LABS: BLOOD UREA NITROGEN 7 MG/DL (7-18)
[2017-04-15 01:21] LABS: ALT (GPT) 43 U/L (10-53); AST (GOT) 28 U/L (15-37)
[2017-04-15 01:22] LABS: CREATININE 0.59 MG/DL (0.50-1.00); GLOMERULAR FILTRATION RATE 121 ML/MIN (>89)
[2017-04-15 01:23] LABS: TOTAL BILIRUBIN ADULT 0.2 MG/DL (0.2-1.0); TOTAL PROTEIN 7.9 GM/DL (6.4-8.2)
[2017-04-15 01:24] LABS: ALKALINE PHOSPHATASE 78 U/L (45-117)
[2017-04-15] MEDS ORDERED: DICY10 PO (02:05)
[2017-04-15] MEDS ORDERED: ZOFR4TAB3 SL (02:05)
[2017-04-15 02:12] VITALS: BP 126/74; PULSE 82; RESP 18; O2SAT 98
[2017-04-15] MEDS ORDERED: DICYCLOMINE HCL 20 MG/2 ML VIAL IM ONE (02:15)
== END 2017-04-15 02:22 | disposition home or self-care (01) ==
LOC: PHED 00:24
DX: R10.9 Unspecified abdominal pain (principal); F90.9 Attention-deficit hyperactivity disorder, unspecified type; F31.9 Bipolar disorder, unspecified; I10 Essential (primary) hypertension; E78.00 Pure hypercholesterolemia, unspecified; F17.210 Nicotine dependence, cigarettes, uncomplicated; K21.9 Gastro-esophageal reflux disease without esophagitis; Z95.818 Presence of other cardiac implants and grafts
CPT/HCPCS: 80053; 81001; 83690; 84703; 85025; 96361; 96372; 96374; 96375; 99284; J0500; J1885; J2405; J7030

== ENCOUNTER 2017-04-30 01:22 | Emergency (ER) | payer OTHER ==
[~2017-04-30] VITALS: Ht 154.9 cm; Wt 82.3 kg
[~2017-04-30 01:22] MED LIST changes: +DICY10 PO
[2017-04-30 01:27] VITALS: BP 114/66; PULSE 93; RESP 20; TEMP 98.2; O2SAT 93
[2017-04-30] MEDS ORDERED: PRED20 PO (19:07)
[2017-04-30] MEDS ORDERED: FLUT1SPR5 EACH NARE (19:07)
[2017-04-30] MEDS ORDERED: AUGM875T3 PO (19:07)
== END 2017-04-30 02:07 | disposition left against medical advice (07) ==
LOC: PHED 01:22
DX: R68.89 Other general symptoms and signs (principal)
CPT/HCPCS: 99281

== ENCOUNTER 2017-04-30 18:41 | Emergency (ER) | payer OTHER ==
[~2017-04-30] VITALS: Ht 154.9 cm; Wt 83.0 kg
[2017-04-30 18:49] VITALS: BP 130/78; PULSE 86; RESP 16; TEMP 98.5; O2SAT 99
[2017-04-30] MEDS ORDERED: FLUT1SPR5 EACH NARE (19:07)
[2017-04-30] MEDS ORDERED: PRED20 PO (19:07)
[2017-04-30] MEDS ORDERED: AUGM875T3 PO (19:07)
--- NOTE | 2017-04-30 19:08 | PD ---
HPI Chief Complaint: Cold / Flu Symptoms Time Seen by Provider: 18:57 Travel History International Travel<30 days: No Contact w/Intl Traveler<30days: No Traveled to known affect area: No History of Present Illness HPI 27 year old female presents to the emergency department for evaluation of sore throat, right ear pain, sinus pressure/pain that started 1 week ago. She also reports intermittent dizziness with movement only, feels like the room is spinning around her. Patient denies any fevers. She reports chronic abdominal pain. No chest pain. Patient denies any exacerbating or alleviating factors. Moderate severity. PFSH Past Medical History Hx Anticoagulant Therapy: No ADHD: Yes Autoimmune Disease: No Blood Disorders: No Bipolar Disorder: Yes Anxiety: Yes Depression: Yes Heart Rhythm Problems: Yes ("fast heart rate" ) Cancer: No Cardiac Catheterization: No High Cholesterol: Yes Chemotherapy: No Chest Pain: Yes Congestive Heart Failure: No Cerebrovascular Accident: No Diabetes: No Diminished Hearing: No Endocrine: Yes GERD: Yes Genitourinary: No Hepatitis: No Hiatal Hernia: No Heparin Induced Thrombocytopen: No Hypertension: Yes Implanted Vascular Access Dvce: Yes Musculoskeletal: No Neurologic: No Psychiatric: Yes (BIPOLAR ANXIETY) Reproductive: Yes Respiratory: Yes Immunizations Current: Yes Seizures: No Sleep Apnea: Yes (pending test) Thyroid Disease: Yes (nodule on thyroid) Ulcer: Yes Tetanus Vaccination: < 5 Years Influenza Vaccination: Yes PNEUMOCCOCAL Vaccine (Year): 2 ?: Not LMP: 2 WEEKS Menopausal: No : 1 Para: 0 Miscarriage: 1 : 0 Ovarian Cysts: Yes Past Surgical History Abdominal Surgery: Yes (Adhesions 03/05) AICD: No Body Medical Devices: loop recorder Cardiac Surgery: Yes (loop recorder) Coronary Artery Bypass Graft: No Ear Surgery: No Endocrine Surgery: No Eye Surgery: No Genitourinary Surgery: No Hysterectomy: No Joint Replacement: No Neurologic Surgery: No Oral Surgery: No Pacemaker: No Thoracic Surgery: No Other Surgery: Yes (loop recorder) Family History Family Myocardial Infarction: Yes (GRANDFATHER AT AGE 38) Social History Alcohol Use: Yes (rare) Tobacco Use: Yes (one pack day) Substance Use: No Allergies-Medications (Allergen,Severity, Reaction): Coded Allergies: No Known Allergies (Verified Adverse Reaction, Unknown, 04/30/17) Reported Meds & Prescriptions Reported Meds & Active Scripts Active Flonase Nasal [place] (Fluticasone Nasal [place]) 50 Mcg/Act [place] 50 Mcg EACH NARE BID Prednisone 20 Mg Tab 40 Mg PO DAILY 5 Days Take 40 mg (2 tablets) daily for 5 days Augmentin (Amoxicillin-Clavulanate) 875-125 Mg Tab 1 Tab PO BID 10 Days Bentyl (Dicyclomine HCl) 10 Mg Cap 10 Mg PO TID PRN Zofran Odt (Ondansetron Odt) 4 Mg Tab 4 Mg SL Q6HR PRN Reported Pantoprazole (Pantoprazole Sodium) 20 Mg Tab 20 Mg PO DAILY Hydrocodone-Acetaminophen 10-300 Tab 1 Tab PO Q6H PRN Metoprolol Tartrate 25 Mg Tab 25 Mg PO DAILY Seroquel (Quetiapine Fumarate) 50 Mg Tab 100 Mg PO DAILY Lexapro (Escitalopram Oxalate) 20 Mg Tab 20 Mg PO DAILY Review of Systems Except as stated in HPI: all other systems reviewed are Neg Physical Exam Narrative GENERAL: Well-nourished, well-developed female patient, ambulatory and in no acute distress. Afebrile. Vital signs are reviewed and stable. Patient is ambulatory with a steady gait in the emergency department. SKIN: Focused skin assessment warm/dry. HEAD: Normocephalic. Atraumatic. Patient has tenderness over bilateral maxillary sinuses. ENT: Mucosa pink and moist. No erythema or exudates. No uvular edema. No uvular , palatal, or tonsillar deviation. Airway patent. Nasal turbinates appear normal without nasal blood, purulent drainage or septal hematoma. Bilateral tympanic membranes are clear without erythema or perforation. EYES: No scleral icterus. No injection or drainage. NECK: Supple, trachea midline. No JVD or lymphadenopathy. CARDIOVASCULAR: Regular rate and rhythm without murmurs, gallops, or rubs. RESPIRATORY: Breath sounds equal bilaterally. No accessory muscle use. Lung sounds are clear to auscultation. GASTROINTESTINAL: Abdomen soft, non-tender, nondistended. MUSCULOSKELETAL: No cyanosis, or edema. BACK: Nontender without obvious deformity. No CVA tenderness. Data Data Last Documented VS Vital Signs Date Time Temp Pulse Resp B/P (MAP) Pulse Ox O2 Delivery O2 Flow Rate FiO2 04/30/17 18:58 Room Air 04/30/17 18:49 98.5 86 16 130/78 (95) 99 Orders Orders Ed Discharge Order (2/11/18 19:08) [facility] Medical Decision Making Medical Screen Exam Complete: Yes Emergency Medical Condition: Yes Medical Record Reviewed: Yes Differential Diagnosis acute sinusitis vs. URI vs. PNA vs. strep pharyngitis Narrative Course 27 year old female presents to the emergency department for evaluation of cold symptoms for 1 week. She appears well on exam. Patient will be discharged with a prescription for Augmentin, Flonase nasal spray, prednisone. She is to follow up with her primary care physician. She is to return here for any acute , worsening of symptoms. Diagnosis Primary Impression: Acute sinusitis Qualified Codes: J01.00 - Acute maxillary sinusitis, unspecified Referrals: Primary Care Physician call for appointment Patient Instructions: General Instructions, Sinusitis (ED) Additional Instructions: Take antibiotic as directed until gone. Use Flonase nasal spray as directed. Take prednisone as directed Follow-up with your primary care physician. Return to the emergency department for any acute worsening of symptoms. Med/Other Pt SpecificInfo: Prescription(s) given Scripts Fluticasone Nasal [place] (Flonase Nasal [place]) 50 Mcg/Act [place] 50 MCG EACH NARE BID for Allergies, #1 BOTTLE 0 Refills Prov: Gina Morejon 04/30/17 Prednisone (Prednisone) 20 Mg Tab 40 MG PO DAILY for 5 Days, #10 TAB 0 Refills Take 40 mg (2 tablets) daily for 5 days Prov: Gina Morejon 04/30/17 Amoxicillin-Clavulanate (Augmentin) 875-125 Mg Tab 1 TAB PO BID for Infection for 10 Days, #20 TAB 0 Refills Prov: Gina Morejon 04/30/17 Disposition: 01 DISCHARGE HOME Condition: Stable Gina Morejon Apr 30, 2017 19:08
== END 2017-04-30 19:19 | disposition home or self-care (01) ==
LOC: PHEFT 18:41
DX: J01.00 Acute maxillary sinusitis, unspecified (principal); F17.210 Nicotine dependence, cigarettes, uncomplicated; E78.00 Pure hypercholesterolemia, unspecified; K21.9 Gastro-esophageal reflux disease without esophagitis; I10 Essential (primary) hypertension
CPT/HCPCS: 99283

== ENCOUNTER 2017-05-04 01:00 | Emergency (ER) | payer OTHER ==
[~2017-05-04] VITALS: Ht 154.9 cm; Wt 80.0 kg
[~2017-05-04 01:00] MED LIST changes: +AUGM875T3 PO; +FLUT1SPR5 EACH NARE; +PRED20 PO
[2017-05-04 01:01] VITALS: BP 117/74; PULSE 81; RESP 16; TEMP 97.7; O2SAT 99
--- NOTE | 2017-05-04 02:58 | PD ---
HPI Chief Complaint: ENT Complaint Time Seen by Provider: 01:16 Travel History International Travel<30 days: No Contact w/Intl Traveler<30days: No Traveled to known affect area: No History of Present Illness HPI Patient is a 27-year-old female who said she's had 10 days of a sore throat and she said she took a Z-Leander it did not relieve her symptoms she is now coming in complaining of severe right-sided throat pain as well as right submental node tenderness. She also complains of lower back pain that she said started when she fell when she was coughing and had bed URI symptoms. Patient in the ER is nontoxic-appearing she is awake alert and has no obvious distress PFSH Past Medical History Hx Anticoagulant Therapy: No ADHD: Yes Autoimmune Disease: No Blood Disorders: No Bipolar Disorder: Yes Anxiety: Yes Depression: Yes Heart Rhythm Problems: Yes ("fast heart rate" ) Cancer: No Cardiac Catheterization: No High Cholesterol: Yes Chemotherapy: No Chest Pain: Yes Congestive Heart Failure: No Cerebrovascular Accident: No Diabetes: No Diminished Hearing: No Endocrine: Yes GERD: Yes Genitourinary: No Hepatitis: No Hiatal Hernia: No Heparin Induced Thrombocytopen: No Hypertension: Yes Implanted Vascular Access Dvce: Yes Musculoskeletal: No Neurologic: No Psychiatric: Yes (BIPOLAR ANXIETY) Reproductive: Yes Respiratory: Yes Immunizations Current: Yes Seizures: No Sleep Apnea: Yes (pending test) Thyroid Disease: Yes (nodule on thyroid) Ulcer: Yes Tetanus Vaccination: < 5 Years Influenza Vaccination: No PNEUMOCCOCAL Vaccine (Year): 2 ?: Not LMP: 05/04/2017 Menopausal: No : 1 Para: 0 Miscarriage: 1 : 0 Ovarian Cysts: Yes Past Surgical History Abdominal Surgery: Yes (Adhesions 03/05) AICD: No Body Medical Devices: loop recorder Cardiac Surgery: Yes (loop recorder) Coronary Artery Bypass Graft: No Ear Surgery: No Endocrine Surgery: No Eye Surgery: No Genitourinary Surgery: No Hysterectomy: No Joint Replacement: No Neurologic Surgery: No Oral Surgery: No Pacemaker: No Thoracic Surgery: No Other Surgery: Yes (loop recorder) Family History Family Myocardial Infarction: Yes (GRANDFATHER AT AGE 38) Social History Alcohol Use: Yes (rare) Tobacco Use: Yes (one pack day) Substance Use: No Allergies-Medications (Allergen,Severity, Reaction): Coded Allergies: No Known Allergies (Verified Adverse Reaction, Unknown, 05/04/17) Reported Meds & Prescriptions Reported Meds & Active Scripts Active Clindamycin (Clindamycin HCl) 150 Mg Cap 150 Mg PO Q6H Ibuprofen 600 Mg Tab 600 Mg PO Q6H PRN Magic Mouthwash Pediatric/Adult Liq (Lidocaine/Diphenhydr/Alum/Mg/Simeth) 60 Ml Susp 5 Ml SWISH-SWAL ACHS Each 5mL contains: Diphenydramine 4.5mg, Viscous Lidocaine 2% 10mg, Maalox Advanced Regular Strength 2.7ml Augmentin (Amoxicillin-Clavulanate) 875-125 Mg Tab 1 Tab PO BID 10 Days Reported Pantoprazole (Pantoprazole Sodium) 20 Mg Tab 20 Mg PO DAILY Hydrocodone-Acetaminophen 10-300 Tab 1 Tab PO Q6H PRN Metoprolol Tartrate 25 Mg Tab 25 Mg PO DAILY Seroquel (Quetiapine Fumarate) 50 Mg Tab 100 Mg PO DAILY Lexapro (Escitalopram Oxalate) 20 Mg Tab 20 Mg PO DAILY Review of Systems Except as stated in HPI: all other systems reviewed are Neg HENT: Positive: Sore Throat, Neck Pain (right-sided submental node swelling) Respiratory: Positive: Cough Physical Exam Narrative GENERAL: Nontoxic-appearing awake alert SKIN: Warm and dry. HEAD: Atraumatic. Normocephalic. EYES: Pupils equal and round. No scleral icterus. No injection or drainage. ENT: No nasal bleeding or discharge. Mucous membranes pink and moist. Posterior pharynx erythematous tonsils swollen and the right tonsil has exudate NECK: Trachea midline. No JVD. Mild submental node swelling right greater than left CARDIOVASCULAR: Regular rate and rhythm. RESPIRATORY: No accessory muscle use. Clear to auscultation. Breath sounds equal bilaterally. GASTROINTESTINAL: Abdomen soft, non-tender, nondistended. Hepatic and splenic margins not palpable. MUSCULOSKELETAL: Extremities without clubbing, cyanosis, or edema. No obvious deformities. Back. Patient has tender lumbar thoracic spinous process no trauma no hematoma no injury seen NEUROLOGICAL: Awake and alert. No obvious cranial nerve deficits. Motor grossly within normal limits. Five out of 5 muscle strength in the arms and legs. Normal speech. PSYCHIATRIC: Appropriate mood and affect; insight and judgment normal. Data Data Last Documented VS Vital Signs Date Time Temp Pulse Resp B/P (MAP) Pulse Ox O2 Delivery O2 Flow Rate FiO2 05/04/17 03:43 05/04/17 03:12 79 16 99 Room Air 05/04/17 01:01 97.7 Orders Orders Group A Rapid Strep Screen (05/04/17 02:10) Influenzae A/B Antigen (05/04/17 02:10) Strep Culture (Group A) (05/04/17 02:25) Lidocaine 2% Viscous (Xylocaine 2% Visco (05/04/17 03:00) Al-Mag Hy-Si 40-40-4 Mg/Ml Liq (Mag-Al P (05/04/17 03:00) Diphenhydramine Liq (Benadryl Liq) (05/04/17 03:00) Ketorolac Inj (Toradol Inj) (05/04/17 03:15) Ed Discharge Order (05/04/17 03:37) MDM Medical Decision Making Medical Screen Exam Complete: Yes Emergency Medical Condition: Yes Differential Diagnosis bronchitis vs strep pharyngitis vs tonsillitis other Narrative Course Strep rapid negaive and flu negativ e symptomatic treatement Diagnosis Primary Impression: Tonsillitis Scripts Clindamycin (Clindamycin) 150 Mg Cap 150 MG PO Q6H for Infection, #28 CAP 0 Refills Prov: Edwar Ortega MD 05/04/17 Ibuprofen (Ibuprofen) 600 Mg Tab 600 MG PO Q6H Y for Pain/Inflammation, #30 TAB 0 Refills Prov: Edwar Ortega MD 05/04/17 Nkmpcrzmzydjsml-Oiewgeysu-Zxz-Alum-Simeth Liq (Magic Mouthwash Pediatric/Adult Liq) 60 Ml Susp 5 ML SWISH-SWAL ACHS for Mouth sores, #60 ML 0 Refills Each 5mL contains: Diphenydramine 4.5mg, Viscous Lidocaine 2% 10mg, Maalox Advanced Regular Strength 2.7ml Prov: Edwar Ortega MD 05/04/17 Disposition: 01 DISCHARGE HOME Condition: Good Edwar Ortega MD May 04, 2017 02:58
[2017-05-04] MEDS ORDERED: diphenhydrAMINE HCL ELIXIR 12.5 MG/5 ML CUP PO ONE (03:00)
[2017-05-04] MEDS ORDERED: ALUMINUM/MAGNESIUM/SIMETH 30 ML CUP PO ONE (03:00)
[2017-05-04] MEDS ORDERED: LIDOCAINE VISCOUS 2% SOLN 15 ML UDC SWISH-SWAL ONE (03:00)
[2017-05-04] MEDS ORDERED: IBUP-232 PO (03:10)
[2017-05-04] MEDS ORDERED: MAGICPED SWISH-SWAL (03:10)
[2017-05-04] MEDS ORDERED: CLIN150C14 PO (03:11)
[2017-05-04 03:12] VITALS: BP 131/71; PULSE 79; RESP 16; O2SAT 99
[2017-05-04] MEDS ORDERED: KETOROLAC TROMETHAMINE 60 MG/2 ML (IM) VIAL IM ONE (03:15)
== END 2017-05-04 03:40 | disposition home or self-care (01) ==
LOC: NEPE 01:00
DX: J03.90 Acute tonsillitis, unspecified (principal); M54.5 Low back pain; I10 Essential (primary) hypertension; Z72.0 Tobacco use
CPT/HCPCS: 87081; 87804; 87880; 96372; 99284; J1885

== ENCOUNTER 2017-05-28 00:12 | Emergency (ER) | payer OTHER ==
[~2017-05-28] VITALS: Ht 154.9 cm; Wt 82.0 kg
[~2017-05-28 00:12] MED LIST changes: +CLIN150C14 PO; -DICY10 PO; -FLUT1SPR5 EACH NARE; +IBUP-232 PO; +MAGICPED SWISH-SWAL; -PRED20 PO; -ZOFR4TAB3 SL
[2017-05-28 00:23] VITALS: BP 116/66; PULSE 101; RESP 16; TEMP 99.2; O2SAT 98
[2017-05-28] MEDS ORDERED: IBUPROFEN 600 MG TAB PO ONE (02:00)
[2017-05-28] MEDS ORDERED: FAMOTIDINE 20 MG/2 ML VIAL IV PUSH ONE (02:00)
[2017-05-28] MEDS ORDERED: SODIUM CHLORIDE 0.9% FLUSH 10 ML FLUSH IVF PRN (02:00)
--- NOTE | 2017-05-28 03:15 | RADRPT ---
EXAM DATE/TIME: 05/28/2017 03:06 [facility] COMPARISON: CHEST SINGLE AP, April 07, 2017, 20:33. INDICATIONS : Chest pain. MEDICAL HISTORY : Arrythmia SURGICAL HISTORY : Loop recorder ENCOUNTER: Initial ACUITY: 1 year PAIN SCORE: 6/10 LOCATION: Bilateral chest FINDINGS: A single view of the chest demonstrates the lungs to be symmetrically aerated without evidence of mas s, infiltrate or effusion. The cardiomediastinal contours are unremarkable. Osseous structures are intact. Cardiac Loop recorder again noted. CONCLUSION: No evidence of acute cardiopulmonary disease. Efraín Ramos MD on May 28, 2017 at 3:13 Board Certified Radiologist. This report was verified electronically.
[2017-05-28 04:04] LABS: AUTOMATED NEUTROPHIL # 8.5 TH/MM3 (1.8-7.7); BASOPHIL # 0.1 TH/MM3 (0-0.2); BASOPHIL % 0.5 % (0.0-2.0); EOSINOPHIL # 0.2 TH/MM3 (0-0.4); EOSINOPHIL % 1.4 % (0.0-4.0); HEMATOCRIT 35.7 % (35.0-46.0); LYMPH % 32.8 % (9.0-44.0); LYMPHOCYTE # 4.6 TH/MM3 (1.0-4.8); MEAN CELL VOLUME 82.6 FL (80.0-100.0); MEAN CORPUSCULAR HEMOGLOBIN 27.9 PG (27.0-34.0); MEAN CORPUSCULAR HGB CONC 33.7 % (32.0-36.0); MEAN PLATELET VOLUME 7.7 FL (7.0-11.0); MONO % 5.2 % (0.0-8.0); MONOCYTE # 0.7 TH/MM3 (0-0.9); NEUT % 60.1 % (16.0-70.0); PLATELET COUNT 345 TH/MM3 (150-450); RED BLOOD COUNT 4.32 MIL/MM3 (4.00-5.30); RED CELL DISTRIBUTION WIDTH 14.6 % (11.6-17.2); WHITE BLOOD COUNT 14.1 TH/MM3 (4.0-11.0)
[2017-05-28 04:11] LABS: PROTHROMBIN TIME - PATIENT 9.9 SEC (9.8-11.6)
[2017-05-28 04:15] LABS: BICARBONATE 25.5 MEQ/L (21.0-32.0); BLOOD UREA NITROGEN 11 MG/DL (7-18); CALCIUM 8.3 MG/DL (8.5-10.1); CHLORIDE 108 MEQ/L (98-107); CREATININE 0.57 MG/DL (0.50-1.00); GLOMERULAR FILTRATION RATE 125 ML/MIN (>89); GLUCOSE,RANDOM 96 MG/DL (74-106); MAGNESIUM 2.1 MG/DL (1.5-2.5); SODIUM (NA) 141 MEQ/L (136-145)
[2017-05-28 04:19] LABS: TROPONIN I LESS THAN 0.02 NG/ML (0.02-0.05)
--- NOTE | 2017-05-28 05:30 | PD ---
HPI Chief Complaint: Chest Pain Time Seen by Provider: 01:48 Travel History International Travel<30 days: No Contact w/Intl Traveler<30days: No Traveled to known affect area: No History of Present Illness HPI 27yo F with PMH of ?tachycardia with a loop recorder here with midsternal chest pain that is sharp. Also had some epigastric abdominal pain that may be radiating up. Feels a little sob. Denies any fever, n/v, abdominal pain, focal weakness or numbness. 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 Chau and said she had a stress test that was negative 6 months ago. Denies any family history of sudden cardiac . PFSH Past Medical History Hx Anticoagulant Therapy: No ADHD: Yes Autoimmune Disease: No Blood Disorders: No Bipolar Disorder: Yes Anxiety: Yes Depression: Yes Heart Rhythm Problems: Yes ("fast heart rate" ) Cancer: No Cardiac Catheterization: No Cardiovascular Problems: Yes (Loop recorder) High Cholesterol: Yes Chemotherapy: No Chest Pain: Yes Congestive Heart Failure: No Cerebrovascular Accident: No Diabetes: No Diminished Hearing: No Endocrine: Yes Gastrointestinal Disorders: Yes (hx ulcer, reflux) GERD: Yes Genitourinary: No Hepatitis: No Hiatal Hernia: No Heparin Induced Thrombocytopen: No Hypertension: Yes Implanted Vascular Access Dvce: Yes Musculoskeletal: No Neurologic: No Psychiatric: Yes (BIPOLAR ANXIETY) Reproductive: Yes Respiratory: Yes Immunizations Current: Yes Seizures: No Sleep Apnea: Yes (pending test) Thyroid Disease: Yes (nodule on thyroid) Ulcer: Yes Tetanus Vaccination: < 5 Years Influenza Vaccination: Yes PNEUMOCCOCAL Vaccine (Year): 2 ?: Not Menopausal: No : 1 Para: 0 Miscarriage: 1 : 0 Ovarian Cysts: Yes Past Surgical History Abdominal Surgery: Yes (Adhesions 03/05) AICD: No Body Medical Devices: loop recorder Cardiac Surgery: Yes (loop recorder) Coronary Artery Bypass Graft: No Ear Surgery: No Endocrine Surgery: No Eye Surgery: No Genitourinary Surgery: No Hysterectomy: No Joint Replacement: No Neurologic Surgery: No Oral Surgery: No Pacemaker: No Thoracic Surgery: No Other Surgery: Yes (loop recorder) Family History Family Myocardial Infarction: Yes (GRANDFATHER AT AGE 38) Social History Alcohol Use: Yes (rare) Tobacco Use: Yes (one pack day) Substance Use: No Allergies-Medications (Allergen,Severity, Reaction): Coded Allergies: No Known Allergies (Verified Adverse Reaction, Unknown, 05/28/17) Reported Meds & Prescriptions Reported Meds & Active Scripts Active Clindamycin (Clindamycin HCl) 150 Mg Cap 150 Mg PO Q6H Ibuprofen 600 Mg Tab 600 Mg PO Q6H PRN Magic Mouthwash Pediatric/Adult Liq (Lidocaine/Diphenhydr/Alum/Mg/Simeth) 60 Ml Susp 5 Ml SWISH-SWAL ACHS Each 5mL contains: Diphenydramine 4.5mg, Viscous Lidocaine 2% 10mg, Maalox Advanced Regular Strength 2.7ml Augmentin (Amoxicillin-Clavulanate) 875-125 Mg Tab 1 Tab PO BID 10 Days Reported Pantoprazole (Pantoprazole Sodium) 20 Mg Tab 20 Mg PO DAILY Hydrocodone-Acetaminophen 10-300 Tab 1 Tab PO Q6H PRN Metoprolol Tartrate 25 Mg Tab 25 Mg PO DAILY Seroquel (Quetiapine Fumarate) 50 Mg Tab 100 Mg PO DAILY Lexapro (Escitalopram Oxalate) 20 Mg Tab 20 Mg PO DAILY Review of Systems Except as stated in HPI: all other systems reviewed are Neg Physical Exam Narrative GENERAL: 27yo F not in distress. SKIN: Focused skin assessment warm/dry. HEAD: Atraumatic. Normocephalic. EYES: Pupils equal and round. No scleral icterus. No injection or drainage. ENT: No nasal bleeding or discharge. Mucous membranes pink and moist. NECK: Trachea midline. No JVD. CARDIOVASCULAR: Regular rate and rhythm. No murmur appreciated. CHEST WALL: No rash. +TTP midsternum. RESPIRATORY: No accessory muscle use. Clear to auscultation. Breath sounds equal bilaterally. GASTROINTESTINAL: Abdomen soft, non-tender, nondistended. MUSCULOSKELETAL: No obvious deformities. No clubbing. No cyanosis. No edema. NEUROLOGICAL: Awake and alert. No obvious cranial nerve deficits. Motor grossly within normal limits. Normal speech. Data Data Last Documented VS Vital Signs Date Time Temp Pulse Resp B/P (MAP) Pulse Ox O2 Delivery O2 Flow Rate FiO2 05/28/17 00:23 99.2 101 16 116/66 (83) 98 Orders Orders Electrocardiogram (05/28/17 ) Electrocardiogram (05/28/17 01:57) Basic Metabolic Panel (Bmp) (05/28/17 01:57) Complete Blood Count With Diff (05/28/17 01:57) Magnesium (Mg) (05/28/17 01:57) Prothrombin Time / Inr (Pt) (05/28/17 01:57) Act Partial Throm Time (Ptt) (05/28/17 01:57) Troponin I (05/28/17 01:57) Chest, Single Ap (05/28/17 01:57) Ecg Monitoring (05/28/17 01:57) Bilateral Bp Monitoring (05/28/17 01:57) Iv Access Insert/Monitor (05/28/17 01:57) Oximetry (05/28/17 01:57) Sodium Chloride 0.9% Flush (Ns Flush) (05/28/17 02:00) Ibuprofen (Motrin) (05/28/17 02:00) Lipase (05/28/17 01:57) Famotidine Inj (Pepcid Inj) (05/28/17 02:00) Labs Laboratory Tests Test 05/28/17 01:57 05/28/17 03:10 White Blood Count 14.1 TH/MM3 Red Blood Count 4.32 MIL/MM3 Hemoglobin 12.0 GM/DL Hematocrit 35.7 % Mean Corpuscular Volume 82.6 FL Mean Corpuscular Hemoglobin 27.9 PG Mean Corpuscular Hemoglobin Concent 33.7 % Red Cell Distribution Width 14.6 % Platelet Count 345 TH/MM3 Mean Platelet Volume 7.7 FL Neutrophils (%) (Auto) 60.1 % Lymphocytes (%) (Auto) 32.8 % Monocytes (%) (Auto) 5.2 % Eosinophils (%) (Auto) 1.4 % Basophils (%) (Auto) 0.5 % Neutrophils # (Auto) 8.5 TH/MM3 Lymphocytes # (Auto) 4.6 TH/MM3 Monocytes # (Auto) 0.7 TH/MM3 Eosinophils # (Auto) 0.2 TH/MM3 Basophils # (Auto) 0.1 TH/MM3 CBC Comment DIFF FINAL Differential Comment Prothrombin Time 9.9 SEC Prothromb Time International Ratio 1.0 RATIO Activated Partial Thromboplast Time 26.5 SEC Blood Urea Nitrogen 11 MG/DL Creatinine 0.57 MG/DL Random Glucose 96 MG/DL Calcium Level 8.3 MG/DL Magnesium Level 2.1 MG/DL Sodium Level 141 MEQ/L Potassium Level 3.6 MEQ/L Chloride Level 108 MEQ/L Carbon Dioxide Level 25.5 MEQ/L Anion Gap 8 MEQ/L Estimat Glomerular Filtration Rate 125 ML/MIN Troponin I LESS THAN 0.02 NG/ML Lipase 246 U/L [facility] Medical Decision Making Medical Screen Exam Complete: Yes Emergency Medical Condition: Yes Interpretation(s) EKG: NSR 80bpm. Normal axis. No ST segment elevation. Differential Diagnosis Anxiety vs. GERD vs. musculoskeletal pain vs. ACS Narrative Course 27yo F here with atypical chest pain. Labs reviewed, WBC 14.1. H/H normal. Troponin negative. Lipase normal. CXR showed no evidence of acute cardiopulmonary disease. Cardiac loop recorder again noted. Pt has had extensive work up with her package line relief operator and can follow up with Dr. Chau. Pt given pepcid and ibuprofen and feels better. Requesting crackers. Return precautions given. Diagnosis Primary Impression: Atypical chest pain Patient Instructions: General Instructions Departure Forms: Tests/Procedures Additional Instructions: Please follow up with your package line relief operator in 1-2 days. Return to the ED if symptoms worsen. Med/Other Pt SpecificInfo: No Change to Meds Disposition: 01 DISCHARGE HOME Condition: Stable Beth Patel DO May 28, 2017 05:30
--- NOTE | 2017-05-28 10:05 | EKG ---
Date Performed: 05/28/2017 Time Performed: 00:30:21 PTAGE: 27 years EKG: Sinus rhythm NORMAL ECG No significant change from prior electrocardiogram. PREVIOUS TRACING : 04/07/2017 19.38 DOCTOR: Alex Jeong Interpretating Date/Time 05/28/2017 10:04:48
== END 2017-05-28 06:12 | disposition home or self-care (01) ==
LOC: NEPC 00:12
DX: R07.89 Other chest pain (principal); R06.02 Shortness of breath; I10 Essential (primary) hypertension; K21.9 Gastro-esophageal reflux disease without esophagitis; F31.9 Bipolar disorder, unspecified; F17.200 Nicotine dependence, unspecified, uncomplicated; Z79.899 Other long term (current) drug therapy
CPT/HCPCS: 71045; 80048; 83690; 83735; 84484; 85025; 85610; 85730; 93005; 96374

== ENCOUNTER 2017-06-10 22:08 | Emergency (ER) | payer OTHER ==
[2017-06-10 22:10] VITALS: BP 139/70; PULSE 82; RESP 20; TEMP 98.4; O2SAT 100
--- NOTE | 2017-06-11 00:39 | PD ---
HPI Chief Complaint: Fall Time Seen by Provider: 00:29 Travel History International Travel<30 days: No Contact w/Intl Traveler<30days: No Traveled to known affect area: No History of Present Illness HPI The patient is a 27-year-old female that states she fell either or Monday down some stairs. She complains of occipital head pain, left shoulder pain, right anterior chest pain and neck pain. She denies any loss of consciousness. She does have a history of past marijuana and cocaine abuse. She states tramadol causes nausea and vomiting. PFSH Past Medical History Hx Anticoagulant Therapy: No ADHD: Yes Autoimmune Disease: No Blood Disorders: No Bipolar Disorder: Yes Anxiety: Yes Depression: Yes Heart Rhythm Problems: Yes ("fast heart rate" ) Cancer: No Cardiac Catheterization: No Cardiovascular Problems: Yes (RAPID HEART BEATS , INTERNAL MONITOR , LOOP RECORDER ) High Cholesterol: Yes Chemotherapy: No Chest Pain: Yes Congestive Heart Failure: No Cerebrovascular Accident: No Diabetes: No Diminished Hearing: No Endocrine: Yes Gastrointestinal Disorders: Yes (hx ulcer, reflux) GERD: Yes Genitourinary: No Hepatitis: No Hiatal Hernia: No Heparin Induced Thrombocytopen: No Hypertension: Yes Implanted Vascular Access Dvce: Yes ("LOOP RECORDER INSIDE MY CHEST") Kidney Stones: Yes Musculoskeletal: No Neurologic: No Psychiatric: Yes (BIPOLAR ANXIETY) Reproductive: Yes Respiratory: Yes Immunizations Current: Yes Seizures: No Sleep Apnea: Yes (pending test) Thyroid Disease: Yes (nodule on thyroid) Ulcer: Yes Tetanus Vaccination: < 5 Years PNEUMOCCOCAL Vaccine (Year): 2 ?: Unknown LMP: 2 WEEKS AGO Menopausal: No : 1 Para: 0 Miscarriage: 1 : 0 Ovarian Cysts: Yes Past Surgical History Abdominal Surgery: Yes (Adhesions 03/05) AICD: No Body Medical Devices: loop recorder Cardiac Surgery: Yes (loop recorder) Coronary Artery Bypass Graft: No Ear Surgery: No Endocrine Surgery: No Eye Surgery: No Genitourinary Surgery: No Hysterectomy: No Joint Replacement: No Neurologic Surgery: No Oral Surgery: No Pacemaker: No Thoracic Surgery: No Other Surgery: Yes (loop recorder) Family History Family Myocardial Infarction: Yes (GRANDFATHER AT AGE 38) Social History Alcohol Use: Yes (rare) Tobacco Use: Yes (one pack day) Substance Use: No Allergies-Medications (Allergen,Severity, Reaction): Coded Allergies: ketorolac (Verified Allergy, Intermediate, Swelling, 06/11/17) "IT MAKES MY THROAT FEEL LIKE IT'S GOING TO CLOSE AND IT GIVES ME AN UPSET STOMACH" STATED 06/11/17 Reported Meds & Prescriptions Reported Meds & Active Scripts Active Reported Pantoprazole (Pantoprazole Sodium) 20 Mg Tab 20 Mg PO DAILY Hydrocodone-Acetaminophen 10-300 Tab 1 Tab PO Q6H PRN Metoprolol Tartrate 25 Mg Tab 25 Mg PO DAILY Seroquel (Quetiapine Fumarate) 50 Mg Tab 100 Mg PO DAILY Lexapro (Escitalopram Oxalate) 20 Mg Tab 20 Mg PO DAILY Review of Systems Except as stated in HPI: all other systems reviewed are Neg Physical Exam Narrative GENERAL: The patient is alert, oriented 3 in moderate apparent distress with her head, neck, left shoulder and right chest discomfort. Her vital signs are normal. SKIN: Focused skin assessment warm/dry. There are contusions on the right anterior chest wall. No needle tracks no wrist slash lawrence are present. HEAD: There is tenderness over the occipital area but there is no associated skull deformity present. Normocephalic. Neither recognize no gaming sign is present. EYES: Pupils equal and round. No scleral icterus. No injection or drainage. ENT: No nasal bleeding or discharge. Mucous membranes pink and moist. There is no hemotympanum present. NECK: Trachea midline. No JVD. CARDIOVASCULAR: Regular rate and rhythm. No murmur appreciated. RESPIRATORY: No accessory muscle use. Clear to auscultation. Breath sounds equal bilaterally. GASTROINTESTINAL: Abdomen soft, non-tender, nondistended. Hepatic and splenic margins not palpable. No guarding or rebound is present. MUSCULOSKELETAL: No obvious deformities. No clubbing. No cyanosis. No edema. NEUROLOGICAL: Awake and alert. No obvious cranial nerve deficits. Motor grossly within normal limits. Normal speech. PSYCHIATRIC: Appropriate mood and affect; insight and judgment normal. Data Data Last Documented VS Vital Signs Date Time Temp Pulse Resp B/P (MAP) Pulse Ox O2 Delivery O2 Flow Rate FiO2 06/11/17 01:30 65 16 102/65 (77) 98 Room Air 06/10/17 22:[address] Brain W/O Iv Contrast(Rout) (06/11/17 00:39) Ct Cerv Spine W/O Contrast (06/11/17 00:39) Chest, Pa & Lat (06/11/17 00:39) Shoulder, Complete (>2vws) (06/11/17 00:39) Ketorolac Inj (Toradol Inj) (06/11/17 00:45) MDM Medical Decision Making Medical Screen Exam Complete: Yes Emergency Medical Condition: Yes Medical Record Reviewed: Yes Interpretation(s) The chest x-ray shows no acute disease. The left shoulder is negative with no acute fracture or malalignment. The CT of the cervical spine is negative. Differential Diagnosis Fracture shoulder, fractured neck, fracture skull, intracranial bleed, cervical subluxation, pneumothorax-unlikely Narrative Course The chest x-ray, left shoulder and CT scans of the brain and neck are all negative for acute change. The patient will be given Motrin 600 mg 3 times daily. She says she can take Motrin without a problem. Additional Instructions: Follow-up with your primary care physician. As we discussed, take the Motrin regularly, 1 tablet 3 times a day to establish high anti-inflammatory levels. Med/Other Pt SpecificInfo: Prescription(s) given Scripts Ibuprofen (Ibuprofen) 600 Mg Tab 600 MG PO TID, #33 TAB 0 Refills Prov: Levi Russo MD 06/11/17 Disposition: 01 DISCHARGE HOME Condition: Stable Levi Russo MD Jun 11, 2017 00:39
[2017-06-11] MEDS ORDERED: KETOROLAC TROMETHAMINE 60 MG/2 ML (IM) VIAL IM ONE (00:45)
[2017-06-11 01:30] VITALS: BP 102/65; PULSE 65; RESP 16; O2SAT 98
--- NOTE | 2017-06-11 01:54 | RADRPT ---
EXAM DATE/TIME: 06/11/2017 01:02 [facility] COMPARISON: SHOULDER LEFT COMPLETE (>2VWS), October 18, 2014, 0:49. INDICATIONS : Left shoulder pain post fall. MEDICAL HISTORY : Arrhythmia SURGICAL HISTORY : Loop recorder ENCOUNTER: Initial ACUITY: 1 day PAIN SCORE: 5/10 LOCATION: Left upper extremity FINDINGS: Multiple view examination of the left shoulder demonstrates no evidence of fracture or dislocation. The glenohumeral and acromioclavicular joints are maintained. There is normal range of motion betwee n internal and external rotation. Bony mineralization is normal. CONCLUSION: Negative exam with no acute fracture or malalignment. Mauricio Reynoso MD on June 11, 2017 at 1:20 Board Certified Radiologist. This report was verified electronically.
--- NOTE | 2017-06-11 01:54 | RADRPT ---
EXAM DATE/TIME: 06/11/2017 01:17 [facility] COMPARISON: No previous studies available for comparison. INDICATIONS : Trauma, fall on Monday. RADIATION DOSE: 26.39 CTDIvol (mGy) MEDICAL HISTORY : None SURGICAL HISTORY : None. ENCOUNTER: Initial ACUITY: 1 day PAIN SCALE: 5/10 LOCATION: neck TECHNIQUE: Volumetric scanning of the cervical spine was performed. Multiplanar reconstructions i n the sagittal, coronal and oblique axial planes were performed. Using automated exposure control a nd adjustment of the mA and/or kV according to patient size, radiation dose was kept as low as reason ably achievable to obtain optimal diagnostic quality images. DICOM format image data is available e lectronically for review and comparison. FINDINGS: The sagittal reconstructions demonstrate normal alignment and normal prevertebral soft tissues. The d ens is intact and there is a normal atlantoaxial relationship. The axial images demonstrate that the vertebral bodies and posterior elements are intact. The soft ti ssues are within normal limits. There is no evidence of acute fracture or malalignment. CONCLUSION: Negative trauma CT. Mauricio Reynoso MD on June 11, 2017 at 1:35 Board Certified Radiologist. This report was verified electronically.
--- NOTE | 2017-06-11 01:54 | RADRPT ---
EXAM DATE/TIME: 06/11/2017 01:17 [facility] COMPARISON: No previous studies available for comparison. INDICATIONS : Trauma, fall on Monday. RADIATION DOSE: 62.81 CTDIvol (mGy) MEDICAL HISTORY : None SURGICAL HISTORY : None. ENCOUNTER: Initial ACUITY: 1 day PAIN SCALE: 4/10 LOCATION: cranial TECHNIQUE: Multiple contiguous axial images were obtained of the head. Using automated exposure control and adj ustment of the mA and/or kV according to patient size, radiation dose was kept as low as reasonably a chievable to obtain optimal diagnostic quality images. DICOM format image data is available electro nically for review and comparison. FINDINGS: CEREBRUM: The ventricles are normal for age. No evidence of midline shift, mass lesion, hemorrhage or acute in farction. No extra-axial fluid collections are seen. POSTERIOR FOSSA: The cerebellum and brainstem are intact. The 4th ventricle is midline. The cerebellopontine angle i s unremarkable. EXTRACRANIAL: The visualized portion of the orbits is intact. SKULL: The calvaria is intact. No evidence of skull fracture. CONCLUSION: Negative noncontrast head CT Mauricio Reynoso MD on June 11, 2017 at 1:35 Board Certified Radiologist. This report was verified electronically.
--- NOTE | 2017-06-11 01:54 | RADRPT ---
EXAM DATE/TIME: 06/11/2017 01:02 [facility] COMPARISON: CHEST PA & LAT, January 05, 2017, 21:30. INDICATIONS : Left chest pain post fall. MEDICAL HISTORY : Arrhythmia SURGICAL HISTORY : Loop recorder ENCOUNTER: Initial ACUITY: 1 day PAIN SCORE: 5/10 LOCATION: Left chest FINDINGS: PA and lateral views of the chest demonstrate the lungs to be symmetrically aerated without evidence of mass, infiltrate or effusion. The cardiomediastinal contours are unremarkable. Osseous structure s are intact. CONCLUSION: No acute disease. Mauricio Reynoso MD on June 11, 2017 at 1:18 Board Certified Radiologist. This report was verified electronically.
[2017-06-11] MEDS ORDERED: IBUP-232 PO (02:45)
[2017-06-11] MEDS ORDERED: IBUPROFEN 800 MG TAB PO ONE (03:00)
== END 2017-06-11 02:53 | disposition home or self-care (01) ==
LOC: PHED 22:08
DX: R07.9 Chest pain, unspecified (principal); M25.512 Pain in left shoulder; M54.2 Cervicalgia; R51 Headache; F12.10 Cannabis abuse, uncomplicated; F14.10 Cocaine abuse, uncomplicated; F17.200 Nicotine dependence, unspecified, uncomplicated; W10.9XXA Fall (on) (from) unspecified stairs and steps, initial encounter
CPT/HCPCS: 70450; 71046; 72125; 73030; 99285

== ENCOUNTER 2017-07-30 23:47 | Emergency (ER) | payer OTHER ==
[~2017-07-30] VITALS: Ht 154.9 cm; Wt 85.0 kg
[~2017-07-30 23:47] MED LIST changes: -AUGM875T3 PO; -CLIN150C14 PO; -MAGICPED SWISH-SWAL
[2017-07-30 23:49] VITALS: BP 119/60; PULSE 77; RESP 18; TEMP 98.1; O2SAT 99
[2017-07-31 00:25] VITALS: BP 119/72; PULSE 82; RESP 18; O2SAT 97
[2017-07-31 00:33] LABS: AUTOMATED NEUTROPHIL # 11.9 TH/MM3 (1.8-7.7); BASOPHIL # 0.1 TH/MM3 (0-0.2); BASOPHIL % 0.6 % (0.0-2.0); EOSINOPHIL # 0.1 TH/MM3 (0-0.4); EOSINOPHIL % 0.8 % (0.0-4.0); HEMATOCRIT 35.8 % (35.0-46.0); HEMOGLOBIN 11.9 GM/DL (11.6-15.3); LYMPH % 27.1 % (9.0-44.0); LYMPHOCYTE # 4.7 TH/MM3 (1.0-4.8); MEAN CELL VOLUME 84.3 FL (80.0-100.0); MEAN CORPUSCULAR HGB CONC 33.3 % (32.0-36.0); MEAN PLATELET VOLUME 7.6 FL (7.0-11.0); MONO % 3.1 % (0.0-8.0); MONOCYTE # 0.5 TH/MM3 (0-0.9); NEUT % 68.4 % (16.0-70.0); PLATELET COUNT 384 TH/MM3 (150-450); RED BLOOD COUNT 4.25 MIL/MM3 (4.00-5.30); RED CELL DISTRIBUTION WIDTH 15.6 % (11.6-17.2); WHITE BLOOD COUNT 17.4 TH/MM3 (4.0-11.0)
--- NOTE | 2017-07-31 00:42 | PD ---
HPI Chief Complaint: Abdominal Pain Time Seen by Provider: 00:00 Travel History International Travel<30 days: No Contact w/Intl Traveler<30days: No Traveled to known affect area: No History of Present Illness HPI The patient is a 27 year old female who presents to the [facility] emergency department with a history of abdominal pain and back pain that began 5 days ago. It is located in the periumbilical area. The pain is coming and going every 15-20 minutes. It is sharp in character. It is better with bending over. She has had hematuria. She denies dysuria or urinary frequency. She has had n/v daily. She reports having vomiting 6 today. She denies having any diarrhea. She last moved her bowels 3 days ago. She usually moves her bowels once every other day. The patient reports that she has had hematuria. She denies having any dysuria or urinary urgency. She reports having chronic urinary frequency. She reports that she has been seen twice at [facility] related to these symptoms. She is unsure of what type of imaging was done. The patient reports having a history of chronic abdominal pain and back pain which her primary care physician treats with hydrocodone. She reports that she is in the process of being referred to pain management. She reports that she believes that she has chronic abdominal pain and back pain related to her history of kidney stones and peptic ulcer disease. 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 Cotter. She denies having any known recent fevers, cough or congestion, neck pain, chest pain, shortness of breath, or neurologic symptoms. LMP: 2-1/2 weeks ago. [facility] Past Medical History Narrative Medical The patient past medical history is significant for kidney stones, peptic ulcer disease, chronic abdominal pain- in pain management and on hydrocodone, history of tachycardia, history of bipolar disorder, history of sleep apnea. Dr. Sage -PCP Dr. Cotter- GI. Hx Anticoagulant Therapy: No ADHD: Yes Autoimmune Disease: No Blood Disorders: No Bipolar Disorder: Yes Anxiety: Yes Depression: Yes Heart Rhythm Problems: Yes ("fast heart rate" ) Cancer: No Cardiac Catheterization: No Cardiovascular Problems: Yes (RAPID HEART BEATS , INTERNAL MONITOR , LOOP RECORDER ) High Cholesterol: Yes Chemotherapy: No Chest Pain: Yes Congestive Heart Failure: No Cerebrovascular Accident: No Diabetes: No Diminished Hearing: No Endocrine: Yes Gastrointestinal Disorders: Yes (hx ulcer, reflux) GERD: Yes Genitourinary: No Hepatitis: No Hiatal Hernia: No Heparin Induced Thrombocytopen: No Hypertension: Yes Implanted Vascular Access Dvce: Yes ("LOOP RECORDER INSIDE MY CHEST") Kidney Stones: Yes Musculoskeletal: No Neurologic: No Psychiatric: Yes (BIPOLAR ANXIETY) Reproductive: Yes Respiratory: Yes Immunizations Current: Yes Seizures: No Sleep Apnea: Yes (pending test) Thyroid Disease: Yes (nodule on thyroid) Ulcer: Yes PNEUMOCCOCAL Vaccine (Year): 2 ?: Unknown LMP: 07/18/2017 Menopausal: No : 1 Para: 0 Miscarriage: 1 : 0 Ovarian Cysts: Yes Past Surgical History Narrative Surgical The patient's past surgical history is significant for a loop recorder implant, adhesion lysis. Abdominal Surgery: Yes (Adhesions 03/05) AICD: No Body Medical Devices: loop recorder Cardiac Surgery: Yes (loop recorder) Coronary Artery Bypass Graft: No Ear Surgery: No Endocrine Surgery: No Eye Surgery: No Genitourinary Surgery: No Hysterectomy: No Joint Replacement: No Neurologic Surgery: No Oral Surgery: No Pacemaker: No Thoracic Surgery: No Other Surgery: Yes (loop recorder) Family History Family Myocardial Infarction: Yes (GRANDFATHER AT AGE 38) Social History Alcohol Use: Yes (rare) Tobacco Use: Yes (one pack day) Substance Use: No Allergies-Medications (Allergen,Severity, Reaction): Coded Allergies: ketorolac (Verified Allergy, Intermediate, Swelling, 07/30/17) "IT MAKES MY THROAT FEEL LIKE IT'S GOING TO CLOSE AND IT GIVES ME AN UPSET STOMACH" STATED 06/11/17 Reported Meds & Prescriptions Reported Meds & Active Scripts Active Ibuprofen 600 Mg Tab 600 Mg PO TID Reported Pantoprazole (Pantoprazole Sodium) 20 Mg Tab 20 Mg PO DAILY Hydrocodone-Acetaminophen 10-300 Tab 1 Tab PO Q6H PRN Seroquel (Quetiapine Fumarate) 50 Mg Tab 100 Mg PO DAILY Lexapro (Escitalopram Oxalate) 20 Mg Tab 20 Mg PO DAILY Phenergan and hydrocodone Review of Systems Except as stated in HPI: all other systems reviewed are Neg General / Constitutional: No: Fever Eyes: No: Visual changes HENT: No: Headaches Cardiovascular: No: Chest Pain or Discomfort Respiratory: No: Shortness of Breath Gastrointestinal: Positive: Nausea, Vomiting, Abdominal Pain, No: Diarrhea, Hematemesis, Hematochezia, Changes in Bowel Habits, Indigestion, Loss of Appetite Genitourinary: Positive: Hematuria, Flank Pain, No: Urgency, Frequency, Dysuria Musculoskeletal: No: Pain Skin: No Rash Neurologic: No: Weakness Psychiatric: No: Depression Endocrine: No: Polydipsia Hematologic/Lymphatic: No: Easy Bruising Physical Exam Narrative General: The patient is a well-developed well-nourished female in no acute distress. Head and Neck exam: Head is normocephalic atraumatic. Eyes: EOMI, pupils are equal round and reactive to light. Nose: Midline septum with pink mucous membranes Mouth: Dentition unremarkable. Moist mucus membranes. Posterior oropharynx is not erythematous. No tonsillar hypertrophy. Uvula midline. Airway patent. Neck: No palpable lymphadenopathy. No nuchal rigidity. No thyromegaly. Cardiovascular: Regular rate and rhythm without murmurs, gallops, or rubs. No pulse deficit to the extremities on simultaneous auscultation and palpation of her radial artery. Lungs: Clear to auscultation bilaterally. No wheezes, rhonchi, or rales. Abdomen: Soft, reported tenderness on palpation along the area just below the umbilicus and a band across her abdomen. No other tenderness on palpation of the other quadrants of the abdomen. Negative Miller sign. No tenderness on palpation of McBurney's point. No guarding, rebound, or rigidity. Normal bowel sounds are audible. Extremities: No clubbing, cyanosis, or edema. 2+ pulses in all 4 extremities. No calf tenderness on palpation. Back: No spinous process tenderness to palpation. The patient reports right-sided CVA tenderness on palpation Neurologic Exam: Grossly nonfocal. Skin Exam: No rash noted. Intact skin that is warm and dry. Data Data Last Documented VS Vital Signs Date Time Temp Pulse Resp B/P (MAP) Pulse Ox O2 Delivery O2 Flow Rate FiO2 07/31/17 02:44 07/31/17 00:52 97 Room Air 07/31/17 00:25 82 18 07/30/17 23:49 98.1 Orders Orders Complete Blood Count With Diff (07/31/17 00:00) Comprehensive Metabolic Panel (07/31/17 00:00) C-Reactive Protein (Crp) (07/31/17 00:00) Lipase (07/31/17 00:00) Urinalysis - C+S If Indicated (07/31/17 00:00) Magnesium (Mg) (07/31/17 00:00) Iv Access Insert/Monitor (07/31/17 00:00) Ecg Monitoring (07/31/17 00:00) Oximetry (07/31/17 00:00) Ed Urine Pregnancytest Poc (07/31/17 00:00) Sodium Chlor 0.9% 1000 Ml Inj (Ns 1000 M (07/31/17 01:45) Prochlorperazine Inj (Compazine Inj) (07/31/17 01:45) Dicyclomine Inj (Bentyl Inj) (07/31/17 01:45) Labs Laboratory Tests Test 07/31/17 00:10 07/31/17 00:17 Urine Color YELLOW Urine Turbidity CLEAR Urine pH 6.0 Urine Specific Carney 1.034 Urine Protein TRACE mg/dL Urine Glucose (UA) NEG mg/dL Urine Ketones NEG mg/dL Urine Occult Blood MOD Urine Nitrite NEG Urine Bilirubin NEG Urine Urobilinogen 2.0 MG/DL Urine Leukocyte Esterase NEG Urine RBC /hpf Urine Squamous Epithelial Cells 1 /hpf Urine Transitional Epithelial Cells <1 /hpf Urine Mucus MANY /lpf Microscopic Urinalysis Comment CULT NOT INDICATED White Blood Count 17.4 TH/MM3 Red Blood Count 4.25 MIL/MM3 Hemoglobin 11.9 GM/DL Hematocrit 35.8 % Mean Corpuscular Volume 84.3 FL Mean Corpuscular Hemoglobin 28.0 PG Mean Corpuscular Hemoglobin Concent 33.3 % Red Cell Distribution Width 15.6 % Platelet Count 384 TH/MM3 Mean Platelet Volume 7.6 FL Neutrophils (%) (Auto) 68.4 % Lymphocytes (%) (Auto) 27.1 % Monocytes (%) (Auto) 3.1 % Eosinophils (%) (Auto) 0.8 % Basophils (%) (Auto) 0.6 % Neutrophils # (Auto) 11.9 TH/MM3 Lymphocytes # (Auto) 4.7 TH/MM3 Monocytes # (Auto) 0.5 TH/MM3 Eosinophils # (Auto) 0.1 TH/MM3 Basophils # (Auto) 0.1 TH/MM3 CBC Comment DIFF FINAL Differential Comment Blood Urea Nitrogen 15 MG/DL Creatinine 0.53 MG/DL Random Glucose 107 MG/DL Total Protein 6.7 GM/DL Albumin 3.3 GM/DL Calcium Level 7.9 MG/DL Magnesium Level 1.8 MG/DL Alkaline Phosphatase 71 U/L Aspartate Amino Transf (AST/SGOT) 24 U/L Alanine Aminotransferase (ALT/SGPT) 41 U/L Total Bilirubin 0.2 MG/DL Sodium Level 143 MEQ/L Potassium Level 3.4 MEQ/L Chloride Level 110 MEQ/L Carbon Dioxide Level 25.1 MEQ/L Anion Gap 8 MEQ/L Estimat Glomerular Filtration Rate 136 ML/MIN C-Reactive Protein 2.00 MG/DL Lipase 286 U/L MDM Medical Decision Making Medical Screen Exam Complete: Yes Emergency Medical Condition: Yes Medical Record Reviewed: Yes Differential Diagnosis Pyelonephritis, versus kidney stone, versus gastroenteritis, versus colitis, versus bowel obstruction Narrative Course During the course of the patient's emergency department visit, the patient's history, examination, and differential diagnosis were reviewed with the patient. The patient was placed on a monitor tech with oximetry and frequent blood pressure monitoring. The patient had IV access obtained and blood work sent for analysis. Records from [facility] will be obtained at that facility on 2 occasions with the symptoms. The patient was initially provided normal saline 1 L IV fluid bolus, Compazine 5 mg IV, Bentyl 20 mg IM. The patient's laboratory studies were reviewed and remarkable for white count of 17.4, hemoglobin 11.9, platelets 384 with a normal differential, CMP is remarkable for potassium 3.4, chloride 110, glucose 107, calcium 7.9, C- reactive protein 2, albumin 3.3, lipase 286, urinalysis showed moderate occult blood innumerable RBCs 1 squamous epithelial cells many mucus, culture not indicated. A CAT scan of the abdomen and pelvis was ordered with IV contrast. While awaiting records from the other facility and imaging suddenly decided that she would need to follow-up with her primary care physician tomorrow. She reports that she has already made an appointment to follow-up with him. The patient was instructed that she does have an elevated white blood cell count and hematuria. In order to evaluate for underlying serious cause, CT scan required. In spite of this, the patient decided to leave AGAINST MEDICAL ADVICE prior to the completion of her workup. AMA: The risks of leaving against medical advice without further evaluation treatment were discussed with the patient. These risks include peritonitis, versus sepsis, versus or . The patient indicated understanding of these risks and appeared to have the capacity to make this decision. Diagnosis Primary Impression: Abdominal pain Qualified Codes: R10.84 - Generalized abdominal pain Additional Impressions: Hematuria Qualified Codes: R31.9 - Hematuria, unspecified Leukocytosis Qualified Codes: D72.829 - Elevated white blood cell count, unspecified Referrals: Primary Care Physician 1 day Patient Instructions: Abdominal Pain (ED), General Instructions, Leukocytosis ( ED) Disposition: 07 AGAINST MEDICAL ADVICE Condition: Stable Almaz Dahl MD July 31, 2017 00:42
[2017-07-31 00:52] VITALS: O2SAT 97
[2017-07-31 00:53] LABS: BILIRUBIN, URINE NEG (NEG); BLOOD, URINE MOD (NEG); GLUCOSE,URINE NEG (NEG); KETONE, URINE NEG (NEG); MUCUS URINE MANY /lpf (OCC); NITRITE,URINE NEG (NEG); SQUAMOUS EPITHELIAL CELL URINE 1 /hpf (0-5); TRANSITIONAL EPI CELLS, URINE <1 /hpf; URINE COLOR YELLOW (YELLW/STRAW); URINE LEUKOCYTE ESTERASE NEG (NEG)
[2017-07-31 01:01] LABS: ALBUMIN 3.3 GM/DL (3.4-5.0); ALT (GPT) 41 U/L (10-53); AST (GOT) 24 U/L (15-37); BICARBONATE 25.1 MEQ/L (21.0-32.0); BLOOD UREA NITROGEN 15 MG/DL (7-18); CALCIUM 7.9 MG/DL (8.5-10.1); CHLORIDE 110 MEQ/L (98-107); CREATININE 0.53 MG/DL (0.50-1.00); GLOMERULAR FILTRATION RATE 136 ML/MIN (>89); GLUCOSE,RANDOM 107 MG/DL (74-106); MAGNESIUM 1.8 MG/DL (1.5-2.5); SODIUM (NA) 143 MEQ/L (136-145)
[2017-07-31 01:03] LABS: ALKALINE PHOSPHATASE 71 U/L (45-117); TOTAL BILIRUBIN ADULT 0.2 MG/DL (0.2-1.0); TOTAL PROTEIN 6.7 GM/DL (6.4-8.2)
[2017-07-31] MEDS ORDERED: DICYCLOMINE HCL 20 MG/2 ML VIAL IM ONE (01:45)
[2017-07-31] MEDS ORDERED: SODIUM CHLOR 0.9% 1000 ML INJ 1,000 ML IV ONE (01:45)
[2017-07-31] MEDS ORDERED: PROCHLORPERAZINE INJ 10 MG/2 ML VIAL IV PUSH ONE (01:45)
== END 2017-07-31 03:11 | disposition left against medical advice (07) ==
LOC: NEPE 23:47
DX: R10.84 Generalized abdominal pain (principal); R31.9 Hematuria, unspecified; D72.829 Elevated white blood cell count, unspecified; R11.2 Nausea with vomiting, unspecified; R35.0 Frequency of micturition; M54.9 Dorsalgia, unspecified; Z53.29 Procedure and treatment not carried out because of patient's decision for other reasons; I10 Essential (primary) hypertension; K21.9 Gastro-esophageal reflux disease without esophagitis; K27.9 Peptic ulcer, site unspecified, unspecified as acute or chronic, without hemorrhage or perforation; E78.00 Pure hypercholesterolemia, unspecified; E07.9 Disorder of thyroid, unspecified; F31.9 Bipolar disorder, unspecified; F41.8 Other specified anxiety disorders; F17.200 Nicotine dependence, unspecified, uncomplicated; Z87.442 Personal history of urinary calculi; Z86.79 Personal history of other diseases of the circulatory system
CPT/HCPCS: 80053; 81001; 83690; 83735; 84703; 85025; 86140; 96372; 96374; 99284; J0500; J0780; J7030

== ENCOUNTER 2017-08-04 11:50 | Emergency (ER) | payer OTHER ==
[~2017-08-04 11:50] MED LIST changes: -METO25TA3 PO
[2017-08-04 12:04] VITALS: BP 133/65; PULSE 88; RESP 16; TEMP 98.8; O2SAT 98
--- NOTE | 2017-08-04 12:46 | RADRPT ---
EXAM DATE/TIME: 08/04/2017 12:20 [facility] COMPARISON: CHEST PA & LAT, June 11, 2017, 1:02. INDICATIONS : Chest pain. MEDICAL HISTORY : Cardiovascular disease. SURGICAL HISTORY : Loop recorder ENCOUNTER: Initial ACUITY: 1 day PAIN SCORE: 5/10 LOCATION: Bilateral chest FINDINGS: PA and lateral views of the chest demonstrate the lungs to be symmetrically aerated without evidence of mass, infiltrate or effusion. The cardiomediastinal contours are unremarkable. Osseous structure s are intact. Loop recorder projects over the cardiac silhouette CONCLUSION: No acute cardiopulmonary process. Reji Reynoso MD on August 04, 2017 at 12:43 Board Certified Radiologist. This report was verified electronically.
[2017-08-04] MEDS ORDERED: LIDOCAINE HCL 1% 50 ML VIAL XX ONE (15:30)
[2017-08-04] MEDS ORDERED: cefTRIAXone 250 MG VIAL IM ONE (15:30)
[2017-08-04] MEDS ORDERED: METR-1 PO (15:39)
[2017-08-04] MEDS ORDERED: DOXY100C PO (15:39)
--- NOTE | 2017-08-04 15:40 | PD ---
HPI . Pelvic pain Chief Complaint: Chest Pain Time Seen by Provider: 14:40 Travel History International Travel<30 days: No Contact w/Intl Traveler<30days: No Traveled to known affect area: No History of Present Illness HPI This patient presents with chief complaint of pelvic and low back pain. Onset has been a couple weeks ago. Progression is constant. Severity is 3/10. Context is that her estranged boyfriend was unfaithful. In addition, the patient was complaining with some chest pain. PFSH Past Medical History Hx Anticoagulant Therapy: No ADHD: Yes Autoimmune Disease: No Blood Disorders: No Bipolar Disorder: Yes Anxiety: Yes Depression: Yes Heart Rhythm Problems: Yes ("fast heart rate" ) Cancer: No Cardiac Catheterization: No Cardiovascular Problems: Yes (RAPID HEART BEATS , INTERNAL MONITOR , LOOP RECORDER ) High Cholesterol: Yes Chemotherapy: No Chest Pain: Yes Congestive Heart Failure: No Cerebrovascular Accident: No Diabetes: No Diminished Hearing: No Endocrine: Yes Gastrointestinal Disorders: Yes (hx ulcer, reflux) GERD: Yes Genitourinary: No Hepatitis: No Hiatal Hernia: No Heparin Induced Thrombocytopen: No Hypertension: Yes Implanted Vascular Access Dvce: Yes ("LOOP RECORDER INSIDE MY CHEST") Kidney Stones: Yes Musculoskeletal: No Neurologic: No Psychiatric: Yes (BIPOLAR ANXIETY) Reproductive: Yes Respiratory: Yes Immunizations Current: Yes Seizures: No Sleep Apnea: Yes (pending test) Thyroid Disease: Yes (nodule on thyroid) Ulcer: Yes PNEUMOCCOCAL Vaccine (Year): 2 ?: Unknown LMP: 06/2017 Menopausal: No : 1 Para: 0 Miscarriage: 1 : 0 Ovarian Cysts: Yes Past Surgical History Abdominal Surgery: Yes (Adhesions 03/05) AICD: No Body Medical Devices: loop recorder Cardiac Surgery: Yes (loop recorder) Coronary Artery Bypass Graft: No Ear Surgery: No Endocrine Surgery: No Eye Surgery: No Genitourinary Surgery: No Gynecologic Surgery: Yes (Laproscopy for scar tissue removal) Hysterectomy: No Joint Replacement: No Neurologic Surgery: No Oral Surgery: No Pacemaker: No Thoracic Surgery: No Other Surgery: Yes (loop recorder) Family History Family Myocardial Infarction: Yes (GRANDFATHER AT AGE 38) Social History Alcohol Use: Yes (rare) Tobacco Use: Yes (one pack day) Substance Use: No Allergies-Medications (Allergen,Severity, Reaction): Coded Allergies: ketorolac (Verified Allergy, Intermediate, Swelling, 08/04/17) "IT MAKES MY THROAT FEEL LIKE IT'S GOING TO CLOSE AND IT GIVES ME AN UPSET STOMACH" STATED 06/11/17 Reported Meds & Prescriptions Reported Meds & Active Scripts Active Ibuprofen 600 Mg Tab 600 Mg PO TID Reported Pantoprazole (Pantoprazole Sodium) 20 Mg Tab 20 Mg PO DAILY Hydrocodone-Acetaminophen 10-300 Tab 1 Tab PO Q6H PRN Seroquel (Quetiapine Fumarate) 50 Mg Tab 100 Mg PO DAILY Lexapro (Escitalopram Oxalate) 20 Mg Tab 20 Mg PO DAILY Review of Systems Except as stated in HPI: all other systems reviewed are Neg Physical Exam Narrative GENERAL: Patient is awake and alert and in no distress. SKIN: warm/dry. HEAD: Normocephalic. Atraumatic. EYES: Pupils equal and round. No scleral icterus. No injection or drainage. ENT: No nasal bleeding or discharge. Mucous membranes pink and moist. NECK: Trachea midline. Full range of motion without pain.. CARDIOVASCULAR: Regular rate and rhythm. Heart sounds normal. RESPIRATORY: No accessory muscle use. Clear to auscultation. Breath sounds equal bilaterally. Chest wall tenderness. GASTROINTESTINAL: Abdomen soft. Nontender. Bowel sounds present. Nondistended. : Normal female. Positive cervical motion tenderness. Bilateral adnexal tenderness. MUSCULOSKELETAL: No obvious deformities. NEUROLOGICAL: Awake and alert. No obvious cranial nerve deficits. Motor grossly within normal limits. Normal speech. PSYCHIATRIC: Appropriate mood and affect; insight and judgment normal. Data Data Last Documented VS Vital Signs Date Time Temp Pulse Resp B/P (MAP) Pulse Ox O2 Delivery O2 Flow Rate FiO2 08/04/17 12:04 98.8 88 16 133/65 (87) 98 Orders Orders Electrocardiogram (08/04/17 ) Chest, Pa & Lat (08/04/17 ) Gc And Chlamydia Pcr (08/04/17 14:59) Wet Prep Profile (08/04/17 14:59) Ed Urine Pregnancytest Poc (08/04/17 14:59) Ceftriaxone Inj (Rocephin Inj) (08/04/17 15:30) Lidocaine 1% Inj (50 Ml) (Xylocaine 1% I (08/04/17 15:30) Lidocaine 1% Inj (Xylocaine 1% Inj) (08/04/17 15:45) MDM Medical Decision Making Medical Screen Exam Complete: Yes Emergency Medical Condition: Yes Interpretation(s) EKG shows a normal sinus rhythm with no ischemic change. Differential Diagnosis Differential diagnosis of pelvic pain includes but is not limited to UTI, PID, ectopic , spontaneous AB, constipation, viral illness Narrative Course This patient presents with chief complaint of pelvic and low back pain. By exam , she has PID. In addition, the patient is complaining with some chest pain. It is reproducible. She has a normal EKG. Last Impressions Chest X-Ray 08/04/17 0000 Signed Impressions: Service Date/Time: Friday, August 04, 2017 12:20 - CONCLUSION: No acute cardiopulmonary process. Reji Reynoso MD She has been treated here with Rocephin. She will be discharged with prescriptions for doxycycline and Flagyl. Diagnosis Primary Impression: Pelvic inflammatory disease Additional Impression: Chest wall pain Patient Instructions: Chest Wall Pain (ED), General Instructions, Pelvic Inflammatory Disease (DC) Med/Other Pt SpecificInfo: Prescription(s) given Scripts Metronidazole (Flagyl) 500 Mg Tab 500 MG PO BID for Infection for 7 Days, #14 TAB 0 Refills Prov: Shanda Cabrales MD 08/04/17 Doxycycline Hyclate (Doxycycline Hyclate) 100 Mg Cap 100 MG PO BID for Infection, #20 CAP 0 Refills Prov: Shanda Cabrales MD 08/04/17 Disposition: 01 DISCHARGE HOME Condition: Stable Shanda Cabrales MD August 04, 2017 15:40
[2017-08-04] MEDS ORDERED: LIDOCAINE HCL 1% 30 ML VIAL OTHER ONE (15:45)
--- NOTE | 2017-08-05 14:03 | EKG ---
Date Performed: 08/04/2017 Time Performed: 12:12:56 PTAGE: 27 years EKG: Sinus rhythm NORMAL ECG PREVIOUS TRACING : 05/28/2017 00.30 Since the previous tracing, no significant change noted DOCTOR: Jg Beckett Interpretating Date/Time 08/05/2017 14:00:17
== END 2017-08-04 16:21 | disposition home or self-care (01) ==
LOC: NEPD 11:50
DX: N73.9 Female pelvic inflammatory disease, unspecified (principal); R07.89 Other chest pain; K21.9 Gastro-esophageal reflux disease without esophagitis; F31.9 Bipolar disorder, unspecified; F17.200 Nicotine dependence, unspecified, uncomplicated
CPT/HCPCS: 71046; 84703; 87210; 87491; 87591; 93005; 96372; 99285; J0696

== ENCOUNTER 2017-08-21 04:40 | Emergency (ER) | payer OTHER ==
[~2017-08-21] VITALS: Ht 154.9 cm; Wt 81.5 kg
[~2017-08-21 04:40] MED LIST changes: +DOXY100C PO; +METR-1 PO
[2017-08-21 04:52] VITALS: BP 105/66; PULSE 85; RESP 16; TEMP 98.2; O2SAT 98
[2017-08-21] MEDS ORDERED: SODIUM CHLOR 0.9% 1000 ML INJ 1,000 ML IV ONE (05:15)
[2017-08-21] MEDS ORDERED: PROCHLORPERAZINE INJ 10 MG/2 ML VIAL IV PUSH ONE (05:15)
[2017-08-21] MEDS ORDERED: DICYCLOMINE HCL 20 MG/2 ML VIAL IM ONE (05:45)
--- NOTE | 2017-08-21 05:47 | PD ---
HPI Chief Complaint: Abdominal Pain Time Seen by Provider: 05:07 Travel History International Travel<30 days: No Contact w/Intl Traveler<30days: No Traveled to known affect area: No History of Present Illness HPI The patient is a 27 year old female who presents to the [facility] emergency department with a history of chronic abdominal pain who presents with worsening abdominal pain for the last month. The patient reports that the abdominal pain is in the upper abdomen bilateral upper quadrants and midepigastric area. The patient reports that she also has right flank pain. She reports having intermittent nausea and vomiting associated with this pain over the last month. She reports that she is in the process of being referred back to her melon packer, Dr. Cotter for additional evaluation. She denies having any diarrhea. She last moved her bowels 2 days ago. She reports that she normally moves her bowels 1-2 times per day. The patient is reportedly on hydrocodone for chronic abdominal pain and back pain. She has been on this under the care of her primary care physician Dr. Martins for the last 2 years. She denies having any dysuria or urinary urgency. She reports having chronic urinary frequency which is unchanged. On review of systems otherwise, the patient denies having any known recent fevers, cough or congestion, neck pain, new or worsening chest pain or shortness of breath, or neurologic symptoms. LMP: Reportedly 2 weeks ago. PFSH Past Medical History Narrative Medical The patient's past medical history is significant for recurrent chest pain worked up in the past with a stress test that was negative in 2017, palpitations in the process of being worked up with a loop recorder implanted, history of chronic abdominal pain, bipolar disorder, acid reflux Hx Anticoagulant Therapy: No ADHD: Yes Autoimmune Disease: No Blood Disorders: No Bipolar Disorder: Yes Anxiety: Yes Depression: Yes Heart Rhythm Problems: Yes ("fast heart rate" ) Cancer: No Cardiac Catheterization: No Cardiovascular Problems: Yes (Loop recorder) High Cholesterol: Yes Chemotherapy: No Chest Pain: Yes Congestive Heart Failure: No Cerebrovascular Accident: No Diabetes: No Diminished Hearing: No Endocrine: Yes Gastrointestinal Disorders: Yes (hx ulcer, reflux) GERD: Yes Genitourinary: No Hepatitis: No Hiatal Hernia: No Heparin Induced Thrombocytopen: No Hypertension: Yes Implanted Vascular Access Dvce: Yes ("LOOP RECORDER INSIDE MY CHEST") Kidney Stones: Yes Musculoskeletal: No Neurologic: No Psychiatric: Yes (BIPOLAR ANXIETY) Reproductive: Yes Respiratory: Yes Immunizations Current: Yes Seizures: No Sleep Apnea: Yes (pending test) Thyroid Disease: Yes (nodule on thyroid) Ulcer: Yes Tetanus Vaccination: Unknown Influenza Vaccination: No PNEUMOCCOCAL Vaccine (Year): 2 ?: Unknown LMP: 08/07/17 Menopausal: No : 1 Para: 0 Miscarriage: 1 : 0 Ovarian Cysts: Yes Past Surgical History Narrative Surgical The patient's past surgical history is significant for endoscopy and colonoscopy , exploratory laparoscopy for chronic pelvic pain with lysis of adhesions and ablation of minimal endometriosis according to the record, history of a loop recorder implant Abdominal Surgery: Yes (Adhesions 03/05) AICD: No Body Medical Devices: loop recorder Cardiac Surgery: Yes (loop recorder) Coronary Artery Bypass Graft: No Ear Surgery: No Endocrine Surgery: No Eye Surgery: No Genitourinary Surgery: No Gynecologic Surgery: Yes (Laproscopy for scar tissue removal) Hysterectomy: No Joint Replacement: No Neurologic Surgery: No Oral Surgery: No Pacemaker: No Thoracic Surgery: No Other Surgery: Yes (loop recorder) Family History Family Myocardial Infarction: Yes (GRANDFATHER AT AGE 38) Social History Alcohol Use: Yes (rare) Tobacco Use: Yes (one pack day) Substance Use: No Allergies-Medications (Allergen,Severity, Reaction): Coded Allergies: ketorolac (Verified Allergy, Intermediate, Swelling, 08/04/17) "IT MAKES MY THROAT FEEL LIKE IT'S GOING TO CLOSE AND IT GIVES ME AN UPSET STOMACH" STATED 06/11/17 Reported Meds & Prescriptions Reported Meds & Active Scripts Active Reported Pantoprazole (Pantoprazole Sodium) 20 Mg Tab 20 Mg PO DAILY Hydrocodone-Acetaminophen 10-300 Tab 1 Tab PO Q6H PRN Seroquel (Quetiapine Fumarate) 50 Mg Tab 100 Mg PO DAILY Lexapro (Escitalopram Oxalate) 20 Mg Tab 20 Mg PO DAILY Review of Systems Except as stated in HPI: all other systems reviewed are Neg General / Constitutional: No: Fever Eyes: No: Visual changes HENT: No: Headaches Cardiovascular: No: Chest Pain or Discomfort Respiratory: No: Shortness of Breath Gastrointestinal: Positive: Nausea, Vomiting, Abdominal Pain, Constipation, Changes in Bowel Habits, No: Diarrhea, Hematemesis, Hematochezia, Indigestion, Loss of Appetite Genitourinary: No: Dysuria Musculoskeletal: No: Pain Skin: No Rash Neurologic: No: Weakness, Focal Abnormalities, Change in Mentation, Slurred Speech, Sensory Disturbance Psychiatric: No: Depression Endocrine: No: Polydipsia Hematologic/Lymphatic: No: Easy Bruising Physical Exam Narrative General: The patient is a well-developed well-nourished female in no acute distress. Head and Neck exam: Head is normocephalic atraumatic. Eyes: EOMI, pupils are equal round and reactive to light. Nose: Midline septum with pink mucous membranes Mouth: Dentition unremarkable. Moist mucus membranes. Posterior oropharynx is not erythematous. No tonsillar hypertrophy. Uvula midline. Airway patent. Neck: No palpable lymphadenopathy. No nuchal rigidity. No thyromegaly. Cardiovascular: Regular rate and rhythm without murmurs, gallops, or rubs. No pulse deficit to the extremities on simultaneous auscultation and palpation of her radial artery. Lungs: Clear to auscultation bilaterally. No wheezes, rhonchi, or rales. Abdomen: Soft, with reported tenderness on palpation along an area of the lateral left side of the abdomen, mid aspect where the patient reports that she has noticed a lump. There is a superficial dime sized subcutaneous lump palpated that palpates to be a lipoma. The patient reports that this area is tender to palpation. No hernia palpated. No guarding, rebound, or rigidity. Normal bowel sounds are audible. No tenderness on palpation of McBurney's point. Negative Miller sign. Extremities: No clubbing, cyanosis, or edema. 2+ pulses in all 4 extremities. Back: No spinous process tenderness to palpation. The patient reports CVA tenderness on the right. Neurologic Exam: Grossly nonfocal. Skin Exam: No rash noted. Intact skin that is warm and dry. Data Data Last Documented VS Vital Signs Date Time Temp Pulse Resp B/P (MAP) Pulse Ox O2 Delivery O2 Flow Rate FiO2 08/21/17 04:52 98.2 85 16 105/66 (79) 98 Orders Orders Complete Blood Count With Diff (08/21/17 05:11) Comprehensive Metabolic Panel (08/21/17 05:11) C-Reactive Protein (Crp) (08/21/17 05:11) Lipase (08/21/17 05:11) Urinalysis - C+S If Indicated (08/21/17 05:11) Magnesium (Mg) (08/21/17 05:11) Iv Access Insert/Monitor (08/21/17 05:11) Ecg Monitoring (08/21/17 05:11) Oximetry (08/21/17 05:11) Ed Urine Pregnancytest Poc (08/21/17 05:11) Sodium Chlor 0.9% 1000 Ml Inj (Ns 1000 M (08/21/17 05:15) Prochlorperazine Inj (Compazine Inj) (08/21/17 05:15) Dicyclomine Inj (Bentyl Inj) (08/21/17 05:45) Potassium Chloride (Kcl) (08/21/17 06:30) Labs Laboratory Tests Test 08/21/17 05:13 White Blood Count 14.1 TH/MM3 Red Blood Count 4.39 MIL/MM3 Hemoglobin 12.1 GM/DL Hematocrit 36.9 % Mean Corpuscular Volume 84.0 FL Mean Corpuscular Hemoglobin 27.7 PG Mean Corpuscular Hemoglobin Concent 32.9 % Red Cell Distribution Width 14.9 % Platelet Count 403 TH/MM3 Mean Platelet Volume 7.7 FL Neutrophils (%) (Auto) 63.1 % Lymphocytes (%) (Auto) 28.9 % Monocytes (%) (Auto) 4.1 % Eosinophils (%) (Auto) 3.2 % Basophils (%) (Auto) 0.7 % Neutrophils # (Auto) 8.9 TH/MM3 Lymphocytes # (Auto) 4.1 TH/MM3 Monocytes # (Auto) 0.6 TH/MM3 Eosinophils # (Auto) 0.5 TH/MM3 Basophils # (Auto) 0.1 TH/MM3 CBC Comment DIFF FINAL Differential Comment Urine Color YELLOW Urine Turbidity HAZY Urine pH 5.5 Urine Specific [place] 1.020 Urine Protein NEG mg/dL Urine Glucose (UA) NEG mg/dL Urine Ketones NEG mg/dL Urine Occult Blood MOD Urine Nitrite NEG Urine Bilirubin NEG Urine Urobilinogen LESS THAN 2.0 MG/DL Urine Leukocyte Esterase TRACE Urine RBC 127 /hpf Urine WBC 5 /hpf Urine Squamous Epithelial Cells 7 /hpf Urine Bacteria RARE /hpf Urine Mucus FEW /lpf Microscopic Urinalysis Comment CULT NOT INDICATED Blood Urea Nitrogen 11 MG/DL Creatinine 0.55 MG/DL Random Glucose 98 MG/DL Total Protein 7.3 GM/DL Albumin 3.8 GM/DL Calcium Level 8.4 MG/DL Magnesium Level 2.0 MG/DL Alkaline Phosphatase 77 U/L Aspartate Amino Transf (AST/SGOT) 22 U/L Alanine Aminotransferase (ALT/SGPT) 34 U/L Total Bilirubin 0.4 MG/DL Sodium Level 139 MEQ/L Potassium Level 3.2 MEQ/L Chloride Level 106 MEQ/L Carbon Dioxide Level 21.4 MEQ/L Anion Gap 12 MEQ/L Estimat Glomerular Filtration Rate 131 ML/MIN C-Reactive Protein 2.00 MG/DL Lipase 161 U/L MDM Medical Decision Making Medical Screen Exam Complete: Yes Emergency Medical Condition: Yes Medical Record Reviewed: Yes Differential Diagnosis Pyelonephritis, versus kidney stone, versus lipoma, versus hernia, versus somatization Narrative Course During the course of the patient's emergency department visit, the patient's history, examination, and differential diagnosis were reviewed with the patient. The patient was placed on a zipper repairer with oximetry and frequent blood pressure monitoring. The patient had IV access obtained and blood work sent for analysis. The patient was initially provided Compazine 5 mg IV, normal saline 1 L Bentyl 20 mg IM. The patient's laboratory studies were reviewed and remarkable for a white count of 14.1, hemoglobin 12.1, platelets 403, differential is unremarkable, CMP is remarkable for potassium 3.2 which was supplemented orally, calcium 8.4, C- reactive protein 2, lipase 161, urinalysis shows trace leukocyte esterase RBCs 127, WBCs 5, rare bacteria. I discussed with the patient doing a CT to evaluate for possible ureteral stone. She reports that she would like to avoid a CT and she has had multiple CTs in the past. The patient's abdominal examination is benign. A review of the record reveals that she has had hematuria in the past that comes and goes. Review of the patient's prior CT shows that she did have a CT scan in January 2017 that showed a punctate left renal calculi. The patient also has persistent leukocytosis noted in her past laboratory studies. As the patient was recently evaluated on August 04 of this year and received a course of antibiotic to include doxycycline and Flagyl, the patient's urine will be sent for culture. I explained this to the patient and if the patient's culture comes back positive she will be treated with a course of antibiotic. I recommended close follow-up with her primary care physician. The patient reports having hydrocodone for pain. Patient reports having Phenergan for nausea. The patient will be discharged home to follow-up with her melon packer and primary care physician as previously planned. Given the patient's chronic nature of her pain, she was given a trial of Levsin for possible colonic spasms contributing to her pain. The prescription drug monitoring database for [place] was reviewed regarding this patient's narcotic history and the patient was last given a prescription for hydrocodone on July 21, 2017 by her primary care physician. She was dispensed 93 tablets. The database was checked at approximately 5:58 AM on August 21. The patient is resting comfortably and feels better, is alert and in no distress. The patient's results and examination findings were discussed with the patient. The repeat examination is unremarkable and benign. The history, exam, diagnostic testing, and current condition do not suggest any significant pathology to warrant further testing, continued ED treatment, admission, or surgical evaluation at this point. The vital signs have been stable. The patient does not have uncontrollable pain, intractable vomiting, or other significant symptoms. The patient's condition is stable and appropriate for discharge. The patient will pursue further outpatient evaluation with a primary care physician or other designated or consulting physician as indicated in the discharge instructions. The patient is instructed to report back to the emergency department immediately for reexamination in the mean time if he/ she develops any new or worsening signs or symptoms. The patient expressed understanding and was agreeable with this plan. Diagnosis Primary Impression: Chronic abdominal pain Additional Impressions: Leukocytosis Qualified Codes: D72.829 - Elevated white blood cell count, unspecified Microscopic hematuria Referrals: Heel Cover Softener 2 days Primary Care Physician 2 days Patient Instructions: Abdominal Pain (ED), General Instructions Med/Other Pt SpecificInfo: Prescription(s) given Scripts Hyoscyamine Odt (Levsin-SL) 0.125 Mg Subl 0.125 MG SL Q6H Y for PAIN SCALE 5 TO 10, #12 TAB.SL 0 Refills Prov: Almaz Dahl MD 08/21/17 Disposition: 01 DISCHARGE HOME Condition: Stable Almaz Dahl MD Aug 21, 2017 05:47
[2017-08-21 05:49] LABS: AUTOMATED NEUTROPHIL # 8.9 TH/MM3 (1.8-7.7); BASOPHIL # 0.1 TH/MM3 (0-0.2); BASOPHIL % 0.7 % (0.0-2.0); EOSINOPHIL # 0.5 TH/MM3 (0-0.4); EOSINOPHIL % 3.2 % (0.0-4.0); HEMATOCRIT 36.9 % (35.0-46.0); HEMOGLOBIN 12.1 GM/DL (11.6-15.3); LYMPH % 28.9 % (9.0-44.0); LYMPHOCYTE # 4.1 TH/MM3 (1.0-4.8); MEAN CORPUSCULAR HEMOGLOBIN 27.7 PG (27.0-34.0); MEAN CORPUSCULAR HGB CONC 32.9 % (32.0-36.0); MEAN PLATELET VOLUME 7.7 FL (7.0-11.0); MONO % 4.1 % (0.0-8.0); MONOCYTE # 0.6 TH/MM3 (0-0.9); NEUT % 63.1 % (16.0-70.0); PLATELET COUNT 403 TH/MM3 (150-450); RED BLOOD COUNT 4.39 MIL/MM3 (4.00-5.30); RED CELL DISTRIBUTION WIDTH 14.9 % (11.6-17.2); WHITE BLOOD COUNT 14.1 TH/MM3 (4.0-11.0)
[2017-08-21 05:57] LABS: BACTERIA, URINE RARE /hpf; BILIRUBIN, URINE NEG (NEG); BLOOD, URINE MOD (NEG); GLUCOSE,URINE NEG (NEG); KETONE, URINE NEG (NEG); MUCUS URINE FEW /lpf (OCC); NITRITE,URINE NEG (NEG); PH, URINE 5.5 (5.0-8.5); SQUAMOUS EPITHELIAL CELL URINE 7 /hpf (0-5); URINE COLOR YELLOW (YELLW/STRAW); URINE LEUKOCYTE ESTERASE TRACE (NEG)
[2017-08-21 06:09] LABS: ALBUMIN 3.8 GM/DL (3.4-5.0); AST (GOT) 22 U/L (15-37); BICARBONATE 21.4 MEQ/L (21.0-32.0); BLOOD UREA NITROGEN 11 MG/DL (7-18); CALCIUM 8.4 MG/DL (8.5-10.1); CHLORIDE 106 MEQ/L (98-107); CREATININE 0.55 MG/DL (0.50-1.00); GLOMERULAR FILTRATION RATE 131 ML/MIN (>89); GLUCOSE,RANDOM 98 MG/DL (74-106); SODIUM (NA) 139 MEQ/L (136-145)
[2017-08-21 06:10] LABS: ALT (GPT) 34 U/L (10-53)
[2017-08-21 06:12] LABS: ALKALINE PHOSPHATASE 77 U/L (45-117); TOTAL BILIRUBIN ADULT 0.4 MG/DL (0.2-1.0); TOTAL PROTEIN 7.3 GM/DL (6.4-8.2)
[2017-08-21] MEDS ORDERED: POTASSIUM CHLORIDE 20 MEQ CONTROLLED RELEASE TAB PO ONE (06:30)
[2017-08-21] MEDS ORDERED: LEVS0.124 SL (06:42)
== END 2017-08-21 06:54 | disposition home or self-care (01) ==
LOC: NEPC 04:40
DX: R10.9 Unspecified abdominal pain (principal); G89.29 Other chronic pain; D72.829 Elevated white blood cell count, unspecified; R31.29 Other microscopic hematuria; F17.200 Nicotine dependence, unspecified, uncomplicated; F31.9 Bipolar disorder, unspecified; Z79.899 Other long term (current) drug therapy
CPT/HCPCS: 80053; 81001; 83690; 83735; 84703; 85025; 86140; 87086; 96361; 96372; 96374; 99284; J0500; J0780; J7030